=== PATIENT | male | born 1955 | race Caucasian/White ===

== ENCOUNTER 2018-12-08 11:02 | Inpatient (IN) | payer SELFPAY ==
[~2018-12-08] VITALS: Ht 160 cm; Wt 60.3 kg
[2018-12-08] MEDS ORDERED: IV NORMAL SALINE 1000ML BAG 1,000 ML IV SCH (11:23)
--- NOTE | 2018-12-08 11:28 | PHYS DOC ---
Adult General Chief Complaint Chief Complaint: CHEST PAIN HPI HPI Patient is a 63-year-old male who presents with complaint of chest pain that has been waxing and waning for about the last week and a half. Patient states the pain had gotten much worse last night and states that it was a 10 out of 10. He states that pain would start when he was walking and then he would have to sit down and rest for a while after which pain would nearly resolved but isn' t as he would walk again, the pain would return. He states that the pain currently is not as severe. He rates his pain currently at a 4 out of 10. He states that he has had no nausea, vomiting or diaphoresis. He states the pain radiates into both shoulders and axillae and pain down both arms. Review of Systems Review of Systems Constitutional: Denies fever or chills [] Respiratory: Denies cough or shortness of breath [] Cardiovascular: No additional information not addressed in HPI [] GI: Denies abdominal pain, nausea, vomiting or diarrhea [] Integument: Denies rash or skin lesions [] Neurologic: Denies headache, focal weakness or sensory changes [] All other systems were reviewed and found to be within normal limits, except as documented in this note. Current Medications Current Medications Current Medications Medications (Trade) Dose Ordered Sig/[facility] Start Time Stop Time Status Last Admin Dose Admin Aspirin (Children'S Aspirin) 324 mg 1X ONCE 12/08/18 11:30 12/08/18 11:47 DC 12/08/18 11:54 324 MG Nitroglycerin (Nitrostat) 0.4 mg PRN Q5MIN PRN 12/08/18 11:30 12/09/18 11:29 12/08/18 11:57 0.4 MG Sodium Chloride 1,000 ml @ 1,000 mls/hr Q1H 12/08/18 11:23 12/08/18 12:22 DC 12/08/18 11:56 1,000 MLS/HR Allergies Allergies Allergies Coded Allergies Type Severity Reaction Last Updated Verified No Known Drug Allergies 12/08/18 No Physical Exam Physical Exam Constitutional: Well developed, well nourished, no acute distress, non-toxic appearance. [] HENT: Normocephalic, atraumatic, bilateral external ears normal, oropharynx moist, no oral exudates, nose normal. [] Eyes: PERRLA, EOMI, conjunctiva normal, no discharge. [] Neck: Normal range of motion, no tenderness, supple, no stridor. [] Cardiovascular: Regular rate and rhythm[] Lungs & Thorax: Bilateral breath sounds clear to auscultation [] Abdomen: Bowel sounds normal, soft, no tenderness. [] Skin: Warm, dry, no erythema, no rash. [] Extremities: No tenderness, no cyanosis, no clubbing, ROM intact, no edema. [] Neurologic: Alert and oriented X 3, no focal deficits noted. [] Current Patient Data Vital Signs Vital Signs Date Time Temp Pulse Resp B/P (MAP) Pulse Ox O2 Delivery O2 Flow Rate FiO2 12/08/18 11:57 81 158/79 12/08/18 11:10 98.6 16 99 Room Air 98.6 Lab Values Laboratory Tests Test 12/08/18 11:46 12/08/18 13:12 White Blood Count 8.1 x10^3/uL (4.0-11.0) Red Blood Count 4.52 x10^6/uL (4.30-5.70) Hemoglobin 14.9 g/dL (13.0-17.5) Hematocrit 43.8 % (39.0-53.0) Mean Corpuscular Volume 97 fL (79-100) Mean Corpuscular Hemoglobin 33 pg (25-35) Mean Corpuscular Hemoglobin Concent 34 g/dL (31-37) Red Cell Distribution Width 12.8 % (11.5-14.5) Platelet Count 190 x10^3/uL (140-400) Neutrophils (%) (Auto) 68 % (31-73) Lymphocytes (%) (Auto) 21 % (24-48) L Monocytes (%) (Auto) 7 % (0-9) Eosinophils (%) (Auto) 4 % (0-3) H Basophils (%) (Auto) 1 % (0-3) Neutrophils # (Auto) 5.5 x10^3uL (1.8-7.7) Lymphocytes # (Auto) 1.7 x10^3/uL (1.0-4.8) Monocytes # (Auto) 0.6 x10^3/uL (0.0-1.1) Eosinophils # (Auto) 0.3 x10^3/uL (0.0-0.7) Basophils # (Auto) 0.1 x10^3/uL (0.0-0.2) Sodium Level 138 mmol/L (136-145) Potassium Level 4.2 mmol/L (3.5-5.1) Chloride Level 100 mmol/L (98-107) Carbon Dioxide Level 28 mmol/L (21-32) Anion Gap 10 (6-14) Blood Urea Nitrogen 12 mg/dL (8-26) Creatinine 1.2 mg/dL (0.7-1.3) Estimated GFR (Cockcroft-Gault) 61.3 BUN/Creatinine Ratio 10 (6-20) Glucose Level 109 mg/dL (70-99) H Calcium Level 9.1 mg/dL (8.5-10.1) Magnesium Level 2.3 mg/dL (1.8-2.4) Total Bilirubin 0.8 mg/dL (0.2-1.0) Aspartate Amino Transferase (AST) 16 U/L (15-37) Alanine Aminotransferase (ALT) 17 U/L (16-63) Alkaline Phosphatase 87 U/L (46-116) Troponin I Quantitative < 0.017 ng/mL (0.000-0.055) ZI-Yde-T-Type Natriuretic Peptide 72 pg/mL (0-124) Total Protein 8.3 g/dL (6.4-8.2) H Albumin 4.0 g/dL (3.4-5.0) Albumin/Globulin Ratio 0.9 (1.0-1.7) L Lipase 205 U/L (73-393) Urine Collection Type Unknown Urine Color Yellow Urine Clarity Clear Urine pH 5.5 Urine Specific [place] 1.010 Urine Protein Negative mg/dL (NEG-TRACE) Urine Glucose (UA) Negative mg/dL (NEG) Urine Ketones (Stick) Negative mg/dL (NEG) Urine Blood Negative (NEG) Urine Nitrite Negative (NEG) Urine Bilirubin Negative (NEG) Urine Urobilinogen Dipstick 0.2 mg/dL (0.2 mg/dL) Urine Leukocyte Esterase Trace (NEG) Urine RBC Occ /HPF (0-2) Urine WBC 5-10 /HPF (0-4) Urine Squamous Epithelial Cells Few /LPF Urine Transitional Epithelial Cells Occ /LPF Urine Renal Epithelial Cells Occ /LPF Urine Bacteria Few /HPF (0-FEW) Urine Mucus Mod /LPF Urine Opiates Screen Neg (NEG) Urine Methadone Screen Neg (NEG) Urine Barbiturates Neg (NEG) Urine Phencyclidine Screen Neg (NEG) Urine Amphetamine/Methamphetamine Neg (NEG) Urine Benzodiazepines Screen Neg (NEG) Urine Cocaine Screen Neg (NEG) Urine Cannabinoids Screen Pos (NEG) Urine Ethyl Alcohol Neg (NEG) Laboratory Tests 12/08/18 11:46 Laboratory Tests 12/08/18 11:46 EKG EKG [] Interpretation Time: EKG demonstrates normal sinus rhythm with rate of 85. Radiology/Procedures Radiology/Procedures [] Impressions: PROCEDURE: PORTABLE CHEST 1V EXAM: CHEST 1 VIEW History: Chest pain COMPARISON: None available. TECHNIQUE: Single portable radiograph of the chest FINDINGS: The cardiac silhouette is unremarkable. The lungs are clear bilaterally. The costophrenic sulci are clear and well demarcated. IMPRESSION: No radiographic evidence of an acute cardiopulmonary process. Electronically signed by: Tyshawn Goins MD (12/08/2018 11:45 AM) [place] [id number] Course & Med Decision Making Course & Med Decision Making Pertinent Labs and Imaging studies reviewed. (See chart for details) [] Dragon Disclaimer Dragon Disclaimer This electronic medical record was generated, in whole or in part, using a voice recognition dictation system. Departure Departure Impression: Primary Impression: Chest pain Disposition: ADMITTED INPATIENT Admitting Physician: Carley Apodaca Condition: IMPROVED Referrals: UNKNOWN PCP NAME (PCP) Problem Qualifiers Primary Impression: Chest pain Chest pain type: unspecified Qualified Codes: R07.9 - Chest pain, unspecified LEANDER MEI Jr. DO Dec 08, 2018 11:28
[2018-12-08] MEDS ORDERED: NITROGLYCERIN SUBLINGUAL 0.4 MG BOTTLE OF 25. SL PRN ×2 (11:30→13:45)
[2018-12-08] MEDS ORDERED: ASPIRIN CHEWABLE 81 MG TABLET. PO ONE (11:30)
--- NOTE | 2018-12-08 11:48 | RAD ---
EXAM: CHEST 1 VIEW History: Chest pain COMPARISON: None available. TECHNIQUE: Single portable radiograph of the chest FINDINGS: The cardiac silhouette is unremarkable. The lungs are clear bilaterally. The costophrenic sulci are clear and well demarcated. IMPRESSION: No radiographic evidence of an acute cardiopulmonary process. Electronically signed by: Tyshawn Goins MD (12/08/2018 11:45 AM) [place] [id number]
[2018-12-08 11:54] LABS: BASO # 0.1 x10^3/uL (0.0-0.2); BASO % 1 % (0-3); EOS # 0.3 x10^3/uL (0.0-0.7); EOS % 4 % (0-3); HEMATOCRIT 43.8 % (39.0-53.0); HEMOGLOBIN 14.9 g/dL (13.0-17.5); LYMPH # 1.7 x10^3/uL (1.0-4.8); LYMPH % 21 % (24-48); MEAN CORPUSCULAR HEMOGLOBIN 33 pg (25-35); MEAN CORPUSCULAR HGB CONC 34 g/dL (31-37); MEAN CORPUSCULAR VOLUME 97 fL (79-100); MONO # 0.6 x10^3/uL (0.0-1.1); MONO % 7 % (0-9); NEUT # 5.5 x10^3uL (1.8-7.7); NEUT % 68 % (31-73); PLATELET COUNT 190 x10^3/uL (140-400); RED BLOOD COUNT 4.52 x10^6/uL (4.30-5.70); RED CELL DISTRIBUTION WIDTH 12.8 % (11.5-14.5); WHITE BLOOD COUNT 8.1 x10^3/uL (4.0-11.0)
[2018-12-08 12:28] LABS: ALBUMIN/GLOBULIN RATIO 0.9 (1.0-1.7); CALCIUM 9.1 mg/dL (8.5-10.1); CREATININE 1.2 mg/dL (0.7-1.3); GFR 61.3; MAGNESIUM 2.3 mg/dL (1.8-2.4); POTASSIUM 4.2 mmol/L (3.5-5.1); TOTAL BILIRUBIN 0.8 mg/dL (0.2-1.0); TOTAL PROTEIN 8.3 g/dL (6.4-8.2)
[2018-12-08 13:20] LABS: BILIRUBIN,URINE NEGATIVE (NEG); CLARITY,URINE CLEAR; COLOR,URINE YELLOW; NITRITE,URINE NEGATIVE (NEG); PH,URINE 5.5; PROTEIN,URINE NEGATIVE (NEG-TRACE); UROBILINOGEN,URINE 0.2 mg/dL (0.2 mg/dL)
[2018-12-08 13:25] LABS: SQUAMOUS EPITHELIAL CELL,UR FEW /LPF
[2018-12-08 13:26] LABS: BACTERIA,URINE FEW /HPF (0-FEW)
[2018-12-08 13:27] LABS: RBC,URINE OCC /HPF (0-2)
[2018-12-08 13:28] LABS: BARBITURATES NEG (NEG); BENZODIAZEPINES NEG (NEG); CANNABINOIDS POS (NEG); COCAINE NEG (NEG); METHADONE NEG (NEG); OPIATES NEG (NEG); PHENCYCLIDINE NEG (NEG)
[2018-12-08 13:29] LABS: AMPHETAMINE/METHAMPHETAMINE NEG (NEG)
[2018-12-08] MEDS ORDERED: MORPHINE SULFATE 4 MG/ML VIAL. IV PRN (13:45)
[2018-12-08] MEDS ORDERED: ONDANSETRON PF 4 MG/2 ML VIAL. IV PRN (13:45)
[2018-12-08 14:30] VITALS: BP 159/73
--- NOTE | 2018-12-08 14:38 | NUR ---
The patient, SYLVIA SMITH, 63 y/o, M admitted by UBALDO URBINA MD, was given written information regarding hospital policies, unit procedures and contact persons. Valuables were checked and noted. Patient arrived to room 262 via bed from ER at 1438. Patient A&OX4. VSS. No complaints of pain at this time. Will continue to monitor.
[2018-12-08] MEDS ORDERED: ASPI-612 PO (15:06)
--- NOTE | 2018-12-08 16:20 | PDOC1 ---
History and Physical Date of Admission Date of Admission DATE: 12/08/18 TIME: 16:20 Identification/Chief Complaint Chief Complaint chest pain Source Source: Chart review, Patient History of Present Illness History of Present Illness Mr. Wise, is a 63-year-old male admit with chest pain that has been fluctuating for 1 week. Pain worse last night, 10/10, better this afternoon, 5/10 prior CAD konwn, no meds for years, daily aspirin, 2001, AMI, no hospitalization since, he is retired from [employer], He states the pain radiates into both shoulders and axillae and pain down both arms. Past Medical History Cardiovascular: No pertinent hx Pulmonary: No pertinent hx GI: No pertinent hx Heme/Onc: No pertinent hx Endocrine: No pertinent hx Dermatology: No pertinent hx Family History Family History: Hypertension, Other Social History Smoke: No ALCOHOL: none Current Problem List Problem List Problems Medical Problems: (1) Chest pain Status: Acute Current Medications Current Medications Current Medications Aspirin (Children'S Aspirin) 324 mg 1X ONCE PO Last administered on 12/08/18at 11:54; Start 12/08/18 at 11:30; Stop 12/08/18 at 11:47; Status DC Nitroglycerin (Nitrostat) 0.4 mg PRN Q5MIN PRN SL CP RATING > 1/10 Last administered on 12/08/18at 11:57; Start 12/08/18 at 11:30; Stop 12/09/18 at 11:29 Sodium Chloride 1,000 ml @ 1,000 mls/hr Q1H IV Last administered on 12/08/18at 11:56; Start 12/08/18 at 11:23; Stop 12/08/18 at 12:22; Status DC Ondansetron HCl (Zofran) 4 mg PRN Q8HRS PRN IV NAUSEA/VOMITING; Start 12/08/18 at 13:45; Stop 12/09/18 at 13:44 Morphine Sulfate (Morphine Sulfate) 4 mg PRN Q2HR PRN IV PAIN; Start 12/08/18 at 13:45; Stop 12/09/18 at 13:44 Nitroglycerin (Nitrostat) 0.4 mg PRN Q5MIN PRN SL CHEST PAIN; Start 12/08/18 at 13:45; Stop 12/09/18 at 13:44 Influenza Virus Vaccine (Brendanuria Trivalent [id number] Syringe) 0.5 ml ONCE ONCE VAX IM ; Start 12/08/18 at 16:15; Stop 12/08/18 at 16:16; Status UNV Active Scripts Active Reported Aspirin Ec (Aspirin) 81 Mg Tablet.dr 81 Mg PO DAILY Allergies Allergies: Coded Allergies: No Known Drug Allergies (Unverified , 12/08/18) ROS General: No: Chills, Night Sweats, Fatigue, Malaise, Appetite, Other PSYCHOLOGICAL ROS: YES: Anxiety; No: Behavioral Disorder, Concentration difficultie, Decreased libido, Depression, Disorientation, Hallucinations, Hostility, Irritablity, Memory difficulties, Mood Swings, Obsessive thoughts, Physical abuse, Sexual abuse, Sleep disturbances, Suicidal ideation, Other Eyes: No Blurry vision, No Decreased vision, No Double vision, No Dry eyes, No Excessive tearing, No Eye Pain, No Itchy Eyes, No Loss of vision, No Photophobia , No Scotomata, No Uses contacts, No Uses glasses, No Other HEENT: No: Heacaches, Visual Changes, Hearing change, Nasal congestion, Nasal discharge, Oral lesions, Sinus pain, Sore Throat, Epistaxis, Sneezing, Snoring, Tinnitus, Vertigo, Vocal changes, Other Respiratory: No: Cough, Hemoptysis, Orthopnea, Pleuritic Pain, Shortness of breath, SOB with excertion, Sputum Changes, Stridor, Tachypnea, Wheezing, Other Cardiovascular: No Chest Pain, No Palpitations, No Orthopnea, No Paroxysmal Noc. Dyspnea, No Edema, No Lt Headedness, No Other Gastrointestinal: No Nausea, No Vomiting, No Abdominal Pain, No Diarrhea, No Constipation, No Melena, No Hematochezia, No Other Genitourinary: No Dysuria, No Frequency, No Incontinence, No Hematuria, No Retention, No Discharge, No Urgency, No Pain, No Flank Pain, No Other, No , No , No , No , No , No , No Musculoskeletal: No Gait Disturbance, No Joint Pain, No Joint Stiffness, No Joint Swelling, No Muscle Pain, No Muscular Weakness, No Pain In:, No Swelling In:, No Other Neurological: No Behavorial Changes, No Bowel/Bladder ControlChng, No Confusion , No Dizziness, No Gait Disturbance, No Headaches, No Impaired Coord/balance, No Memory Loss, No Numbness/Tingling, No Seizures, No Speech Problems, No Tremors, No Visual Changes, No Weakness, No Other Skin: Yes Dry Skin; No Eczema, No Hair Changes, No Lumps, No Mole Changes, No Mottling, No Nail Changes, No Pruritus, No Rash, No Skin Lesion Changes, No Other, No Acne Physical Exam General: Alert, Oriented X3, Cooperative, mild distress HEENT: Atraumatic, PERRLA, EOMI Lungs: Normal air movement Heart: no murmurs Abdomen: Normal bowel sounds, Soft Rectal Exam: not examined Extremities: No clubbing, No edema Skin: No rashes Neuro: Normal speech, Cranial nerves 3-12 NL Vitals Vitals Vital Signs Date Time Temp Pulse Resp B/P (MAP) Pulse Ox O2 Delivery O2 Flow Rate FiO2 12/08/18 14:30 98.1 63 18 159/73 (101) 98 Room Air 98.1 Labs Labs Laboratory Tests Test 12/08/18 11:46 12/08/18 13:12 White Blood Count 8.1 x10^3/uL (4.0-11.0) Red Blood Count 4.52 x10^6/uL (4.30-5.70) Hemoglobin 14.9 g/dL (13.0-17.5) Hematocrit 43.8 % (39.0-53.0) Mean Corpuscular Volume 97 fL (79-100) Mean Corpuscular Hemoglobin 33 pg (25-35) Mean Corpuscular Hemoglobin Concent 34 g/dL (31-37) Red Cell Distribution Width 12.8 % (11.5-14.5) Platelet Count 190 x10^3/uL (140-400) Neutrophils (%) (Auto) 68 % (31-73) Lymphocytes (%) (Auto) 21 % (24-48) Monocytes (%) (Auto) 7 % (0-9) Eosinophils (%) (Auto) 4 % (0-3) Basophils (%) (Auto) 1 % (0-3) Neutrophils # (Auto) 5.5 x10^3uL (1.8-7.7) Lymphocytes # (Auto) 1.7 x10^3/uL (1.0-4.8) Monocytes # (Auto) 0.6 x10^3/uL (0.0-1.1) Eosinophils # (Auto) 0.3 x10^3/uL (0.0-0.7) Basophils # (Auto) 0.1 x10^3/uL (0.0-0.2) Sodium Level 138 mmol/L (136-145) Potassium Level 4.2 mmol/L (3.5-5.1) Chloride Level 100 mmol/L (98-107) Carbon Dioxide Level 28 mmol/L (21-32) Anion Gap 10 (6-14) Blood Urea Nitrogen 12 mg/dL (8-26) Creatinine 1.2 mg/dL (0.7-1.3) Estimated GFR (Cockcroft-Gault) 61.3 BUN/Creatinine Ratio 10 (6-20) Glucose Level 109 mg/dL (70-99) Calcium Level 9.1 mg/dL (8.5-10.1) Magnesium Level 2.3 mg/dL (1.8-2.4) Total Bilirubin 0.8 mg/dL (0.2-1.0) Aspartate Amino Transf (AST/SGOT) 16 U/L (15-37) Alanine Aminotransferase (ALT/SGPT) 17 U/L (16-63) Alkaline Phosphatase 87 U/L (46-116) Troponin I Quantitative < 0.017 ng/mL (0.000-0.055) CW-Xsn-B-Type Natriuretic Peptide 72 pg/mL (0-124) Total Protein 8.3 g/dL (6.4-8.2) Albumin 4.0 g/dL (3.4-5.0) Albumin/Globulin Ratio 0.9 (1.0-1.7) Lipase 205 U/L (73-393) Urine Collection Type Unknown Urine Color Yellow Urine Clarity Clear Urine pH 5.5 Urine Specific [place] 1.010 Urine Protein Negative mg/dL (NEG-TRACE) Urine Glucose (UA) Negative mg/dL (NEG) Urine Ketones (Stick) Negative mg/dL (NEG) Urine Blood Negative (NEG) Urine Nitrite Negative (NEG) Urine Bilirubin Negative (NEG) Urine Urobilinogen Dipstick 0.2 mg/dL (0.2 mg/dL) Urine Leukocyte Esterase Trace (NEG) Urine RBC Occ /HPF (0-2) Urine WBC 5-10 /HPF (0-4) Urine Squamous Epithelial Cells Few /LPF Urine Transitional Epithelial Cells Occ /LPF Urine Renal Epithelial Cells Occ /LPF Urine Bacteria Few /HPF (0-FEW) Urine Mucus Mod /LPF Urine Opiates Screen Neg (NEG) Urine Methadone Screen Neg (NEG) Urine Barbiturates Neg (NEG) Urine Phencyclidine Screen Neg (NEG) Urine Amphetamine/Methamphetamine Neg (NEG) Urine Benzodiazepines Screen Neg (NEG) Urine Cocaine Screen Neg (NEG) Urine Cannabinoids Screen Pos (NEG) Urine Ethyl Alcohol Neg (NEG) Laboratory Tests Test 12/08/18 11:46 12/08/18 13:12 White Blood Count 8.1 x10^3/uL (4.0-11.0) Red Blood Count 4.52 x10^6/uL (4.30-5.70) Hemoglobin 14.9 g/dL (13.0-17.5) Hematocrit 43.8 % (39.0-53.0) Mean Corpuscular Volume 97 fL (79-100) Mean Corpuscular Hemoglobin 33 pg (25-35) Mean Corpuscular Hemoglobin Concent 34 g/dL (31-37) Red Cell Distribution Width 12.8 % (11.5-14.5) Platelet Count 190 x10^3/uL (140-400) Neutrophils (%) (Auto) 68 % (31-73) Lymphocytes (%) (Auto) 21 % (24-48) Monocytes (%) (Auto) 7 % (0-9) Eosinophils (%) (Auto) 4 % (0-3) Basophils (%) (Auto) 1 % (0-3) Neutrophils # (Auto) 5.5 x10^3uL (1.8-7.7) Lymphocytes # (Auto) 1.7 x10^3/uL (1.0-4.8) Monocytes # (Auto) 0.6 x10^3/uL (0.0-1.1) Eosinophils # (Auto) 0.3 x10^3/uL (0.0-0.7) Basophils # (Auto) 0.1 x10^3/uL (0.0-0.2) Sodium Level 138 mmol/L (136-145) Potassium Level 4.2 mmol/L (3.5-5.1) Chloride Level 100 mmol/L (98-107) Carbon Dioxide Level 28 mmol/L (21-32) Anion Gap 10 (6-14) Blood Urea Nitrogen 12 mg/dL (8-26) Creatinine 1.2 mg/dL (0.7-1.3) Estimated GFR (Cockcroft-Gault) 61.3 BUN/Creatinine Ratio 10 (6-20) Glucose Level 109 mg/dL (70-99) Calcium Level 9.1 mg/dL (8.5-10.1) Magnesium Level 2.3 mg/dL (1.8-2.4) Total Bilirubin 0.8 mg/dL (0.2-1.0) Aspartate Amino Transf (AST/SGOT) 16 U/L (15-37) Alanine Aminotransferase (ALT/SGPT) 17 U/L (16-63) Alkaline Phosphatase 87 U/L (46-116) Troponin I Quantitative < 0.017 ng/mL (0.000-0.055) VB-Twi-[id number]-Type Natriuretic Peptide 72 pg/mL (0-124) Total Protein 8.3 g/dL (6.4-8.2) Albumin 4.0 g/dL (3.4-5.0) Albumin/Globulin Ratio 0.9 (1.0-1.7) Lipase 205 U/L (73-393) Urine Collection Type Unknown Urine Color Yellow Urine Clarity Clear Urine pH 5.5 Urine Specific [place] 1.010 Urine Protein Negative mg/dL (NEG-TRACE) Urine Glucose (UA) Negative mg/dL (NEG) Urine Ketones (Stick) Negative mg/dL (NEG) Urine Blood Negative (NEG) Urine Nitrite Negative (NEG) Urine Bilirubin Negative (NEG) Urine Urobilinogen Dipstick 0.2 mg/dL (0.2 mg/dL) Urine Leukocyte Esterase Trace (NEG) Urine RBC Occ /HPF (0-2) Urine WBC 5-10 /HPF (0-4) Urine Squamous Epithelial Cells Few /LPF Urine Transitional Epithelial Cells Occ /LPF Urine Renal Epithelial Cells Occ /LPF Urine Bacteria Few /HPF (0-FEW) Urine Mucus Mod /LPF Urine Opiates Screen Neg (NEG) Urine Methadone Screen Neg (NEG) Urine Barbiturates Neg (NEG) Urine Phencyclidine Screen Neg (NEG) Urine Amphetamine/Methamphetamine Neg (NEG) Urine Benzodiazepines Screen Neg (NEG) Urine Cocaine Screen Neg (NEG) Urine Cannabinoids Screen Pos (NEG) Urine Ethyl Alcohol Neg (NEG) VTE Prophylaxis Ordered VTE Prophylaxis Devices: No VTE Pharmacological Prophylaxi: Yes Assessment/Plan Assessment/Plan chest pain, w. pressure to back and neck Hx CAD, stents placed here by Dr. Diane in 2001 tobacco and THC use admit, UBALDO URBINA MD Dec 08, 2018 16:20
[2018-12-08 19:39] VITALS: BP 150/78
[2018-12-08] MEDS: ENOXAPARIN 40 MG/0.4 ML SYRINGE. SQ SCH (20:39)
[2018-12-08 23:25] VITALS: BP 128/66
[2018-12-09] VITALS (16 sets, daily range): BP systolic 90–142; BP diastolic 44–84
[2018-12-09 05:15] LABS: BASO # 0.1 x10^3/uL (0.0-0.2); BASO % 1 % (0-3); EOS # 0.3 x10^3/uL (0.0-0.7); EOS % 3 % (0-3); HEMATOCRIT 40.2 % (39.0-53.0); HEMOGLOBIN 13.5 g/dL (13.0-17.5); LYMPH # 1.3 x10^3/uL (1.0-4.8); LYMPH % 15 % (24-48); MEAN CORPUSCULAR HEMOGLOBIN 33 pg (25-35); MEAN CORPUSCULAR HGB CONC 34 g/dL (31-37); MEAN CORPUSCULAR VOLUME 99 fL (79-100); MONO # 0.6 x10^3/uL (0.0-1.1); MONO % 7 % (0-9); NEUT # 6.4 x10^3uL (1.8-7.7); NEUT % 74 % (31-73); PLATELET COUNT 153 x10^3/uL (140-400); RED BLOOD COUNT 4.08 x10^6/uL (4.30-5.70); RED CELL DISTRIBUTION WIDTH 12.9 % (11.5-14.5); WHITE BLOOD COUNT 8.7 x10^3/uL (4.0-11.0)
[2018-12-09 05:55] LABS: ALBUMIN 3.4 g/dL (3.4-5.0); ALBUMIN/GLOBULIN RATIO 0.9 (1.0-1.7); CALCIUM 8.6 mg/dL (8.5-10.1); CREATININE 1.2 mg/dL (0.7-1.3); GFR 61.3; POTASSIUM 4.3 mmol/L (3.5-5.1); TOTAL BILIRUBIN 0.8 mg/dL (0.2-1.0)
--- NOTE | 2018-12-09 09:07 | PDOC2 ---
CARDIAC CONSULT DATE OF CONSULT Date of Consult DATE: 12/09/18 TIME: 08:34 REASON FOR CONSULT Reason for Consult: Chest pain REFERRING PHYSICIAN Referring Physician: David SOURCE Source: Chart review, Patient HISTORY OF PRESENT ILLNESS HISTORY OF PRESENT ILLNESS This is a pleasant 63 yo male admitted for complains of chest pain. Reports that he was walking last night and felt this midchest excruciating pain that made him stop walking. He said that it felt like electricution that last for about 5 minutes and sometimes 15 minutes at a time radiating to both jaws and left arm with tingling to his fingers. Denies any SOA but felt like uncomfortable to take a deep breath. His CP is not the same as when he had his stents placed in 2001. He said that this pain has been chronic going on since 2012 but his has increased in the last week and this is worse. He has not been taking any medications and has not followed up in many years. It was Dr. Fields that placed his stent and claims he just went home with plavix when DCd at that time. Denies any nausea, palpitations but felt like his heart was beating hard. Reports that he was rocking himself when he was having that pain but overnight he has not had any. Denies any routine NSAID use, recent falls, injury, VTE. PAST MEDICAL HISTORY Cardiovascular: CAD, HTN Pulmonary: No pertinent hx CENTRAL NERVOUS SYSTEM: Other (No pertinent history) GI: No pertinent hx Heme/Onc: No pertinent hx Psych: No pertinent hx Musculoskeletal: Osteoarthritis Rheumatologic: No pertinent hx Infectious disease: No pertinent hx ENT: Other (GAMBELL) Renal/: No pertinent hx Endocrine: No pertinent hx Dermatology: No pertinent hx PAST SURGICAL HISTORY Past Surgical History: Other (PCI/stents in 2001) FAMILY HISTORY Family History: Coronary Artery Disease (father and mother) SOCIAL HISTORY Smoke: 1 pack per day (>40 yrs) ALCOHOL: occassional Drugs: Marijuana Lives: Alone CURRENT MEDICATIONS CURRENT MEDICATIONS Current Medications Medications (Trade) Dose Ordered Sig/Jono Route PRN Reason Start Time Stop Time Status Last Admin Dose Admin Aspirin (Children'S Aspirin) 324 mg 1X ONCE PO 12/08/18 11:30 12/08/18 11:47 DC 12/08/18 11:54 Nitroglycerin (Nitrostat) 0.4 mg PRN Q5MIN PRN SL CP RATING > 10/2712/08/18 11:30 12/09/18 11:29 12/08/18 11:57 Sodium Chloride 1,000 ml @ 1,000 mls/hr Q1H IV 12/08/18 11:23 12/08/18 12:22 DC 12/08/18 11:56 Influenza Virus Vaccine (Afluria Trivalent [id number] Syringe) 0.5 ml ONCE ONCE VAX IM 12/08/18 18:00 12/08/18 18:01 DC 12/08/18 18:32 Enoxaparin Sodium (Lovenox 40mg Syringe) 40 mg Q24H SQ 12/08/18 21:00 12/08/18 20:39 ALLERGIES ALLERGIES: Coded Allergies: No Known Drug Allergies (Unverified , 12/08/18) ROS Review of System 14 point ROS evaluated with pertinent positives noted per HPI PHYSICAL EXAM General: Alert, Oriented X3, Cooperative, No acute distress HEENT: Atraumatic, Mucous membr. moist/pink Lungs: Clear to auscultation, Normal air movement Heart: Regular rate (SR with occadional PVC), Normal S1, Normal S2, No murmurs Abdomen: Soft, No tenderness Extremities: No cyanosis, No edema Skin: No breakdown, No significant lesion Neuro: Normal speech, Sensation intact Psych/Mental Status: Mental status NL, Mood NL MUSCULOSKELETAL: Osteoarthritic changes both hands VITALS VITALS Vital Signs Date Time Temp Pulse Resp B/P (MAP) Pulse Ox O2 Delivery O2 Flow Rate FiO2 12/09/18 08:00 Room Air 12/09/18 07:00 97.7 67 18 128/76 (93) 94 97.7 LABS Lab: Laboratory Tests Test 12/08/18 11:46 12/08/18 13:12 12/08/18 16:55 12/08/18 20:00 White Blood Count 8.1 x10^3/uL (4.0-11.0) Red Blood Count 4.52 x10^6/uL (4.30-5.70) Hemoglobin 14.9 g/dL (13.0-17.5) Hematocrit 43.8 % (39.0-53.0) Mean Corpuscular Volume 97 fL (79-100) Mean Corpuscular Hemoglobin 33 pg (25-35) Mean Corpuscular Hemoglobin Concent 34 g/dL (31-37) Red Cell Distribution Width 12.8 % (11.5-14.5) Platelet Count 190 x10^3/uL (140-400) Neutrophils (%) (Auto) 68 % (31-73) Lymphocytes (%) (Auto) 21 % (24-48) Monocytes (%) (Auto) 7 % (0-9) Eosinophils (%) (Auto) 4 % (0-3) Basophils (%) (Auto) 1 % (0-3) Neutrophils # (Auto) 5.5 x10^3uL (1.8-7.7) Lymphocytes # (Auto) 1.7 x10^3/uL (1.0-4.8) Monocytes # (Auto) 0.6 x10^3/uL (0.0-1.1) Eosinophils # (Auto) 0.3 x10^3/uL (0.0-0.7) Basophils # (Auto) 0.1 x10^3/uL (0.0-0.2) Sodium Level 138 mmol/L (136-145) Potassium Level 4.2 mmol/L (3.5-5.1) Chloride Level 100 mmol/L (98-107) Carbon Dioxide Level 28 mmol/L (21-32) Anion Gap 10 (6-14) Blood Urea Nitrogen 12 mg/dL (8-26) Creatinine 1.2 mg/dL (0.7-1.3) Estimated GFR (Cockcroft-Gault) 61.3 BUN/Creatinine Ratio 10 (6-20) Glucose Level 109 mg/dL (70-99) Calcium Level 9.1 mg/dL (8.5-10.1) Magnesium Level 2.3 mg/dL (1.8-2.4) Total Bilirubin 0.8 mg/dL (0.2-1.0) Aspartate Amino Transf (AST/SGOT) 16 U/L (15-37) Alanine Aminotransferase (ALT/SGPT) 17 U/L (16-63) Alkaline Phosphatase 87 U/L (46-116) Troponin I Quantitative < 0.017 ng/mL (0.000-0.055) < 0.017 ng/mL (0.000-0.055) < 0.017 ng/mL (0.000-0.055) DW-Lzd-V-Type Natriuretic Peptide 72 pg/mL (0-124) Total Protein 8.3 g/dL (6.4-8.2) Albumin 4.0 g/dL (3.4-5.0) Albumin/Globulin Ratio 0.9 (1.0-1.7) Lipase 205 U/L (73-393) Urine Collection Type Unknown Urine Color Yellow Urine Clarity Clear Urine pH 5.5 Urine Specific [place] 1.010 Urine Protein Negative mg/dL (NEG-TRACE) Urine Glucose (UA) Negative mg/dL (NEG) Urine Ketones (Stick) Negative mg/dL (NEG) Urine Blood Negative (NEG) Urine Nitrite Negative (NEG) Urine Bilirubin Negative (NEG) Urine Urobilinogen Dipstick 0.2 mg/dL (0.2 mg/dL) Urine Leukocyte Esterase Trace (NEG) Urine RBC Occ /HPF (0-2) Urine WBC 5-10 /HPF (0-4) Urine Squamous Epithelial Cells Few /LPF Urine Transitional Epithelial Cells Occ /LPF Urine Renal Epithelial Cells Occ /LPF Urine Bacteria Few /HPF (0-FEW) Urine Mucus Mod /LPF Urine Opiates Screen Neg (NEG) Urine Methadone Screen Neg (NEG) Urine Barbiturates Neg (NEG) Urine Phencyclidine Screen Neg (NEG) Urine Amphetamine/Methamphetamine Neg (NEG) Urine Benzodiazepines Screen Neg (NEG) Urine Cocaine Screen Neg (NEG) Urine Cannabinoids Screen Pos (NEG) Urine Ethyl Alcohol Neg (NEG) Test 12/09/18 04:00 White Blood Count 8.7 x10^3/uL (4.0-11.0) Red Blood Count 4.08 x10^6/uL (4.30-5.70) Hemoglobin 13.5 g/dL (13.0-17.5) Hematocrit 40.2 % (39.0-53.0) Mean Corpuscular Volume 99 fL (79-100) Mean Corpuscular Hemoglobin 33 pg (25-35) Mean Corpuscular Hemoglobin Concent 34 g/dL (31-37) Red Cell Distribution Width 12.9 % (11.5-14.5) Platelet Count 153 x10^3/uL (140-400) Neutrophils (%) (Auto) 74 % (31-73) Lymphocytes (%) (Auto) 15 % (24-48) Monocytes (%) (Auto) 7 % (0-9) Eosinophils (%) (Auto) 3 % (0-3) Basophils (%) (Auto) 1 % (0-3) Neutrophils # (Auto) 6.4 x10^3uL (1.8-7.7) Lymphocytes # (Auto) 1.3 x10^3/uL (1.0-4.8) Monocytes # (Auto) 0.6 x10^3/uL (0.0-1.1) Eosinophils # (Auto) 0.3 x10^3/uL (0.0-0.7) Basophils # (Auto) 0.1 x10^3/uL (0.0-0.2) Sodium Level 139 mmol/L (136-145) Potassium Level 4.3 mmol/L (3.5-5.1) Chloride Level 104 mmol/L (98-107) Carbon Dioxide Level 27 mmol/L (21-32) Anion Gap 8 (6-14) Blood Urea Nitrogen 18 mg/dL (8-26) Creatinine 1.2 mg/dL (0.7-1.3) Estimated GFR (Cockcroft-Gault) 61.3 BUN/Creatinine Ratio 15 (6-20) Glucose Level 95 mg/dL (70-99) Calcium Level 8.6 mg/dL (8.5-10.1) Total Bilirubin 0.8 mg/dL (0.2-1.0) Aspartate Amino Transf (AST/SGOT) 11 U/L (15-37) Alanine Aminotransferase (ALT/SGPT) 16 U/L (16-63) Alkaline Phosphatase 72 U/L (46-116) Total Protein 7.0 g/dL (6.4-8.2) Albumin 3.4 g/dL (3.4-5.0) Albumin/Globulin Ratio 0.9 (1.0-1.7) Triglycerides Level 145 mg/dL (0-150) Cholesterol Level 157 mg/dL (0-200) LDL Cholesterol, Calculated 89 mg/dL (0-100) VLDL Cholesterol, Calculated 29 mg/dL (0-40) Non-HDL Cholesterol Calculated 118 mg/dL (0-129) HDL Cholesterol 39 mg/dL (40-60) Cholesterol/HDL Ratio 4.0 Thyroid Stimulating Hormone (TSH) 0.984 uIU/mL (0.358-3.74) ASSESSMENT/PLAN ASSESSMENT/PLAN 1. Chest pain 2. HTN: controlled 3. CAD: stents in 2001 4. Tobaccoism 5. Marijuana use Recommendations 1. TTE, lipid panel. suspicious for UA features, LHC today, risks and benefits discussed and agreeable to proceed. 2. ASA. Smoking and marijuana cessation. Further med changes pending [facility] result. MASON HOOKS APRN Dec 09, 2018 09:07
--- NOTE | 2018-12-09 10:13 | EKG ---
[address] [place] [id number] Test Date: 2018-12-08 Test Time: 11:14:42 Pat Name: SYLVIA SMITH Department: Room: 112 1 Gender: M [employer] Maker: : [id number] Requested By: LEANDER MEI Order Number: [id number] Reading MD: Marin Szymanski MD Measurements Intervals [place] Rate: 85 P: 61 FL: 112 QRS: 54 QRSD: 80 T: 55 QT: 366 QTc: 436 Interpretive Statements SINUS RHYTHM Electronically Signed On 12-19-2018 12:13:48 [employer] by Marin Szymanski MD
[2018-12-09] MEDS ORDERED: IODIXANOL 320 MG/ML 100 ML VIAL. ONE ×2 (10:49→12:10)
[2018-12-09] MEDS ORDERED: LIDOCAINE 1% Multi-Dose 20 ML VIAL. ONE (10:49)
--- NOTE | 2018-12-09 10:57 | CARD ---
MR#: [id number] Date of Study: 12/09/2018 Ordering Physician: MASON HOOKS, Referring Physician: UBALDO URBINA Tech: Stephanie Peterson ELIECER APPROVED REPORT EXAM: Two-dimensional and M-mode echocardiogram with Doppler and color Doppler. Other Information Quality : Good Rhythm : NSR INDICATION Chest Pain 2D DIMENSIONS RVDd2.9 (2.9-3.5cm)Left Atrium(2D)3.1 (1.6-4.0cm) IVSd0.9 (0.7-1.1cm)Aortic Root(2D)3.4 (2.0-3.7cm) LVDd4.9 (3.9-5.9cm)LVOT Diameter2.2 (1.8-2.4cm) PWd0.7 (0.7-1.1cm)LVDs3.8 (2.5-4.0cm) FS (%) 23.5 %SV53.8 ml LVEF(%)46.9 (>50%) M-Mode DIMENSIONS Left Atrium(MM)2.76 (2.5-4.0cm)Aortic Root3.10 (2.2-3.7cm) Aortic Valve AoV Peak Johnny.115.4cm/sAoV VTI23.7cm AO Peak GR.5.3mmHgLVOT Peak Johnny.69.5cm/s AO Mean GR.3mmHgAVA (VMAX)2.36cm2 FE (VTI)2.40cm2 Mitral Valve MV E Wiaodwqf43.4cm/sMV DECEL [id number] MV A Bqviynkw59.4cm/sE/A Ratio1.4 MV A [id number] Pulmonary Valve PV Peak Evpairij42.4cm/s Pulmonary Vein S1 Puexuorc54.8cm/sD2 Mysnyfoy48.2cm/s PVa [id number] LEFT VENTRICLE The left ventricle is normal size. There is normal left ventricular wall thickness. The left ventricu lar systolic function is mildly impaired. The Ejection Fraction is 45%. There is global hypokinesis o f the left ventricle. Transmitral Doppler flow pattern is Grade II-pseudonormal filling dynamics. RIGHT VENTRICLE The right ventricle is normal size. There is normal right ventricular wall thickness. The right ventr icular systolic function is normal. ATRIA The left atrium size is normal. The right atrium size is normal. The interatrial septum is intact wit h no evidence for an atrial septal defect or patent foramen ovale as noted on 2-D or Doppler imaging. AORTIC VALVE The aortic valve is normal in structure and function. The aortic valve is trileaflet. Doppler and Col or Flow revealed no significant aortic regurgitation. There is no significant aortic valvular stenosi s. MITRAL VALVE The mitral valve is normal in structure and function. There is no evidence of mitral valve prolapse. There is no mitral valve stenosis. Doppler and Color-flow revealed trace mitral regurgitation. TRICUSPID VALVE The tricuspid valve is normal in structure and function. Doppler and Color Flow revealed no tricuspid valve regurgitation noted. There is no tricuspid valve prolapse or vegetation. There is no tricuspid valve stenosis. PULMONIC VALVE The pulmonary valve is normal in structure and function. Doppler and Color Flow revealed no pulmonic valvular regurgitation. There is no pulmonic valvular stenosis. GREAT VESSELS The aortic root is normal in size. The ascending aorta is normal in size. The IVC is normal in size a nd collapses >50% with inspiration. PERICARDIAL EFFUSION There is no evidence of significant pericardial effusion. Critical Notification Critical Value: No <Conclusion> The left ventricular systolic function is mildly impaired. The Ejection Fraction is 45%. Doppler and Color-flow revealed trace mitral regurgitation. There is no evidence of significant pericardial effusion. Signed by : Jono Perez, Electronically Approved : 12/09/2018 10:56:59
[2018-12-09] MEDS ORDERED: fentaNYL PF VIAL 100 MCG/2 ML VIAL ONE (11:05)
[2018-12-09] MEDS ORDERED: MIDAZOLAM HCL/PF 2 MG/2 ML VIAL. ONE (11:05)
[2018-12-09] MEDS ORDERED: MIDAZOLAM HCL/PF 2 MG/2 ML VIAL. IV ONE (11:15)
[2018-12-09] MEDS ORDERED: IODIXANOL 320 MG/ML 100 ML VIAL. IART ONE (11:15)
[2018-12-09] MEDS ORDERED: LIDOCAINE 1% Multi-Dose 20 ML VIAL. INJ ONE (11:15)
[2018-12-09] MEDS ORDERED: fentaNYL PF VIAL 100 MCG/2 ML VIAL IV ONE (11:15)
[2018-12-09 11:16] LABS: PROTHROMBIN TIME PATIENT 12.4 SEC (11.7-14.0)
[2018-12-09] MEDS ORDERED: HEPARIN for IV BOLUS 10,000 UNIT/10 ML VIAL. ONE (12:02)
--- NOTE | 2018-12-09 12:14 | NUR ---
SS following for discharge planning. Pt is from home and currently on room air. Pt is a self pay pt and has no insurance. No discharge needs noted at this time. Pt receiving heart cath today. SS will continue to follow for pending discharge needs.
[2018-12-09] MEDS ORDERED: HEPARIN for IV BOLUS 10,000 UNIT/10 ML VIAL. IV ONE (12:15)
[2018-12-09] MEDS ORDERED: IV NORMAL SALINE 1000ML BAG 1,000 ML IV SCH (12:41)
[2018-12-09] MEDS ORDERED: NITROGLYCERIN SUBLINGUAL 0.4 MG BOTTLE OF 25. SL PRN (12:45)
[2018-12-09] MEDS ORDERED: 0.9 % SODIUM CHLORIDE 10 ML DISP.SYRIN. IV PRN (12:45)
--- NOTE | 2018-12-09 14:16 | PDOC ---
PROGRESS NOTES Chief Complaint Chief Complaint chest pain, w. pressure to back and neck Tensional headache as a result of muscle spasm Hx CAD, stents placed here by Dr. Diane in 2001 tobacco and THC use Plan: tizanidine pain management cardiac cath as per network consultant. History of Present Illness History of Present Illness Patient today complaining off neck discomfort that radiates to top of his head says. No other complaints no chest discomfort network consultant will take patient for cardiac catheterization later in the day no chest pain or ischemic changes on telemetry reassurance provided Vitals Vitals Vital Signs Date Time Temp Pulse Resp B/P (MAP) Pulse Ox O2 Delivery O2 Flow Rate FiO2 12/09/18 13:00 60 127/69 (88) 12/09/18 12:15 20 100 Nasal Cannula 2.0 12/09/18 07:00 97.7 97.7 Physical Exam General: Alert, Oriented X3, Cooperative, No acute distress Heart: Regular rate (SR with occadional PVC), Normal S1, Normal S2, No murmurs Abdomen: Soft, No tenderness Extremities: No cyanosis, No edema Skin: No breakdown, No significant lesion Labs LABS Laboratory Tests Test 12/08/18 16:55 12/08/18 20:00 12/09/18 04:00 12/09/18 10:45 Troponin I Quantitative < 0.017 ng/mL (0.000-0.055) < 0.017 ng/mL (0.000-0.055) White Blood Count 8.7 x10^3/uL (4.0-11.0) Red Blood Count 4.08 x10^6/uL (4.30-5.70) Hemoglobin 13.5 g/dL (13.0-17.5) Hematocrit 40.2 % (39.0-53.0) Mean Corpuscular Volume 99 fL (79-100) Mean Corpuscular Hemoglobin 33 pg (25-35) Mean Corpuscular Hemoglobin Concent 34 g/dL (31-37) Red Cell Distribution Width 12.9 % (11.5-14.5) Platelet Count 153 x10^3/uL (140-400) Neutrophils (%) (Auto) 74 % (31-73) Lymphocytes (%) (Auto) 15 % (24-48) Monocytes (%) (Auto) 7 % (0-9) Eosinophils (%) (Auto) 3 % (0-3) Basophils (%) (Auto) 1 % (0-3) Neutrophils # (Auto) 6.4 x10^3uL (1.8-7.7) Lymphocytes # (Auto) 1.3 x10^3/uL (1.0-4.8) Monocytes # (Auto) 0.6 x10^3/uL (0.0-1.1) Eosinophils # (Auto) 0.3 x10^3/uL (0.0-0.7) Basophils # (Auto) 0.1 x10^3/uL (0.0-0.2) Sodium Level 139 mmol/L (136-145) Potassium Level 4.3 mmol/L (3.5-5.1) Chloride Level 104 mmol/L (98-107) Carbon Dioxide Level 27 mmol/L (21-32) Anion Gap 8 (6-14) Blood Urea Nitrogen 18 mg/dL (8-26) Creatinine 1.2 mg/dL (0.7-1.3) Estimated GFR (Cockcroft-Gault) 61.3 BUN/Creatinine Ratio 15 (6-20) Glucose Level 95 mg/dL (70-99) Calcium Level 8.6 mg/dL (8.5-10.1) Magnesium Level 2.2 mg/dL (1.8-2.4) Total Bilirubin 0.8 mg/dL (0.2-1.0) Aspartate Amino Transf (AST/SGOT) 11 U/L (15-37) Alanine Aminotransferase (ALT/SGPT) 16 U/L (16-63) Alkaline Phosphatase 72 U/L (46-116) Total Protein 7.0 g/dL (6.4-8.2) Albumin 3.4 g/dL (3.4-5.0) Albumin/Globulin Ratio 0.9 (1.0-1.7) Triglycerides Level 145 mg/dL (0-150) Cholesterol Level 157 mg/dL (0-200) LDL Cholesterol, Calculated 89 mg/dL (0-100) VLDL Cholesterol, Calculated 29 mg/dL (0-40) Non-HDL Cholesterol Calculated 118 mg/dL (0-129) HDL Cholesterol 39 mg/dL (40-60) Cholesterol/HDL Ratio 4.0 Thyroid Stimulating Hormone (TSH) 0.984 uIU/mL (0.358-3.74) Prothrombin Time 12.4 SEC (11.7-14.0) Prothromb Time International Ratio 1.0 (0.8-1.1) Review of Systems Review of Systems Positive as per history of present illness otherwise 14 point system is negative Assessment and Plan Assessmemt and Plan Problems Medical Problems: (1) Chest pain Status: Acute Comment Review of Relevant I have reviewed the following items livan (where applicable) has been applied. Labs Laboratory Tests Test 12/08/18 11:46 12/08/18 13:12 12/08/18 16:55 12/08/18 20:00 White Blood Count 8.1 x10^3/uL (4.0-11.0) Red Blood Count 4.52 x10^6/uL (4.30-5.70) Hemoglobin 14.9 g/dL (13.0-17.5) Hematocrit 43.8 % (39.0-53.0) Mean Corpuscular Volume 97 fL (79-100) Mean Corpuscular Hemoglobin 33 pg (25-35) Mean Corpuscular Hemoglobin Concent 34 g/dL (31-37) Red Cell Distribution Width 12.8 % (11.5-14.5) Platelet Count 190 x10^3/uL (140-400) Neutrophils (%) (Auto) 68 % (31-73) Lymphocytes (%) (Auto) 21 % (24-48) Monocytes (%) (Auto) 7 % (0-9) Eosinophils (%) (Auto) 4 % (0-3) Basophils (%) (Auto) 1 % (0-3) Neutrophils # (Auto) 5.5 x10^3uL (1.8-7.7) Lymphocytes # (Auto) 1.7 x10^3/uL (1.0-4.8) Monocytes # (Auto) 0.6 x10^3/uL (0.0-1.1) Eosinophils # (Auto) 0.3 x10^3/uL (0.0-0.7) Basophils # (Auto) 0.1 x10^3/uL (0.0-0.2) Sodium Level 138 mmol/L (136-145) Potassium Level 4.2 mmol/L (3.5-5.1) Chloride Level 100 mmol/L (98-107) Carbon Dioxide Level 28 mmol/L (21-32) Anion Gap 10 (6-14) Blood Urea Nitrogen 12 mg/dL (8-26) Creatinine 1.2 mg/dL (0.7-1.3) Estimated GFR (Cockcroft-Gault) 61.3 BUN/Creatinine Ratio 10 (6-20) Glucose Level 109 mg/dL (70-99) Calcium Level 9.1 mg/dL (8.5-10.1) Magnesium Level 2.3 mg/dL (1.8-2.4) Total Bilirubin 0.8 mg/dL (0.2-1.0) Aspartate Amino Transf (AST/SGOT) 16 U/L (15-37) Alanine Aminotransferase (ALT/SGPT) 17 U/L (16-63) Alkaline Phosphatase 87 U/L (46-116) Troponin I Quantitative < 0.017 ng/mL (0.000-0.055) < 0.017 ng/mL (0.000-0.055) < 0.017 ng/mL (0.000-0.055) YX-Ejr-H-Type Natriuretic Peptide 72 pg/mL (0-124) Total Protein 8.3 g/dL (6.4-8.2) Albumin 4.0 g/dL (3.4-5.0) Albumin/Globulin Ratio 0.9 (1.0-1.7) Lipase 205 U/L (73-393) Urine Collection Type Unknown Urine Color Yellow Urine Clarity Clear Urine pH 5.5 Urine Specific [place] 1.010 Urine Protein Negative mg/dL (NEG-TRACE) Urine Glucose (UA) Negative mg/dL (NEG) Urine Ketones (Stick) Negative mg/dL (NEG) Urine Blood Negative (NEG) Urine Nitrite Negative (NEG) Urine Bilirubin Negative (NEG) Urine Urobilinogen Dipstick 0.2 mg/dL (0.2 mg/dL) Urine Leukocyte Esterase Trace (NEG) Urine RBC Occ /HPF (0-2) Urine WBC 5-10 /HPF (0-4) Urine Squamous Epithelial Cells Few /LPF Urine Transitional Epithelial Cells Occ /LPF Urine Renal Epithelial Cells Occ /LPF Urine Bacteria Few /HPF (0-FEW) Urine Mucus Mod /LPF Urine Opiates Screen Neg (NEG) Urine Methadone Screen Neg (NEG) Urine Barbiturates Neg (NEG) Urine Phencyclidine Screen Neg (NEG) Urine Amphetamine/Methamphetamine Neg (NEG) Urine Benzodiazepines Screen Neg (NEG) Urine Cocaine Screen Neg (NEG) Urine Cannabinoids Screen Pos (NEG) Urine Ethyl Alcohol Neg (NEG) Test 12/09/18 04:00 12/09/18 10:45 White Blood Count 8.7 x10^3/uL (4.0-11.0) Red Blood Count 4.08 x10^6/uL (4.30-5.70) Hemoglobin 13.5 g/dL (13.0-17.5) Hematocrit 40.2 % (39.0-53.0) Mean Corpuscular Volume 99 fL (79-100) Mean Corpuscular Hemoglobin 33 pg (25-35) Mean Corpuscular Hemoglobin Concent 34 g/dL (31-37) Red Cell Distribution Width 12.9 % (11.5-14.5) Platelet Count 153 x10^3/uL (140-400) Neutrophils (%) (Auto) 74 % (31-73) Lymphocytes (%) (Auto) 15 % (24-48) Monocytes (%) (Auto) 7 % (0-9) Eosinophils (%) (Auto) 3 % (0-3) Basophils (%) (Auto) 1 % (0-3) Neutrophils # (Auto) 6.4 x10^3uL (1.8-7.7) Lymphocytes # (Auto) 1.3 x10^3/uL (1.0-4.8) Monocytes # (Auto) 0.6 x10^3/uL (0.0-1.1) Eosinophils # (Auto) 0.3 x10^3/uL (0.0-0.7) Basophils # (Auto) 0.1 x10^3/uL (0.0-0.2) Sodium Level 139 mmol/L (136-145) Potassium Level 4.3 mmol/L (3.5-5.1) Chloride Level 104 mmol/L (98-107) Carbon Dioxide Level 27 mmol/L (21-32) Anion Gap 8 (6-14) Blood Urea Nitrogen 18 mg/dL (8-26) Creatinine 1.2 mg/dL (0.7-1.3) Estimated GFR (Cockcroft-Gault) 61.3 BUN/Creatinine Ratio 15 (6-20) Glucose Level 95 mg/dL (70-99) Calcium Level 8.6 mg/dL (8.5-10.1) Magnesium Level 2.2 mg/dL (1.8-2.4) Total Bilirubin 0.8 mg/dL (0.2-1.0) Aspartate Amino Transf (AST/SGOT) 11 U/L (15-37) Alanine Aminotransferase (ALT/SGPT) 16 U/L (16-63) Alkaline Phosphatase 72 U/L (46-116) Total Protein 7.0 g/dL (6.4-8.2) Albumin 3.4 g/dL (3.4-5.0) Albumin/Globulin Ratio 0.9 (1.0-1.7) Triglycerides Level 145 mg/dL (0-150) Cholesterol Level 157 mg/dL (0-200) LDL Cholesterol, Calculated 89 mg/dL (0-100) VLDL Cholesterol, Calculated 29 mg/dL (0-40) Non-HDL Cholesterol Calculated 118 mg/dL (0-129) HDL Cholesterol 39 mg/dL (40-60) Cholesterol/HDL Ratio 4.0 Thyroid Stimulating Hormone (TSH) 0.984 uIU/mL (0.358-3.74) Prothrombin Time 12.4 SEC (11.7-14.0) Prothromb Time International Ratio 1.0 (0.8-1.1) Laboratory Tests Test 12/08/18 16:55 12/08/18 20:00 12/09/18 04:00 12/09/18 10:45 Troponin I Quantitative < 0.017 ng/mL (0.000-0.055) < 0.017 ng/mL (0.000-0.055) White Blood Count 8.7 x10^3/uL (4.0-11.0) Red Blood Count 4.08 x10^6/uL (4.30-5.70) Hemoglobin 13.5 g/dL (13.0-17.5) Hematocrit 40.2 % (39.0-53.0) Mean Corpuscular Volume 99 fL (79-100) Mean Corpuscular Hemoglobin 33 pg (25-35) Mean Corpuscular Hemoglobin Concent 34 g/dL (31-37) Red Cell Distribution Width 12.9 % (11.5-14.5) Platelet Count 153 x10^3/uL (140-400) Neutrophils (%) (Auto) 74 % (31-73) Lymphocytes (%) (Auto) 15 % (24-48) Monocytes (%) (Auto) 7 % (0-9) Eosinophils (%) (Auto) 3 % (0-3) Basophils (%) (Auto) 1 % (0-3) Neutrophils # (Auto) 6.4 x10^3uL (1.8-7.7) Lymphocytes # (Auto) 1.3 x10^3/uL (1.0-4.8) Monocytes # (Auto) 0.6 x10^3/uL (0.0-1.1) Eosinophils # (Auto) 0.3 x10^3/uL (0.0-0.7) Basophils # (Auto) 0.1 x10^3/uL (0.0-0.2) Sodium Level 139 mmol/L (136-145) Potassium Level 4.3 mmol/L (3.5-5.1) Chloride Level 104 mmol/L (98-107) Carbon Dioxide Level 27 mmol/L (21-32) Anion Gap 8 (6-14) Blood Urea Nitrogen 18 mg/dL (8-26) Creatinine 1.2 mg/dL (0.7-1.3) Estimated GFR (Cockcroft-Gault) 61.3 BUN/Creatinine Ratio 15 (6-20) Glucose Level 95 mg/dL (70-99) Calcium Level 8.6 mg/dL (8.5-10.1) Magnesium Level 2.2 mg/dL (1.8-2.4) Total Bilirubin 0.8 mg/dL (0.2-1.0) Aspartate Amino Transf (AST/SGOT) 11 U/L (15-37) Alanine Aminotransferase (ALT/SGPT) 16 U/L (16-63) Alkaline Phosphatase 72 U/L (46-116) Total Protein 7.0 g/dL (6.4-8.2) Albumin 3.4 g/dL (3.4-5.0) Albumin/Globulin Ratio 0.9 (1.0-1.7) Triglycerides Level 145 mg/dL (0-150) Cholesterol Level 157 mg/dL (0-200) LDL Cholesterol, Calculated 89 mg/dL (0-100) VLDL Cholesterol, Calculated 29 mg/dL (0-40) Non-HDL Cholesterol Calculated 118 mg/dL (0-129) HDL Cholesterol 39 mg/dL (40-60) Cholesterol/HDL Ratio 4.0 Thyroid Stimulating Hormone (TSH) 0.984 uIU/mL (0.358-3.74) Prothrombin Time 12.4 SEC (11.7-14.0) Prothromb Time International Ratio 1.0 (0.8-1.1) Medications Current Medications Aspirin (Children'S Aspirin) 324 mg 1X ONCE PO Last administered on 12/08/18at 11:54; Start 12/08/18 at 11:30; Stop 12/08/18 at 11:47; Status DC Nitroglycerin (Nitrostat) 0.4 mg PRN Q5MIN PRN SL CP RATING > 1/10 Last administered on 12/08/18at 11:57; Start 12/08/18 at 11:30; Stop 12/09/18 at 11:29 ; Status DC Sodium Chloride 1,000 ml @ 1,000 mls/hr Q1H IV Last administered on 12/08/18at 11:56; Start 12/08/18 at 11:23; Stop 12/08/18 at 12:22; Status DC Ondansetron HCl (Zofran) 4 mg PRN Q8HRS PRN IV NAUSEA/VOMITING; Start 12/08/18 at 13:45; Stop 12/09/18 at 13:44; Status DC Morphine Sulfate (Morphine Sulfate) 4 mg PRN Q2HR PRN IV PAIN; Start 12/08/18 at 13:45; Stop 12/09/18 at 13:44; Status DC Nitroglycerin (Nitrostat) 0.4 mg PRN Q5MIN PRN SL CHEST PAIN; Start 12/08/18 at 13:45; Stop 12/09/18 at 13:44; Status DC Influenza Virus Vaccine (Afluria Trivalent 1530-1658 Syringe) 0.5 ml ONCE ONCE VAX IM Last administered on 12/08/18at 18:32; Start 12/08/18 at 18:00; Stop at 18:01; Status DC Enoxaparin Sodium (Lovenox Per Pharmacy Prophylaxis Dosing) 1 each PRN DAILY PRN MC SEE COMMENTS; Start 12/08/18 at 17:15 Enoxaparin Sodium (Lovenox 40mg Syringe) 40 mg Q24H SQ Last administered on at 20:39; Start 12/08/18 at 21:00 Iodixanol (Visipaque 320) 100 ml STK-MED ONCE .ROUTE ; Start 12/09/18 at 10:49; Stop 12/09/18 at 10:50; Status DC Lidocaine HCl (Lidocaine 1% 20ml Vial) 20 ml STK-MED ONCE .ROUTE ; Start at 10:49; Stop 12/09/18 at 10:50; Status DC Heparin Sodium/ Sodium Chloride 1,000 ml @ As Directed STK-MED ONCE .ROUTE ; Start 12/09/18 at 10:49; Stop 12/09/18 at 10:50; Status DC Heparin Sodium/ Sodium Chloride (HEPARIN for ARTERIAL LINE FLUSH) 1,000 unit 1X ONCE IART Last administered on 12/09/18at 11:15; Start 12/09/18 at 11:15; Stop 12/09/18 at 11:16; Status DC Midazolam HCl (Versed) 2 mg 1X ONCE IV Last administered on 12/09/18at 11:15; Start 12/09/18 at 11:15; Stop 12/09/18 at 11:16; Status DC Fentanyl Citrate (Fentanyl 2ml Vial) 100 mcg 1X ONCE IV Last administered on at 11:15; Start 12/09/18 at 11:15; Stop 12/09/18 at 11:16; Status DC Iodixanol (Visipaque 320) 100 ml 1X ONCE IART Last administered on 12/09/18at 11:15; Start 12/09/18 at 11:15; Stop 12/09/18 at 11:16; Status DC Lidocaine HCl (Lidocaine 1% 20ml Vial) 20 ml 1X ONCE INJ Last administered on 12/09/18at 11:15; Start 12/09/18 at 11:15; Stop 12/09/18 at 11:16; Status DC Fentanyl Citrate (Fentanyl 2ml Vial) 100 mcg STK-MED ONCE .ROUTE ; Start at 11:05; Stop 12/09/18 at 11:06; Status DC Midazolam HCl (Versed) 2 mg STK-MED ONCE .ROUTE ; Start 12/09/18 at 11:05; Stop 12/09/18 at 11:06; Status DC Heparin Sodium (Porcine) (Heparin Sodium) 10,000 unit STK-MED ONCE .ROUTE ; Start 12/09/18 at 12:02; Stop 12/09/18 at 12:03; Status DC Heparin Sodium (Porcine) (Heparin Sodium) 1,000 unit 1X ONCE IV Last administered on 12/09/18at 12:14; Start 12/09/18 at 12:15; Stop 12/09/18 at 12:16 ; Status DC Iodixanol (Visipaque 320) 100 ml STK-MED ONCE .ROUTE ; Start 12/09/18 at 12:10; Stop 12/09/18 at 12:11; Status DC Sodium Chloride (Normal Saline Flush) 3 ml QSHIFT PRN IV AFTER MEDS AND BLOOD DRAWS; Start 12/09/18 at 12:45 Sodium Chloride 1,000 ml @ 75 mls/hr [id number] IV ; Start 12/09/18 at 12:41; Stop 12/09/18 at 18:40 Nitroglycerin (Nitrostat) 0.4 mg PRN Q5MIN PRN SL CHEST PAIN; Start 12/09/18 at 12:45 Active Scripts Active Reported Aspirin Ec (Aspirin) 81 Mg Tablet.dr 81 Mg PO DAILY Vitals/I & O Vital Sign - Last 24 Hours 12/08/18 12/08/18 12/08/18 12/08/18 14:30 15:30 19:39 20:00 Temp 98.1 97.9 98.1 97.9 Pulse 63 73 Resp 18 17 B/P (MAP) 159/73 (101) 150/78 (102) Pulse Ox 98 98 O2 Delivery Room Air Room Air Room Air Room Air 12/08/18 12/09/18 12/09/18 12/09/18 23:25 03:25 07:00 08:00 Temp 98.6 98.0 97.7 98.6 98.0 97.7 Pulse 60 61 67 Resp 16 17 18 B/P (MAP) 128/66 (86) 132/70 (90) 128/76 (93) Pulse Ox 98 97 94 O2 Delivery Room Air Room Air Room Air Room Air 12/09/18 12/09/18 12/09/1812/09/19 11:15 12:15 12:30 12:45 Pulse 59 60 60 Resp 14 20 B/P (MAP) 127/84 (98) 126/69 (88) Pulse Ox 100 O2 Delivery Nasal Cannula O2 Flow Rate 2.0 12/09/18 13:00 Pulse 60 B/P (MAP) 127/69 (88) Intake and Output 12/08/18 12/08/18 12/09/18 15:00 23:00 07:00 Intake Total 1000 ml 300 ml 300 ml Output Total 400 ml 301 ml Balance 1000 ml -100 ml -1 ml CHANO LINARES MD Dec 09, 2018 14:16
--- NOTE | 2018-12-09 14:45 | CARD ---
MR#: [id number] Date of Study: 12/09/2018 Ordering Physician: MASON HOOKS, Referring Physician: UBALDO URBINA Tech: SUZETTE VILLAREAL RTR APPROVED REPORT Procedures Left heart catheterization Selective coronary angiogram Left ventriculogram Aortic root injection IFR measurement of the left circumflex The patient is a 63-year-old male with a history of coronary disease and previous stents placed to th e right coronary artery greater than 10 years ago. He continues to smoke cigarettes. He was admitted with 1 week of progressively increasing chest pain. The pain increases with exertion. He had no acute ischemic changes on his EKG. However in this setting cardiac catheterization was recommended to excl ude progression of his underlying coronary disease. Risks and benefits were discussed with the patien t. He agreed to proceed. After informed consent was obtained the patient was brought to the heart catheterization lab. The are a of the right femoral artery was prepared the usual manner with Betadine, sterile draping and local anesthetic. An 18-gauge needle was used to enter the right femoral artery, a wire placed and a 6 Fren ch sheath placed over the wire. A 6 Turkish JL4 diagnostic catheter was advanced to the ascending aort a and used to engage the left coronary system. Sequential injections in various views were obtained. A 6 [place] right diagnostic catheter was advanced ascending aorta. It was used to engage the right coronary artery and sequential injections in various views were obtained. A pigtail catheter w as advanced to the ascending aorta and the left ventricle. A 30 GARCIA left ventriculogram was performe d. Pullback pressures were measured. A 30 [place] injection was performed. The catheter was removed from the patient. At this time there was a borderline lesion of the left circumflex. We proceeded to perf orm IFR measurements to exclude a significant lesion. 1000 units of heparin was administered. At JL4 for diagnostic catheter was advanced to the ascending aorta and used to engage the left system. A pr essure guidewire was used to cross the lesion in the left circumflex. IFR was normal at 1.0. The wire was removed. The catheter was removed. Injection the sheath showed normal placement. The sheath was removed and sealed with an Angio-Seal product. The patient was moved to the holding area in stable co ndition. Findings. Hemodynamics. LV pressure of 126/9, 12 Aortic root pressure of 124/70. Coronaries. Left main. The left main had a distal 10% lesion. Left anterior descending. The LAD had an ostial greater than 80% lesion. It had diffuse disease throu gh its proximal and midportion. Left circumflex. The left circumflex had a mid 50% lesion. There was a large obtuse marginal branch w ith no lesions. Right coronary artery. The right coronary had a proximal 30%, mid 50% and distal greater than 75% les ion prior to the bifurcation. 2 stents were present post bifurcation in each vessel which had modera te restenosis with small distal vessels. Left ventriculogram. The left ventricle had normal systolic function with an ejection fraction of gre ater than 55%. Aortic root injection. The aortic root appeared normal with no significant aortic regurgitation. <Conclusion> Multi-vessel coronary artery disease including 1 ostial LAD lesion 2.moderate disease in the left circumflex 3 distal disease in the right coronary artery as outlined above. Intact LV systolic function. Normal aortic root. Normal IFR measurement of the left circumflex lesion. Signed by : Anthony Moseley MD Electronically Approved : 12/09/2018 14:45:08
--- NOTE | 2018-12-09 16:52 | PDOC2 ---
CONSULT Date of Consult Date of Consult DATE: 12/09/18 TIME: 16:44 Reason for Consult Reason for Consult: Coronary artery disease Referring Physician Referring Physician: Walter Collado Identification/Chief Complaint Chief Complaint Chest pain Source Source: Chart review, Patient History of Present Illness Reason for Visit: The patient is a 63-year-old male with a history of PCI to the RCA in 2001, active smoking, hypertension, possible hyperlipidemia and family history of ischemic heart disease, who presents with a week's history of worsening chest pain on minimal exertion. Troponins were negative and EKG did not show any ischemic changes. He had a coronary angiogram today which demonstrated a tight proximal LAD lesion, multiple tight stenosis in the mid distal RCA with in- stent stenosis of the distal RCA stent, and mild insignificant disease in the left circumflex artery. LV function is preserved. I was consulted to consider the patient for surgical coronary revascularization. Past Medical History Cardiovascular: CAD, HTN Pulmonary: No pertinent hx CENTRAL NERVOUS SYSTEM: Other (No pertinent history) GI: No pertinent hx Heme/Onc: No pertinent hx Psych: No pertinent hx Musculoskeletal: Osteoarthritis Rheumatologic: No pertinent hx Infectious disease: No pertinent hx E[place]: Other ([place] [facility]) Renal/: No pertinent hx Endocrine: No pertinent hx Dermatology: No pertinent hx Past Surgical History Past Surgical History: Other (PCI/stents in 2001) Family History Family History: Coronary Artery Disease (father and mother) Social History 1 pack per day (>40 yrs) ALCOHOL: occassional Drugs: Marijuana Lives: Alone Current Problem List Problem List Problems Medical Problems: (1) Chest pain Status: Acute Current Medications Current Medications Current Medications Aspirin (Children'S Aspirin) 324 mg 1X ONCE PO Last administered on 12/08/18at 11:54; Start 12/08/18 at 11:30; Stop 12/08/18 at 11:47; Status DC Nitroglycerin (Nitrostat) 0.4 mg PRN Q5MIN PRN SL CP RATING > 1/10 Last administered on 12/08/18at 11:57; Start 12/08/18 at 11:30; Stop 12/09/18 at 11:29 ; Status DC Sodium Chloride 1,000 ml @ 1,000 mls/hr Q1H IV Last administered on 12/08/18at 11:56; Start 12/08/18 at 11:23; Stop 12/08/18 at 12:22; Status DC Ondansetron HCl (Zofran) 4 mg PRN Q8HRS PRN IV NAUSEA/VOMITING; Start 12/08/18 at 13:45; Stop 12/09/18 at 13:44; Status DC Morphine Sulfate (Morphine Sulfate) 4 mg PRN Q2HR PRN IV PAIN; Start 12/08/18 at 13:45; Stop 12/09/18 at 13:44; Status DC Nitroglycerin (Nitrostat) 0.4 mg PRN Q5MIN PRN SL CHEST PAIN; Start 12/08/18 at 13:45; Stop 12/09/18 at 13:44; Status DC Influenza Virus Vaccine (Afluria Trivalent [id number] Syringe) 0.5 ml ONCE ONCE VAX IM Last administered on 12/08/18at 18:32; Start 12/08/18 at 18:00; Stop at 18:01; Status DC Enoxaparin Sodium (Lovenox Per Pharmacy Prophylaxis Dosing) 1 each PRN DAILY PRN MC SEE COMMENTS; Start 12/08/18 at 17:15 Enoxaparin Sodium (Lovenox 40mg Syringe) 40 mg Q24H SQ Last administered on at 20:39; Start 12/08/18 at 21:00 Iodixanol (Visipaque 320) 100 ml STK-MED ONCE .ROUTE ; Start 12/09/18 at 10:49; Stop 12/09/18 at 10:50; Status DC Lidocaine HCl (Lidocaine 1% 20ml Vial) 20 ml STK-MED ONCE .ROUTE ; Start at 10:49; Stop 12/09/18 at 10:50; Status DC Heparin Sodium/ Sodium Chloride 1,000 ml @ As Directed STK-MED ONCE .ROUTE ; Start 12/09/18 at 10:49; Stop 12/09/18 at 10:50; Status DC Heparin Sodium/ Sodium Chloride (HEPARIN for ARTERIAL LINE FLUSH) 1,000 unit 1X ONCE IART Last administered on 12/09/18at 11:15; Start 12/09/18 at 11:15; Stop 12/09/18 at 11:16; Status DC Midazolam HCl (Versed) 2 mg 1X ONCE IV Last administered on 12/09/18at 11:15; Start 12/09/18 at 11:15; Stop 12/09/18 at 11:16; Status DC Fentanyl Citrate (Fentanyl 2ml Vial) 100 mcg 1X ONCE IV Last administered on at 11:15; Start 12/09/18 at 11:15; Stop 12/09/18 at 11:16; Status DC Iodixanol (Visipaque 320) 100 ml 1X ONCE IART Last administered on 12/09/18at 11:15; Start 12/09/18 at 11:15; Stop 12/09/18 at 11:16; Status DC Lidocaine HCl (Lidocaine 1% 20ml Vial) 20 ml 1X ONCE INJ Last administered on 12/09/18at 11:15; Start 12/09/18 at 11:15; Stop 12/09/18 at 11:16; Status DC Fentanyl Citrate (Fentanyl 2ml Vial) 100 mcg STK-MED ONCE .ROUTE ; Start at 11:05; Stop 12/09/18 at 11:06; Status DC Midazolam HCl (Versed) 2 mg STK-MED ONCE .ROUTE ; Start 12/09/18 at 11:05; Stop 12/09/18 at 11:06; Status DC Heparin Sodium (Porcine) (Heparin Sodium) 10,000 unit STK-MED ONCE .ROUTE ; Start 12/09/18 at 12:02; Stop 12/09/18 at 12:03; Status DC Heparin Sodium (Porcine) (Heparin Sodium) 1,000 unit 1X ONCE IV Last administered on 12/09/18at 12:14; Start 12/09/18 at 12:15; Stop 12/09/18 at 12:16 ; Status DC Iodixanol (Visipaque 320) 100 ml STK-MED ONCE .ROUTE ; Start 12/09/18 at 12:10; Stop 12/09/18 at 12:11; Status DC Sodium Chloride (Normal Saline Flush) 3 ml QSHIFT PRN IV AFTER MEDS AND BLOOD DRAWS; Start 12/09/18 at 12:45 Sodium Chloride 1,000 ml @ 75 mls/hr [id number] IV ; Start 12/09/18 at 12:41; Stop 12/09/18 at 18:40 Nitroglycerin (Nitrostat) 0.4 mg PRN Q5MIN PRN SL CHEST PAIN; Start 12/09/18 at 12:45 Tizanidine HCl (Zanaflex) 4 mg PRN Q8HRS PRN PO MUSCLE SPASMS; Start 12/09/18 at 14:30 Active Scripts Active Reported Aspirin Ec (Aspirin) 81 Mg Tablet.dr 81 Mg PO DAILY Allergies Allergies: Coded Allergies: No Known Drug Allergies (Unverified , 12/08/18) ROS General: No: Chills, Night Sweats, Fatigue, Malaise, Appetite PSYCHOLOGICAL ROS: No: Anxiety, Behavioral Disorder, Concentration difficultie , Decreased libido, Depression, Disorientation, Hallucinations, Hostility, Irritablity, Memory difficulties, Mood Swings, Obsessive thoughts, Physical abuse, Sexual abuse, Sleep disturbances, Suicidal ideation Eyes: No Blurry vision, No Decreased vision, No Double vision, No Dry eyes, No Excessive tearing, No Eye Pain, No Itchy Eyes, No Loss of vision, No Photophobia , No Scotomata, No Uses contacts, No Uses glasses, No Other HEENT: No: Heacaches, Visual Changes, Hearing change, Nasal congestion, Nasal discharge, Oral lesions, Sinus pain, Sore Throat, Epistaxis, Sneezing, Snoring, Tinnitus, Vertigo, Vocal changes ALLERGY AND IMMUNOLOGY: No: Hives, Insect Bite Sensitivity, Itchy/Watery Eyes, Nasal Congestion, Post Nasal Drip, Seasonal Allergies Hematological and Lymphatic: No: Bleeding Problems, Blood Clots, Blood Transfusions, Brusing, Night Sweats, Pallor, Swollen Lymph Nodes ENDOCRINE: No: Breast Changes, Galactorrhea, Hair Pattern Changes, Hot Flashes , Malaise/lethargy, Mood Swings, Palpitations, Polydipsia/polyuria, Skin Changes , Temperature Intolerance, Unexpected Weight Changes Respiratory: No: Cough, Hemoptysis, Orthopnea, Pleuritic Pain, Shortness of breath, SOB with excertion, Sputum Changes, Stridor, Tachypnea, Wheezing Cardiovascular: yes Chest Pain; No Palpitations, No Orthopnea, No Paroxysmal Noc. Dyspnea, No Edema, No Lt Headedness Gastrointestinal: No Nausea, No Vomiting, No Abdominal Pain, No Diarrhea, No Constipation, No Melena, No Hematochezia Genitourinary: No Dysuria, No Frequency, No Incontinence, No Hematuria, No Retention, No Discharge, No Urgency, No Pain, No Flank Pain Musculoskeletal: No Gait Disturbance, No Joint Pain, No Joint Stiffness, No Joint Swelling, No Muscle Pain, No Muscular Weakness, No Pain In:, No Swelling In: Neurological: No Behavorial Changes, No Bowel/Bladder ControlChng, No Confusion , No Dizziness, No Gait Disturbance, No Headaches, No Impaired Coord/balance, No Memory Loss, No Numbness/Tingling, No Seizures, No Speech Problems, No Tremors, No Visual Changes, No Weakness Skin: No Dry Skin, No Eczema, No Hair Changes, No Lumps, No Mole Changes, No Mottling, No Nail Changes, No Pruritus, No Rash, No Skin Lesion Changes, No Acne Physical Exam General: Alert, Oriented X3, No acute distress HEENT: Atraumatic, PERRLA Lungs: Clear to auscultation Heart: Regular rate, Normal S1, Normal S2 Abdomen: Normal bowel sounds, Soft, No tenderness Extremities: No edema Skin: No significant lesion Neuro: Normal gait, Normal speech, Strength at 5/5 X4 ext, Normal tone, Sensation intact, Cranial nerves 3-12 NL, Reflexes 2+ Psych/Mental Status: Mental status NL MUSCULOSKELETAL: No deformity Vitals VITALS Vital Signs Date Time Temp Pulse Resp B/P (MAP) Pulse Ox O2 Delivery O2 Flow Rate FiO2 12/09/18 16:00 64 120/56 (77) 12/09/18 14:54 98.2 18 95 Room Air 98.2 12/09/18 12:15 2.0 Labs Labs Laboratory Tests Test 12/08/18 11:46 12/08/18 13:12 12/08/18 16:55 12/08/18 20:00 White Blood Count 8.1 x10^3/uL (4.0-11.0) Red Blood Count 4.52 x10^6/uL (4.30-5.70) Hemoglobin 14.9 g/dL (13.0-17.5) Hematocrit 43.8 % (39.0-53.0) Mean Corpuscular Volume 97 fL (79-100) Mean Corpuscular Hemoglobin 33 pg (25-35) Mean Corpuscular Hemoglobin Concent 34 g/dL (31-37) Red Cell Distribution Width 12.8 % (11.5-14.5) Platelet Count 190 x10^3/uL (140-400) Neutrophils (%) (Auto) 68 % (31-73) Lymphocytes (%) (Auto) 21 % (24-48) Monocytes (%) (Auto) 7 % (0-9) Eosinophils (%) (Auto) 4 % (0-3) Basophils (%) (Auto) 1 % (0-3) Neutrophils # (Auto) 5.5 x10^3uL (1.8-7.7) Lymphocytes # (Auto) 1.7 x10^3/uL (1.0-4.8) Monocytes # (Auto) 0.6 x10^3/uL (0.0-1.1) Eosinophils # (Auto) 0.3 x10^3/uL (0.0-0.7) Basophils # (Auto) 0.1 x10^3/uL (0.0-0.2) Sodium Level 138 mmol/L (136-145) Potassium Level 4.2 mmol/L (3.5-5.1) Chloride Level 100 mmol/L (98-107) Carbon Dioxide Level 28 mmol/L (21-32) Anion Gap 10 (6-14) Blood Urea Nitrogen 12 mg/dL (8-26) Creatinine 1.2 mg/dL (0.7-1.3) Estimated GFR (Cockcroft-Gault) 61.3 BUN/Creatinine Ratio 10 (6-20) Glucose Level 109 mg/dL (70-99) Calcium Level 9.1 mg/dL (8.5-10.1) Magnesium Level 2.3 mg/dL (1.8-2.4) Total Bilirubin 0.8 mg/dL (0.2-1.0) Aspartate Amino Transf (AST/SGOT) 16 U/L (15-37) Alanine Aminotransferase (ALT/SGPT) 17 U/L (16-63) Alkaline Phosphatase 87 U/L (46-116) Troponin I Quantitative < 0.017 ng/mL (0.000-0.055) < 0.017 ng/mL (0.000-0.055) < 0.017 ng/mL (0.000-0.055) XZ-Etx-L-Type Natriuretic Peptide 72 pg/mL (0-124) Total Protein 8.3 g/dL (6.4-8.2) Albumin 4.0 g/dL (3.4-5.0) Albumin/Globulin Ratio 0.9 (1.0-1.7) Lipase 205 U/L (73-393) Urine Collection Type Unknown Urine Color Yellow Urine Clarity Clear Urine pH 5.5 Urine Specific [place] 1.010 Urine Protein Negative mg/dL (NEG-TRACE) Urine Glucose (UA) Negative mg/dL (NEG) Urine Ketones (Stick) Negative mg/dL (NEG) Urine Blood Negative (NEG) Urine Nitrite Negative (NEG) Urine Bilirubin Negative (NEG) Urine Urobilinogen Dipstick 0.2 mg/dL (0.2 mg/dL) Urine Leukocyte Esterase Trace (NEG) Urine RBC Occ /HPF (0-2) Urine WBC 5-10 /HPF (0-4) Urine Squamous Epithelial Cells Few /LPF Urine Transitional Epithelial Cells Occ /LPF Urine Renal Epithelial Cells Occ /LPF Urine Bacteria Few /HPF (0-FEW) Urine Mucus Mod /LPF Urine Opiates Screen Neg (NEG) Urine Methadone Screen Neg (NEG) Urine Barbiturates Neg (NEG) Urine Phencyclidine Screen Neg (NEG) Urine Amphetamine/Methamphetamine Neg (NEG) Urine Benzodiazepines Screen Neg (NEG) Urine Cocaine Screen Neg (NEG) Urine Cannabinoids Screen Pos (NEG) Urine Ethyl Alcohol Neg (NEG) Test 12/09/18 04:00 12/09/18 10:45 White Blood Count 8.7 x10^3/uL (4.0-11.0) Red Blood Count 4.08 x10^6/uL (4.30-5.70) Hemoglobin 13.5 g/dL (13.0-17.5) Hematocrit 40.2 % (39.0-53.0) Mean Corpuscular Volume 99 fL (79-100) Mean Corpuscular Hemoglobin 33 pg (25-35) Mean Corpuscular Hemoglobin Concent 34 g/dL (31-37) Red Cell Distribution Width 12.9 % (11.5-14.5) Platelet Count 153 x10^3/uL (140-400) Neutrophils (%) (Auto) 74 % (31-73) Lymphocytes (%) (Auto) 15 % (24-48) Monocytes (%) (Auto) 7 % (0-9) Eosinophils (%) (Auto) 3 % (0-3) Basophils (%) (Auto) 1 % (0-3) Neutrophils # (Auto) 6.4 x10^3uL (1.8-7.7) Lymphocytes # (Auto) 1.3 x10^3/uL (1.0-4.8) Monocytes # (Auto) 0.6 x10^3/uL (0.0-1.1) Eosinophils # (Auto) 0.3 x10^3/uL (0.0-0.7) Basophils # (Auto) 0.1 x10^3/uL (0.0-0.2) Sodium Level 139 mmol/L (136-145) Potassium Level 4.3 mmol/L (3.5-5.1) Chloride Level 104 mmol/L (98-107) Carbon Dioxide Level 27 mmol/L (21-32) Anion Gap 8 (6-14) Blood Urea Nitrogen 18 mg/dL (8-26) Creatinine 1.2 mg/dL (0.7-1.3) Estimated GFR (Cockcroft-Gault) 61.3 BUN/Creatinine Ratio 15 (6-20) Glucose Level 95 mg/dL (70-99) Calcium Level 8.6 mg/dL (8.5-10.1) Magnesium Level 2.2 mg/dL (1.8-2.4) Total Bilirubin 0.8 mg/dL (0.2-1.0) Aspartate Amino Transf (AST/SGOT) 11 U/L (15-37) Alanine Aminotransferase (ALT/SGPT) 16 U/L (16-63) Alkaline Phosphatase 72 U/L (46-116) Total Protein 7.0 g/dL (6.4-8.2) Albumin 3.4 g/dL (3.4-5.0) Albumin/Globulin Ratio 0.9 (1.0-1.7) Triglycerides Level 145 mg/dL (0-150) Cholesterol Level 157 mg/dL (0-200) LDL Cholesterol, Calculated 89 mg/dL (0-100) VLDL Cholesterol, Calculated 29 mg/dL (0-40) Non-HDL Cholesterol Calculated 118 mg/dL (0-129) HDL Cholesterol 39 mg/dL (40-60) Cholesterol/HDL Ratio 4.0 Thyroid Stimulating Hormone (TSH) 0.984 uIU/mL (0.358-3.74) Prothrombin Time 12.4 SEC (11.7-14.0) Prothromb Time International Ratio 1.0 (0.8-1.1) Laboratory Tests Test 12/08/18 16:55 12/08/18 20:00 12/09/18 04:00 12/09/18 10:45 Troponin I Quantitative < 0.017 ng/mL (0.000-0.055) < 0.017 ng/mL (0.000-0.055) White Blood Count 8.7 x10^3/uL (4.0-11.0) Red Blood Count 4.08 x10^6/uL (4.30-5.70) Hemoglobin 13.5 g/dL (13.0-17.5) Hematocrit 40.2 % (39.0-53.0) Mean Corpuscular Volume 99 fL (79-100) Mean Corpuscular Hemoglobin 33 pg (25-35) Mean Corpuscular Hemoglobin Concent 34 g/dL (31-37) Red Cell Distribution Width 12.9 % (11.5-14.5) Platelet Count 153 x10^3/uL (140-400) Neutrophils (%) (Auto) 74 % (31-73) Lymphocytes (%) (Auto) 15 % (24-48) Monocytes (%) (Auto) 7 % (0-9) Eosinophils (%) (Auto) 3 % (0-3) Basophils (%) (Auto) 1 % (0-3) Neutrophils # (Auto) 6.4 x10^3uL (1.8-7.7) Lymphocytes # (Auto) 1.3 x10^3/uL (1.0-4.8) Monocytes # (Auto) 0.6 x10^3/uL (0.0-1.1) Eosinophils # (Auto) 0.3 x10^3/uL (0.0-0.7) Basophils # (Auto) 0.1 x10^3/uL (0.0-0.2) Sodium Level 139 mmol/L (136-145) Potassium Level 4.3 mmol/L (3.5-5.1) Chloride Level 104 mmol/L (98-107) Carbon Dioxide Level 27 mmol/L (21-32) Anion Gap 8 (6-14) Blood Urea Nitrogen 18 mg/dL (8-26) Creatinine 1.2 mg/dL (0.7-1.3) Estimated GFR (Cockcroft-Gault) 61.3 BUN/Creatinine Ratio 15 (6-20) Glucose Level 95 mg/dL (70-99) Calcium Level 8.6 mg/dL (8.5-10.1) Magnesium Level 2.2 mg/dL (1.8-2.4) Total Bilirubin 0.8 mg/dL (0.2-1.0) Aspartate Amino Transf (AST/SGOT) 11 U/L (15-37) Alanine Aminotransferase (ALT/SGPT) 16 U/L (16-63) Alkaline Phosphatase 72 U/L (46-116) Total Protein 7.0 g/dL (6.4-8.2) Albumin 3.4 g/dL (3.4-5.0) Albumin/Globulin Ratio 0.9 (1.0-1.7) Triglycerides Level 145 mg/dL (0-150) Cholesterol Level 157 mg/dL (0-200) LDL Cholesterol, Calculated 89 mg/dL (0-100) VLDL Cholesterol, Calculated 29 mg/dL (0-40) Non-HDL Cholesterol Calculated 118 mg/dL (0-129) HDL Cholesterol 39 mg/dL (40-60) Cholesterol/HDL Ratio 4.0 Thyroid Stimulating Hormone (TSH) 0.984 uIU/mL (0.358-3.74) Prothrombin Time 12.4 SEC (11.7-14.0) Prothromb Time International Ratio 1.0 (0.8-1.1) Images Images Findings. Hemodynamics. LV pressure of 126/9, 12 Aortic root pressure of 124/70. Coronaries. Left main. The left main had a distal 10% lesion. Left anterior descending. The LAD had an ostial greater than 80% lesion. It had diffuse disease through its proximal and midportion. Left circumflex. The left circumflex had a mid 50% lesion. There was a large obtuse marginal branch with no lesions. Right coronary artery. The right coronary had a proximal 30%, mid 50% and distal greater than 75% lesion prior to the bifurcation. 2 stents were present post bifurcation in each vessel which had moderate restenosis with small distal vessels. Left ventriculogram. The left ventricle had normal systolic function with an ejection fraction of greater than 55%. Aortic root injection. The aortic root appeared normal with no significant aortic regurgitation. <Conclusion> Multi-vessel coronary artery disease including 1 ostial LAD lesion 2.moderate disease in the left circumflex 3 distal disease in the right coronary artery as outlined above. Intact LV systolic function. Normal aortic root. Normal IFR measurement of the left circumflex lesion. Assessment/Plan Assessment/Plan 63-year-old male with a history of PCI to the RCA in 2001, active smoking, hypertension, possible hyperlipidemia and family history of ischemic heart disease, who presents with a week's history of worsening chest pain on minimal exertion. Troponins were negative and EKG did not show any ischemic changes. He had a coronary angiogram today which demonstrated a tight proximal LAD lesion, multiple tight stenosis in the mid distal RCA with in-stent stenosis of the distal RCA stent, and mild insignificant disease in the left circumflex artery. LV function is preserved. I was consulted to consider the patient for surgical coronary revascularization. The patient is a good surgical candidate. He will need a TAVARES to the LAD. I will also attempt to put a vein graft on the RPDA, although it does appear to be small on coronary angiography. The risks which include but are not limited to mortality 1%, stroke 1%, renal failure requiring dialysis 1%, pneumonia 5%, ventilator dependence 5%, wound infection 5%, re-sternotomy for bleeding 5%, postoperative arrhythmias 20%, were explained to the patient who agrees to proceed. Will obtain carotid duplex, noncontrast CT of the chest, and bilateral lower extremity vein mapping. Plan for CABG on December 13. RC ECHEVERRIA MD Dec 09, 2018 16:52
[2018-12-09] MEDS: traMADol 50 MG TABLET PO PRN (20:57)
[2018-12-09] MEDS: ENOXAPARIN 40 MG/0.4 ML SYRINGE. SQ SCH (20:58)
[2018-12-10] VITALS (7 sets, daily range): BP systolic 121–141; BP diastolic 61–79
--- NOTE | 2018-12-10 09:07 | RAD ---
PQRS Compliance statement: One or more of the following individualized dose reduction techniques were utilized for this examination: 1. Automated exposure control. 2. Adjustment of the mA and/or kV according to patient size. 3. Use of iterative reconstruction technique. Indication:pre op CABG. aortic calcium/lungs evaluation no priors TECHNIQUE: CT chest none IV contrast with multiplanar reformats. COMPARISON:None FINDINGS: Heart is normal in size. No pericardial or pleural effusion. Coronary artery calcifications. Minimal atherosclerotic calcification in the aortic arch. Calcified left hilar lymph node. No enlarged axillary or mediastinal adenopathy. Central airways are patent. Mild bibasilar dependent atelectasis or scarring. No emphysema. Noncontrast appearance of the liver, pancreas, adrenals no suspicious within normal limits. Multiple calcified granulomas in the spleen. Vicarious excretion of contrast is seen in the gallbladder. No suspicious bony lesion. IMPRESSION: 1. No significant atherosclerotic disease of the aorta. 2. Lungs are clear. Electronically signed by: Howard Huitron DO (12/10/2018 9:04 AM) [facility]
[2018-12-10] MEDS: traMADol 50 MG TABLET PO PRN ×2 (10:08→17:45)
[2018-12-10] MEDS: tiZANidine 4 MG TABLET. PO PRN ×2 (10:09→17:45)
--- NOTE | 2018-12-10 10:17 | PDOC ---
PROGRESS NOTES Chief Complaint Chief Complaint chest pain, secondary to multiple vessel coronary artery disease Tensional headache as a result of muscle spasm Hx CAD, stents placed here by Dr. Diane in 2001 tobacco and THC use Plan: tizanidine pain management awaiting CABG on Wednesday History of Present Illness History of Present Illness Patient today complaining off neck discomfort that radiates to top of his head says. 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 later in the day no chest pain or ischemic changes on telemetry reassurance provided Vitals Vitals Vital Signs Date Time Temp Pulse Resp B/P (MAP) Pulse Ox O2 Delivery O2 Flow Rate FiO2 12/10/18 10:08 97 Room Air 2.0 12/10/18 07:00 97.8 69 18 129/61 (83) 97.8 Physical Exam General: Alert, Oriented X3, No acute distress Heart: Regular rate, Normal S1, Normal S2 Abdomen: Normal bowel sounds, Soft, No tenderness Extremities: No edema Skin: No significant lesion Labs LABS Laboratory Tests Test 12/09/18 10:45 Prothrombin Time 12.4 SEC (11.7-14.0) Prothromb Time International Ratio 1.0 (0.8-1.1) Assessment and Plan Assessmemt and Plan Problems Medical Problems: (1) Chest pain Status: Acute Comment Review of Relevant I have reviewed the following items livan (where applicable) has been applied. Labs Laboratory Tests Test 12/08/18 11:46 12/08/18 13:12 12/08/18 16:55 12/08/18 20:00 White Blood Count 8.1 x10^3/uL (4.0-11.0) Red Blood Count 4.52 x10^6/uL (4.30-5.70) Hemoglobin 14.9 g/dL (13.0-17.5) Hematocrit 43.8 % (39.0-53.0) Mean Corpuscular Volume 97 fL (79-100) Mean Corpuscular Hemoglobin 33 pg (25-35) Mean Corpuscular Hemoglobin Concent 34 g/dL (31-37) Red Cell Distribution Width 12.8 % (11.5-14.5) Platelet Count 190 x10^3/uL (140-400) Neutrophils (%) (Auto) 68 % (31-73) Lymphocytes (%) (Auto) 21 % (24-48) Monocytes (%) (Auto) 7 % (0-9) Eosinophils (%) (Auto) 4 % (0-3) Basophils (%) (Auto) 1 % (0-3) Neutrophils # (Auto) 5.5 x10^3uL (1.8-7.7) Lymphocytes # (Auto) 1.7 x10^3/uL (1.0-4.8) Monocytes # (Auto) 0.6 x10^3/uL (0.0-1.1) Eosinophils # (Auto) 0.3 x10^3/uL (0.0-0.7) Basophils # (Auto) 0.1 x10^3/uL (0.0-0.2) Sodium Level 138 mmol/L (136-145) Potassium Level 4.2 mmol/L (3.5-5.1) Chloride Level 100 mmol/L (98-107) Carbon Dioxide Level 28 mmol/L (21-32) Anion Gap 10 (6-14) Blood Urea Nitrogen 12 mg/dL (8-26) Creatinine 1.2 mg/dL (0.7-1.3) Estimated GFR (Cockcroft-Gault) 61.3 BUN/Creatinine Ratio 10 (6-20) Glucose Level 109 mg/dL (70-99) Calcium Level 9.1 mg/dL (8.5-10.1) Magnesium Level 2.3 mg/dL (1.8-2.4) Total Bilirubin 0.8 mg/dL (0.2-1.0) Aspartate Amino Transf (AST/SGOT) 16 U/L (15-37) Alanine Aminotransferase (ALT/SGPT) 17 U/L (16-63) Alkaline Phosphatase 87 U/L (46-116) Troponin I Quantitative < 0.017 ng/mL (0.000-0.055) < 0.017 ng/mL (0.000-0.055) < 0.017 ng/mL (0.000-0.055) AG-Fkt-L-Type Natriuretic Peptide 72 pg/mL (0-124) Total Protein 8.3 g/dL (6.4-8.2) Albumin 4.0 g/dL (3.4-5.0) Albumin/Globulin Ratio 0.9 (1.0-1.7) Lipase 205 U/L (73-393) Urine Collection Type Unknown Urine Color Yellow Urine Clarity Clear Urine pH 5.5 Urine Specific [place] 1.010 Urine Protein Negative mg/dL (NEG-TRACE) Urine Glucose (UA) Negative mg/dL (NEG) Urine Ketones (Stick) Negative mg/dL (NEG) Urine Blood Negative (NEG) Urine Nitrite Negative (NEG) Urine Bilirubin Negative (NEG) Urine Urobilinogen Dipstick 0.2 mg/dL (0.2 mg/dL) Urine Leukocyte Esterase Trace (NEG) Urine RBC Occ /HPF (0-2) Urine WBC 5-10 /HPF (0-4) Urine Squamous Epithelial Cells Few /LPF Urine Transitional Epithelial Cells Occ /LPF Urine Renal Epithelial Cells Occ /LPF Urine Bacteria Few /HPF (0-FEW) Urine Mucus Mod /LPF Urine Opiates Screen Neg (NEG) Urine Methadone Screen Neg (NEG) Urine Barbiturates Neg (NEG) Urine Phencyclidine Screen Neg (NEG) Urine Amphetamine/Methamphetamine Neg (NEG) Urine Benzodiazepines Screen Neg (NEG) Urine Cocaine Screen Neg (NEG) Urine Cannabinoids Screen Pos (NEG) Urine Ethyl Alcohol Neg (NEG) Test 12/09/18 04:00 12/09/18 10:45 White Blood Count 8.7 x10^3/uL (4.0-11.0) Red Blood Count 4.08 x10^6/uL (4.30-5.70) Hemoglobin 13.5 g/dL (13.0-17.5) Hematocrit 40.2 % (39.0-53.0) Mean Corpuscular Volume 99 fL (79-100) Mean Corpuscular Hemoglobin 33 pg (25-35) Mean Corpuscular Hemoglobin Concent 34 g/dL (31-37) Red Cell Distribution Width 12.9 % (11.5-14.5) Platelet Count 153 x10^3/uL (140-400) Neutrophils (%) (Auto) 74 % (31-73) Lymphocytes (%) (Auto) 15 % (24-48) Monocytes (%) (Auto) 7 % (0-9) Eosinophils (%) (Auto) 3 % (0-3) Basophils (%) (Auto) 1 % (0-3) Neutrophils # (Auto) 6.4 x10^3uL (1.8-7.7) Lymphocytes # (Auto) 1.3 x10^3/uL (1.0-4.8) Monocytes # (Auto) 0.6 x10^3/uL (0.0-1.1) Eosinophils # (Auto) 0.3 x10^3/uL (0.0-0.7) Basophils # (Auto) 0.1 x10^3/uL (0.0-0.2) Sodium Level 139 mmol/L (136-145) Potassium Level 4.3 mmol/L (3.5-5.1) Chloride Level 104 mmol/L (98-107) Carbon Dioxide Level 27 mmol/L (21-32) Anion Gap 8 (6-14) Blood Urea Nitrogen 18 mg/dL (8-26) Creatinine 1.2 mg/dL (0.7-1.3) Estimated GFR (Cockcroft-Gault) 61.3 BUN/Creatinine Ratio 15 (6-20) Glucose Level 95 mg/dL (70-99) Calcium Level 8.6 mg/dL (8.5-10.1) Magnesium Level 2.2 mg/dL (1.8-2.4) Total Bilirubin 0.8 mg/dL (0.2-1.0) Aspartate Amino Transf (AST/SGOT) 11 U/L (15-37) Alanine Aminotransferase (ALT/SGPT) 16 U/L (16-63) Alkaline Phosphatase 72 U/L (46-116) Total Protein 7.0 g/dL (6.4-8.2) Albumin 3.4 g/dL (3.4-5.0) Albumin/Globulin Ratio 0.9 (1.0-1.7) Triglycerides Level 145 mg/dL (0-150) Cholesterol Level 157 mg/dL (0-200) LDL Cholesterol, Calculated 89 mg/dL (0-100) VLDL Cholesterol, Calculated 29 mg/dL (0-40) Non-HDL Cholesterol Calculated 118 mg/dL (0-129) HDL Cholesterol 39 mg/dL (40-60) Cholesterol/HDL Ratio 4.0 Thyroid Stimulating Hormone (TSH) 0.984 uIU/mL (0.358-3.74) Prothrombin Time 12.4 SEC (11.7-14.0) Prothromb Time International Ratio 1.0 (0.8-1.1) Laboratory Tests Test 12/09/18 10:45 Prothrombin Time 12.4 SEC (11.7-14.0) Prothromb Time International Ratio 1.0 (0.8-1.1) Medications Current Medications Aspirin (Children'S Aspirin) 324 mg 1X ONCE PO Last administered on 12/08/18at 11:54; Start 12/08/18 at 11:30; Stop 12/08/18 at 11:47; Status DC Nitroglycerin (Nitrostat) 0.4 mg PRN Q5MIN PRN SL CP RATING > 1/10 Last administered on 12/08/18at 11:57; Start 12/08/18 at 11:30; Stop 12/09/18 at 11:29 ; Status DC Sodium Chloride 1,000 ml @ 1,000 mls/hr Q1H IV Last administered on 12/08/18at 11:56; Start 12/08/18 at 11:23; Stop 12/08/18 at 12:22; Status DC Ondansetron HCl (Zofran) 4 mg PRN Q8HRS PRN IV NAUSEA/VOMITING; Start 12/08/18 at 13:45; Stop 12/09/18 at 13:44; Status DC Morphine Sulfate (Morphine Sulfate) 4 mg PRN Q2HR PRN IV PAIN; Start 12/08/18 at 13:45; Stop 12/09/18 at 13:44; Status DC Nitroglycerin (Nitrostat) 0.4 mg PRN Q5MIN PRN SL CHEST PAIN; Start 12/08/18 at 13:45; Stop 12/09/18 at 13:44; Status DC Influenza Virus Vaccine (Afluria Trivalent 5506-7048 Syringe) 0.5 ml ONCE ONCE VAX IM Last administered on 12/08/18at 18:32; Start 12/08/18 at 18:00; Stop at 18:01; Status DC Enoxaparin Sodium (Lovenox Per Pharmacy Prophylaxis Dosing) 1 each PRN DAILY PRN MC SEE COMMENTS; Start 12/08/18 at 17:15 Enoxaparin Sodium (Lovenox 40mg Syringe) 40 mg Q24H SQ Last administered on at 20:58; Start 12/08/18 at 21:00 Iodixanol (Visipaque 320) 100 ml STK-MED ONCE .ROUTE ; Start 12/09/18 at 10:49; Stop 12/09/18 at 10:50; Status DC Lidocaine HCl (Lidocaine 1% 20ml Vial) 20 ml STK-MED ONCE .ROUTE ; Start at 10:49; Stop 12/09/18 at 10:50; Status DC Heparin Sodium/ Sodium Chloride 1,000 ml @ As Directed STK-MED ONCE .ROUTE ; Start 12/09/18 at 10:49; Stop 12/09/18 at 10:50; Status DC Heparin Sodium/ Sodium Chloride (HEPARIN for ARTERIAL LINE FLUSH) 1,000 unit 1X ONCE IART Last administered on 12/09/18at 11:15; Start 12/09/18 at 11:15; Stop 12/09/18 at 11:16; Status DC Midazolam HCl (Versed) 2 mg 1X ONCE IV Last administered on 12/09/18at 11:15; Start 12/09/18 at 11:15; Stop 12/09/18 at 11:16; Status DC Fentanyl Citrate (Fentanyl 2ml Vial) 100 mcg 1X ONCE IV Last administered on at 11:15; Start 12/09/18 at 11:15; Stop 12/09/18 at 11:16; Status DC Iodixanol (Visipaque 320) 100 ml 1X ONCE IART Last administered on 12/09/18at 11:15; Start 12/09/18 at 11:15; Stop 12/09/18 at 11:16; Status DC Lidocaine HCl (Lidocaine 1% 20ml Vial) 20 ml 1X ONCE INJ Last administered on 12/09/18at 11:15; Start 12/09/18 at 11:15; Stop 12/09/18 at 11:16; Status DC Fentanyl Citrate (Fentanyl 2ml Vial) 100 mcg STK-MED ONCE .ROUTE ; Start at 11:05; Stop 12/09/18 at 11:06; Status DC Midazolam HCl (Versed) 2 mg STK-MED ONCE .ROUTE ; Start 12/09/18 at 11:05; Stop 12/09/18 at 11:06; Status DC Heparin Sodium (Porcine) (Heparin Sodium) 10,000 unit STK-MED ONCE .ROUTE ; Start 12/09/18 at 12:02; Stop 12/09/18 at 12:03; Status DC Heparin Sodium (Porcine) (Heparin Sodium) 1,000 unit 1X ONCE IV Last administered on 12/09/18at 12:14; Start 12/09/18 at 12:15; Stop 12/09/18 at 12:16 ; Status DC Iodixanol (Visipaque 320) 100 ml STK-MED ONCE .ROUTE ; Start 12/09/18 at 12:10; Stop 12/09/18 at 12:11; Status DC Sodium Chloride (Normal Saline Flush) 3 ml QSHIFT PRN IV AFTER MEDS AND BLOOD DRAWS; Start 12/09/18 at 12:45 Sodium Chloride 1,000 ml @ 75 mls/hr [id number] IV ; Start 12/09/18 at 12:41; Stop 12/09/18 at 18:40; Status DC Nitroglycerin (Nitrostat) 0.4 mg PRN Q5MIN PRN SL CHEST PAIN; Start 12/09/18 at 12:45 Tizanidine HCl (Zanaflex) 4 mg PRN Q8HRS PRN PO MUSCLE SPASMS Last administered on 12/10/18at 10:09; Start 12/09/18 at 14:30 Tramadol HCl (Ultram) 50 mg PRN Q8HRS PRN PO PAIN Last administered on at 10:08; Start 12/09/18 at 20:45 Active Scripts Active Reported Aspirin Ec (Aspirin) 81 Mg Tablet.dr 81 Mg PO DAILY Vitals/I & O Vital Sign - Last 24 Hours 12/09/18 12/09/18 12/09/18 12/09/18 11:15 12:15 12:30 12:45 Pulse 59 60 60 Resp 14 20 B/P (MAP) 127/84 (98) 126/69 (88) Pulse Ox 100 O2 Delivery Nasal Cannula O2 Flow Rate 2.0 12/09/18 12/09/18 12/09/18 12/09/18 13:00 13:15 13:30 14:00 Pulse 60 72 68 68 B/P (MAP) 127/69 (88) 130/70 (90) 129/68 (88) 110/58 (75) 12/09/18 12/09/18 12/09/18 12/09/18 14:30 14:54 16:00 17:00 Temp 98.2 98.2 Pulse 72 76 64 58 Resp 18 B/P (MAP) 102/57 (72) 90/44 (59) 120/56 (77) 128/72 (90) Pulse Ox 95 O2 Delivery Room Air 12/09/18 12/09/18 12/09/18 12/09/18 18:00 19:45 20:00 20:57 Temp 97.9 97.9 Pulse 65 62 Resp 17 B/P (MAP) 117/66 (83) 142/65 (90) Pulse Ox 97 O2 Delivery Room Air Room Air Room Air 12/09/18 12/09/18 12/10/18 12/10/18 21:57 23:00 03:45 07:00 Temp 98.4 97.4 97.8 98.4 97.4 97.8 Pulse 60 58 69 Resp 18 18 18 B/P (MAP) 128/71 (90) 131/68 (89) 129/61 (83) Pulse Ox 97 97 97 O2 Delivery Room Air Room Air Room Air Room Air 12/10/18 12/10/18 07:42 10:08 Pulse Ox 97 O2 Delivery Room Air Room Air O2 Flow Rate 2.0 2.0 Intake and Output 12/09/18 12/09/18 12/10/18 14:59 22:59 06:59 Intake Total 120 ml 290 ml 700 ml Output Total 175 ml 275 ml 350 ml Balance -55 ml 15 ml 350 ml CHANO LINARES MD Dec 10, 2018 10:17
--- NOTE | 2018-12-10 15:50 | PDOC ---
PROGRESS NOTES Subjective Subjective Denied any chest pain today Objective Objective Vital Signs Date Time Temp Pulse Resp B/P (MAP) Pulse Ox O2 Delivery O2 Flow Rate FiO2 12/10/18 15:00 98.1 71 18 127/79 (95) 98 Room Air 2.0 98.1 Intake and Output 12/10/18 07:00 Intake Total 1110 ml Output Total 800 ml Balance 310 ml Intake Oral 1110 ml Output Urine Total 800 ml # Bowel Movements 1 Physical Exam Abdomen: Normal bowel sounds, Soft, No tenderness Heart: Regular rate, Normal S1, Normal S2 Extremities: No edema General: Alert, Oriented X3, No acute distress HEENT: Atraumatic, PERRLA Lungs: Clear to auscultation MUSCULOSKELETAL: No deformity Neuro: Normal gait, Normal speech, Strength at 5/5 X4 ext, Normal tone, Sensation intact, Cranial nerves 3-12 NL, Reflexes 2+ Psych/Mental Status: Mental status NL Skin: No significant lesion Assessment Assessment 1. Multivessel coronary artery disease including ostial LAD lesion on cardiac catheterization yesterday. CT surgery team has been consulted. Plan for coronary artery bypass surgery on Wednesday. Continue aspirin and start beta blockers and statins. 2. Mild ischemic cardiomyopathy with LVEF 45%. Clinically well compensated. Start low-dose lisinopril to optimize treatment. Plan Plan of Care Problems Medical Problems: (1) Chest pain Status: Acute Comment Review of Relevant I have reviewed the following items livan (where applicable) has been applied. Medications Current Medications Tramadol HCl (Ultram) 50 mg PRN Q8HRS PRN PO PAIN Last administered on at 10:08; Start 12/09/18 at 20:45 Vitals/I & O Vital Sign - Last 24 Hours 12/09/18 12/09/18 12/09/18 12/09/18 16:00 17:00 18:00 19:45 Temp 97.9 97.9 Pulse 64 58 65 62 Resp 17 B/P (MAP) 120/56 (77) 128/72 (90) 117/66 (83) 142/65 (90) Pulse Ox 97 O2 Delivery Room Air 12/09/18 12/09/18 12/09/18 12/10/18 20:00 20:57 23:00 03:45 Temp 98.4 97.4 98.4 97.4 Pulse 60 58 Resp 18 18 B/P (MAP) 128/71 (90) 131/68 (89) Pulse Ox 97 97 O2 Delivery Room Air Room Air Room Air Room Air 12/10/18 12/10/18 12/10/18 12/10/18 07:00 07:42 10:08 10:14 Temp 97.8 97.9 97.8 97.9 Pulse 69 62 Resp 18 18 B/P (MAP) 129/61 (83) 141/68 (92) Pulse Ox 97 97 100 O2 Delivery Room Air Room Air Room Air Room Air O2 Flow Rate 2.0 2.0 2.0 12/10/18 12/10/18 12/10/18 10:54 11:56 15:00 Temp 98.0 98.1 98.0 98.1 Pulse 103 71 Resp 18 18 18 B/P (MAP) 133/68 (89) 127/79 (95) Pulse Ox 92 92 98 O2 Delivery Room Air Room Air Room Air O2 Flow Rate 2.0 2.0 2.0 Intake and Output 12/09/18 12/09/18 12/10/18 15:00 23:00 07:00 Intake Total 120 ml 290 ml 700 ml Output Total 175 ml 275 ml 350 ml Balance -55 ml 15 ml 350 ml ROSANNE BENZ MD Dec 10, 2018 15:50
[2018-12-10] MEDS: CARVEDILOL 3.125 MG TABLET. PO SCH (17:44)
[2018-12-10] MEDS: ATORVASTATIN CALCIUM 40 MG TABLET. PO SCH (21:32)
[2018-12-10] MEDS: ENOXAPARIN 40 MG/0.4 ML SYRINGE. SQ SCH (21:33)
[2018-12-11] VITALS (7 sets, daily range): BP systolic 83–135; BP diastolic 49–71
[2018-12-11] MEDS: tiZANidine 4 MG TABLET. PO PRN ×3 (02:00→21:54)
[2018-12-11] MEDS: traMADol 50 MG TABLET PO PRN (02:01)
[2018-12-11] MEDS: LISINOPRIL 5 MG TABLET. PO SCH (08:21)
[2018-12-11] MEDS: CARVEDILOL 3.125 MG TABLET. PO SCH ×2 (08:22→17:00)
--- NOTE | 2018-12-11 10:15 | PDOC ---
PROGRESS NOTES Subjective Subjective Patient denied any chest pain Objective Objective Vital Signs Date Time Temp Pulse Resp B/P (MAP) Pulse Ox O2 Delivery O2 Flow Rate FiO2 12/11/18 08:22 58 117/59 12/11/18 08:00 Room Air 2.0 12/11/18 07:51 98.2 18 98 98.2 Intake and Output 12/11/18 06:59 Intake Total 200 ml Output Total 750 ml Balance -550 ml Intake Oral 200 ml Output Urine Total 750 ml # Voids 8 # Bowel Movements 4 Physical Exam Abdomen: Normal bowel sounds, Soft, No tenderness Heart: Regular rate, Normal S1, Normal S2 Extremities: No edema General: Alert, Oriented X3, No acute distress HEENT: Atraumatic, PERRLA Lungs: Clear to auscultation MUSCULOSKELETAL: No deformity Neuro: Normal gait, Normal speech, Strength at 5/5 X4 ext, Normal tone, Sensation intact, Cranial nerves 3-12 NL, Reflexes 2+ Psych/Mental Status: Mental status NL Skin: No significant lesion Assessment Assessment 1. Multivessel coronary artery disease including ostial LAD lesion on cardiac catheterization yesterday. CT surgery team has been consulted. Plan for coronary artery bypass surgery on Wednesday. Telemetry did not show any significant arrhythmias. Continue aspirin, beta blockers and statins. 2. Mild ischemic cardiomyopathy with LVEF 45%. Clinically well compensated. Continue current medical regimen. Plan Plan of Care Problems Medical Problems: (1) Chest pain Status: Acute Comment Review of Relevant I have reviewed the following items livan (where applicable) has been applied. Labs Microbiology 12/08/18 Urine Culture - Final, Complete 12/08/18 Urine Culture Result 1 (JUAN) - Final, Complete Medications Current Medications Atorvastatin Calcium (Lipitor) 40 mg QHS PO Last administered on 12/10/18at 21: 32; Start 12/10/18 at 21:00 Carvedilol (Coreg) 3.125 mg BIDWMEALS PO Last administered on 12/11/18at 08:22; Start 12/10/18 at 18:00 Lisinopril (Prinivil) 5 mg DAILY PO Last administered on 12/11/18 08:21; Start 12/11/18 at 09:00 Vitals/I & O Vital Sign - Last 24 Hours 12/10/18 12/10/18 12/10/18 12/10/18 10:54 15:00 17:44 17:45 Temp 98.0 98.1 98.0 98.1 Pulse 103 71 71 Resp 18 18 B/P (MAP) 133/68 (89) 127/79 (95) 127/79 Pulse Ox 92 98 98 O2 Delivery Room Air Room Air Room Air O2 Flow Rate 2.0 2.0 2.0 12/10/18 12/10/18 12/10/18 12/10/18 18:46 19:40 20:10 23:10 Temp 98.6 98.2 98.6 98.2 Pulse 62 88 Resp 18 18 16 B/P (MAP) 127/67 (87) 121/63 (82) Pulse Ox 98 98 98 O2 Delivery Room Air Room Air Room Air O2 Flow Rate 2.0 12/11/18 12/11/18 12/11/18 12/11/18 03:01 03:05 07:51 08:00 Temp 97.9 98.2 97.9 98.2 Pulse 55 58 Resp 18 B/P (MAP) 114/71 (85) 117/59 (78) Pulse Ox 99 98 O2 Delivery Room Air Room Air Room Air Room Air O2 Flow Rate 2.0 12/11/18 12/11/18 08:21 08:22 Pulse 58 58 B/P (MAP) 117/59 117/59 Intake and Output 12/10/18 12/10/18 12/11/18 14:59 22:59 06:59 Intake Total 50 ml 150 ml Output Total 550 ml 200 ml Balance -500 ml -50 ml ROSANNE BENZ MD Dec 11, 2018 10:15
--- NOTE | 2018-12-11 13:37 | PDOC ---
PROGRESS NOTES Chief Complaint Chief Complaint chest pain, secondary to multiple vessel coronary artery disease Tensional headache as a result of muscle spasm Hx CAD, stents placed here by Dr. Diane in 2001 tobacco and THC use Plan: tizanidine pain management awaiting CABG on Wednesday History of Present Illness History of Present Illness No complaints during my visit. Patient awaiting for CABG on Wednesday Vitals Vitals Vital Signs Date Time Temp Pulse Resp B/P (MAP) Pulse Ox O2 Delivery O2 Flow Rate FiO2 12/11/18 11:07 98.1 57 18 127/60 (82) 99 Room Air 98.1 12/11/18 08:00 2.0 Physical Exam General: Alert, Oriented X3, No acute distress Heart: Regular rate, Normal S1, Normal S2 Abdomen: Normal bowel sounds, Soft, No tenderness Extremities: No edema Skin: No significant lesion Review of Systems Review of Systems Pertinent as per history of present illness otherwise 14 point review of system is negative Assessment and Plan Assessmemt and Plan Problems Medical Problems: (1) Chest pain Status: Acute Comment Review of Relevant I have reviewed the following items livan (where applicable) has been applied. Labs Microbiology 12/08/18 Urine Culture - Final, Complete 12/08/18 Urine Culture Result 1 (JUAN) - Final, Complete Medications Current Medications Aspirin (Children'S Aspirin) 324 mg 1X ONCE PO Last administered on 12/08/18at 11:54; Start 12/08/18 at 11:30; Stop 12/08/18 at 11:47; Status DC Nitroglycerin (Nitrostat) 0.4 mg PRN Q5MIN PRN SL CP RATING > 1/10 Last administered on 12/08/18at 11:57; Start 12/08/18 at 11:30; Stop 12/09/18 at 11:29 ; Status DC Sodium Chloride 1,000 ml @ 1,000 mls/hr Q1H IV Last administered on 12/08/18at 11:56; Start 12/08/18 at 11:23; Stop 12/08/18 at 12:22; Status DC Ondansetron HCl (Zofran) 4 mg PRN Q8HRS PRN IV NAUSEA/VOMITING; Start 12/08/18 at 13:45; Stop 12/09/18 at 13:44; Status DC Morphine Sulfate (Morphine Sulfate) 4 mg PRN Q2HR PRN IV PAIN; Start 12/08/18 at 13:45; Stop 12/09/18 at 13:44; Status DC Nitroglycerin (Nitrostat) 0.4 mg PRN Q5MIN PRN SL CHEST PAIN; Start 12/08/18 at 13:45; Stop 12/09/18 at 13:44; Status DC Influenza Virus Vaccine (Afluria Trivalent [id number] Syringe) 0.5 ml ONCE ONCE VAX IM Last administered on 12/08/18at 18:32; Start 12/08/18 at 18:00; Stop at 18:01; Status DC Enoxaparin Sodium (Lovenox Per Pharmacy Prophylaxis Dosing) 1 each PRN DAILY PRN MC SEE COMMENTS; Start 12/08/18 at 17:15 Enoxaparin Sodium (Lovenox 40mg Syringe) 40 mg Q24H SQ Last administered on at 21:33; Start 12/08/18 at 21:00 Iodixanol (Visipaque 320) 100 ml STK-MED ONCE .ROUTE ; Start 12/09/18 at 10:49; Stop 12/09/18 at 10:50; Status DC Lidocaine HCl (Lidocaine 1% 20ml Vial) 20 ml STK-MED ONCE .ROUTE ; Start at 10:49; Stop 12/09/18 at 10:50; Status DC Heparin Sodium/ Sodium Chloride 1,000 ml @ As Directed STK-MED ONCE .ROUTE ; Start 12/09/18 at 10:49; Stop 12/09/18 at 10:50; Status DC Heparin Sodium/ Sodium Chloride (HEPARIN for ARTERIAL LINE FLUSH) 1,000 unit 1X ONCE IART Last administered on 12/09/18at 11:15; Start 12/09/18 at 11:15; Stop 12/09/18 at 11:16; Status DC Midazolam HCl (Versed) 2 mg 1X ONCE IV Last administered on 12/09/18at 11:15; Start 12/09/18 at 11:15; Stop 12/09/18 at 11:16; Status DC Fentanyl Citrate (Fentanyl 2ml Vial) 100 mcg 1X ONCE IV Last administered on at 11:15; Start 12/09/18 at 11:15; Stop 12/09/18 at 11:16; Status DC Iodixanol (Visipaque 320) 100 ml 1X ONCE IART Last administered on 12/09/18at 11:15; Start 12/09/18 at 11:15; Stop 12/09/18 at 11:16; Status DC Lidocaine HCl (Lidocaine 1% 20ml Vial) 20 ml 1X ONCE INJ Last administered on 12/09/18at 11:15; Start 12/09/18 at 11:15; Stop 12/09/18 at 11:16; Status DC Fentanyl Citrate (Fentanyl 2ml Vial) 100 mcg STK-MED ONCE .ROUTE ; Start at 11:05; Stop 12/09/18 at 11:06; Status DC Midazolam HCl (Versed) 2 mg STK-MED ONCE .ROUTE ; Start 12/09/18 at 11:05; Stop 12/09/18 at 11:06; Status DC Heparin Sodium (Porcine) (Heparin Sodium) 10,000 unit STK-MED ONCE .ROUTE ; Start 12/09/18 at 12:02; Stop 12/09/18 at 12:03; Status DC Heparin Sodium (Porcine) (Heparin Sodium) 1,000 unit 1X ONCE IV Last administered on 12/09/18at 12:14; Start 12/09/18 at 12:15; Stop 12/09/18 at 12:16 ; Status DC Iodixanol (Visipaque 320) 100 ml STK-MED ONCE .ROUTE ; Start 12/09/18 at 12:10; Stop 12/09/18 at 12:11; Status DC Sodium Chloride (Normal Saline Flush) 3 ml QSHIFT PRN IV AFTER MEDS AND BLOOD DRAWS; Start 12/09/18 at 12:45 Sodium Chloride 1,000 ml @ 75 mls/hr [id number] IV ; Start 12/09/18 at 12:41; Stop 12/09/18 at 18:40; Status DC Nitroglycerin (Nitrostat) 0.4 mg PRN Q5MIN PRN SL CHEST PAIN; Start 12/09/18 at 12:45 Tizanidine HCl (Zanaflex) 4 mg PRN Q8HRS PRN PO MUSCLE SPASMS Last administered on 12/11/18at 12:08; Start 12/09/18 at 14:30 Tramadol HCl (Ultram) 50 mg PRN Q8HRS PRN PO PAIN Last administered on at 02:01; Start 12/09/18 at 20:45 Atorvastatin Calcium (Lipitor) 40 mg QHS PO Last administered on 12/10/18at 21: 32; Start 12/10/18 at 21:00 Carvedilol (Coreg) 3.125 mg BIDWMEALS PO Last administered on 12/11/18at 08:22; Start 12/10/18 at 18:00 Lisinopril (Prinivil) 5 mg DAILY PO Last administered on 12/11/18at 08:21; Start 12/11/18 at 09:00 Active Scripts Active Reported Aspirin Ec (Aspirin) 81 Mg Tablet.dr 81 Mg PO DAILY Vitals/I & O Vital Sign - Last 24 Hours 12/10/18 12/10/18 12/10/18 12/10/18 15:00 17:44 17:45 18:46 Temp 98.1 98.1 Pulse 71 71 Resp 18 18 B/P (MAP) 127/79 (95) 127/79 Pulse Ox 98 98 98 O2 Delivery Room Air Room Air O2 Flow Rate 2.0 2.0 2.0 12/10/18 12/10/18 12/10/18 12/11/18 19:40 20:10 23:10 03:01 Temp 98.6 98.2 98.6 98.2 Pulse 62 88 Resp 18 16 B/P (MAP) 127/67 (87) 121/63 (82) Pulse Ox 98 98 O2 Delivery Room Air Room Air Room Air Room Air 12/11/18 12/11/18 12/11/18 12/11/18 03:05 07:51 08:00 08:21 Temp 97.9 98.2 97.9 98.2 Pulse 55 58 58 Resp 18 18 B/P (MAP) 114/71 (85) 117/59 (78) 117/59 Pulse Ox 99 98 O2 Delivery Room Air Room Air Room Air O2 Flow Rate 2.0 12/11/18 12/11/18 08:22 11:07 Temp 98.1 98.1 Pulse 58 57 Resp 18 B/P (MAP) 117/59 127/60 (82) Pulse Ox 99 O2 Delivery Room Air Intake and Output 12/10/18 12/10/18 12/11/18 15:00 23:00 07:00 Intake Total 50 ml 150 ml Output Total 550 ml 200 ml Balance -500 ml -50 ml CHANO LINARES MD Dec 11, 2018 13:37
[2018-12-11] MEDS: ATORVASTATIN CALCIUM 40 MG TABLET. PO SCH (21:54)
[2018-12-11] MEDS: ENOXAPARIN 40 MG/0.4 ML SYRINGE. SQ SCH (21:55)
[2018-12-12 03:37] VITALS: BP 122/62
[2018-12-12 07:52] VITALS: BP 120/57
[2018-12-12] MEDS: LISINOPRIL 5 MG TABLET. PO SCH (09:08)
[2018-12-12] MEDS: CARVEDILOL 3.125 MG TABLET. PO SCH ×2 (09:09→16:50)
[2018-12-12 10:48] VITALS: BP 111/56
--- NOTE | 2018-12-12 12:16 | NUR ---
SS following up with discharge planning. Pt is a self pay pt and scheduled for CABG on 12/13/2018. SS spoke with Lisa Morrow with [facility]. She reported that at this time pt does not qualify for disability. She reported that pt has an Ejection Fraction of 45% and makes less than $1200 in [place] [employer]. Pt is 63 years old. Case management notified. SS will continue to follow.
--- NOTE | 2018-12-12 14:56 | PDOC ---
PROGRESS NOTES Chief Complaint Chief Complaint chest pain, secondary to multiple vessel coronary artery disease Tensional headache as a result of muscle spasm Hx CAD, stents placed here by Dr. Diane in 2001 tobacco and THC use Plan: tizanidine pain management awaiting CABG on Wednesday History of Present Illness History of Present Illness Patient denies palpitations but he did have the dyspnea is going from his bed to the chair that is nearby. He also experienced chest discomfort reassurance has been provided. Patient awaiting for CABG on Wednesday Vitals Vitals Vital Signs Date Time Temp Pulse Resp B/P (MAP) Pulse Ox O2 Delivery O2 Flow Rate FiO2 12/12/18 10:48 97.8 62 18 111/56 (74) 98 Room Air 97.8 12/11/18 08:00 2.0 Physical Exam General: Alert, Oriented X3, No acute distress Heart: Regular rate, Normal S1, Normal S2 Abdomen: Normal bowel sounds, Soft, No tenderness Extremities: No edema Skin: No significant lesion Review of Systems Review of Systems Pertinent as per history of present illness otherwise 14 point review of system is negative Assessment and Plan Assessmemt and Plan Problems Medical Problems: (1) Chest pain Status: Acute Comment Review of Relevant I have reviewed the following items livan (where applicable) has been applied. Labs Microbiology 12/08/18 Urine Culture - Final, Complete 12/08/18 Urine Culture Result 1 (JUAN) - Final, Complete Medications Current Medications Aspirin (Children'S Aspirin) 324 mg 1X ONCE PO Last administered on 12/08/18at 11:54; Start 12/08/18 at 11:30; Stop 12/08/18 at 11:47; Status DC Nitroglycerin (Nitrostat) 0.4 mg PRN Q5MIN PRN SL CP RATING > 1/10 Last administered on 12/08/18at 11:57; Start 12/08/18 at 11:30; Stop 12/09/18 at 11:29 ; Status DC Sodium Chloride 1,000 ml @ 1,000 mls/hr Q1H IV Last administered on 12/08/18at 11:56; Start 12/08/18 at 11:23; Stop 12/08/18 at 12:22; Status DC Ondansetron HCl (Zofran) 4 mg PRN Q8HRS PRN IV NAUSEA/VOMITING; Start 12/08/18 at 13:45; Stop 12/09/18 at 13:44; Status DC Morphine Sulfate (Morphine Sulfate) 4 mg PRN Q2HR PRN IV PAIN; Start 12/08/18 at 13:45; Stop 12/09/18 at 13:44; Status DC Nitroglycerin (Nitrostat) 0.4 mg PRN Q5MIN PRN SL CHEST PAIN; Start 12/08/18 at 13:45; Stop 12/09/18 at 13:44; Status DC Influenza Virus Vaccine (Afluria Trivalent [id number] Syringe) 0.5 ml ONCE ONCE VAX IM Last administered on 12/08/18at 18:32; Start 12/08/18 at 18:00; Stop at 18:01; Status DC Enoxaparin Sodium (Lovenox Per Pharmacy Prophylaxis Dosing) 1 each PRN DAILY PRN MC SEE COMMENTS; Start 12/08/18 at 17:15; Stop 12/12/18 at 14:01; Status DC Enoxaparin Sodium (Lovenox 40mg Syringe) 40 mg Q24H SQ Last administered on at 21:55; Start 12/08/18 at 21:00; Stop 12/12/18 at 14:01; Status DC Iodixanol (Visipaque 320) 100 ml STK-MED ONCE .ROUTE ; Start 12/09/18 at 10:49; Stop 12/09/18 at 10:50; Status DC Lidocaine HCl (Lidocaine 1% 20ml Vial) 20 ml STK-MED ONCE .ROUTE ; Start at 10:49; Stop 12/09/18 at 10:50; Status DC Heparin Sodium/ Sodium Chloride 1,000 ml @ As Directed STK-MED ONCE .ROUTE ; Start 12/09/18 at 10:49; Stop 12/09/18 at 10:50; Status DC Heparin Sodium/ Sodium Chloride (HEPARIN for ARTERIAL LINE FLUSH) 1,000 unit 1X ONCE IART Last administered on 12/09/18at 11:15; Start 12/09/18 at 11:15; Stop 12/09/18 at 11:16; Status DC Midazolam HCl (Versed) 2 mg 1X ONCE IV Last administered on 12/09/18at 11:15; Start 12/09/18 at 11:15; Stop 12/09/18 at 11:16; Status DC Fentanyl Citrate (Fentanyl 2ml Vial) 100 mcg 1X ONCE IV Last administered on at 11:15; Start 12/09/18 at 11:15; Stop 12/09/18 at 11:16; Status DC Iodixanol (Visipaque 320) 100 ml 1X ONCE IART Last administered on 12/09/18at 11:15; Start 12/09/18 at 11:15; Stop 12/09/18 at 11:16; Status DC Lidocaine HCl (Lidocaine 1% 20ml Vial) 20 ml 1X ONCE INJ Last administered on 12/09/18at 11:15; Start 12/09/18 at 11:15; Stop 12/09/18 at 11:16; Status DC Fentanyl Citrate (Fentanyl 2ml Vial) 100 mcg STK-MED ONCE .ROUTE ; Start at 11:05; Stop 12/09/18 at 11:06; Status DC Midazolam HCl (Versed) 2 mg STK-MED ONCE .ROUTE ; Start 12/09/18 at 11:05; Stop 12/09/18 at 11:06; Status DC Heparin Sodium (Porcine) (Heparin Sodium) 10,000 unit STK-MED ONCE .ROUTE ; Start 12/09/18 at 12:02; Stop 12/09/18 at 12:03; Status DC Heparin Sodium (Porcine) (Heparin Sodium) 1,000 unit 1X ONCE IV Last administered on 12/09/18at 12:14; Start 12/09/18 at 12:15; Stop 12/09/18 at 12:16 ; Status DC Iodixanol (Visipaque 320) 100 ml STK-MED ONCE .ROUTE ; Start 12/09/18 at 12:10; Stop 12/09/18 at 12:11; Status DC Sodium Chloride (Normal Saline Flush) 3 ml QSHIFT PRN IV AFTER MEDS AND BLOOD DRAWS; Start 12/09/18 at 12:45 Sodium Chloride 1,000 ml @ 75 mls/hr [id number] IV ; Start 12/09/18 at 12:41; Stop 12/09/18 at 18:40; Status DC Nitroglycerin (Nitrostat) 0.4 mg PRN Q5MIN PRN SL CHEST PAIN; Start 12/09/18 at 12:45 Tizanidine HCl (Zanaflex) 4 mg PRN Q8HRS PRN PO MUSCLE SPASMS Last administered on 12/11/18 21:54; Start 12/09/18 at 14:30 Tramadol HCl (Ultram) 50 mg PRN Q8HRS PRN PO PAIN Last administered on at 02:01; Start 12/09/18 at 20:45 Atorvastatin Calcium (Lipitor) 40 mg QHS PO Last administered on 12/11/18at 21: 54; Start 12/10/18 at 21:00 Carvedilol (Coreg) 3.125 mg BIDWMEALS PO Last administered on 12/12/18 09:09; Start 12/10/18 at 18:00 Lisinopril (Prinivil) 5 mg DAILY PO Last administered on 12/12/18 09:08; Start 12/11/18 at 09:00; Stop 12/12/18 at 14:01; Status DC Cefazolin Sodium/ Dextrose 50 ml @ 100 mls/hr 1X ONCE IV ; Start 12/13/18 at 06:00; Stop 12/13/18 at 06:29 Active Scripts Active Reported Aspirin Ec (Aspirin) 81 Mg Tablet. 81 Mg PO DAILY Vitals/I & O Vital Sign - Last 24 Hours 12/11/18 12/11/18 12/11/18 12/11/18 14:50 17:00 17:20 19:20 Temp 98.1 98.1 Pulse 58 58 59 Resp 18 B/P (MAP) 83/49 (60) 83/49 116/58 (77) Pulse Ox 98 O2 Delivery Room Air Room Air 12/11/18 12/11/18 12/12/18 12/12/18 19:52 22:36 03:37 07:52 Temp 98.0 98.7 98.1 98.0 98.0 98.7 98.1 98.0 Pulse 59 61 59 58 Resp 17 20 18 18 B/P (MAP) 100/57 (71) 135/66 (89) 122/62 (82) 120/57 (78) Pulse Ox 97 98 98 98 O2 Delivery Room Air Room Air Room Air Room Air 12/12/18 12/12/18 12/12/18 12/12/18 08:00 09:08 09:09 10:48 Temp 97.8 97.8 Pulse 77 77 62 Resp 18 B/P (MAP) 120/57 120/57 111/56 (74) Pulse Ox 98 O2 Delivery Room Air Room Air Intake and Output 12/11/18 12/11/18 12/12/18 15:00 23:00 07:00 Intake Total 740 ml 500 ml Output Total 400 ml 1100 ml Balance 340 ml -600 ml CHANO LINARES MD Dec 12, 2018 14:56
[2018-12-12 15:01] LABS: BASO # 0.1 x10^3/uL (0.0-0.2); BASO % 1 % (0-3); EOS # 0.4 x10^3/uL (0.0-0.7); EOS % 6 % (0-3); HEMATOCRIT 38.6 % (39.0-53.0); HEMOGLOBIN 13.3 g/dL (13.0-17.5); LYMPH # 1.7 x10^3/uL (1.0-4.8); LYMPH % 24 % (24-48); MEAN CORPUSCULAR HEMOGLOBIN 33 pg (25-35); MEAN CORPUSCULAR HGB CONC 34 g/dL (31-37); MEAN CORPUSCULAR VOLUME 97 fL (79-100); MONO # 0.7 x10^3/uL (0.0-1.1); MONO % 10 % (0-9); NEUT # 4.1 x10^3uL (1.8-7.7); NEUT % 59 % (31-73); PLATELET COUNT 159 x10^3/uL (140-400); RED BLOOD COUNT 3.98 x10^6/uL (4.30-5.70)
[2018-12-12 15:02] VITALS: BP 112/56
[2018-12-12 15:12] LABS: PROTHROMBIN TIME PATIENT 12.7 SEC (11.7-14.0)
[2018-12-12 15:24] LABS: ALBUMIN 3.5 g/dL (3.4-5.0); ALBUMIN/GLOBULIN RATIO 0.9 (1.0-1.7); CREATININE 1.1 mg/dL (0.7-1.3); GFR 67.8; POTASSIUM 4.1 mmol/L (3.5-5.1); TOTAL BILIRUBIN 0.8 mg/dL (0.2-1.0); TOTAL PROTEIN 7.4 g/dL (6.4-8.2)
--- NOTE | 2018-12-12 17:01 | PDOC ---
CARDIO Progress Notes Date and Time Date of Service 12/12/18 Time of Evaluation 1110 Subjective Subjective: No Chest Pain, No shortness of breath, No Palpitations Vitals Vitals Vital Signs Date Time Temp Pulse Resp B/P (MAP) Pulse Ox O2 Delivery O2 Flow Rate FiO2 12/12/18 15:02 98.2 60 18 112/56 (74) 98 Room Air 98.2 12/11/18 08:00 2.0 Weight Weight [ ] Input and Output Intake and Output Intake and Output 12/12/18 07:00 Intake Total 1240 ml Output Total 1500 ml Balance -260 ml Intake Oral 1240 ml Output Urine Total 1500 ml # Voids 3 Laboratory Labs Laboratory Tests Test 12/12/18 14:35 White Blood Count 7.0 x10^3/uL (4.0-11.0) Red Blood Count 3.98 x10^6/uL (4.30-5.70) Hemoglobin 13.3 g/dL (13.0-17.5) Hematocrit 38.6 % (39.0-53.0) Mean Corpuscular Volume 97 fL (79-100) Mean Corpuscular Hemoglobin 33 pg (25-35) Mean Corpuscular Hemoglobin Concent 34 g/dL (31-37) Red Cell Distribution Width 13.0 % (11.5-14.5) Platelet Count 159 x10^3/uL (140-400) Neutrophils (%) (Auto) 59 % (31-73) Lymphocytes (%) (Auto) 24 % (24-48) Monocytes (%) (Auto) 10 % (0-9) Eosinophils (%) (Auto) 6 % (0-3) Basophils (%) (Auto) 1 % (0-3) Neutrophils # (Auto) 4.1 x10^3uL (1.8-7.7) Lymphocytes # (Auto) 1.7 x10^3/uL (1.0-4.8) Monocytes # (Auto) 0.7 x10^3/uL (0.0-1.1) Eosinophils # (Auto) 0.4 x10^3/uL (0.0-0.7) Basophils # (Auto) 0.1 x10^3/uL (0.0-0.2) Prothrombin Time 12.7 SEC (11.7-14.0) Prothromb Time International Ratio 1.0 (0.8-1.1) Activated Partial Thromboplast Time 33 SEC (24-38) Sodium Level 139 mmol/L (136-145) Potassium Level 4.1 mmol/L (3.5-5.1) Chloride Level 102 mmol/L (98-107) Carbon Dioxide Level 30 mmol/L (21-32) Anion Gap 7 (6-14) Blood Urea Nitrogen 14 mg/dL (8-26) Creatinine 1.1 mg/dL (0.7-1.3) Estimated GFR (Cockcroft-Gault) 67.8 BUN/Creatinine Ratio 13 (6-20) Glucose Level 95 mg/dL (70-99) Calcium Level 9.0 mg/dL (8.5-10.1) Total Bilirubin 0.8 mg/dL (0.2-1.0) Aspartate Amino Transf (AST/SGOT) 13 U/L (15-37) Alanine Aminotransferase (ALT/SGPT) 16 U/L (16-63) Alkaline Phosphatase 80 U/L (46-116) Total Protein 7.4 g/dL (6.4-8.2) Albumin 3.5 g/dL (3.4-5.0) Albumin/Globulin Ratio 0.9 (1.0-1.7) Microbiology Micro Microbiology 12/08/18 Urine Culture - Final, Complete 12/08/18 Urine Culture Result 1 (JUAN) - Final, Complete Physical Exam HEENT: Neck Supple W Full Motion Chest: Symmetric LUNGS: Clear to Auscultation Heart: S1S2, RRR, no murmurs Abdomen: Soft N/T Extremities: No Edema Neurology: alert, oriented, follow commands Assessment Assessment 1. Multi-vessel disease; LVEF 45%. Tele without acute events. CABG planned for tomorrow 2. Hypertension; controlled 3. ICM; echo showed mild LV dysfunction with an EF of 45%. Compensated. 4. Tobaccoism/ Marijuana use; discussed/encouraged cessation Recommendations Hold ACEi prior to CABG Continue BB, statin Resume ASA following surgery. SONIA OLSEN APRN Dec 12, 2018 17:01
[2018-12-12 19:45] VITALS: BP 107/56
[2018-12-12] MEDS: ATORVASTATIN CALCIUM 40 MG TABLET. PO SCH (21:02)
[2018-12-12] MEDS: tiZANidine 4 MG TABLET. PO PRN (21:15)
[2018-12-12] MEDS: traMADol 50 MG TABLET PO PRN (23:08)
[2018-12-12 23:30] VITALS: BP 113/61
[2018-12-13] VITALS (17 sets, daily range): BP systolic 105–148; BP diastolic 50–69
[2018-12-13] MEDS ORDERED: POTASSIUM CHLORIDE 70 MEQ, SODIUM BICARBONATE VIAL 12.5 MEQ, LIDOCAINE 2% 24 ML in IV E... IRR ONE (06:00)
[2018-12-13] MEDS ORDERED: POTASSIUM CHLORIDE 15 MEQ, SODIUM BICARBONATE VIAL 12.5 MEQ in IV ELECTROLYTE-S (PH 7.4... IRR ONE (06:00)
[2018-12-13] MEDS ORDERED: HEPARIN 20,000 UNIT in IV RINGERS,LACTATED 1000ML 1,000 ML IRR ONE (06:00)
[2018-12-13] MEDS ORDERED: ETOMIDATE 20 MG/10 ML VIAL. IV ONE ×2 (06:27→06:28)
[2018-12-13] MEDS ORDERED: SUFentanil 250 MCG/5 ML AMPUL. ONE (06:27)
[2018-12-13] MEDS ORDERED: PHENYLEPHRINE 10 MG/ML VIAL. ONE ×3 (06:28→06:29)
[2018-12-13] MEDS ORDERED: LIDOCAINE 2% PF 5 ML VIAL. ONE ×2 (06:28→11:33)
[2018-12-13] MEDS ORDERED: MIDAZOLAM HCL/PF 5 MG/5 ML VIAL. ONE (06:28)
[2018-12-13] MEDS ORDERED: AMINOCAPROIC ACID 5,000 MG/20 ML VIAL. IV ONE ×3 (06:30)
[2018-12-13] MEDS ORDERED: NITROGLYCERIN PREMIX 250 ML IV ONE (06:30)
[2018-12-13] MEDS ORDERED: VANCOMYCIN 10GM VIAL for OR. ONE (06:41)
[2018-12-13] MEDS ORDERED: PAPAVERINE 60 MG/2 ML VIAL FOR OR ONLY. ONE (06:41)
[2018-12-13] MEDS ORDERED: SURGICEL HEMOSTAT 4X8 EACH. ONE ×2 (06:41)
[2018-12-13] MEDS ORDERED: ASPIRIN RECTAL 300 MG SUPP. ONE (06:41)
[2018-12-13] MEDS ORDERED: 0.9 % SODIUM CHLORIDE 20 ML VIAL. IJ ONE ×3 (06:42→06:43)
[2018-12-13] MEDS ORDERED: MORPHINE SULFATE 4 MG/ML VIAL. IV PRN (07:00)
[2018-12-13] MEDS ORDERED: fentaNYL PF VIAL 100 MCG/2 ML VIAL IV PRN ×2 (07:00)
[2018-12-13] MEDS ORDERED: IV RINGERS,LACTATED 1000ML 1,000 ML IV SCH (07:00)
[2018-12-13] MEDS ORDERED: LIDOCAINE 1% PF 2 ML VIAL. ID PRN (07:00)
[2018-12-13] MEDS ORDERED: PROCHLORPERAZINE 10 MG/2 ML VIAL. IV PRN ×2 (07:00→13:00)
[2018-12-13] MEDS ORDERED: HYDROmorphone 2 MG/ML VIAL IV PRN (07:00)
[2018-12-13] MEDS ORDERED: ONDANSETRON PF 4 MG/2 ML VIAL. IV PRN (07:00)
[2018-12-13] MEDS: CARVEDILOL 3.125 MG TABLET. PO SCH ×2 (08:00→17:00)
[2018-12-13] MEDS ORDERED: VANCOMYCIN 10GM VIAL for OR. CEMENT ONE (08:00)
[2018-12-13] MEDS ORDERED: ROCURONIUM 100 MG/10 ML VIAL. ONE (08:21)
[2018-12-13] MEDS ORDERED: PROTAMINE 250 MG/25 ML VIAL IV ONE (11:06)
[2018-12-13] MEDS ORDERED: MAGNESIUM SULFATE 5 GM/10 ML VIAL. ONE (11:33)
[2018-12-13] MEDS ORDERED: ALBUMIN HUMAN 25% 100 ML IV ONE (11:33)
[2018-12-13] MEDS ORDERED: HEPARIN 30,000 UNIT/30 ML VIAL. ONE (11:33)
[2018-12-13] MEDS ORDERED: MANNITOL 25% 12.5 G/50 ML VIAL FOR OR. ONE ×3 (11:33)
[2018-12-13] MEDS ORDERED: CALCIUM CHLORIDE 1,000 MG/10 ML DISP.SYRIN ONE ×2 (11:33)
[2018-12-13] MEDS ORDERED: ISOFLURANE > 120 MINUTES. IH ONE (11:34)
[2018-12-13 11:37] LABS: HEMATOCRIT 23.9 % (39.0-53.0); HEMOGLOBIN 8.2 g/dL (13.0-17.5)
[2018-12-13 11:41] LABS: WHITE BLOOD COUNT 6.1 x10^3/uL (4.0-11.0)
[2018-12-13 11:51] LABS: PROTHROMBIN TIME PATIENT 18.6 SEC (11.7-14.0)
[2018-12-13] MEDS ORDERED: ROCURONIUM 50 MG/5 ML VIAL. ONE (11:54)
[2018-12-13] MEDS ORDERED: ALBUMIN HUMAN 5% 500 ML IV ONE (12:00)
--- NOTE | 2018-12-13 12:13 | PDOC ---
BRIEF OPERATIVE NOTE Date: Dec 13, 2018 Pre-Op Diagnosis Unstable angina Coronary artery disease Hypertension Hyperlipidemia COPD Active heavy smoking Post-Op Diagnosis Unstable angina Coronary artery disease Hypertension Hyperlipidemia COPD Active heavy smoking Procedure Performed CABG x 2 (TAVARES to LAD, SVG to RPDA)\ Left endoscopic greater saphenous vein harvest Surgeon Saima Echeverria MD FACS Utility Inspector Myah Hoffman, JUNIOR ELECTRICAL ENGINEER Thea Mahmood, JUNIOR ELECTRICAL ENGINEERCristian Thomason, JUNIOR ELECTRICAL ENGINEER Anesthesiologist Reuben Nevarez MD Anesthesia Type: General Blood Loss Cellsaver IV Fluid Crystalloid: 1800 mls Cellsaver: 475 mls Urine Output 500 mls Specimens Obtained None Findings Moderate size LAD and RPDA targets 1.5mm-2mm Moderate size saphenous vein and TAVARES with good flow CPB time: 66 min x-clamp time: 51 min Complications None SAIMA ECHEVERRIA MD Dec 13, 2018 12:13
--- NOTE | 2018-12-13 12:15 | PDOC4 ---
Operative Note Operative Note Date Dec 13, 2018 Preoperative diagnosis Unstable angina Coronary artery disease Ischemic cardiomyopathy Hypertension Hyperlipidemia COPD Active heavy smoking Postoperative diagnosis Unstable angina Coronary artery disease Ischemic cardiomyopathy Hypertension Hyperlipidemia COPD Active heavy smoking Procedure performed CABG x 2 (TAVARES to LAD, SVG to RPDA)\ Left endoscopic greater saphenous vein harvest Surgeon Saima Echeverria MD FACS Deputy Prosecuting Attorney Myah Hoffman, DIETITIAN CHIEFCristian Mahmood, DIETITIAN CHIEFCristian Thomason [facility] Anesthesiologist Reuben Nevarez MD Anesthesia type General Blood loss Cellsaver IV fluids Crystalloid: 1800 mls Cellsaver: 475 mls Urine output 500 mls Specimens obtained None Findings Moderate size LAD and RPDA targets 1.5mm-2mm Moderate size saphenous vein and TAVARES with good flow CPB time: 66 min x-clamp time: 51 min Complications None Indication The patient is a 63-year-old male with a history of PCI to the RCA in 2001, active smoking, hypertension, possible hyperlipidemia and family history of ischemic heart disease, who presents with a week's history of worsening chest pain on minimal exertion. Troponins were negative and EKG did not show any ischemic changes. He had a coronary angiogram today which demonstrated a tight proximal LAD lesion, multiple tight stenosis in the mid distal RCA with in- stent stenosis of the distal RCA stent, and mild insignificant disease in the left circumflex artery. LV function is preserved. A CABG was indicated. Operation After appropriate identification, the patient was brought to the operating room and placed supine on the operating table. Anesthesia was induced and the airway was secured with an endotracheal tube. A right IJ Elizabeth-Loyda catheter was placed. A left radial arterial line was also inserted. Antibiotics were delivered and the patient was preped and draped in the usual standard surgical sterile fashion. A timeout was then performed. A median sternotomy was performed and the left internal mammary artery was harvested, which was of modest size but good flow. Simultaneously the left greater saphenous vein was harvested endoscopically, which was of moderate quality and caliber. The pericardium was incised. The patient was heparinized. Cardiopulmonary bypass was established through the ascending aorta and the right atrium. A bifurcating antegrade cardioplegia and root vent needle was placed in the ascending aorta. The patient was cooled to 34. Arrest was achieved with induction antegrade cold blood cardioplegia. The cross-clamp was applied and diastolic arrest was achieved. Intermittent dosages of antegrade cardioplegia was given every 20 minutes. Grafts: Saphenous vein graft to right posterior descending coronary artery, end to side anastomosis with 7-0 Prolene. 1.5 mm vessel. Left internal mammary artery to left anterior descending coronary artery, end to side anastomosis with 7-0 Prolene. 2 mm vessel. The proximal anastomosis was performed using a 5-0 Prolene running suture. The cross-clamp was removed. The heart was allowed to rewarm and reperfuse. The omega graft was de-aired. The patient resumed normal sinus rhythm and was from cardiopulmonary bypass without inotropic support. All cannulae were removed. Heparin was reversed with protamine. Atrial and ventricular pacing wires were placed. Hemostasis was confirmed. An angled 32 Dutch chest tube was placed in the left pleural space, a 32Fr angled in the posterior pericardium and a 32 straight in the anterior pericardium. The sternotomy was closed with seven stainless steel wires. The incision was closed with a layer of 0 Vicryl, followed by 2-0 Vicryl and then 4-0 Monocryl for the epidermis. Sterile dressings were applied. The total cardiopulmonary bypass time was 66 minutes and the cross-clamp time was 51 minutes. The instrument, sponge and needle counts were correct. The patient was then transferred to the ICU in critical condition. SAIMA ECHEVERRIA MD Dec 13, 2018 12:15
--- NOTE | 2018-12-13 12:40 | NUR ---
Pt to room 112 from the OR S/P CABG x2, SR on the monitor, BP wnl on no drips at this time, Mediastinal and pleural tubes connected to -20 suction and freely draining. Temp pacemaker wires connected to generator but not turned on. Jose Luis wrap noted to left leg. Martin cath to gravity drainage with clear yellow urine.
[2018-12-13] MEDS: niCARdipine 50 MG in IV NORMAL SALINE 250ML 250 ML IV PRN ×3 (12:49→20:35)
[2018-12-13] MEDS ORDERED: ACETAMINOPHEN 650 MG SUPP.RECT. PR PRN (13:00)
[2018-12-13] MEDS ORDERED: AMIODARONE 150 MG in IV DEXTROSE 5% 100ML 100 ML IV ONE ×4 (13:00)
[2018-12-13] MEDS ORDERED: AMIODARONE 150 MG in IV DEXTROSE 5% 100ML 100 ML IV PRN (13:00)
[2018-12-13] MEDS ORDERED: PHENYLEPHRINE INJ 20 MG in IV NORMAL SALINE 250ML 250 ML IV PRN (13:00)
[2018-12-13] MEDS ORDERED: BISACODYL 10 MG SUPP.RECT. PR PRN (13:00)
[2018-12-13] MEDS ORDERED: PROPOFOL 100 ML IV PRN (13:00)
[2018-12-13] MEDS ORDERED: METOCLOPRAMIDE HCL 10 MG/2 ML VIAL. IV PRN (13:00)
[2018-12-13] MEDS ORDERED: AMIODARONE 900 MG in IV DEXTROSE 5% 500 ML IV PRN ×4 (13:00)
[2018-12-13] MEDS ORDERED: INSULIN REGULAR VIAL 150 UNIT in 0.9 % SODIUM CHLORIDE 150ML 150 ML IV PRN (13:00)
[2018-12-13] MEDS ORDERED: KCL PER PROTOCOL MC PRN (13:00)
[2018-12-13] MEDS ORDERED: MEPERIDINE PF 25 MG/ML VIAL. IV PRN (13:00)
[2018-12-13] MEDS ORDERED: MAGNESIUM SULFATE 1GM 100 ML IV PRN (13:00)
[2018-12-13] MEDS ORDERED: DEXTROSE 50% 25 GM / 50ML DISP.SYRIN. IV PRN (13:00)
[2018-12-13] MEDS ORDERED: ALBUTEROL SULFATE 2.5 MG/3 ML NEBU. NEB PRN (13:00)
[2018-12-13] MEDS ORDERED: 0.9 % SODIUM CHLORIDE 10 ML DISP.SYRIN. IV PRN (13:00)
[2018-12-13] MEDS ORDERED: NITROGLYCERIN PREMIX 250 ML IV PRN (13:00)
--- NOTE | 2018-12-13 13:01 | RAD ---
PORTABLE CHEST 1V Clinical Indication: POST OP CABG DONE IN OR
ALL COUNTS CORRECT Comparison: AP chest, 5 days ago. Findings: There is endotracheal tube, tip is 5.6 cm superior to the josh. Enteric tube tip is in the stomach. There is right IJ sheath and Trafford-Loyda catheter, tip is in the right main pulmonary artery. There are mediastinal drains. There is left chest tube. Median sternotomy wires and surgical clips of CABG. Atherosclerotic aortic arch. Cardiac size is normal. Lungs are clear. No pneumothorax is seen. Bones unremarkable. IMPRESSION: 1. Life support devices as above. 2. Lungs are clear. Electronically signed by: Jefferson Capone MD (12/13/2018 12:58 PM) [id number]
[2018-12-13 13:07] LABS: BASE EXCESS ABG -6 mmol/L (-3-3); HCO3 ABG 19 mmol/L (21-28); PCO2 ABG 33 mmHg (35-46); PO2 ABG 393 mmHg (65-108); SAT O2 ABG 99 % (92-99)
[2018-12-13 13:12] LABS: HEMATOCRIT 29.3 % (39.0-53.0); HEMOGLOBIN 10.1 g/dL (13.0-17.5); RED BLOOD COUNT 3.01 x10^6/uL (4.30-5.70); RED CELL DISTRIBUTION WIDTH 12.6 % (11.5-14.5); WHITE BLOOD COUNT 6.8 x10^3/uL (4.0-11.0)
[2018-12-13] MEDS ORDERED: SODIUM BICARB ADULT 8.4% 50 MEQ/50 ML DISP.SYRIN. IV ONE ×2 (13:15)
[2018-12-13] MEDS: IV RINGERS,LACTATED 1000ML 1,000 ML IV SCH (13:20)
[2018-12-13] MEDS ORDERED: SODIUM BICARB ADULT 8.4% 50 MEQ/50 ML DISP.SYRIN. ONE (13:24)
[2018-12-13] MEDS: ALBUMIN HUMAN 5% 250 ML IV PRN (13:30)
[2018-12-13 13:33] LABS: CALCIUM 9.4 mg/dL (8.5-10.1); CREATININE 0.9 mg/dL (0.7-1.3); GFR 85.5; MAGNESIUM 2.9 mg/dL (1.8-2.4); POTASSIUM 4.1 mmol/L (3.5-5.1)
--- NOTE | 2018-12-13 13:53 | EKG ---
[facility] [address] [place] [id number] Test Date: 2018-12-13 Test Time: 13:39:56 Pat Name: SYLVIA SMITH Department: Room: 112 1 Gender: M Travel Registered Nurse Icu: SATISH : 1955 Requested By: RC ECHEVERRIA Order Number: [id number] Reading MD: Jono Perez Measurements Intervals [place] Rate: 88 P: 61 RI: 134 QRS: 76 QRSD: 98 T: 28 QT: 382 QTc: 466 Interpretive Statements SINUS RHYTHM INCOMPLETE RIGHT BUNDLE BRANCH BLOCK Electronically Signed On 12-20-2018 11:00:20 TECHNOLOGY ANALYST by Jono Perez
[2018-12-13] MEDS: POTASSIUM CHL 20MEQ PREMIX 50 ML IV SCH ×2 (14:07→15:09)
[2018-12-13] MEDS: MORPHINE SULFATE 4 MG/ML VIAL. IV PRN ×4 (14:31→23:26)
--- NOTE | 2018-12-13 15:35 | NUR ---
Pt placed on CPAP trial at this time.
[2018-12-13 16:20] LABS: FIO2 ABG 40
--- NOTE | 2018-12-13 16:20 | NUR ---
ABG results called to Dr. Mcdonald, orders received to extubate
[2018-12-13] MEDS: oxyCODONE IR 5 MG TABLET PO PRN ×2 (17:36→21:14)
[2018-12-13] MEDS: ACETAMINOPHEN 325 MG TABLET. PO PRN ×2 (19:29→23:25)
[2018-12-13] MEDS: ONDANSETRON PF 4 MG/2 ML VIAL. IV PRN (20:05)
--- NOTE | 2018-12-13 20:42 | PDOC ---
PROGRESS NOTES Chief Complaint Chief Complaint chest pain, secondary to multiple vessel coronary artery disease status post CABG Tensional headache as a result of muscle spasm Hx CAD, stents placed here by Dr. Diane in 2001 tobacco and THC use Plan: Continue with orders from cardiothoracic surgery ICU supportive measures Extubated once stable Reassess in the a.m. History of Present Illness History of Present Illness intubated and sedated in no apparent distress, hemodynamics stable Vitals Vitals Vital Signs Date Time Temp Pulse Resp B/P (MAP) Pulse Ox O2 Delivery O2 Flow Rate FiO2 12/13/18 20:00 99.4 90 20 105/51 (69) 100 Nasal Cannula 3.0 99.4 Physical Exam General: Alert, Oriented X3, No acute distress Heart: Regular rate, Normal S1, Normal S2 Abdomen: Normal bowel sounds, Soft, No tenderness Extremities: No edema Skin: No significant lesion Labs LABS Laboratory Tests Test 12/13/18 08:10 12/13/18 09:15 12/13/18 10:15 12/13/18 10:44 Activated Clotting Time 109 SEC (90-125) 528 SEC (90-125) 573 SEC (90-125) 445 SEC (90-125) Test 12/13/18 11:25 12/13/18 11:32 12/13/18 13:00 12/13/18 13:03 Activated Clotting Time 132 SEC (90-125) White Blood Count 6.1 x10^3/uL (4.0-11.0) Hemoglobin 8.2 g/dL (13.0-17.5) Hematocrit 23.9 % (39.0-53.0) Platelet Count 72 x10^3/uL (140-400) Prothrombin Time 18.6 SEC (11.7-14.0) Prothromb Time International Ratio 1.6 (0.8-1.1) Activated Partial Thromboplast Time 35 SEC (24-38) Fibrinogen 315 mg/dL (200-440) O2 Saturation 99 % (92-99) Arterial Blood pH 7.37 (7.35-7.45) Arterial Blood pCO2 at Patient Temp 33 mmHg (35-46) Arterial Blood pO2 at Patient Temp 393 mmHg (65-108) Arterial Blood HCO3 19 mmol/L (21-28) Arterial Blood Base Excess -6 mmol/L (-3-3) FiO2 40 Glucose (Fingerstick) 92 mg/dL (70-99) Test 12/13/18 13:05 12/13/18 18:40 12/13/18 20:02 White Blood Count 6.8 x10^3/uL (4.0-11.0) Red Blood Count 3.01 x10^6/uL (4.30-5.70) Hemoglobin 10.1 g/dL (13.0-17.5) Hematocrit 29.3 % (39.0-53.0) 31.0 % (39.0-53.0) Mean Corpuscular Volume 97 fL (79-100) Mean Corpuscular Hemoglobin 33 pg (25-35) Mean Corpuscular Hemoglobin Concent 34 g/dL (31-37) Red Cell Distribution Width 12.6 % (11.5-14.5) Platelet Count 81 x10^3/uL (140-400) Activated Partial Thromboplast Time 35 SEC (24-38) Sodium Level 140 mmol/L (136-145) Potassium Level 4.1 mmol/L (3.5-5.1) 4.6 mmol/L (3.5-5.1) Chloride Level 106 mmol/L (98-107) Carbon Dioxide Level 24 mmol/L (21-32) Anion Gap 10 (6-14) Blood Urea Nitrogen 12 mg/dL (8-26) Creatinine 0.9 mg/dL (0.7-1.3) Estimated GFR (Cockcroft-Gault) 85.5 Glucose Level 107 mg/dL (70-99) Calcium Level 9.4 mg/dL (8.5-10.1) Magnesium Level 2.9 mg/dL (1.8-2.4) Glucose (Fingerstick) 180 mg/dL (70-99) 133 mg/dL (70-99) Review of Systems Review of Systems uanble to assess due to ET tube Assessment and Plan Assessmemt and Plan Problems Medical Problems: (1) Chest pain Status: Acute Comment Review of Relevant I have reviewed the following items livan (where applicable) has been applied. Labs Laboratory Tests Test 12/12/18 14:35 12/13/18 08:10 12/13/18 09:15 12/13/18 10:15 White Blood Count 7.0 x10^3/uL (4.0-11.0) Red Blood Count 3.98 x10^6/uL (4.30-5.70) Hemoglobin 13.3 g/dL (13.0-17.5) Hematocrit 38.6 % (39.0-53.0) Mean Corpuscular Volume 97 fL (79-100) Mean Corpuscular Hemoglobin 33 pg (25-35) Mean Corpuscular Hemoglobin Concent 34 g/dL (31-37) Red Cell Distribution Width 13.0 % (11.5-14.5) Platelet Count 159 x10^3/uL (140-400) Neutrophils (%) (Auto) 59 % (31-73) Lymphocytes (%) (Auto) 24 % (24-48) Monocytes (%) (Auto) 10 % (0-9) Eosinophils (%) (Auto) 6 % (0-3) Basophils (%) (Auto) 1 % (0-3) Neutrophils # (Auto) 4.1 x10^3uL (1.8-7.7) Lymphocytes # (Auto) 1.7 x10^3/uL (1.0-4.8) Monocytes # (Auto) 0.7 x10^3/uL (0.0-1.1) Eosinophils # (Auto) 0.4 x10^3/uL (0.0-0.7) Basophils # (Auto) 0.1 x10^3/uL (0.0-0.2) Prothrombin Time 12.7 SEC (11.7-14.0) Prothromb Time International Ratio 1.0 (0.8-1.1) Activated Partial Thromboplast Time 33 SEC (24-38) Sodium Level 139 mmol/L (136-145) Potassium Level 4.1 mmol/L (3.5-5.1) Chloride Level 102 mmol/L (98-107) Carbon Dioxide Level 30 mmol/L (21-32) Anion Gap 7 (6-14) Blood Urea Nitrogen 14 mg/dL (8-26) Creatinine 1.1 mg/dL (0.7-1.3) Estimated GFR (Cockcroft-Gault) 67.8 BUN/Creatinine Ratio 13 (6-20) Glucose Level 95 mg/dL (70-99) Calcium Level 9.0 mg/dL (8.5-10.1) Total Bilirubin 0.8 mg/dL (0.2-1.0) Aspartate Amino Transf (AST/SGOT) 13 U/L (15-37) Alanine Aminotransferase (ALT/SGPT) 16 U/L (16-63) Alkaline Phosphatase 80 U/L (46-116) Total Protein 7.4 g/dL (6.4-8.2) Albumin 3.5 g/dL (3.4-5.0) Albumin/Globulin Ratio 0.9 (1.0-1.7) Activated Clotting Time 109 SEC (90-125) 528 SEC (90-125) 573 SEC (90-125) Test 12/13/18 10:44 12/13/18 11:25 12/13/18 11:32 12/13/18 13:00 Activated Clotting Time 445 SEC (90-125) 132 SEC (90-125) White Blood Count 6.1 x10^3/uL (4.0-11.0) Hemoglobin 8.2 g/dL (13.0-17.5) Hematocrit 23.9 % (39.0-53.0) Platelet Count 72 x10^3/uL (140-400) Prothrombin Time 18.6 SEC (11.7-14.0) Prothromb Time International Ratio 1.6 (0.8-1.1) Activated Partial Thromboplast Time 35 SEC (24-38) Fibrinogen 315 mg/dL (200-440) O2 Saturation 99 % (92-99) Arterial Blood pH 7.37 (7.35-7.45) Arterial Blood pCO2 at Patient Temp 33 mmHg (35-46) Arterial Blood pO2 at Patient Temp 393 mmHg (65-108) Arterial Blood HCO3 19 mmol/L (21-28) Arterial Blood Base Excess -6 mmol/L (-3-3) FiO2 40 Test 12/13/18 13:03 12/13/18 13:05 12/13/18 18:40 12/13/18 20:02 Glucose (Fingerstick) 92 mg/dL (70-99) 180 mg/dL (70-99) 133 mg/dL (70-99) White Blood Count 6.8 x10^3/uL (4.0-11.0) Red Blood Count 3.01 x10^6/uL (4.30-5.70) Hemoglobin 10.1 g/dL (13.0-17.5) Hematocrit 29.3 % (39.0-53.0) 31.0 % (39.0-53.0) Mean Corpuscular Volume 97 fL (79-100) Mean Corpuscular Hemoglobin 33 pg (25-35) Mean Corpuscular Hemoglobin Concent 34 g/dL (31-37) Red Cell Distribution Width 12.6 % (11.5-14.5) Platelet Count 81 x10^3/uL (140-400) Activated Partial Thromboplast Time 35 SEC (24-38) Sodium Level 140 mmol/L (136-145) Potassium Level 4.1 mmol/L (3.5-5.1) 4.6 mmol/L (3.5-5.1) Chloride Level 106 mmol/L (98-107) Carbon Dioxide Level 24 mmol/L (21-32) Anion Gap 10 (6-14) Blood Urea Nitrogen 12 mg/dL (8-26) Creatinine 0.9 mg/dL (0.7-1.3) Estimated GFR (Cockcroft-Gault) 85.5 Glucose Level 107 mg/dL (70-99) Calcium Level 9.4 mg/dL (8.5-10.1) Magnesium Level 2.9 mg/dL (1.8-2.4) Laboratory Tests Test 12/13/18 08:10 12/13/18 09:15 12/13/18 10:15 12/13/18 10:44 Activated Clotting Time 109 SEC (90-125) 528 SEC (90-125) 573 SEC (90-125) 445 SEC (90-125) Test 12/13/18 11:25 12/13/18 11:32 12/13/18 13:00 12/13/18 13:03 Activated Clotting Time 132 SEC (90-125) White Blood Count 6.1 x10^3/uL (4.0-11.0) Hemoglobin 8.2 g/dL (13.0-17.5) Hematocrit 23.9 % (39.0-53.0) Platelet Count 72 x10^3/uL (140-400) Prothrombin Time 18.6 SEC (11.7-14.0) Prothromb Time International Ratio 1.6 (0.8-1.1) Activated Partial Thromboplast Time 35 SEC (24-38) Fibrinogen 315 mg/dL (200-440) O2 Saturation 99 % (92-99) Arterial Blood pH 7.37 (7.35-7.45) Arterial Blood pCO2 at Patient Temp 33 mmHg (35-46) Arterial Blood pO2 at Patient Temp 393 mmHg (65-108) Arterial Blood HCO3 19 mmol/L (21-28) Arterial Blood Base Excess -6 mmol/L (-3-3) FiO2 40 Glucose (Fingerstick) 92 mg/dL (70-99) Test 12/13/18 13:05 12/13/18 18:40 12/13/18 20:02 White Blood Count 6.8 x10^3/uL (4.0-11.0) Red Blood Count 3.01 x10^6/uL (4.30-5.70) Hemoglobin 10.1 g/dL (13.0-17.5) Hematocrit 29.3 % (39.0-53.0) 31.0 % (39.0-53.0) Mean Corpuscular Volume 97 fL (79-100) Mean Corpuscular Hemoglobin 33 pg (25-35) Mean Corpuscular Hemoglobin Concent 34 g/dL (31-37) Red Cell Distribution Width 12.6 % (11.5-14.5) Platelet Count 81 x10^3/uL (140-400) Activated Partial Thromboplast Time 35 SEC (24-38) Sodium Level 140 mmol/L (136-145) Potassium Level 4.1 mmol/L (3.5-5.1) 4.6 mmol/L (3.5-5.1) Chloride Level 106 mmol/L (98-107) Carbon Dioxide Level 24 mmol/L (21-32) Anion Gap 10 (6-14) Blood Urea Nitrogen 12 mg/dL (8-26) Creatinine 0.9 mg/dL (0.7-1.3) Estimated GFR (Cockcroft-Gault) 85.5 Glucose Level 107 mg/dL (70-99) Calcium Level 9.4 mg/dL (8.5-10.1) Magnesium Level 2.9 mg/dL (1.8-2.4) Glucose (Fingerstick) 180 mg/dL (70-99) 133 mg/dL (70-99) Microbiology 12/08/18 Urine Culture - Final, Complete 12/08/18 Urine Culture Result 1 (JUAN) - Final, Complete Medications Current Medications Aspirin (Children'S Aspirin) 324 mg 1X ONCE PO Last administered on 12/08/18at 11:54; Start 12/08/18 at 11:30; Stop 12/08/18 at 11:47; Status DC Nitroglycerin (Nitrostat) 0.4 mg PRN Q5MIN PRN SL CP RATING > 1/10 Last administered on 12/08/18at 11:57; Start 12/08/18 at 11:30; Stop 12/09/18 at 11:29 ; Status DC Sodium Chloride 1,000 ml @ 1,000 mls/hr Q1H IV Last administered on 12/08/18at 11:56; Start 12/08/18 at 11:23; Stop 12/08/18 at 12:22; Status DC Ondansetron HCl (Zofran) 4 mg PRN Q8HRS PRN IV NAUSEA/VOMITING; Start 12/08/18 at 13:45; Stop 12/09/18 at 13:44; Status DC Morphine Sulfate (Morphine Sulfate) 4 mg PRN Q2HR PRN IV PAIN; Start 12/08/18 at 13:45; Stop 12/09/18 at 13:44; Status DC Nitroglycerin (Nitrostat) 0.4 mg PRN Q5MIN PRN SL CHEST PAIN; Start 12/08/18 at 13:45; Stop 12/09/18 at 13:44; Status DC Influenza Virus Vaccine (Afluria Trivalent 3215-0481 Syringe) 0.5 ml ONCE ONCE VAX IM Last administered on 12/08/18at 18:32; Start 12/08/18 at 18:00; Stop at 18:01; Status DC Enoxaparin Sodium (Lovenox Per Pharmacy Prophylaxis Dosing) 1 each PRN DAILY PRN MC SEE COMMENTS; Start 12/08/18 at 17:15; Stop 12/12/18 at 14:01; Status DC Enoxaparin Sodium (Lovenox 40mg Syringe) 40 mg Q24H SQ Last administered on at 21:55; Start 12/08/18 at 21:00; Stop 12/12/18 at 14:01; Status DC Iodixanol (Visipaque 320) 100 ml STK-MED ONCE .ROUTE ; Start 12/09/18 at 10:49; Stop 12/09/18 at 10:50; Status DC Lidocaine HCl (Lidocaine 1% 20ml Vial) 20 ml STK-MED ONCE .ROUTE ; Start at 10:49; Stop 12/09/18 at 10:50; Status DC Heparin Sodium/ Sodium Chloride 1,000 ml @ As Directed STK-MED ONCE .ROUTE ; Start 12/09/18 at 10:49; Stop 12/09/18 at 10:50; Status DC Heparin Sodium/ Sodium Chloride (HEPARIN for ARTERIAL LINE FLUSH) 1,000 unit 1X ONCE IART Last administered on 12/09/18at 11:15; Start 12/09/18 at 11:15; Stop 12/09/18 at 11:16; Status DC Midazolam HCl (Versed) 2 mg 1X ONCE IV Last administered on 12/09/18at 11:15; Start 12/09/18 at 11:15; Stop 12/09/18 at 11:16; Status DC Fentanyl Citrate (Fentanyl 2ml Vial) 100 mcg 1X ONCE IV Last administered on at 11:15; Start 12/09/18 at 11:15; Stop 12/09/18 at 11:16; Status DC Iodixanol (Visipaque 320) 100 ml 1X ONCE IART Last administered on 12/09/18at 11:15; Start 12/09/18 at 11:15; Stop 12/09/18 at 11:16; Status DC Lidocaine HCl (Lidocaine 1% 20ml Vial) 20 ml 1X ONCE INJ Last administered on 12/09/18at 11:15; Start 12/09/18 at 11:15; Stop 12/09/18 at 11:16; Status DC Fentanyl Citrate (Fentanyl 2ml Vial) 100 mcg STK-MED ONCE .ROUTE ; Start at 11:05; Stop 12/09/18 at 11:06; Status DC Midazolam HCl (Versed) 2 mg STK-MED ONCE .ROUTE ; Start 12/09/18 at 11:05; Stop 12/09/18 at 11:06; Status DC Heparin Sodium (Porcine) (Heparin Sodium) 10,000 unit STK-MED ONCE .ROUTE ; Start 12/09/18 at 12:02; Stop 12/09/18 at 12:03; Status DC Heparin Sodium (Porcine) (Heparin Sodium) 1,000 unit 1X ONCE IV Last administered on 12/09/18at 12:14; Start 12/09/18 at 12:15; Stop 12/09/18 at 12:16 ; Status DC Iodixanol (Visipaque 320) 100 ml STK-MED ONCE .ROUTE ; Start 12/09/18 at 12:10; Stop 12/09/18 at 12:11; Status DC Sodium Chloride (Normal Saline Flush) 3 ml QSHIFT PRN IV AFTER MEDS AND BLOOD DRAWS; Start 12/09/18 at 12:45 Sodium Chloride 1,000 ml @ 75 mls/hr [id number] IV ; Start 12/09/18 at 12:41; Stop 12/09/18 at 18:40; Status DC Nitroglycerin (Nitrostat) 0.4 mg PRN Q5MIN PRN SL CHEST PAIN; Start 12/09/18 at 12:45; Stop 12/13/18 at 13:09; Status DC Tizanidine HCl (Zanaflex) 4 mg PRN Q8HRS PRN PO MUSCLE SPASMS Last administered on 12/12/18at 21:15; Start 12/09/18 at 14:30 Tramadol HCl (Ultram) 50 mg PRN Q8HRS PRN PO PAIN Last administered on at 23:08; Start 12/09/18 at 20:45 Atorvastatin Calcium (Lipitor) 40 mg QHS PO Last administered on 12/12/18at 21: 02; Start 12/10/18 at 21:00 Carvedilol (Coreg) 3.125 mg BIDWMEALS PO Last administered on 12/12/18at 16:50; Start 12/10/18 at 18:00 Lisinopril (Prinivil) 5 mg DAILY PO Last administered on 12/12/18 09:08; Start 12/11/18 at 09:00; Stop 12/12/18 at 14:01; Status DC Cefazolin Sodium/ Dextrose 50 ml @ 100 mls/hr 1X ONCE IV Last administered on 12/13/18 08:09; Start 12/13/18 at 06:00; Stop 12/13/18 at 06:29; Status DC Potassium Chloride 70 meq/ Sodium Bicarbonate 12.5 meq/Lidocaine HCl 24 ml/ Parenteral Electrolytes 571.5 ml @ 571.5 mls/ hr 1X ONCE IRR ; Start 12/13/18 at 06:00; Stop 12/13/18 at 06:59; Status DC Potassium Chloride 15 meq/ Sodium Bicarbonate 12.5 meq/Parenteral Electrolytes 520 ml @ 520 mls/hr 1X ONCE IRR ; Start 12/13/18 at 06:00; Stop 12/13/18 at 06 :59; Status DC Heparin Sodium (Porcine) 07007 unit/Ringer's Solution 1,020 ml @ 1,020 mls/hr 1X ONCE IRR Last administered on 12/13/18at 09:07; Start 12/13/18 at 06:00; Stop 12/13/18 at 06:59; Status DC Vancomycin HCl (VANCO for OR ONLY) 10 gm 1X ONCE CEMENT ; Start 12/13/18 at 08: 00; Stop 12/13/18 at 08:01; Status DC Prochlorperazine Edisylate (Compazine) 5 mg PACU PRN PRN IV NAUSEA, MRX1; Start 12/13/18 at 07:00; Stop 12/14/18 at 06:59 Hydromorphone HCl (Dilaudid) 0.5 mg PRN Q10MIN PRN IV SEV PAIN, Second choice; Start 12/13/18 at 07:00; Stop 12/14/18 at 06:59 Lidocaine HCl (Xylocaine-Mpf 1% 2ml Vial) 2 ml PRN 1X PRN ID IV START; Start at 07:00; Stop 12/14/18 at 06:59 Ringer's Solution 1,000 ml @ 30 mls/hr Q24H IV Last administered on 12/13/18at 09:07; Start 12/13/18 at 07:00; Stop 12/13/18 at 13:26; Status DC Morphine Sulfate (Morphine Sulfate) 1 mg PRN Q10MIN PRN IV SEVERE PAIN; Start 12/13/18 at 07:00; Stop 12/14/18 at 06:59 Fentanyl Citrate (Fentanyl 2ml Vial) 50 mcg PRN Q5MIN PRN IV MODERATE TO SEVERE PAIN; Start 12/13/18 at 07:00; Stop 12/14/18 at 06:59 Fentanyl Citrate (Fentanyl 2ml Vial) 25 mcg PRN Q5MIN PRN IV MILD PAIN; Start 12/13/18 at 07:00; Stop 12/14/18 at 06:59 Ondansetron HCl (Zofran) 4 mg PRN Q6HRS PRN IV NAUSEA/VOMITING; Start 12/13/18 at 07:00; Stop 12/14/18 at 06:59 Etomidate (Amidate) 20 mg STK-MED ONCE IV ; Start 12/13/18 at 06:27; Stop at 06:28; Status DC Sufentanil Citrate (Sufenta) 250 mcg STK-MED ONCE .ROUTE ; Start 12/13/18 at 06: 27; Stop 12/13/18 at 06:28; Status DC Midazolam HCl (Versed) 5 mg STK-MED ONCE .ROUTE ; Start 12/13/18 at 06:28; Stop 12/13/18 at 06:29; Status DC Lidocaine HCl (Lidocaine Pf 2% Vial) 5 ml STK-MED ONCE .ROUTE ; Start 12/13/18 at 06:28; Stop 12/13/18 at 06:29; Status DC Etomidate (Amidate) 20 mg STK-MED ONCE IV ; Start 12/13/18 at 06:28; Stop at 06:29; Status DC Phenylephrine HCl (Satinder-Synephrine Inj) 10 mg STK-MED ONCE .ROUTE ; Start at 06:28; Stop 12/13/18 at 06:29; Status DC Phenylephrine HCl (Satinder-Synephrine Inj) 10 mg STK-MED ONCE .ROUTE ; Start at 06:28; Stop 12/13/18 at 06:29; Status DC Phenylephrine HCl (Satinder-Synephrine Inj) 10 mg STK-MED ONCE .ROUTE ; Start at 06:29; Stop 12/13/18 at 06:30; Status DC Ephedrine Sulfate (Akovaz) 50 mg STK-MED ONCE .ROUTE ; Start 12/13/18 at 06:29; Stop 12/13/18 at 06:30; Status DC Ephedrine Sulfate (Akovaz) 50 mg STK-MED ONCE .ROUTE ; Start 12/13/18 at 06:29; Stop 12/13/18 at 06:30; Status DC Aminocaproic Acid (Amicar) 5,000 mg STK-MED ONCE IV ; Start 12/13/18 at 06:30; Stop 12/13/18 at 06:31; Status DC Aminocaproic Acid (Amicar) 5,000 mg STK-MED ONCE IV ; Start 12/13/18 at 06:30; Stop 12/13/18 at 06:31; Status DC Aminocaproic Acid (Amicar) 5,000 mg STK-MED ONCE IV ; Start 12/13/18 at 06:30; Stop 12/13/18 at 06:32; Status DC Nitroglycerin/ Dextrose 250 ml @ As Directed STK-MED ONCE IV ; Start 12/13/18 at 06:30; Stop 12/13/18 at 06:33; Status DC Vancomycin HCl (VANCO for OR ONLY) 10 gm STK-MED ONCE .ROUTE Last administered on 12/13/18at 09:06; Start 12/13/18 at 06:41; Stop 12/13/18 at 06:42; Status DC Cellulose (Surgicel Hemostat 4x8) 1 each STK-MED ONCE .ROUTE Last administered on 12/13/18at 09:06; Start 12/13/18 at 06:41; Stop 12/13/18 at 06:42; Status DC Papaverine HCl 60 mg STK-MED ONCE .ROUTE Last administered on 12/13/18at 09:05; Start 12/13/18 at 06:41; Stop 12/13/18 at 06:42; Status DC Aspirin (Aspirin) 300 mg STK-MED ONCE .ROUTE Last administered on 12/13/18at 09: 05; Start 12/13/18 at 06:41; Stop 12/13/18 at 06:43; Status DC Cellulose (Surgicel Hemostat 4x8) 1 each STK-MED ONCE .ROUTE ; Start 12/13/18 at 06:41; Stop 12/13/18 at 06:43; Status DC Sodium Chloride (SODIUM CHLORIDE 20ml) 20 ml STK-MED ONCE IJ Last administered on 12/13/18at 09:04; Start 12/13/18 at 06:42; Stop 12/13/18 at 06:43; Status DC Sodium Chloride (SODIUM CHLORIDE 20ml) 20 ml STK-MED ONCE IJ Last administered on 12/13/18at 09:04; Start 12/13/18 at 06:43; Stop 12/13/18 at 06:44; Status DC Sodium Chloride (SODIUM CHLORIDE 20ml) 20 ml STK-MED ONCE IJ Last administered on 12/13/18at 09:04; Start 12/13/18 at 06:43; Stop 12/13/18 at 06:44; Status DC Cefazolin Sodium 1 gm/Sodium Chloride 500 ml @ 500 mls/hr 1X ONCE IRR Last administered on 12/13/18at 09:06; Start 12/13/18 at 08:00; Stop 12/13/18 at 08:59 ; Status DC Rocuronium [place] (Zemuron) 100 mg STK-MED ONCE .ROUTE ; Start 12/13/18 at 08: 21; Stop 12/13/18 at 08:22; Status DC Protamine Sulfate (Protamine) 250 mg STK-MED ONCE IV ; Start 12/13/18 at 11:06; Stop 12/13/18 at 11:07; Status DC Cefazolin Sodium/ Dextrose 50 ml @ As Directed STK-MED ONCE IV ; Start 12/13/18 at 11:17; Stop 12/13/18 at 11:18; Status DC Nicardipine HCl 50 mg/Sodium Chloride 250 ml @ 25 mls/hr CONT PRN IV SEE I/O RECORD Last administered on 12/13/18at 20:35; Start 12/13/18 at 13:00 Amiodarone HCl 150 mg/Dextrose 103 ml @ 618 mls/hr 1X ONCE IV Last administered on 12/13/18at 12:52; Start 12/13/18 at 13:00; Stop 12/13/18 at 13:09 ; Status DC Amiodarone HCl 900 mg/Dextrose 518 ml @ 33 mls/hr CONT PRN IV SEE I/O RECORD Last administered on 12/13/18at 12:52; Start 12/13/18 at 13:00; Stop 12/13/18 at 13:00; Status DC Magnesium Sulfate 5 gm STK-MED ONCE .ROUTE ; Start 12/13/18 at 11:33; Stop 12/13 at 11:34; Status DC Heparin Sodium (Porcine) 30,000 unit STK-MED ONCE .ROUTE ; Start 12/13/18 at 11: 33; Stop 12/13/18 at 11:34; Status DC Mannitol (Mannitol) 12.5 g STK-MED ONCE .ROUTE ; Start 12/13/18 at 11:33; Stop 12/13/18 at 11:34; Status DC Mannitol (Mannitol) 12.5 g STK-MED ONCE .ROUTE ; Start 12/13/18 at 11:33; Stop 12/13/18 at 11:34; Status DC Mannitol (Mannitol) 12.5 g STK-MED ONCE .ROUTE ; Start 12/13/18 at 11:33; Stop 12/13/18 at 11:34; Status DC Albumin Human 100 ml @ As Directed STK-MED ONCE IV ; Start 12/13/18 at 11:33; Stop 12/13/18 at 11:34; Status DC Calcium Chloride (Calcium Chloride) 1,000 mg STK-MED ONCE .ROUTE ; Start at 11:33; Stop 12/13/18 at 11:34; Status DC Calcium Chloride (Calcium Chloride) 1,000 mg STK-MED ONCE .ROUTE ; Start at 11:33; Stop 12/13/18 at 11:34; Status DC Lidocaine HCl (Lidocaine Pf 2% Vial) 5 ml STK-MED ONCE .ROUTE ; Start 12/13/18 at 11:33; Stop 12/13/18 at 11:34; Status DC Isoflurane (Isoflurane) 90 ml STK-MED ONCE IH ; Start 12/13/18 at 11:34; Stop at 11:35; Status DC Rocuronium [place] (Zemuron) 50 mg STK-MED ONCE .ROUTE ; Start 12/13/18 at 11:54 ; Stop 12/13/18 at 11:55; Status DC Albumin Human 500 ml @ As Directed STK-MED ONCE IV ; Start 12/13/18 at 12:00; Stop 12/13/18 at 12:01; Status DC Sodium Chloride (Normal Saline Flush) 3 ml PRN Q12HR PRN IV AFTER MEDS AND BLOOD DRAWS; Start 12/13/18 at 13:00 Ringer's Solution 1,000 ml @ 30 mls/hr Q24H IV Last administered on 12/13/18at 13:20; Start 12/13/18 at 12:55 Albumin Human 250 ml @ 500 mls/hr PRN Q4HRS PRN IV SEE COMMENTS Last administered on 12/13/18at 13:30; Start 12/13/18 at 13:00 Insulin Human Regular 150 unit/ Sodium Chloride 151.5 ml @ 0 mls/hr CONT PRN PRN IV PER PROTOCOL Last administered on 12/13/18at 18:52; Start 12/13/18 at 13: 00 Dextrose (Dextrose 50%-Water Syringe) 25 gm PRN Q15MIN PRN IV LOW BLOOD SUGAR; Start 12/13/18 at 13:00 Nitroglycerin/ Dextrose 250 ml @ 0 mls/hr CONT PRN PRN IV POST CV SURGERY; Start 12/13/18 at 13:00 Phenylephrine HCl 20 mg/Sodium Chloride 252 ml @ 0 mls/hr CONT PRN PRN IV HYPOTENSION; Start 12/13/18 at 13:00 Amiodarone HCl 150 mg/Dextrose 103 ml @ 600 mls/hr 1X ONCE IV ; Start at 13:00; Stop 12/13/18 at 13:08; Status DC Amiodarone HCl 150 mg/Dextrose 103 ml @ 200 mls/hr 1X PRN PRN IV FOR AFIB; Start 12/13/18 at 13:00 Amiodarone HCl 900 mg/Dextrose 518 ml @ 0 mls/hr CONT PRN PRN IV AFIB; Start at 13:00 Info (KCl Per Protocol) 1 ea CONT PRN PRN MC SEE COMMENTS; Start 12/13/18 at 13 :00 Magnesium Sulfate/ Dextrose 100 ml @ 100 mls/hr PRN DAILY PRN IV FOR MAG < 2.2 ; Start 12/13/18 at 13:00 Famotidine (Pepcid Vial) 20 mg BID IVP ; Start 12/13/18 at 21:00 Ondansetron HCl (Zofran) 4 mg PRN Q4HRS PRN IV NAUSEA/VOMITING, 1st CHOICE Last administered on 12/13/18at 20:05; Start 12/13/18 at 13:00 Prochlorperazine Edisylate (Compazine) 10 mg PRN Q6HRS PRN IV NAUSEA/VOMITING, 2nd CHOICE; Start 12/13/18 at 13:00 Metoclopramide HCl (Reglan Vial) 10 mg PRN Q6HRS PRN IV NAUSEA/VOMITING, 3rd CHOICE; Start 12/13/18 at 13:00 Morphine Sulfate (Morphine Sulfate) 2 mg PRN Q1HR PRN IV PAIN Last administered on 12/13/18at 19:30; Start 12/13/18 at 13:00 Morphine Sulfate (Morphine Sulfate) 4 mg PRN Q1HR PRN IV SEVERE PAIN Last administered on 12/13/18at 15:28; Start 12/13/18 at 13:00 Acetaminophen (Tylenol) 650 mg PRN Q4HRS PRN PO TEMP > 101'F or PAIN Last administered on 12/13/18at 19:29; Start 12/13/18 at 13:00 Acetaminophen (Tylenol Supp) 650 mg PRN Q4HRS PRN WI TEMP > 101'F or MILD PAIN ; Start 12/13/18 at 13:00 Meperidine HCl (Demerol) 12.5 mg PRN Q15MIN PRN IV SHIVERING; Start 12/13/18 at 13:00; Stop 12/14/18 at 12:55 Propofol 100 ml @ 0 mls/hr CONT PRN PRN IV POSTOP SEDATION UNTIL EXTUBATE Last administered on 12/13/18at 13:36; Start 12/13/18 at 13:00 Senna/Docusate Sodium (Senna Plus) 1 tab BID PO ; Start 12/13/18 at 21:00 Bisacodyl (Dulcolax Supp) 10 mg PRN DAILY PRN WI NO BOWEL MOVEMENT; Start 12/13 at 13:00 Chlorhexidine Gluconate (Peridex) 15 ml BID MM ; Start 12/14/18 at 09:00 Aspirin (Ecotrin) 325 mg DAILYWBKFT PO ; Start 12/14/18 at 08:00 Aspirin (Aspirin) 300 mg PRN DAILY PRN WI IF UNABLE TO TAKE PO; Start 12/14/18 at 08:00 Albuterol Sulfate (Ventolin Neb Soln) 2.5 mg PRN Q4HRS PRN NEB SHORTNESS OF BREATH Last administered on 12/13/18at 19:54; Start 12/13/18 at 13:00 Metoprolol Tartrate (Lopressor) 25 mg BID PO ; Start 12/14/18 at 09:00 Nicardipine HCl 50 mg/Sodium Chloride 250 ml @ 0 mls/hr CONT PRN PRN IV PER PROTOCOL; Start 12/13/18 at 13:00; Stop 12/13/18 at 17:01; Status DC Oxycodone HCl (Roxicodone) 5 mg PRN Q4HRS PRN PO MILD TO MODERATE PAIN; Start 12/13/18 at 13:00 Oxycodone HCl (Roxicodone) 10 mg PRN Q4HRS PRN PO SEVERE PAIN Last administered on 12/13/18at 17:36; Start 12/13/18 at 13:00 Cefazolin Sodium/ Dextrose 50 ml @ 100 mls/hr Q8H IV ; Start 12/13/18 at 16:00 ; Stop 12/13/18 at 17:01; Status DC Sodium Bicarbonate (Sodium Bicarb Adult 8.4% Syr) 50 meq 1X ONCE IV Last administered on 12/13/18at 13:28; Start 12/13/18 at 13:15; Stop 12/13/18 at 13:38 ; Status DC Sodium Bicarbonate (Sodium Bicarb Adult 8.4% Syr) 50 meq 1X ONCE IV Last administered on 12/13/18at 13:28; Start 12/13/18 at 13:15; Stop 12/13/18 at 13:38 ; Status DC Sodium Bicarbonate (Sodium Bicarb Adult 8.4% Syr) 50 meq STK-MED ONCE .ROUTE ; Start 12/13/18 at 13:24; Stop 12/13/18 at 13:25; Status DC Potassium Chloride/Water 50 ml @ 50 mls/hr Q1H IV Last administered on at 15:09; Start 12/13/18 at 14:00; Stop 12/13/18 at 15:59; Status DC Cefazolin Sodium/ Dextrose 50 ml @ 100 mls/hr Q8H IV Last administered on 12/13at 18:34; Start 12/13/18 at 19:00; Stop 12/15/18 at 03:29 Active Scripts Active Reported Aspirin Ec (Aspirin) 81 Mg Tablet. 81 Mg PO DAILY Vitals/I & O Vital Sign - Last 24 Hours 12/12/18 12/12/18 12/13/18 12/13/18 23:08 23:30 00:08 03:00 Temp 97.7 97.7 Pulse 58 62 Resp 18 18 18 B/P (MAP) 113/61 (78) Pulse Ox 98 98 98 O2 Delivery Room Air Room Air Room Air 12/13/18 12/13/18 12/13/18 12/13/18 04:05 04:07 12:45 12:45 Temp 98.2 96.4 98.2 96.4 Pulse 77 63 88 88 Resp 18 16 B/P (MAP) 128/63 (84) 128/69 (88) 140/60 (86) Pulse Ox 98 100 O2 Delivery Room Air Ventilator 12/13/18 12/13/18 12/13/18 12/13/18 12:52 13:00 13:00 13:00 Temp 96.6 96.6 Pulse 87 89 89 Resp 16 B/P (MAP) 159/68 133/58 (83) Pulse Ox 100 O2 Delivery Mechanical Ventilator Ventilator 12/13/18 12/13/18 12/13/18 12/13/18 13:15 13:15 13:30 13:30 Temp 96.7 96.8 96.7 96.8 Pulse 82 82 86 86 Resp 16 16 B/P (MAP) 112/51 (71) 146/59 (88) Pulse Ox 100 100 O2 Delivery Ventilator Ventilator 12/13/18 12/13/18 12/13/18 12/13/18 13:45 13:45 14:00 14:00 Temp 97.1 97.3 97.1 97.3 Pulse 84 84 81 81 Resp 16 16 B/P (MAP) 115/50 (71) 141/61 (87) Pulse Ox 100 100 O2 Delivery Ventilator Ventilator 12/13/18 12/13/18 12/13/18 12/13/18 14:30 14:30 14:31 15:00 Temp 98.3 98.3 Pulse 81 81 107 Resp 16 16 B/P (MAP) 120/50 (73) Pulse Ox 100 100 O2 Delivery Ventilator Ventilator 12/13/18 12/13/18 12/13/18 12/13/18 15:00 15:28 15:41 15:58 Temp 98.1 98.1 Pulse 107 Resp 16 16 12 B/P (MAP) 148/58 (88) Pulse Ox 100 100 97 100 O2 Delivery Ventilator BiPAP/CPAP Nasal Cannula O2 Flow Rate 3.0 12/13/18 12/13/18 12/13/18 12/13/18 16:00 16:00 16:00 17:00 Temp 98.6 98.0 98.6 98.0 Pulse 100 100 96 Resp 16 13 B/P (MAP) 106/53 (70) 111/50 (70) Pulse Ox 100 98 O2 Delivery Ventilator Mechanical Ventilator Nasal Cannula O2 Flow Rate 3.0 12/13/18 12/13/18 12/13/18 12/13/18 17:00 17:36 18:45 19:00 Pulse 96 Resp 12 16 B/P (MAP) Pulse Ox 100 100 O2 Delivery Nasal Cannula Nasal Cannula O2 Flow Rate 3.0 3.0 12/13/18 12/13/18 12/13/18 12/13/18 19:00 19:30 19:54 20:00 Temp 99.4 99.4 Pulse 96 Resp 18 14 16 B/P (MAP) 117/53 (74) Pulse Ox 100 100 100 100 O2 Delivery Nasal Cannula Nasal Cannula Nasal Cannula Nasal Cannula O2 Flow Rate 3.0 3.0 2.0 3.0 12/13/18 12/13/18 12/13/18 20:00 20:00 20:00 Temp 99.4 99.4 Pulse 90 Resp 20 B/P (MAP) 105/51 (69) Pulse Ox 100 O2 Delivery Nasal Cannula Nasal Cannula O2 Flow Rate 3.0 3.0 Intake and Output 12/12/18 12/12/18 12/13/18 15:00 23:00 07:00 Intake Total 480 ml 800 ml 0 ml Output Total 206 ml 200 ml Balance 480 ml 594 ml -200 ml CHANO LINARES MD Dec 13, 2018 20:42
[2018-12-13] MEDS: ATORVASTATIN CALCIUM 40 MG TABLET. PO SCH (21:13)
[2018-12-13] MEDS: FAMOTIDINE 20 MG/2 ML VIAL IVP SCH (21:13)
[2018-12-13] MEDS: SENNOSIDES/DOCUSATE 8.6/50MG TABLET. PO SCH (21:13)
[2018-12-14] VITALS (24 sets, daily range): BP systolic 90–130; BP diastolic 45–67
[2018-12-14] MEDS: niCARdipine 50 MG in IV NORMAL SALINE 250ML 250 ML IV PRN (01:33)
[2018-12-14] MEDS: oxyCODONE IR 5 MG TABLET PO PRN ×6 (01:34→20:47)
--- NOTE | 2018-12-14 03:27 | EKG ---
[facility] [address] [place] [address] Test Date: 2018-12-14 Test Time: 03:13:09 Pat Name: SYLVIA SMITH Department: Room: 112 1 Gender: M Superintendent Mechanical: : [id number] Requested By: RC ECHEVERRIA Order Number: [id number] Reading MD: Jono Perez Measurements Intervals [place] Rate: 80 P: 29 NM: 128 QRS: 24 QRSD: 100 T: 19 QT: 384 QTc: 447 Interpretive Statements SINUS RHYTHM INCOMPLETE RIGHT BUNDLE BRANCH BLOCK Electronically Signed On 12-20-2018 11:03:40 [employer] OPERATOR by Jono Perez
[2018-12-14] MEDS: ACETAMINOPHEN 325 MG TABLET. PO PRN ×3 (03:29→23:41)
[2018-12-14] MEDS: MORPHINE SULFATE 4 MG/ML VIAL. IV PRN ×2 (03:29→14:44)
[2018-12-14 03:47] LABS: HEMATOCRIT 28.6 % (39.0-53.0); HEMOGLOBIN 9.8 g/dL (13.0-17.5); RED BLOOD COUNT 2.95 x10^6/uL (4.30-5.70); RED CELL DISTRIBUTION WIDTH 12.6 % (11.5-14.5); WHITE BLOOD COUNT 9.9 x10^3/uL (4.0-11.0)
[2018-12-14] MEDS: ALBUMIN HUMAN 5% 250 ML IV PRN ×2 (04:06→20:48)
[2018-12-14 05:36] LABS: CALCIUM 8.4 mg/dL (8.5-10.1); CREATININE 1.2 mg/dL (0.7-1.3); GFR 61.3; MAGNESIUM 2.2 mg/dL (1.8-2.4); POTASSIUM 4.5 mmol/L (3.5-5.1)
[2018-12-14] MEDS: CARVEDILOL 3.125 MG TABLET. PO SCH ×2 (08:00→17:00)
[2018-12-14] MEDS ORDERED: ASPIRIN RECTAL 300 MG SUPP. PR PRN (08:00)
--- NOTE | 2018-12-14 08:57 | RAD ---
PORTABLE CHEST 1V Clinical indications: Status post CABG COMPARISON: December 13, 2018. Findings: ET tube and NG tube have been removed. [place] catheter has been removed and right IJ central line tip is seen within the upper superior vena cava. Chest tubes remain in place and no pneumothorax or pleural effusion is seen. There is an increase in left lung base atelectasis. No parahilar pulmonary edema is evident. The heart size and mediastinum are stable. Impression: Increase in left lung base atelectasis. Electronically signed by: Phillip Harris MD (12/14/2018 8:54 AM) [facility]
[2018-12-14] MEDS: CHLORHEXIDINE 0.12% 15 ML MOUTHWASH. MM SCH ×2 (09:00→21:00)
[2018-12-14] MEDS: FAMOTIDINE 20 MG/2 ML VIAL IVP SCH ×2 (09:22→20:46)
[2018-12-14] MEDS: traMADol 50 MG TABLET PO PRN ×2 (09:22→18:37)
[2018-12-14] MEDS: ASPIRIN ENTERIC COATED 325 MG TABLET.DR. PO SCH (09:23)
[2018-12-14] MEDS: METOPROLOL TART IMMED RELEASE 25 MG TABLET. PO SCH ×2 (09:23→20:47)
[2018-12-14] MEDS: SENNOSIDES/DOCUSATE 8.6/50MG TABLET. PO SCH ×2 (09:23→20:46)
--- NOTE | 2018-12-14 09:36 | PDOC ---
CARDIO Progress Notes Date and Time Date of Service 12/14/2018 Time of Evaluation 0910 Subjective Subjective: No Chest Pain, No shortness of breath, No Palpitations, Other ( surgical pain controlled) Vitals Vitals Vital Signs Date Time Temp Pulse Resp B/P (MAP) Pulse Ox O2 Delivery O2 Flow Rate FiO2 12/14/18 09:23 20 100 Room Air 12/14/18 09:23 80 106/56 12/14/18 05:24 1.0 12/14/18 03:00 99.4 99.4 Weight Weight [ ] Input and Output Intake and Output Intake and Output 12/14/18 06:59 Intake Total 2853 ml Output Total 2889 ml Balance -36 ml Intake Oral 50 ml IV Total 2803 ml Output Urine Total 2285 ml Chest Tube Drainage Total 604 ml Laboratory Labs Laboratory Tests Test 12/13/18 10:15 12/13/18 10:44 12/13/18 11:25 12/13/18 11:32 Activated Clotting Time 573 SEC (90-125) 445 SEC (90-125) 132 SEC (90-125) White Blood Count 6.1 x10^3/uL (4.0-11.0) Hemoglobin 8.2 g/dL (13.0-17.5) Hematocrit 23.9 % (39.0-53.0) Platelet Count 72 x10^3/uL (140-400) Prothrombin Time 18.6 SEC (11.7-14.0) Prothromb Time International Ratio 1.6 (0.8-1.1) Activated Partial Thromboplast Time 35 SEC (24-38) Fibrinogen 315 mg/dL (200-440) Test 12/13/18 13:00 12/13/18 13:03 12/13/18 13:05 12/13/18 18:40 O2 Saturation 99 % (92-99) Arterial Blood pH 7.37 (7.35-7.45) Arterial Blood pCO2 at Patient Temp 33 mmHg (35-46) Arterial Blood pO2 at Patient Temp 393 mmHg (65-108) Arterial Blood HCO3 19 mmol/L (21-28) Arterial Blood Base Excess -6 mmol/L (-3-3) FiO2 40 Glucose (Fingerstick) 92 mg/dL (70-99) 180 mg/dL (70-99) White Blood Count 6.8 x10^3/uL (4.0-11.0) Red Blood Count 3.01 x10^6/uL (4.30-5.70) Hemoglobin 10.1 g/dL (13.0-17.5) Hematocrit 29.3 % (39.0-53.0) 31.0 % (39.0-53.0) Mean Corpuscular Volume 97 fL (79-100) Mean Corpuscular Hemoglobin 33 pg (25-35) Mean Corpuscular Hemoglobin Concent 34 g/dL (31-37) Red Cell Distribution Width 12.6 % (11.5-14.5) Platelet Count 81 x10^3/uL (140-400) Activated Partial Thromboplast Time 35 SEC (24-38) Sodium Level 140 mmol/L (136-145) Potassium Level 4.1 mmol/L (3.5-5.1) 4.6 mmol/L (3.5-5.1) Chloride Level 106 mmol/L (98-107) Carbon Dioxide Level 24 mmol/L (21-32) Anion Gap 10 (6-14) Blood Urea Nitrogen 12 mg/dL (8-26) Creatinine 0.9 mg/dL (0.7-1.3) Estimated GFR (Cockcroft-Gault) 85.5 Glucose Level 107 mg/dL (70-99) Calcium Level 9.4 mg/dL (8.5-10.1) Magnesium Level 2.9 mg/dL (1.8-2.4) Test 12/13/18 20:02 12/13/18 20:59 12/13/18 22:06 12/13/18 23:50 Glucose (Fingerstick) 133 mg/dL (70-99) 111 mg/dL (70-99) 121 mg/dL (70-99) 138 mg/dL (70-99) Test 12/14/18 03:37 12/14/18 03:40 12/14/18 09:01 Glucose (Fingerstick) 159 mg/dL (70-99) 131 mg/dL (70-99) White Blood Count 9.9 x10^3/uL (4.0-11.0) Red Blood Count 2.95 x10^6/uL (4.30-5.70) Hemoglobin 9.8 g/dL (13.0-17.5) Hematocrit 28.6 % (39.0-53.0) Mean Corpuscular Volume 97 fL (79-100) Mean Corpuscular Hemoglobin 33 pg (25-35) Mean Corpuscular Hemoglobin Concent 34 g/dL (31-37) Red Cell Distribution Width 12.6 % (11.5-14.5) Platelet Count 108 x10^3/uL (140-400) Sodium Level 140 mmol/L (136-145) Potassium Level 4.5 mmol/L (3.5-5.1) Chloride Level 105 mmol/L (98-107) Carbon Dioxide Level 26 mmol/L (21-32) Anion Gap 9 (6-14) Blood Urea Nitrogen 15 mg/dL (8-26) Creatinine 1.2 mg/dL (0.7-1.3) Estimated GFR (Cockcroft-Gault) 61.3 Glucose Level 176 mg/dL (70-99) Calcium Level 8.4 mg/dL (8.5-10.1) Magnesium Level 2.2 mg/dL (1.8-2.4) Microbiology Micro Microbiology 12/08/18 Urine Culture - Final, Complete 12/08/18 Urine Culture Result 1 (JUAN) - Final, Complete Physical Exam HEENT: Neck Supple W Full Motion Chest: Symmetric LUNGS: Other (basilar crackles; chest tube with small serosanguinous drain) Heart: S1S2, RRR (SR without significant ectopies overnight) Abdomen: Soft N/T Extremities: Other (trace LE edema) Neurology: alert, oriented, follow commands Assessment Assessment 1. CABG x2 (TAVARES to LAD, SVG to RPDA) POD#1 doing well. poor inspiration 2. Post op anemia: Hgb 9.8 3. ICM: EF 45% 4. Tobaccoism/ Marijuana use; discussed/encouraged cessation 5. HTN: controlled Recommendations 1. Continue post CABG protocol. Amiodarone ongoing 2. ASA, BB, statin. Lasix PRN 3. Aggressive IS 4. Supportive care. Adv act as MASON Sharif APRN Dec 14, 2018 09:36
--- NOTE | 2018-12-14 09:40 | NUR ---
SS following up with discharge planning. Pt recovering from CABG on 12/13/2018. Pt is currently on room air. No discharge needs noted at this time. Pt is self pay pt and will return to home when stable for discharge.
[2018-12-14] MEDS: IV RINGERS,LACTATED 1000ML 1,000 ML IV SCH (12:55)
[2018-12-14] MEDS: AMIODARONE HCL 200 MG TABLET. PO SCH ×2 (14:00→20:46)
[2018-12-14] MEDS: ONDANSETRON PF 4 MG/2 ML VIAL. IV PRN (14:46)
--- NOTE | 2018-12-14 15:35 | PDOC ---
PROGRESS NOTES Chief Complaint Chief Complaint chest pain, secondary to multiple vessel coronary artery disease status post CABG Tensional headache as a result of muscle spasm Hx CAD, stents placed here by Dr. Diane in 2001 tobacco and THC use Plan: Continue with orders from cardiothoracic surgery ICU supportive measures Extubated once stable Reassess in the a.m. History of Present Illness History of Present Illness Patient sitting in chair in no acute distress. The patient's pain is well controlled, no distress during my visit dull concerns were addressed to the best of my abilities. Still has chest tubes in place will stay in the ICU probably 24 hours more Vitals Vitals Vital Signs Date Time Temp Pulse Resp B/P (MAP) Pulse Ox O2 Delivery O2 Flow Rate FiO2 12/14/18 15:13 16 97 Room Air 12/14/18 15:00 81 111/60 (77) 12/14/18 13:00 98.3 98.3 12/14/18 05:24 1.0 Physical Exam General: Alert, Oriented X3, No acute distress Heart: Regular rate, Normal S1, Normal S2 Abdomen: Normal bowel sounds, Soft, No tenderness Extremities: No edema Skin: No significant lesion Labs LABS Laboratory Tests Test 12/13/18 18:40 12/13/18 20:02 12/13/18 20:59 12/13/18 22:06 Hematocrit 31.0 % (39.0-53.0) Potassium Level 4.6 mmol/L (3.5-5.1) Glucose (Fingerstick) 180 mg/dL (70-99) 133 mg/dL (70-99) 111 mg/dL (70-99) 121 mg/dL (70-99) Test 12/13/18 23:50 12/14/18 03:37 12/14/18 03:40 12/14/18 09:01 Glucose (Fingerstick) 138 mg/dL (70-99) 159 mg/dL (70-99) 131 mg/dL (70-99) White Blood Count 9.9 x10^3/uL (4.0-11.0) Red Blood Count 2.95 x10^6/uL (4.30-5.70) Hemoglobin 9.8 g/dL (13.0-17.5) Hematocrit 28.6 % (39.0-53.0) Mean Corpuscular Volume 97 fL (79-100) Mean Corpuscular Hemoglobin 33 pg (25-35) Mean Corpuscular Hemoglobin Concent 34 g/dL (31-37) Red Cell Distribution Width 12.6 % (11.5-14.5) Platelet Count 108 x10^3/uL (140-400) Sodium Level 140 mmol/L (136-145) Potassium Level 4.5 mmol/L (3.5-5.1) Chloride Level 105 mmol/L (98-107) Carbon Dioxide Level 26 mmol/L (21-32) Anion Gap 9 (6-14) Blood Urea Nitrogen 15 mg/dL (8-26) Creatinine 1.2 mg/dL (0.7-1.3) Estimated GFR (Cockcroft-Gault) 61.3 Glucose Level 176 mg/dL (70-99) Calcium Level 8.4 mg/dL (8.5-10.1) Magnesium Level 2.2 mg/dL (1.8-2.4) Review of Systems Review of Systems [id number] Assessment and Plan Assessmemt and Plan Problems Medical Problems: (1) Chest pain Status: Acute Comment Review of Relevant I have reviewed the following items livan (where applicable) has been applied. Labs Laboratory Tests Test 12/13/18 08:10 12/13/18 09:15 12/13/18 10:15 12/13/18 10:44 Activated Clotting Time 109 SEC (90-125) 528 SEC (90-125) 573 SEC (90-125) 445 SEC (90-125) Test 12/13/18 11:25 12/13/18 11:32 12/13/18 13:00 12/13/18 13:03 Activated Clotting Time 132 SEC (90-125) White Blood Count 6.1 x10^3/uL (4.0-11.0) Hemoglobin 8.2 g/dL (13.0-17.5) Hematocrit 23.9 % (39.0-53.0) Platelet Count 72 x10^3/uL (140-400) Prothrombin Time 18.6 SEC (11.7-14.0) Prothromb Time International Ratio 1.6 (0.8-1.1) Activated Partial Thromboplast Time 35 SEC (24-38) Fibrinogen 315 mg/dL (200-440) O2 Saturation 99 % (92-99) Arterial Blood pH 7.37 (7.35-7.45) Arterial Blood pCO2 at Patient Temp 33 mmHg (35-46) Arterial Blood pO2 at Patient Temp 393 mmHg (65-108) Arterial Blood HCO3 19 mmol/L (21-28) Arterial Blood Base Excess -6 mmol/L (-3-3) FiO2 40 Glucose (Fingerstick) 92 mg/dL (70-99) Test 12/13/18 13:05 12/13/18 18:40 12/13/18 20:02 12/13/18 20:59 White Blood Count 6.8 x10^3/uL (4.0-11.0) Red Blood Count 3.01 x10^6/uL (4.30-5.70) Hemoglobin 10.1 g/dL (13.0-17.5) Hematocrit 29.3 % (39.0-53.0) 31.0 % (39.0-53.0) Mean Corpuscular Volume 97 fL (79-100) Mean Corpuscular Hemoglobin 33 pg (25-35) Mean Corpuscular Hemoglobin Concent 34 g/dL (31-37) Red Cell Distribution Width 12.6 % (11.5-14.5) Platelet Count 81 x10^3/uL (140-400) Activated Partial Thromboplast Time 35 SEC (24-38) Sodium Level 140 mmol/L (136-145) Potassium Level 4.1 mmol/L (3.5-5.1) 4.6 mmol/L (3.5-5.1) Chloride Level 106 mmol/L (98-107) Carbon Dioxide Level 24 mmol/L (21-32) Anion Gap 10 (6-14) Blood Urea Nitrogen 12 mg/dL (8-26) Creatinine 0.9 mg/dL (0.7-1.3) Estimated GFR (Cockcroft-Gault) 85.5 Glucose Level 107 mg/dL (70-99) Calcium Level 9.4 mg/dL (8.5-10.1) Magnesium Level 2.9 mg/dL (1.8-2.4) Glucose (Fingerstick) 180 mg/dL (70-99) 133 mg/dL (70-99) 111 mg/dL (70-99) Test 12/13/18 22:06 12/13/18 23:50 12/14/18 03:37 12/14/18 03:40 Glucose (Fingerstick) 121 mg/dL (70-99) 138 mg/dL (70-99) 159 mg/dL (70-99) White Blood Count 9.9 x10^3/uL (4.0-11.0) Red Blood Count 2.95 x10^6/uL (4.30-5.70) Hemoglobin 9.8 g/dL (13.0-17.5) Hematocrit 28.6 % (39.0-53.0) Mean Corpuscular Volume 97 fL (79-100) Mean Corpuscular Hemoglobin 33 pg (25-35) Mean Corpuscular Hemoglobin Concent 34 g/dL (31-37) Red Cell Distribution Width 12.6 % (11.5-14.5) Platelet Count 108 x10^3/uL (140-400) Sodium Level 140 mmol/L (136-145) Potassium Level 4.5 mmol/L (3.5-5.1) Chloride Level 105 mmol/L (98-107) Carbon Dioxide Level 26 mmol/L (21-32) Anion Gap 9 (6-14) Blood Urea Nitrogen 15 mg/dL (8-26) Creatinine 1.2 mg/dL (0.7-1.3) Estimated GFR (Cockcroft-Gault) 61.3 Glucose Level 176 mg/dL (70-99) Calcium Level 8.4 mg/dL (8.5-10.1) Magnesium Level 2.2 mg/dL (1.8-2.4) Test 12/14/18 09:01 Glucose (Fingerstick) 131 mg/dL (70-99) Laboratory Tests Test 12/13/18 18:40 12/13/18 20:02 12/13/18 20:59 12/13/18 22:06 Hematocrit 31.0 % (39.0-53.0) Potassium Level 4.6 mmol/L (3.5-5.1) Glucose (Fingerstick) 180 mg/dL (70-99) 133 mg/dL (70-99) 111 mg/dL (70-99) 121 mg/dL (70-99) Test 12/13/18 23:50 12/14/18 03:37 12/14/18 03:40 12/14/18 09:01 Glucose (Fingerstick) 138 mg/dL (70-99) 159 mg/dL (70-99) 131 mg/dL (70-99) White Blood Count 9.9 x10^3/uL (4.0-11.0) Red Blood Count 2.95 x10^6/uL (4.30-5.70) Hemoglobin 9.8 g/dL (13.0-17.5) Hematocrit 28.6 % (39.0-53.0) Mean Corpuscular Volume 97 fL (79-100) Mean Corpuscular Hemoglobin 33 pg (25-35) Mean Corpuscular Hemoglobin Concent 34 g/dL (31-37) Red Cell Distribution Width 12.6 % (11.5-14.5) Platelet Count 108 x10^3/uL (140-400) Sodium Level 140 mmol/L (136-145) Potassium Level 4.5 mmol/L (3.5-5.1) Chloride Level 105 mmol/L (98-107) Carbon Dioxide Level 26 mmol/L (21-32) Anion Gap 9 (6-14) Blood Urea Nitrogen 15 mg/dL (8-26) Creatinine 1.2 mg/dL (0.7-1.3) Estimated GFR (Cockcroft-Gault) 61.3 Glucose Level 176 mg/dL (70-99) Calcium Level 8.4 mg/dL (8.5-10.1) Magnesium Level 2.2 mg/dL (1.8-2.4) Microbiology 12/08/18 Urine Culture - Final, Complete 12/08/18 Urine Culture Result 1 (JUAN) - Final, Complete Medications Current Medications Aspirin (Children'S Aspirin) 324 mg 1X ONCE PO Last administered on 12/08/18at 11:54; Start 12/08/18 at 11:30; Stop 12/08/18 at 11:47; Status DC Nitroglycerin (Nitrostat) 0.4 mg PRN Q5MIN PRN SL CP RATING > 1/10 Last administered on 12/08/18at 11:57; Start 12/08/18 at 11:30; Stop 12/09/18 at 11:29 ; Status DC Sodium Chloride 1,000 ml @ 1,000 mls/hr Q1H IV Last administered on 12/08/18at 11:56; Start 12/08/18 at 11:23; Stop 12/08/18 at 12:22; Status DC Ondansetron HCl (Zofran) 4 mg PRN Q8HRS PRN IV NAUSEA/VOMITING; Start 12/08/18 at 13:45; Stop 12/09/18 at 13:44; Status DC Morphine Sulfate (Morphine Sulfate) 4 mg PRN Q2HR PRN IV PAIN; Start 12/08/18 at 13:45; Stop 12/09/18 at 13:44; Status DC Nitroglycerin (Nitrostat) 0.4 mg PRN Q5MIN PRN SL CHEST PAIN; Start 12/08/18 at 13:45; Stop 12/09/18 at 13:44; Status DC Influenza Virus Vaccine (Afluria Trivalent [id number] Syringe) 0.5 ml ONCE ONCE VAX IM Last administered on 12/08/18at 18:32; Start 12/08/18 at 18:00; Stop at 18:01; Status DC Enoxaparin Sodium (Lovenox Per Pharmacy Prophylaxis Dosing) 1 each PRN DAILY PRN MC SEE COMMENTS; Start 12/08/18 at 17:15; Stop 12/12/18 at 14:01; Status DC Enoxaparin Sodium (Lovenox 40mg Syringe) 40 mg Q24H SQ Last administered on at 21:55; Start 12/08/18 at 21:00; Stop 12/12/18 at 14:01; Status DC Iodixanol (Visipaque 320) 100 ml STK-MED ONCE .ROUTE ; Start 12/09/18 at 10:49; Stop 12/09/18 at 10:50; Status DC Lidocaine HCl (Lidocaine 1% 20ml Vial) 20 ml STK-MED ONCE .ROUTE ; Start at 10:49; Stop 12/09/18 at 10:50; Status DC Heparin Sodium/ Sodium Chloride 1,000 ml @ As Directed STK-MED ONCE .ROUTE ; Start 12/09/18 at 10:49; Stop 12/09/18 at 10:50; Status DC Heparin Sodium/ Sodium Chloride (HEPARIN for ARTERIAL LINE FLUSH) 1,000 unit 1X ONCE IART Last administered on 12/09/18at 11:15; Start 12/09/18 at 11:15; Stop 12/09/18 at 11:16; Status DC Midazolam HCl (Versed) 2 mg 1X ONCE IV Last administered on 12/09/18at 11:15; Start 12/09/18 at 11:15; Stop 12/09/18 at 11:16; Status DC Fentanyl Citrate (Fentanyl 2ml Vial) 100 mcg 1X ONCE IV Last administered on at 11:15; Start 12/09/18 at 11:15; Stop 12/09/18 at 11:16; Status DC Iodixanol (Visipaque 320) 100 ml 1X ONCE IART Last administered on 12/09/18at 11:15; Start 12/09/18 at 11:15; Stop 12/09/18 at 11:16; Status DC Lidocaine HCl (Lidocaine 1% 20ml Vial) 20 ml 1X ONCE INJ Last administered on 12/09/18at 11:15; Start 12/09/18 at 11:15; Stop 12/09/18 at 11:16; Status DC Fentanyl Citrate (Fentanyl 2ml Vial) 100 mcg STK-MED ONCE .ROUTE ; Start at 11:05; Stop 12/09/18 at 11:06; Status DC Midazolam HCl (Versed) 2 mg STK-MED ONCE .ROUTE ; Start 12/09/18 at 11:05; Stop 12/09/18 at 11:06; Status DC Heparin Sodium (Porcine) (Heparin Sodium) 10,000 unit STK-MED ONCE .ROUTE ; Start 12/09/18 at 12:02; Stop 12/09/18 at 12:03; Status DC Heparin Sodium (Porcine) (Heparin Sodium) 1,000 unit 1X ONCE IV Last administered on 12/09/18at 12:14; Start 12/09/18 at 12:15; Stop 12/09/18 at 12:16 ; Status DC Iodixanol (Visipaque 320) 100 ml STK-MED ONCE .ROUTE ; Start 12/09/18 at 12:10; Stop 12/09/18 at 12:11; Status DC Sodium Chloride (Normal Saline Flush) 3 ml QSHIFT PRN IV AFTER MEDS AND BLOOD DRAWS; Start 12/09/18 at 12:45 Sodium Chloride 1,000 ml @ 75 mls/hr [id number] IV ; Start 12/09/18 at 12:41; Stop 12/09/18 at 18:40; Status DC Nitroglycerin (Nitrostat) 0.4 mg PRN Q5MIN PRN SL CHEST PAIN; Start 12/09/18 at 12:45; Stop 12/13/18 at 13:09; Status DC Tizanidine HCl (Zanaflex) 4 mg PRN Q8HRS PRN PO MUSCLE SPASMS Last administered on 12/12/18at 21:15; Start 12/09/18 at 14:30 Tramadol HCl (Ultram) 50 mg PRN Q8HRS PRN PO MILD PAIN Last administered on 09:22; Start 12/09/18 at 20:45 Atorvastatin Calcium (Lipitor) 40 mg QHS PO Last administered on 12/13/18at 21: 13; Start 12/10/18 at 21:00 Carvedilol (Coreg) 3.125 mg BIDWMEALS PO Last administered on 12/12/18at 16:50; Start 12/10/18 at 18:00 Lisinopril (Prinivil) 5 mg DAILY PO Last administered on 12/12/18 09:08; Start 12/11/18 at 09:00; Stop 12/12/18 at 14:01; Status DC Cefazolin Sodium/ Dextrose 50 ml @ 100 mls/hr 1X ONCE IV Last administered on 12/13/18at 08:09; Start 12/13/18 at 06:00; Stop 12/13/18 at 06:29; Status DC Potassium Chloride 70 meq/ Sodium Bicarbonate 12.5 meq/Lidocaine HCl 24 ml/ Parenteral Electrolytes 571.5 ml @ 571.5 mls/ hr 1X ONCE IRR ; Start 12/13/18 at 06:00; Stop 12/13/18 at 06:59; Status DC Potassium Chloride 15 meq/ Sodium Bicarbonate 12.5 meq/Parenteral Electrolytes 520 ml @ 520 mls/hr 1X ONCE IRR ; Start 12/13/18 at 06:00; Stop 12/13/18 at 06 :59; Status DC Heparin Sodium (Porcine) 91798 unit/Ringer's Solution 1,020 ml @ 1,020 mls/hr 1X ONCE IRR Last administered on 12/13/18at 09:07; Start 12/13/18 at 06:00; Stop 12/13/18 at 06:59; Status DC Vancomycin HCl (VANCO for OR ONLY) 10 gm 1X ONCE CEMENT ; Start 12/13/18 at 08: 00; Stop 12/13/18 at 08:01; Status DC Prochlorperazine Edisylate (Compazine) 5 mg PACU PRN PRN IV NAUSEA, MRX1; Start 12/13/18 at 07:00; Stop 12/14/18 at 06:59; Status DC Hydromorphone HCl (Dilaudid) 0.5 mg PRN Q10MIN PRN IV SEV PAIN, Second choice; Start 12/13/18 at 07:00; Stop 12/14/18 at 06:59; Status DC Lidocaine HCl (Xylocaine-Mpf 1% 2ml Vial) 2 ml PRN 1X PRN ID IV START; Start at 07:00; Stop 12/14/18 at 06:59; Status DC Ringer's Solution 1,000 ml @ 30 mls/hr Q24H IV Last administered on 12/13/18at 09:07; Start 12/13/18 at 07:00; Stop 12/13/18 at 13:26; Status DC Morphine Sulfate (Morphine Sulfate) 1 mg PRN Q10MIN PRN IV SEVERE PAIN; Start 12/13/18 at 07:00; Stop 12/14/18 at 06:59; Status DC Fentanyl Citrate (Fentanyl 2ml Vial) 50 mcg PRN Q5MIN PRN IV MODERATE TO SEVERE PAIN; Start 12/13/18 at 07:00; Stop 12/14/18 at 06:59; Status DC Fentanyl Citrate (Fentanyl 2ml Vial) 25 mcg PRN Q5MIN PRN IV MILD PAIN; Start 12/13/18 at 07:00; Stop 12/14/18 at 06:59; Status DC Ondansetron HCl (Zofran) 4 mg PRN Q6HRS PRN IV NAUSEA/VOMITING; Start 12/13/18 at 07:00; Stop 12/14/18 at 06:59; Status DC Etomidate (Amidate) 20 mg STK-MED ONCE IV ; Start 12/13/18 at 06:27; Stop at 06:28; Status DC Sufentanil Citrate (Sufenta) 250 mcg STK-MED ONCE .ROUTE ; Start 12/13/18 at 06: 27; Stop 12/13/18 at 06:28; Status DC Midazolam HCl (Versed) 5 mg STK-MED ONCE .ROUTE ; Start 12/13/18 at 06:28; Stop 12/13/18 at 06:29; Status DC Lidocaine HCl (Lidocaine Pf 2% Vial) 5 ml STK-MED ONCE .ROUTE ; Start 12/13/18 at 06:28; Stop 12/13/18 at 06:29; Status DC Etomidate (Amidate) 20 mg STK-MED ONCE IV ; Start 12/13/18 at 06:28; Stop at 06:29; Status DC Phenylephrine HCl (Satinder-Synephrine Inj) 10 mg STK-MED ONCE .ROUTE ; Start at 06:28; Stop 12/13/18 at 06:29; Status DC Phenylephrine HCl (Satinder-Synephrine Inj) 10 mg STK-MED ONCE .ROUTE ; Start at 06:28; Stop 12/13/18 at 06:29; Status DC Phenylephrine HCl (Satinder-Synephrine Inj) 10 mg STK-MED ONCE .ROUTE ; Start at 06:29; Stop 12/13/18 at 06:30; Status DC Ephedrine Sulfate (Akovaz) 50 mg STK-MED ONCE .ROUTE ; Start 12/13/18 at 06:29; Stop 12/13/18 at 06:30; Status DC Ephedrine Sulfate (Akovaz) 50 mg STK-MED ONCE .ROUTE ; Start 12/13/18 at 06:29; Stop 12/13/18 at 06:30; Status DC Aminocaproic Acid (Amicar) 5,000 mg STK-MED ONCE IV ; Start 12/13/18 at 06:30; Stop 12/13/18 at 06:31; Status DC Aminocaproic Acid (Amicar) 5,000 mg STK-MED ONCE IV ; Start 12/13/18 at 06:30; Stop 12/13/18 at 06:31; Status DC Aminocaproic Acid (Amicar) 5,000 mg STK-MED ONCE IV ; Start 12/13/18 at 06:30; Stop 12/13/18 at 06:32; Status DC Nitroglycerin/ Dextrose 250 ml @ As Directed STK-MED ONCE IV ; Start 12/13/18 at 06:30; Stop 12/13/18 at 06:33; Status DC Vancomycin HCl (VANCO for OR ONLY) 10 gm STK-MED ONCE .ROUTE Last administered on 12/13/18 09:06; Start 12/13/18 at 06:41; Stop 12/13/18 at 06:42; Status DC Cellulose (Surgicel Hemostat 4x8) 1 each STK-MED ONCE .ROUTE Last administered on 12/13/18 09:06; Start 12/13/18 at 06:41; Stop 12/13/18 at 06:42; Status DC Papaverine HCl 60 mg STK-MED ONCE .ROUTE Last administered on 12/13/18 09:05; Start 12/13/18 at 06:41; Stop 12/13/18 at 06:42; Status DC Aspirin (Aspirin) 300 mg STK-MED ONCE .ROUTE Last administered on 12/13/18 09: 05; Start 12/13/18 at 06:41; Stop 12/13/18 at 06:43; Status DC Cellulose (Surgicel Hemostat 4x8) 1 each STK-MED ONCE .ROUTE ; Start 12/13/18 at 06:41; Stop 12/13/18 at 06:43; Status DC Sodium Chloride (SODIUM CHLORIDE 20ml) 20 ml STK-MED ONCE IJ Last administered on 12/13/18 09:04; Start 12/13/18 at 06:42; Stop 12/13/18 at 06:43; Status DC Sodium Chloride (SODIUM CHLORIDE 20ml) 20 ml STK-MED ONCE IJ Last administered on 12/13/18 09:04; Start 12/13/18 at 06:43; Stop 12/13/18 at 06:44; Status DC Sodium Chloride (SODIUM CHLORIDE 20ml) 20 ml STK-MED ONCE IJ Last administered on 12/13/18 09:04; Start 12/13/18 at 06:43; Stop 12/13/18 at 06:44; Status DC Cefazolin Sodium 1 gm/Sodium Chloride 500 ml @ 500 mls/hr 1X ONCE IRR Last administered on 2/26/19at 09:06; Start 12/13/18 at 08:00; Stop 12/13/18 at 08:59 ; Status DC Rocuronium [place] (Zemuron) 100 mg STK-MED ONCE .ROUTE ; Start 12/13/18 at 08: 21; Stop 12/13/18 at 08:22; Status DC Protamine Sulfate (Protamine) 250 mg STK-MED ONCE IV ; Start 12/13/18 at 11:06; Stop 12/13/18 at 11:07; Status DC Cefazolin Sodium/ Dextrose 50 ml @ As Directed STK-MED ONCE IV ; Start 12/13/18 at 11:17; Stop 12/13/18 at 11:18; Status DC Nicardipine HCl 50 mg/Sodium Chloride 250 ml @ 25 mls/hr CONT PRN IV SEE I/O RECORD Last administered on 12/14/18at 01:33; Start 12/13/18 at 13:00 Amiodarone HCl 150 mg/Dextrose 103 ml @ 618 mls/hr 1X ONCE IV Last administered on 12/13/18at 12:52; Start 12/13/18 at 13:00; Stop 12/13/18 at 13:09 ; Status DC Amiodarone HCl 900 mg/Dextrose 518 ml @ 33 mls/hr CONT PRN IV SEE I/O RECORD Last administered on 12/13/18at 12:52; Start 12/13/18 at 13:00; Stop 12/13/18 at 13:00; Status DC Magnesium Sulfate 5 gm STK-MED ONCE .ROUTE ; Start 12/13/18 at 11:33; Stop 12/13 at 11:34; Status DC Heparin Sodium (Porcine) 30,000 unit STK-MED ONCE .ROUTE ; Start 12/13/18 at 11: 33; Stop 12/13/18 at 11:34; Status DC Mannitol (Mannitol) 12.5 g STK-MED ONCE .ROUTE ; Start 12/13/18 at 11:33; Stop 12/13/18 at 11:34; Status DC Mannitol (Mannitol) 12.5 g STK-MED ONCE .ROUTE ; Start 12/13/18 at 11:33; Stop 12/13/18 at 11:34; Status DC Mannitol (Mannitol) 12.5 g STK-MED ONCE .ROUTE ; Start 12/13/18 at 11:33; Stop 12/13/18 at 11:34; Status DC Albumin Human 100 ml @ As Directed STK-MED ONCE IV ; Start 12/13/18 at 11:33; Stop 12/13/18 at 11:34; Status DC Calcium Chloride (Calcium Chloride) 1,000 mg STK-MED ONCE .ROUTE ; Start at 11:33; Stop 12/13/18 at 11:34; Status DC Calcium Chloride (Calcium Chloride) 1,000 mg STK-MED ONCE .ROUTE ; Start at 11:33; Stop 12/13/18 at 11:34; Status DC Lidocaine HCl (Lidocaine Pf 2% Vial) 5 ml STK-MED ONCE .ROUTE ; Start 12/13/18 at 11:33; Stop 12/13/18 at 11:34; Status DC Isoflurane (Isoflurane) 90 ml STK-MED ONCE IH ; Start 12/13/18 at 11:34; Stop at 11:35; Status DC Rocuronium [place] (Zemuron) 50 mg STK-MED ONCE .ROUTE ; Start 12/13/18 at 11:54 ; Stop 12/13/18 at 11:55; Status DC Albumin Human 500 ml @ As Directed STK-MED ONCE IV ; Start 12/13/18 at 12:00; Stop 12/13/18 at 12:01; Status DC Sodium Chloride (Normal Saline Flush) 3 ml PRN Q12HR PRN IV AFTER MEDS AND BLOOD DRAWS; Start 12/13/18 at 13:00 Ringer's Solution 1,000 ml @ 30 mls/hr Q24H IV Last administered on 12/14/18at 12:55; Start 12/13/18 at 12:55 Albumin Human 250 ml @ 500 mls/hr PRN Q4HRS PRN IV SEE COMMENTS Last administered on 12/14/18at 04:06; Start 12/13/18 at 13:00 Insulin Human Regular 150 unit/ Sodium Chloride 151.5 ml @ 0 mls/hr CONT PRN PRN IV PER PROTOCOL Last administered on 12/13/18at 18:52; Start 12/13/18 at 13: 00 Dextrose (Dextrose 50%-Water Syringe) 25 gm PRN Q15MIN PRN IV LOW BLOOD SUGAR; Start 12/13/18 at 13:00 Nitroglycerin/ Dextrose 250 ml @ 0 mls/hr CONT PRN PRN IV POST CV SURGERY; Start 12/13/18 at 13:00 Phenylephrine HCl 20 mg/Sodium Chloride 252 ml @ 0 mls/hr CONT PRN PRN IV HYPOTENSION; Start 12/13/18 at 13:00 Amiodarone HCl 150 mg/Dextrose 103 ml @ 600 mls/hr 1X ONCE IV ; Start at 13:00; Stop 12/13/18 at 13:08; Status DC Amiodarone HCl 150 mg/Dextrose 103 ml @ 200 mls/hr 1X PRN PRN IV FOR AFIB; Start 12/13/18 at 13:00 Amiodarone HCl 900 mg/Dextrose 518 ml @ 0 mls/hr CONT PRN PRN IV AFIB; Start at 13:00; Stop 12/14/18 at 18:00 Info (KCl Per Protocol) 1 ea CONT PRN PRN MC SEE COMMENTS; Start 12/13/18 at 13 :00 Magnesium Sulfate/ Dextrose 100 ml @ 100 mls/hr PRN DAILY PRN IV FOR MAG < 2.2 ; Start 12/13/18 at 13:00 Famotidine (Pepcid Vial) 20 mg BID IVP Last administered on 12/14/18at 09:22; Start 12/13/18 at 21:00 Ondansetron HCl (Zofran) 4 mg PRN Q4HRS PRN IV NAUSEA/VOMITING, 1st CHOICE Last administered on 12/14/18at 14:46; Start 12/13/18 at 13:00 Prochlorperazine Edisylate (Compazine) 10 mg PRN Q6HRS PRN IV NAUSEA/VOMITING, 2nd CHOICE; Start 12/13/18 at 13:00 Metoclopramide HCl (Reglan Vial) 10 mg PRN Q6HRS PRN IV NAUSEA/VOMITING, 3rd CHOICE; Start 12/13/18 at 13:00 Morphine Sulfate (Morphine Sulfate) 2 mg PRN Q1HR PRN IV PAIN Last administered on 12/14/18at 14:44; Start 12/13/18 at 13:00 Morphine Sulfate (Morphine Sulfate) 4 mg PRN Q1HR PRN IV SEVERE PAIN Last administered on 12/13/18at 15:28; Start 12/13/18 at 13:00 Acetaminophen (Tylenol) 650 mg PRN Q4HRS PRN PO TEMP > 101'F or PAIN Last administered on 12/14/18at 03:29; Start 12/13/18 at 13:00 Acetaminophen (Tylenol Supp) 650 mg PRN Q4HRS PRN MN TEMP > 101'F or MILD PAIN ; Start 12/13/18 at 13:00 Meperidine HCl (Demerol) 12.5 mg PRN Q15MIN PRN IV SHIVERING; Start 12/13/18 at 13:00; Stop 12/14/18 at 12:55; Status DC Propofol 100 ml @ 0 mls/hr CONT PRN PRN IV POSTOP SEDATION UNTIL EXTUBATE Last administered on 12/13/18at 13:36; Start 12/13/18 at 13:00 Senna/Docusate Sodium (Senna Plus) 1 tab BID PO Last administered on 12/14/18at 09:23; Start 12/13/18 at 21:00 Bisacodyl (Dulcolax Supp) 10 mg PRN DAILY PRN MN NO BOWEL MOVEMENT; Start 12/13 at 13:00 Chlorhexidine Gluconate (Peridex) 15 ml BID MM ; Start 12/14/18 at 09:00 Aspirin (Ecotrin) 325 mg DAILYWBKFT PO Last administered on 12/14/18at 09:23; Start 12/14/18 at 08:00 Aspirin (Aspirin) 300 mg PRN DAILY PRN MN IF UNABLE TO TAKE PO; Start 12/14/18 at 08:00 Albuterol Sulfate (Ventolin Neb Soln) 2.5 mg PRN Q4HRS PRN NEB SHORTNESS OF BREATH Last administered on 12/13/18at 19:54; Start 12/13/18 at 13:00 Metoprolol Tartrate (Lopressor) 25 mg BID PO Last administered on 12/14/18at 09: 23; Start 12/14/18 at 09:00 Nicardipine HCl 50 mg/Sodium Chloride 250 ml @ 0 mls/hr CONT PRN PRN IV PER PROTOCOL; Start 12/13/18 at 13:00; Stop 12/13/18 at 17:01; Status DC Oxycodone HCl (Roxicodone) 5 mg PRN Q4HRS PRN PO MODERATE PAIN Last administered on 12/14/18at 15:13; Start 12/13/18 at 13:00 Oxycodone HCl (Roxicodone) 10 mg PRN Q4HRS PRN PO SEVERE PAIN Last administered on 12/14/18at 09:23; Start 12/13/18 at 13:00 Cefazolin Sodium/ Dextrose 50 ml @ 100 mls/hr Q8H IV ; Start 12/13/18 at 16:00 ; Stop 12/13/18 at 17:01; Status DC Sodium Bicarbonate (Sodium Bicarb Adult 8.4% Syr) 50 meq 1X ONCE IV Last administered on 12/13/18at 13:28; Start 12/13/18 at 13:15; Stop 12/13/18 at 13:38 ; Status DC Sodium Bicarbonate (Sodium Bicarb Adult 8.4% Syr) 50 meq 1X ONCE IV Last administered on 12/13/18at 13:28; Start 12/13/18 at 13:15; Stop 12/13/18 at 13:38 ; Status DC Sodium Bicarbonate (Sodium Bicarb Adult 8.4% Syr) 50 meq STK-MED ONCE .ROUTE ; Start 12/13/18 at 13:24; Stop 12/13/18 at 13:25; Status DC Potassium Chloride/Water 50 ml @ 50 mls/hr Q1H IV Last administered on at 15:09; Start 12/13/18 at 14:00; Stop 12/13/18 at 15:59; Status DC Cefazolin Sodium/ Dextrose 50 ml @ 100 mls/hr Q8H IV Last administered on 12/14at 09:24; Start 12/13/18 at 19:00; Stop 12/15/18 at 03:29 Amiodarone HCl (Cordarone) 200 mg BID PO Last administered on 12/14/18at 14:00; Start 12/14/18 at 14:00 Active Scripts Active Reported Aspirin Ec (Aspirin) 81 Mg Tablet.dr 81 Mg PO DAILY Vitals/I & O Vital Sign - Last 24 Hours 12/13/18 12/13/18 12/13/18 12/13/18 15:41 15:58 16:00 16:00 Temp 98.6 98.6 Pulse 100 100 Resp 12 16 B/P (MAP) 106/53 (70) Pulse Ox 97 100 100 O2 Delivery Nasal Cannula Ventilator O2 Flow Rate 3.0 12/13/18 12/13/18 12/13/18 12/13/18 16:00 17:00 17:00 17:36 Temp 98.0 98.0 Pulse 96 96 Resp 13 12 B/P (MAP) 111/50 (70) Pulse Ox 98 100 O2 Delivery Mechanical Ventilator Nasal Cannula Nasal Cannula O2 Flow Rate 3.0 3.0 12/13/18 12/13/18 12/13/18 12/13/18 18:45 19:00 19:00 19:30 Temp 99.4 99.4 Pulse 96 Resp 18 14 B/P (MAP) 117/53 (74) Pulse Ox 100 100 O2 Delivery Nasal Cannula Nasal Cannula O2 Flow Rate 3.0 3.0 3.0 12/13/18 12/13/18 12/13/18 12/13/18 19:54 20:00 20:00 20:00 Temp 99.4 99.4 Pulse 90 Resp 20 B/P (MAP) 105/51 (69) Pulse Ox 100 100 O2 Delivery Nasal Cannula Nasal Cannula Nasal Cannula O2 Flow Rate 2.0 3.0 3.0 12/13/18 12/13/18 12/13/18 12/13/18 21:00 21:00 21:14 22:00 Temp 99.9 100.1 99.9 100.1 Pulse 92 95 Resp 20 22 14 B/P (MAP) 113/54 (73) 126/52 (76) Pulse Ox 100 100 100 O2 Delivery Nasal Cannula Nasal Cannula Nasal Cannula O2 Flow Rate 3.0 3.0 3.0 12/13/18 12/13/18 12/13/18 12/13/18 22:00 23:00 23:00 23:26 Temp 100.1 100.1 Pulse 89 Resp 15 16 B/P (MAP) 118/54 (75) Pulse Ox 100 100 O2 Delivery Nasal Cannula Nasal Cannula O2 Flow Rate 3.0 3.0 12/13/18 12/14/18 12/14/18 12/14/18 23:38 00:00 00:00 01:00 Temp 99.9 99.9 Pulse 90 Resp 14 B/P (MAP) 130/55 (80) Pulse Ox 100 O2 Delivery Nasal Cannula Nasal Cannula O2 Flow Rate 3.0 3.0 12/14/18 12/14/18 12/14/18 12/14/18 01:00 01:34 02:00 02:00 Temp 99.8 99.5 99.8 99.5 Pulse 81 80 Resp 14 16 15 B/P (MAP) 115/48 (70) 122/52 (75) Pulse Ox 100 98 100 O2 Delivery Nasal Cannula Nasal Cannula Nasal Cannula O2 Flow Rate 3.0 3.0 1.0 12/14/18 12/14/18 12/14/18 12/14/18 02:34 03:00 03:00 03:29 Temp 99.4 99.4 Pulse 80 Resp 16 16 B/P (MAP) 118/50 (72) Pulse Ox 100 100 O2 Delivery Nasal Cannula Nasal Cannula O2 Flow Rate 1.0 1.0 1.0 12/14/18 12/14/18 12/14/18 12/14/18 03:59 04:00 04:00 05:00 Pulse 78 76 Resp 14 12 B/P (MAP) 90/50 (63) 90/53 (65) Pulse Ox 100 100 O2 Delivery Nasal Cannula Nasal Cannula Nasal Cannula O2 Flow Rate 1.0 1.0 1.0 1.0 12/14/18 12/14/18 12/14/18 12/14/18 05:24 06:00 06:24 07:00 Pulse 83 77 Resp 16 20 14 12 B/P (MAP) 103/50 (67) 97/55 (69) Pulse Ox 100 95 95 96 O2 Delivery Nasal Cannula Room Air Room Air Room Air O2 Flow Rate 1.0 12/14/18 12/14/18 12/14/18 12/14/18 08:00 08:00 09:00 09:22 Temp 99.0 99.0 Pulse 79 80 Resp 13 15 20 B/P (MAP) 104/54 (71) 106/56 (73) Pulse Ox 98 99 100 O2 Delivery Room Air Room Air Room Air Room Air 12/14/18 12/14/18 12/14/18 12/14/18 09:23 09:23 10:00 10:20 Pulse 80 80 Resp 20 16 16 B/P (MAP) 106/56 102/55 (71) Pulse Ox 100 99 100 O2 Delivery Room Air Room Air Room Air 2/2712/14/18 12/14/18 12/14/18 10:20 11:00 12:00 12:00 Pulse 78 76 Resp 16 18 17 B/P (MAP) 106/45 (65) 104/55 (71) Pulse Ox 100 98 99 O2 Delivery Room Air Room Air Room Air Room Air 12/14/18 12/14/18 12/14/18 12/14/18 13:00 14:00 14:00 14:44 Temp 98.3 98.3 Pulse 86 81 82 Resp 12 13 16 B/P (MAP) 109/61 (77) 111/60 123/59 (80) Pulse Ox 99 98 98 O2 Delivery Room Air Room Air Room Air 12/14/18 12/14/18 12/14/18 12/14/18 14:47 15:00 15:04 15:13 Pulse 81 Resp 16 17 16 16 B/P (MAP) 111/60 (77) Pulse Ox 98 99 99 97 O2 Delivery Room Air Room Air Room Air Room Air Intake and Output 12/13/18 12/13/18 12/14/18 15:00 23:00 07:00 Intake Total 353 ml 1028 ml 1472 ml Output Total 1356 ml 1023 ml 510 ml Balance -1003 ml 5 ml 962 ml CHANO LINARES MD Dec 14, 2018 15:35
--- NOTE | 2018-12-14 17:11 | PDOC ---
Progress Note Subjective Subjective Doing very well. Fast track extubation yesterday. Ambulated this morning. Normotensive and SR. Banquete and a-line have been removed. Good UO. Minimal tube output. Hb 9.8, creat 1.2. CXR OK ROS ROS No nausea No vomiting No pain No rash Vital Sign Vital Signs Vital Signs Date Time Temp Pulse Resp B/P (MAP) Pulse Ox O2 Delivery O2 Flow Rate FiO2 12/14/18 16:15 16 98 Room Air 12/14/18 16:00 98.5 81 108/58 (75) 98.5 12/14/18 05:24 1.0 Physical Exam PHYSICAL EXAM GENERAL: NAD, Alert HEENT: PERRL, OC/OP NECK: Supple, no JVD, no LN LUNGS: Clear HEART: S1S2, no gallop, no murmur ABD: Soft, NT, no organomegaly, no rebound EXT: No edema, no cyanosis BACCARAT DEALER: Alert, oriented x 3, no focal neurologic deficit SKIN: No rash IV: ok Labs Lab Laboratory Tests Test 12/13/18 18:40 12/13/18 20:02 12/13/18 20:59 12/13/18 22:06 Hematocrit 31.0 % (39.0-53.0) Potassium Level 4.6 mmol/L (3.5-5.1) Glucose (Fingerstick) 180 mg/dL (70-99) 133 mg/dL (70-99) 111 mg/dL (70-99) 121 mg/dL (70-99) Test 12/13/18 23:50 12/14/18 03:37 12/14/18 03:40 12/14/18 09:01 Glucose (Fingerstick) 138 mg/dL (70-99) 159 mg/dL (70-99) 131 mg/dL (70-99) White Blood Count 9.9 x10^3/uL (4.0-11.0) Red Blood Count 2.95 x10^6/uL (4.30-5.70) Hemoglobin 9.8 g/dL (13.0-17.5) Hematocrit 28.6 % (39.0-53.0) Mean Corpuscular Volume 97 fL (79-100) Mean Corpuscular Hemoglobin 33 pg (25-35) Mean Corpuscular Hemoglobin Concent 34 g/dL (31-37) Red Cell Distribution Width 12.6 % (11.5-14.5) Platelet Count 108 x10^3/uL (140-400) Sodium Level 140 mmol/L (136-145) Potassium Level 4.5 mmol/L (3.5-5.1) Chloride Level 105 mmol/L (98-107) Carbon Dioxide Level 26 mmol/L (21-32) Anion Gap 9 (6-14) Blood Urea Nitrogen 15 mg/dL (8-26) Creatinine 1.2 mg/dL (0.7-1.3) Estimated GFR (Cockcroft-Gault) 61.3 Glucose Level 176 mg/dL (70-99) Calcium Level 8.4 mg/dL (8.5-10.1) Magnesium Level 2.2 mg/dL (1.8-2.4) Objective Assessment POD#1, s/p CABG x 2 (TAVARES to LAD, SVG to RPDA) Doing very well. Fast track extubation yesterday. Ambulated this morning. Normotensive and SR. Banquete and a-line have been removed. Good UO. Minimal tube output. Hb 9.8, creat 1.2. CXR OK Plan Plan of Care D/c mediastinal tubes Switch amiodarone drip to 200mg po BID for AFib prophylaxis ASA, b aman and statin Ambulation and pulmonary toilet Analgesia Nutrition Consultation Dietary Evaluation: Recommendations by RD: Dietary education by RD, Protein supplementation Comments: REC Glucerna TID (chocolate/strawberry Continue w/cardiac diet Will provide post-CABG diet education closer to discharge Expected Outcomes/Goals: PO intake to meet >75% est needs Malnutrition Findings: Body Fat Depletion (Non Severe: Mild Depletion Weight Status: Appropriate RC ECHEVERRIA MD Dec 14, 2018 17:11
[2018-12-14 17:29] LABS: ART BE ISTAT 0 mmol/L (0-3); ART GLUC ISTAT 95 mg/dL (70-99); ART HCO3 ISTAT 25 mmol/L (21-28); ART HCT ISTAT 24 % (37-52); ART HGB ISTAT 8.2 g/dL (14-18); ART ION CA ISTAT 0.97 mmol/L (1.13-1.32); ART K ISTAT 5.1 mmol/L (3.5-5.0); ART NA ISTAT 136 mmol/L (135-145); ART PCO2 ISTAT 41 mmHg (35-45); ART PH ISTAT 7.39 (7.35-7.45); ART PO2 ISTAT 549 mmHg (75-100); ART SAT O2 SAT 100 % (95-99); ART TCO2 ISTAT 26 mmol/L (21-32)
[2018-12-14 17:29] LABS: ART BE ISTAT 2 mmol/L (0-3); ART GLUC ISTAT 112 mg/dL (70-99); ART HCO3 ISTAT 26 mmol/L (21-28); ART HCT ISTAT 30 % (37-52); ART HGB ISTAT 10.2 g/dL (14-18); ART ION CA ISTAT 1.14 mmol/L (1.13-1.32); ART K ISTAT 3.9 mmol/L (3.5-5.0); ART NA ISTAT 138 mmol/L (135-145); ART PCO2 ISTAT 42 mmHg (35-45); ART PH ISTAT 7.41 (7.35-7.45); ART PO2 ISTAT 522 mmHg (75-100); ART SAT O2 SAT 100 % (95-99); ART TCO2 ISTAT 28 mmol/L (21-32)
[2018-12-14 17:29] LABS: FIO2 ISTAT 100; VEN BASE EXCESS ISTAT -5 mmol/L (0-3); VEN GLUC ISTAT 111 mg/dL (70-99); VEN HCO3 ISTAT 20 mmol/L (24-28); VEN HCT ISTAT 30 % (37-52); VEN HGB ISTAT 10.2 g/dL (14-18); VEN ION CA ISTAT 1.13 mmol/L (1.13-1.32); VEN K ISTAT 3.8 mmol/L (3.5-5.0); VEN NA ISTAT 139 mmol/L (135-145); VEN O2 ISTAT 44 mmHg (20-40); VEN PCO2 ISTAT 30 mmHg (41-51); VEN PH ISTAT 7.42 (7.32-7.42); VEN SO2 ISTAT 81 %; VEN TCO2 ISTAT 21 mmol/L (21-32)
[2018-12-14 17:29] LABS: ART BE ISTAT 4 mmol/L (0-3); ART GLUC ISTAT 87 mg/dL (70-99); ART HCO3 ISTAT 27 mmol/L (21-28); ART HCT ISTAT 29 % (37-52); ART HGB ISTAT 9.9 g/dL (14-18); ART ION CA ISTAT 1.09 mmol/L (1.13-1.32); ART K ISTAT 3.9 mmol/L (3.5-5.0); ART NA ISTAT 138 mmol/L (135-145); ART PCO2 ISTAT 33 mmHg (35-45); ART PH ISTAT 7.52 (7.35-7.45); ART PO2 ISTAT 501 mmHg (75-100); ART SAT O2 SAT 100 % (95-99); ART TCO2 ISTAT 28 mmol/L (21-32)
[2018-12-14 17:29] LABS: ART BE ISTAT 1 mmol/L (0-3); ART GLUC ISTAT 99 mg/dL (70-99); ART HCO3 ISTAT 26 mmol/L (21-28); ART HCT ISTAT 27 % (37-52); ART HGB ISTAT 9.2 g/dL (14-18); ART ION CA ISTAT 1.04 mmol/L (1.13-1.32); ART K ISTAT 4.9 mmol/L (3.5-5.0); ART NA ISTAT 137 mmol/L (135-145); ART PCO2 ISTAT 42 mmHg (35-45); ART PO2 ISTAT 446 mmHg (75-100); ART SAT O2 SAT 100 % (95-99); ART TCO2 ISTAT 27 mmol/L (21-32)
[2018-12-14 17:29] LABS: ART BE ISTAT 2 mmol/L (0-3); ART GLUC ISTAT 111 mg/dL (70-99); ART HCO3 ISTAT 26 mmol/L (21-28); ART HCT ISTAT 23 % (37-52); ART HGB ISTAT 7.8 g/dL (14-18); ART ION CA ISTAT 1.65 mmol/L (1.13-1.32); ART K ISTAT 4.6 mmol/L (3.5-5.0); ART NA ISTAT 135 mmol/L (135-145); ART PCO2 ISTAT 40 mmHg (35-45); ART PH ISTAT 7.43 (7.35-7.45); ART PO2 ISTAT 462 mmHg (75-100); ART SAT O2 SAT 100 % (95-99); ART TCO2 ISTAT 27 mmol/L (21-32)
[2018-12-14] MEDS: ATORVASTATIN CALCIUM 40 MG TABLET. PO SCH (20:46)
[2018-12-15] VITALS (15 sets, daily range): BP systolic 101–164; BP diastolic 55–76
[2018-12-15] MEDS: oxyCODONE IR 5 MG TABLET PO PRN ×2 (01:01→13:44)
[2018-12-15 06:10] LABS: CALCIUM 8.3 mg/dL (8.5-10.1); CREATININE 1.1 mg/dL (0.7-1.3); GFR 67.8; HEMATOCRIT 24.6 % (39.0-53.0); HEMOGLOBIN 8.4 g/dL (13.0-17.5); POTASSIUM 3.8 mmol/L (3.5-5.1); RED BLOOD COUNT 2.52 x10^6/uL (4.30-5.70); RED CELL DISTRIBUTION WIDTH 12.8 % (11.5-14.5); WHITE BLOOD COUNT 6.7 x10^3/uL (4.0-11.0)
[2018-12-15] MEDS ORDERED: MAGNESIUM SULFATE 1GM 100 ML IV ONE (07:00)
[2018-12-15] MEDS ORDERED: POTASSIUM CHL 20MEQ PREMIX 50 ML IV ONE (07:30)
--- NOTE | 2018-12-15 08:09 | RAD ---
PORTABLE CHEST 1V History: Status post coronary artery bypass graft Comparison: 12/14/2018 Findings: AP portable view of the chest is submitted. There is again right internal jugular venous catheter with the tip in the superior vena cava. There is again left base chest tube. Previously seen mediastinal drain has been removed. There again has been a median sternotomy. Heart size is similar. There is likely mild bibasilar atelectasis, also mild interstitial opacity with basilar predominance. No pneumothorax is identified. Impression: 1. Previously seen mediastinal drain has been removed, again left chest tube and right internal jugular venous catheter. There is bibasilar atelectasis. Electronically signed by: Yandel Conway MD (12/15/2018 8:06 AM) [id number]
[2018-12-15] MEDS: SENNOSIDES/DOCUSATE 8.6/50MG TABLET. PO SCH ×2 (08:29→21:05)
[2018-12-15] MEDS: FAMOTIDINE 20 MG/2 ML VIAL IVP SCH (08:29)
[2018-12-15] MEDS: ASPIRIN ENTERIC COATED 325 MG TABLET.DR. PO SCH (08:29)
[2018-12-15] MEDS: AMIODARONE HCL 200 MG TABLET. PO SCH ×2 (08:30→21:04)
[2018-12-15] MEDS: CARVEDILOL 3.125 MG TABLET. PO SCH ×2 (08:31→17:00)
[2018-12-15] MEDS: METOPROLOL TART IMMED RELEASE 25 MG TABLET. PO SCH ×2 (08:31→21:05)
--- NOTE | 2018-12-15 09:33 | PDOC ---
CARDIO Progress Notes Date and Time Date of Service 12/15/2018 Time of Evaluation 0920 Subjective Subjective: No Chest Pain, No shortness of breath, No Palpitations, Other ( surgical pain controlled; ambulated in hallway today and reports that he did well) Vitals Vitals Vital Signs Date Time Temp Pulse Resp B/P (MAP) Pulse Ox O2 Delivery O2 Flow Rate FiO2 12/15/18 09:00 89 17 116/67 (83) 95 Room Air 12/15/18 08:00 99.3 99.3 Weight Weight [ ] Input and Output Intake and Output Intake and Output 12/15/18 07:00 Intake Total 4048 ml Output Total 1345 ml Balance 2703 ml Intake Oral 2290 ml IV Total 1758 ml Output Urine Total 1045 ml Chest Tube Drainage Total 300 ml Laboratory Labs Laboratory Tests Test 12/14/18 10:00 12/15/18 05:50 Nasal Screen MRSA (PCR) Negative (Negative) White Blood Count 6.7 x10^3/uL (4.0-11.0) Red Blood Count 2.52 x10^6/uL (4.30-5.70) Hemoglobin 8.4 g/dL (13.0-17.5) Hematocrit 24.6 % (39.0-53.0) Mean Corpuscular Volume 97 fL (79-100) Mean Corpuscular Hemoglobin 33 pg (25-35) Mean Corpuscular Hemoglobin Concent 34 g/dL (31-37) Red Cell Distribution Width 12.8 % (11.5-14.5) Platelet Count 84 x10^3/uL (140-400) Sodium Level 135 mmol/L (136-145) Potassium Level 3.8 mmol/L (3.5-5.1) Chloride Level 100 mmol/L (98-107) Carbon Dioxide Level 28 mmol/L (21-32) Anion Gap 7 (6-14) Blood Urea Nitrogen 16 mg/dL (8-26) Creatinine 1.1 mg/dL (0.7-1.3) Estimated GFR (Cockcroft-Gault) 67.8 Glucose Level 130 mg/dL (70-99) Calcium Level 8.3 mg/dL (8.5-10.1) Magnesium Level 2.0 mg/dL (1.8-2.4) Microbiology Micro Microbiology 12/08/18 Urine Culture - Final, Complete 12/08/18 Urine Culture Result 1 (JUAN) - Final, Complete Physical Exam HEENT: Neck Supple W Full Motion Chest: Symmetric LUNGS: Other (basilar crackles; chest tube with minute serosanguinous drain) Heart: S1S2, RRR (SR without significant ectopies overnight) Abdomen: Soft N/T Extremities: Other (trace LE edema) Neurology: alert, oriented, follow commands Assessment Assessment 1. CABG x2 (TAVARES to LAD, SVG to RPDA) POD#2 doing well. better inspiration, ambulated in hallway 2. Post op anemia: Hgb 8.4 3. ICM: EF 45% 4. Tobaccoism/ Marijuana use; discussed/encouraged cessation 5. HTN: controlled Recommendations 1. Continue post CABG protocol. Amiodarone PO, transfuse per protocol 2. ASA, BB, statin. Lasix PRN 3. Aggressive IS, Adv act as daniel. 4. Anticipate transfer to [facility] today. MASON HOOKS APRN Dec 15, 2018 09:33
--- NOTE | 2018-12-15 09:47 | RAD ---
MR#: [id number] Date of Study: 12/10/2018 Ordering Physician: RC ECHEVERRIA, Referring Physician: UBALDO URBINA Tech: Amna Eddy BS, RTR, RDMS, RVT APPROVED REPORT Patient Location: IN-PATIENT Laterality:Bilateral Indications pre op Risk Factors Smoking Doppler Spectral Velocity Analysis Right Left pCCA 122/27 cm/spCCA 118/33 cm/s mCCA 101/24 cm/smCCA 98/23 cm/s dCCA 102/34 cm/sdCCA 109/27 cm/s Bulb 97/30 cm/sBulb 97/28 cm/s ECA 117/ cm/sECA 112/ cm/s pICA 65/19 cm/spICA 70/18 cm/s Alice 100/27 cm/smICA 104/30 cm/s dICA 95/31 cm/sdICA 87/30 cm/s Vert. 54/ cm/sVert. 41/ cm/s ICA/CCA 0.82ICA/CCA 0.88 Findings Grayscale images of the bilateral common carotid, internal and external carotid vessels reveal mild i ntimal intimal hyperplasia and mild plaque. Spectral waveforms and color Doppler and velocities are w ithin normal limits. There is normal antegrade vertebral velocities bilaterally. Normal ICA to CCA ra tios noted. Critical Notification Critical Value: No <Conclusion> No significant carotid arterial disease bilaterally. Signed by : Marin Szymanski, Electronically Approved : 12/15/2018 09:46:39
--- NOTE | 2018-12-15 09:48 | RAD ---
MR#: [id number] Date of Study: 12/10/2018 Ordering Physician: RC ECHEVERRIA, Referring Physician: UBALDO URBINA Tech: Amna Eddy BS, RTR, RDMS, RVT APPROVED REPORT Patient Location: IN-PATIENT Vein Measurements Great Saphenous Small Saphenous RightLeft RightLeft Saph-Fem. Junction 5.00mm7.80mmProximal 5.60mm1.40mm Mid Thigh 2.30mm2.70mmMid 3.00mm Distal Thigh 1.60mm2.40mmDistal Proximal Calf 2.40mm2.30mm Mid Calf 2.30mm2.10mm Distal Calf 1.90mm2.20mm Findings Bilateral greater and lesser saphenous veins are patent. The bilateral lesser saphenous veins are not well visualized past the proximal segments. Dimensions as noted above. Critical Notification Critical Value: No <Conclusion> Adequate bilateral greater saphenous vein for bypass conduit as noted above with dimensions as noted. Signed by : Marin Szymanski, Electronically Approved : 12/15/2018 09:47:42
--- NOTE | 2018-12-15 13:03 | PDOC ---
Progress Note Subjective Subjective Doing very well. Ambulating. Normotensive and SR. Reasonable UO. Minimal tpleural tube output. Hb 8.4, creat 1.1 CXR OK ROS ROS No nausea No vomiting No pain No rash Vital Sign Vital Signs Vital Signs Date Time Temp Pulse Resp B/P (MAP) Pulse Ox O2 Delivery O2 Flow Rate FiO2 12/15/18 10:00 88 18 119/65 (83) 95 Room Air 12/15/18 08:00 99.3 99.3 Physical Exam PHYSICAL EXAM GENERAL: NAD, Alert HEENT: PERRL, OC/OP NECK: Supple, no JVD, no LN LUNGS: Clear HEART: S1S2, no gallop, no murmur ABD: Soft, NT, no organomegaly, no rebound EXT: No edema, no cyanosis EMS DRIVER: Alert, oriented x 3, no focal neurologic deficit SKIN: No rash IV: ok Labs Lab Laboratory Tests Test 12/15/18 05:50 White Blood Count 6.7 x10^3/uL (4.0-11.0) Red Blood Count 2.52 x10^6/uL (4.30-5.70) Hemoglobin 8.4 g/dL (13.0-17.5) Hematocrit 24.6 % (39.0-53.0) Mean Corpuscular Volume 97 fL (79-100) Mean Corpuscular Hemoglobin 33 pg (25-35) Mean Corpuscular Hemoglobin Concent 34 g/dL (31-37) Red Cell Distribution Width 12.8 % (11.5-14.5) Platelet Count 84 x10^3/uL (140-400) Sodium Level 135 mmol/L (136-145) Potassium Level 3.8 mmol/L (3.5-5.1) Chloride Level 100 mmol/L (98-107) Carbon Dioxide Level 28 mmol/L (21-32) Anion Gap 7 (6-14) Blood Urea Nitrogen 16 mg/dL (8-26) Creatinine 1.1 mg/dL (0.7-1.3) Estimated GFR (Cockcroft-Gault) 67.8 Glucose Level 130 mg/dL (70-99) Calcium Level 8.3 mg/dL (8.5-10.1) Magnesium Level 2.0 mg/dL (1.8-2.4) Objective Assessment POD#2, s/p CABG x 2 (TAVARES to LAD, SVG to RPDA) Doing very well. Ambulating. Normotensive and SR. Reasonable UO. Minimal tpleural tube output. Hb 8.4, creat 1.1 CXR OK Plan Plan of Care D/c pleural tube D/c armstrong D/c cordis Amiodarine 200mg po BID for AFib prophylaxis ASA, b aman and statin Ambulation and pulmonary toilet Transfer to stepdown Nutrition Consultation Dietary Evaluation: Recommendations by RD: Dietary education by RD, Protein supplementation Comments: REC Glucerna TID (chocolate/strawberry Continue w/cardiac diet Will provide post-CABG diet education closer to discharge Expected Outcomes/Goals: PO intake to meet >75% est needs Malnutrition Findings: Body Fat Depletion (Non Severe: Mild Depletion Weight Status: Appropriate RC ECHEVERRIA MD Dec 15, 2018 13:03
--- NOTE | 2018-12-15 14:05 | PDOC ---
PROGRESS NOTES Chief Complaint Chief Complaint chest pain, secondary to multiple vessel coronary artery disease status post CABG Tensional headache as a result of muscle spasm improved Hx CAD, stents placed here by Dr. Diane in 2001 tobacco and THC use, counseling done Plan: Continue with orders from cardiothoracic surgery ICU supportive measures hopefully downgrade to step down unit soon Reassess in the a.m. History of Present Illness History of Present Illness Patient sitting in chair in no acute distress. The patient's pain is well controlled, no distress during my visit dull concerns were addressed to the best of my abilities. Still has chest tubes in place will stay in the ICU probably 24 hours more Vitals Vitals Vital Signs Date Time Temp Pulse Resp B/P (MAP) Pulse Ox O2 Delivery O2 Flow Rate FiO2 12/15/18 13:44 95 Room Air 12/15/18 10:00 88 18 119/65 (83) 12/15/18 08:00 99.3 99.3 Physical Exam Physical Exam GENERAL: NAD, Alert HEENT: PERRL, OC/OP NECK: Supple, no JVD, no LN LUNGS: Clear HEART: S1S2, no gallop, no murmur ABD: Soft, NT, no organomegaly, no rebound EXT: No edema, no cyanosis [employer]ER: Alert, oriented x 3, no focal neurologic deficit SKIN: No rash IV: ok General: Alert, Oriented X3, No acute distress Heart: Regular rate, Normal S1, Normal S2 Abdomen: Normal bowel sounds, Soft, No tenderness Extremities: No edema Skin: No significant lesion Labs LABS Laboratory Tests Test 12/15/18 05:50 White Blood Count 6.7 x10^3/uL (4.0-11.0) Red Blood Count 2.52 x10^6/uL (4.30-5.70) Hemoglobin 8.4 g/dL (13.0-17.5) Hematocrit 24.6 % (39.0-53.0) Mean Corpuscular Volume 97 fL (79-100) Mean Corpuscular Hemoglobin 33 pg (25-35) Mean Corpuscular Hemoglobin Concent 34 g/dL (31-37) Red Cell Distribution Width 12.8 % (11.5-14.5) Platelet Count 84 x10^3/uL (140-400) Sodium Level 135 mmol/L (136-145) Potassium Level 3.8 mmol/L (3.5-5.1) Chloride Level 100 mmol/L (98-107) Carbon Dioxide Level 28 mmol/L (21-32) Anion Gap 7 (6-14) Blood Urea Nitrogen 16 mg/dL (8-26) Creatinine 1.1 mg/dL (0.7-1.3) Estimated GFR (Cockcroft-Gault) 67.8 Glucose Level 130 mg/dL (70-99) Calcium Level 8.3 mg/dL (8.5-10.1) Magnesium Level 2.0 mg/dL (1.8-2.4) Review of Systems Review of Systems positive as per hpi otherwise 10 point review of system is negative Assessment and Plan Assessmemt and Plan Problems Medical Problems: (1) Chest pain Status: Acute Comment Review of Relevant I have reviewed the following items livan (where applicable) has been applied. Labs Laboratory Tests Test 12/13/18 18:40 12/13/18 20:02 12/13/18 20:59 12/13/18 22:06 Hematocrit 31.0 % (39.0-53.0) Potassium Level 4.6 mmol/L (3.5-5.1) Glucose (Fingerstick) 180 mg/dL (70-99) 133 mg/dL (70-99) 111 mg/dL (70-99) 121 mg/dL (70-99) Test 12/13/18 23:50 12/14/18 03:37 12/14/18 03:40 12/14/18 09:01 Glucose (Fingerstick) 138 mg/dL (70-99) 159 mg/dL (70-99) 131 mg/dL (70-99) White Blood Count 9.9 x10^3/uL (4.0-11.0) Red Blood Count 2.95 x10^6/uL (4.30-5.70) Hemoglobin 9.8 g/dL (13.0-17.5) Hematocrit 28.6 % (39.0-53.0) Mean Corpuscular Volume 97 fL (79-100) Mean Corpuscular Hemoglobin 33 pg (25-35) Mean Corpuscular Hemoglobin Concent 34 g/dL (31-37) Red Cell Distribution Width 12.6 % (11.5-14.5) Platelet Count 108 x10^3/uL (140-400) Sodium Level 140 mmol/L (136-145) Potassium Level 4.5 mmol/L (3.5-5.1) Chloride Level 105 mmol/L (98-107) Carbon Dioxide Level 26 mmol/L (21-32) Anion Gap 9 (6-14) Blood Urea Nitrogen 15 mg/dL (8-26) Creatinine 1.2 mg/dL (0.7-1.3) Estimated GFR (Cockcroft-Gault) 61.3 Glucose Level 176 mg/dL (70-99) Calcium Level 8.4 mg/dL (8.5-10.1) Magnesium Level 2.2 mg/dL (1.8-2.4) Test 12/14/18 10:00 12/15/18 05:50 Nasal Screen MRSA (PCR) Negative (Negative) White Blood Count 6.7 x10^3/uL (4.0-11.0) Red Blood Count 2.52 x10^6/uL (4.30-5.70) Hemoglobin 8.4 g/dL (13.0-17.5) Hematocrit 24.6 % (39.0-53.0) Mean Corpuscular Volume 97 fL (79-100) Mean Corpuscular Hemoglobin 33 pg (25-35) Mean Corpuscular Hemoglobin Concent 34 g/dL (31-37) Red Cell Distribution Width 12.8 % (11.5-14.5) Platelet Count 84 x10^3/uL (140-400) Sodium Level 135 mmol/L (136-145) Potassium Level 3.8 mmol/L (3.5-5.1) Chloride Level 100 mmol/L (98-107) Carbon Dioxide Level 28 mmol/L (21-32) Anion Gap 7 (6-14) Blood Urea Nitrogen 16 mg/dL (8-26) Creatinine 1.1 mg/dL (0.7-1.3) Estimated GFR (Cockcroft-Gault) 67.8 Glucose Level 130 mg/dL (70-99) Calcium Level 8.3 mg/dL (8.5-10.1) Magnesium Level 2.0 mg/dL (1.8-2.4) Laboratory Tests Test 12/15/18 05:50 White Blood Count 6.7 x10^3/uL (4.0-11.0) Red Blood Count 2.52 x10^6/uL (4.30-5.70) Hemoglobin 8.4 g/dL (13.0-17.5) Hematocrit 24.6 % (39.0-53.0) Mean Corpuscular Volume 97 fL (79-100) Mean Corpuscular Hemoglobin 33 pg (25-35) Mean Corpuscular Hemoglobin Concent 34 g/dL (31-37) Red Cell Distribution Width 12.8 % (11.5-14.5) Platelet Count 84 x10^3/uL (140-400) Sodium Level 135 mmol/L (136-145) Potassium Level 3.8 mmol/L (3.5-5.1) Chloride Level 100 mmol/L (98-107) Carbon Dioxide Level 28 mmol/L (21-32) Anion Gap 7 (6-14) Blood Urea Nitrogen 16 mg/dL (8-26) Creatinine 1.1 mg/dL (0.7-1.3) Estimated GFR (Cockcroft-Gault) 67.8 Glucose Level 130 mg/dL (70-99) Calcium Level 8.3 mg/dL (8.5-10.1) Magnesium Level 2.0 mg/dL (1.8-2.4) Microbiology 12/08/18 Urine Culture - Final, Complete 12/08/18 Urine Culture Result 1 (JUAN) - Final, Complete Medications Current Medications Aspirin (Children'S Aspirin) 324 mg 1X ONCE PO Last administered on 12/08/18at 11:54; Start 12/08/18 at 11:30; Stop 12/08/18 at 11:47; Status DC Nitroglycerin (Nitrostat) 0.4 mg PRN Q5MIN PRN SL CP RATING > 1/10 Last administered on 12/08/18at 11:57; Start 12/08/18 at 11:30; Stop 12/09/18 at 11:29 ; Status DC Sodium Chloride 1,000 ml @ 1,000 mls/hr Q1H IV Last administered on 12/08/18at 11:56; Start 12/08/18 at 11:23; Stop 12/08/18 at 12:22; Status DC Ondansetron HCl (Zofran) 4 mg PRN Q8HRS PRN IV NAUSEA/VOMITING; Start 12/08/18 at 13:45; Stop 12/09/18 at 13:44; Status DC Morphine Sulfate (Morphine Sulfate) 4 mg PRN Q2HR PRN IV PAIN; Start 12/08/18 at 13:45; Stop 12/09/18 at 13:44; Status DC Nitroglycerin (Nitrostat) 0.4 mg PRN Q5MIN PRN SL CHEST PAIN; Start 12/08/18 at 13:45; Stop 12/09/18 at 13:44; Status DC Influenza Virus Vaccine (Afluria Trivalent [id number] Syringe) 0.5 ml ONCE ONCE VAX IM Last administered on 12/08/18at 18:32; Start 12/08/18 at 18:00; Stop at 18:01; Status DC Enoxaparin Sodium (Lovenox Per Pharmacy Prophylaxis Dosing) 1 each PRN DAILY PRN MC SEE COMMENTS; Start 12/08/18 at 17:15; Stop 12/12/18 at 14:01; Status DC Enoxaparin Sodium (Lovenox 40mg Syringe) 40 mg Q24H SQ Last administered on at 21:55; Start 12/08/18 at 21:00; Stop 12/12/18 at 14:01; Status DC Iodixanol (Visipaque 320) 100 ml STK-MED ONCE .ROUTE ; Start 12/09/18 at 10:49; Stop 12/09/18 at 10:50; Status DC Lidocaine HCl (Lidocaine 1% 20ml Vial) 20 ml STK-MED ONCE .ROUTE ; Start at 10:49; Stop 12/09/18 at 10:50; Status DC Heparin Sodium/ Sodium Chloride 1,000 ml @ As Directed STK-MED ONCE .ROUTE ; Start 12/09/18 at 10:49; Stop 12/09/18 at 10:50; Status DC Heparin Sodium/ Sodium Chloride (HEPARIN for ARTERIAL LINE FLUSH) 1,000 unit 1X ONCE IART Last administered on 12/09/18at 11:15; Start 12/09/18 at 11:15; Stop 12/09/18 at 11:16; Status DC Midazolam HCl (Versed) 2 mg 1X ONCE IV Last administered on 12/09/18at 11:15; Start 12/09/18 at 11:15; Stop 12/09/18 at 11:16; Status DC Fentanyl Citrate (Fentanyl 2ml Vial) 100 mcg 1X ONCE IV Last administered on at 11:15; Start 12/09/18 at 11:15; Stop 12/09/18 at 11:16; Status DC Iodixanol (Visipaque 320) 100 ml 1X ONCE IART Last administered on 12/09/18at 11:15; Start 12/09/18 at 11:15; Stop 12/09/18 at 11:16; Status DC Lidocaine HCl (Lidocaine 1% 20ml Vial) 20 ml 1X ONCE INJ Last administered on 12/09/18at 11:15; Start 12/09/18 at 11:15; Stop 12/09/18 at 11:16; Status DC Fentanyl Citrate (Fentanyl 2ml Vial) 100 mcg STK-MED ONCE .ROUTE ; Start at 11:05; Stop 12/09/18 at 11:06; Status DC Midazolam HCl (Versed) 2 mg STK-MED ONCE .ROUTE ; Start 12/09/18 at 11:05; Stop 12/09/18 at 11:06; Status DC Heparin Sodium (Porcine) (Heparin Sodium) 10,000 unit STK-MED ONCE .ROUTE ; Start 12/09/18 at 12:02; Stop 12/09/18 at 12:03; Status DC Heparin Sodium (Porcine) (Heparin Sodium) 1,000 unit 1X ONCE IV Last administered on 12/09/18at 12:14; Start 12/09/18 at 12:15; Stop 12/09/18 at 12:16 ; Status DC Iodixanol (Visipaque 320) 100 ml STK-MED ONCE .ROUTE ; Start 12/09/18 at 12:10; Stop 12/09/18 at 12:11; Status DC Sodium Chloride (Normal Saline Flush) 3 ml QSHIFT PRN IV AFTER MEDS AND BLOOD DRAWS; Start 12/09/18 at 12:45; Stop 12/15/18 at 09:02; Status DC Sodium Chloride 1,000 ml @ 75 mls/hr [id number] IV ; Start 12/09/18 at 12:41; Stop 12/09/18 at 18:40; Status DC Nitroglycerin (Nitrostat) 0.4 mg PRN Q5MIN PRN SL CHEST PAIN; Start 12/09/18 at 12:45; Stop 12/13/18 at 13:09; Status DC Tizanidine HCl (Zanaflex) 4 mg PRN Q8HRS PRN PO MUSCLE SPASMS Last administered on 12/12/18at 21:15; Start 12/09/18 at 14:30 Tramadol HCl (Ultram) 50 mg PRN Q8HRS PRN PO MILD PAIN Last administered on at 18:37; Start 12/09/18 at 20:45 Atorvastatin Calcium (Lipitor) 40 mg QHS PO Last administered on 12/14/18at 20: 46; Start 12/10/18 at 21:00 Carvedilol (Coreg) 3.125 mg BIDWMEALS PO Last administered on 12/15/18at 08:31; Start 12/10/18 at 18:00 Lisinopril (Prinivil) 5 mg DAILY PO Last administered on 12/12/18at 09:08; Start 12/11/18 at 09:00; Stop 12/12/18 at 14:01; Status DC Cefazolin Sodium/ Dextrose 50 ml @ 100 mls/hr 1X ONCE IV Last administered on 12/13/18at 08:09; Start 12/13/18 at 06:00; Stop 12/13/18 at 06:29; Status DC Potassium Chloride 70 meq/ Sodium Bicarbonate 12.5 meq/Lidocaine HCl 24 ml/ Parenteral Electrolytes 571.5 ml @ 571.5 mls/ hr 1X ONCE IRR ; Start 12/13/18 at 06:00; Stop 12/13/18 at 06:59; Status DC Potassium Chloride 15 meq/ Sodium Bicarbonate 12.5 meq/Parenteral Electrolytes 520 ml @ 520 mls/hr 1X ONCE IRR ; Start 12/13/18 at 06:00; Stop 12/13/18 at 06 :59; Status DC Heparin Sodium (Porcine) 40616 unit/Ringer's Solution 1,020 ml @ 1,020 mls/hr 1X ONCE IRR Last administered on 12/13/18at 09:07; Start 12/13/18 at 06:00; Stop 12/13/18 at 06:59; Status DC Vancomycin HCl (VANCO for OR ONLY) 10 gm 1X ONCE CEMENT ; Start 12/13/18 at 08: 00; Stop 12/13/18 at 08:01; Status DC Prochlorperazine Edisylate (Compazine) 5 mg PACU PRN PRN IV NAUSEA, MRX1; Start 12/13/18 at 07:00; Stop 12/14/18 at 06:59; Status DC Hydromorphone HCl (Dilaudid) 0.5 mg PRN Q10MIN PRN IV SEV PAIN, Second choice; Start 12/13/18 at 07:00; Stop 12/14/18 at 06:59; Status DC Lidocaine HCl (Xylocaine-Mpf 1% 2ml Vial) 2 ml PRN 1X PRN ID IV START; Start at 07:00; Stop 12/14/18 at 06:59; Status DC Ringer's Solution 1,000 ml @ 30 mls/hr Q24H IV Last administered on 12/13/18at 09:07; Start 12/13/18 at 07:00; Stop 12/13/18 at 13:26; Status DC Morphine Sulfate (Morphine Sulfate) 1 mg PRN Q10MIN PRN IV SEVERE PAIN; Start 12/13/18 at 07:00; Stop 12/14/18 at 06:59; Status DC Fentanyl Citrate (Fentanyl 2ml Vial) 50 mcg PRN Q5MIN PRN IV MODERATE TO SEVERE PAIN; Start 12/13/18 at 07:00; Stop 12/14/18 at 06:59; Status DC Fentanyl Citrate (Fentanyl 2ml Vial) 25 mcg PRN Q5MIN PRN IV MILD PAIN; Start 12/13/18 at 07:00; Stop 12/14/18 at 06:59; Status DC Ondansetron HCl (Zofran) 4 mg PRN Q6HRS PRN IV NAUSEA/VOMITING; Start 12/13/18 at 07:00; Stop 12/14/18 at 06:59; Status DC Etomidate (Amidate) 20 mg STK-MED ONCE IV ; Start 12/13/18 at 06:27; Stop at 06:28; Status DC Sufentanil Citrate (Sufenta) 250 mcg STK-MED ONCE .ROUTE ; Start 12/13/18 at 06: 27; Stop 12/13/18 at 06:28; Status DC Midazolam HCl (Versed) 5 mg STK-MED ONCE .ROUTE ; Start 12/13/18 at 06:28; Stop 12/13/18 at 06:29; Status DC Lidocaine HCl (Lidocaine Pf 2% Vial) 5 ml STK-MED ONCE .ROUTE ; Start 12/13/18 at 06:28; Stop 12/13/18 at 06:29; Status DC Etomidate (Amidate) 20 mg STK-MED ONCE IV ; Start 12/13/18 at 06:28; Stop at 06:29; Status DC Phenylephrine HCl (Satinder-Synephrine Inj) 10 mg STK-MED ONCE .ROUTE ; Start at 06:28; Stop 12/13/18 at 06:29; Status DC Phenylephrine HCl (Satinder-Synephrine Inj) 10 mg STK-MED ONCE .ROUTE ; Start at 06:28; Stop 12/13/18 at 06:29; Status DC Phenylephrine HCl (Satinder-Synephrine Inj) 10 mg STK-MED ONCE .ROUTE ; Start at 06:29; Stop 12/13/18 at 06:30; Status DC Ephedrine Sulfate (Akovaz) 50 mg STK-MED ONCE .ROUTE ; Start 12/13/18 at 06:29; Stop 12/13/18 at 06:30; Status DC Ephedrine Sulfate (Akovaz) 50 mg STK-MED ONCE .ROUTE ; Start 12/13/18 at 06:29; Stop 12/13/18 at 06:30; Status DC Aminocaproic Acid (Amicar) 5,000 mg STK-MED ONCE IV ; Start 12/13/18 at 06:30; Stop 12/13/18 at 06:31; Status DC Aminocaproic Acid (Amicar) 5,000 mg STK-MED ONCE IV ; Start 12/13/18 at 06:30; Stop 12/13/18 at 06:31; Status DC Aminocaproic Acid (Amicar) 5,000 mg STK-MED ONCE IV ; Start 12/13/18 at 06:30; Stop 12/13/18 at 06:32; Status DC Nitroglycerin/ Dextrose 250 ml @ As Directed STK-MED ONCE IV ; Start 12/13/18 at 06:30; Stop 12/13/18 at 06:33; Status DC Vancomycin HCl (VANCO for OR ONLY) 10 gm STK-MED ONCE .ROUTE Last administered on 12/13/18 09:06; Start 12/13/18 at 06:41; Stop 12/13/18 at 06:42; Status DC Cellulose (Surgicel Hemostat 4x8) 1 each STK-MED ONCE .ROUTE Last administered on 12/13/18 09:06; Start 12/13/18 at 06:41; Stop 12/13/18 at 06:42; Status DC Papaverine HCl 60 mg STK-MED ONCE .ROUTE Last administered on 12/13/18 09:05; Start 12/13/18 at 06:41; Stop 12/13/18 at 06:42; Status DC Aspirin (Aspirin) 300 mg STK-MED ONCE .ROUTE Last administered on 12/13/18 09: 05; Start 12/13/18 at 06:41; Stop 12/13/18 at 06:43; Status DC Cellulose (Surgicel Hemostat 4x8) 1 each STK-MED ONCE .ROUTE ; Start 12/13/18 at 06:41; Stop 12/13/18 at 06:43; Status DC Sodium Chloride (SODIUM CHLORIDE 20ml) 20 ml STK-MED ONCE IJ Last administered on 12/13/18 09:04; Start 12/13/18 at 06:42; Stop 12/13/18 at 06:43; Status DC Sodium Chloride (SODIUM CHLORIDE 20ml) 20 ml STK-MED ONCE IJ Last administered on 12/13/18 09:04; Start 12/13/18 at 06:43; Stop 12/13/18 at 06:44; Status DC Sodium Chloride (SODIUM CHLORIDE 20ml) 20 ml STK-MED ONCE IJ Last administered on 12/13/18 09:04; Start 12/13/18 at 06:43; Stop 12/13/18 at 06:44; Status DC Cefazolin Sodium 1 gm/Sodium Chloride 500 ml @ 500 mls/hr 1X ONCE IRR Last administered on 12/13/18 09:06; Start 12/13/18 at 08:00; Stop 12/13/18 at 08:59 ; Status DC Rocuronium [place] (Zemuron) 100 mg STK-MED ONCE .ROUTE ; Start 12/13/18 at 08: 21; Stop 12/13/18 at 08:22; Status DC Protamine Sulfate (Protamine) 250 mg STK-MED ONCE IV ; Start 12/13/18 at 11:06; Stop 12/13/18 at 11:07; Status DC Cefazolin Sodium/ Dextrose 50 ml @ As Directed STK-MED ONCE IV ; Start 12/13/18 at 11:17; Stop 12/13/18 at 11:18; Status DC Nicardipine HCl 50 mg/Sodium Chloride 250 ml @ 25 mls/hr CONT PRN IV SEE I/O RECORD Last administered on 12/14/18at 01:33; Start 12/13/18 at 13:00; Stop 12/15 at 09:54; Status DC Amiodarone HCl 150 mg/Dextrose 103 ml @ 618 mls/hr 1X ONCE IV Last administered on 12/13/18at 12:52; Start 12/13/18 at 13:00; Stop 12/13/18 at 13:09 ; Status DC Amiodarone HCl 900 mg/Dextrose 518 ml @ 33 mls/hr CONT PRN IV SEE I/O RECORD Last administered on 12/13/18at 12:52; Start 12/13/18 at 13:00; Stop 12/13/18 at 13:00; Status DC Magnesium Sulfate 5 gm STK-MED ONCE .ROUTE ; Start 12/13/18 at 11:33; Stop 12/13 at 11:34; Status DC Heparin Sodium (Porcine) 30,000 unit STK-MED ONCE .ROUTE ; Start 12/13/18 at 11: 33; Stop 12/13/18 at 11:34; Status DC Mannitol (Mannitol) 12.5 g STK-MED ONCE .ROUTE ; Start 12/13/18 at 11:33; Stop 12/13/18 at 11:34; Status DC Mannitol (Mannitol) 12.5 g STK-MED ONCE .ROUTE ; Start 12/13/18 at 11:33; Stop 12/13/18 at 11:34; Status DC Mannitol (Mannitol) 12.5 g STK-MED ONCE .ROUTE ; Start 12/13/18 at 11:33; Stop 12/13/18 at 11:34; Status DC Albumin Human 100 ml @ As Directed STK-MED ONCE IV ; Start 12/13/18 at 11:33; Stop 12/13/18 at 11:34; Status DC Calcium Chloride (Calcium Chloride) 1,000 mg STK-MED ONCE .ROUTE ; Start at 11:33; Stop 12/13/18 at 11:34; Status DC Calcium Chloride (Calcium Chloride) 1,000 mg STK-MED ONCE .ROUTE ; Start at 11:33; Stop 12/13/18 at 11:34; Status DC Lidocaine HCl (Lidocaine Pf 2% Vial) 5 ml STK-MED ONCE .ROUTE ; Start 12/13/18 at 11:33; Stop 12/13/18 at 11:34; Status DC Isoflurane (Isoflurane) 90 ml STK-MED ONCE IH ; Start 12/13/18 at 11:34; Stop at 11:35; Status DC Rocuronium [place] (Zemuron) 50 mg STK-MED ONCE .ROUTE ; Start 12/13/18 at 11:54 ; Stop 12/13/18 at 11:55; Status DC Albumin Human 500 ml @ As Directed STK-MED ONCE IV ; Start 12/13/18 at 12:00; Stop 12/13/18 at 12:01; Status DC Sodium Chloride (Normal Saline Flush) 3 ml PRN Q12HR PRN IV AFTER MEDS AND BLOOD DRAWS; Start 12/13/18 at 13:00 Ringer's Solution 1,000 ml @ 30 mls/hr Q24H IV Last administered on 12/14/18at 12:55; Start 12/13/18 at 12:55; Stop 12/15/18 at 13:15; Status DC Albumin Human 250 ml @ 500 mls/hr PRN Q4HRS PRN IV SEE COMMENTS Last administered on 12/14/18at 20:48; Start 12/13/18 at 13:00; Stop 12/15/18 at 09:54 ; Status DC Insulin Human Regular 150 unit/ Sodium Chloride 151.5 ml @ 0 mls/hr CONT PRN PRN IV PER PROTOCOL Last administered on 12/13/18at 18:52; Start 12/13/18 at 13: 00; Stop 12/15/18 at 09:54; Status DC Dextrose (Dextrose 50%-Water Syringe) 25 gm PRN Q15MIN PRN IV LOW BLOOD SUGAR; Start 12/13/18 at 13:00; Stop 12/15/18 at 09:54; Status DC Nitroglycerin/ Dextrose 250 ml @ 0 mls/hr CONT PRN PRN IV POST CV SURGERY; Start 12/13/18 at 13:00; Stop 12/15/18 at 09:54; Status DC Phenylephrine HCl 20 mg/Sodium Chloride 252 ml @ 0 mls/hr CONT PRN PRN IV HYPOTENSION; Start 12/13/18 at 13:00; Stop 12/15/18 at 09:54; Status DC Amiodarone HCl 150 mg/Dextrose 103 ml @ 600 mls/hr 1X ONCE IV ; Start at 13:00; Stop 12/13/18 at 13:08; Status DC Amiodarone HCl 150 mg/Dextrose 103 ml @ 200 mls/hr 1X PRN PRN IV FOR AFIB; Start 12/13/18 at 13:00; Stop 12/15/18 at 09:54; Status DC Amiodarone HCl 900 mg/Dextrose 518 ml @ 0 mls/hr CONT PRN PRN IV AFIB; Start at 13:00; Stop 12/14/18 at 18:00; Status DC Info (KCl Per Protocol) 1 ea CONT PRN PRN MC SEE COMMENTS; Start 12/13/18 at 13 :00; Stop 12/15/18 at 09:54; Status DC Magnesium Sulfate/ Dextrose 100 ml @ 100 mls/hr PRN DAILY PRN IV FOR MAG < 2.2 ; Start 12/13/18 at 13:00; Stop 12/15/18 at 09:54; Status DC Famotidine (Pepcid Vial) 20 mg BID IVP Last administered on 12/15/18at 08:29; Start 12/13/18 at 21:00; Stop 12/15/18 at 09:54; Status DC Ondansetron HCl (Zofran) 4 mg PRN Q4HRS PRN IV NAUSEA/VOMITING, 1st CHOICE Last administered on 12/14/18at 14:46; Start 12/13/18 at 13:00 Prochlorperazine Edisylate (Compazine) 10 mg PRN Q6HRS PRN IV NAUSEA/VOMITING, 2nd CHOICE; Start 12/13/18 at 13:00 Metoclopramide HCl (Reglan Vial) 10 mg PRN Q6HRS PRN IV NAUSEA/VOMITING, 3rd CHOICE; Start 12/13/18 at 13:00 Morphine Sulfate (Morphine Sulfate) 2 mg PRN Q1HR PRN IV PAIN Last administered on 12/14/18at 14:44; Start 12/13/18 at 13:00 Morphine Sulfate (Morphine Sulfate) 4 mg PRN Q1HR PRN IV SEVERE PAIN Last administered on 12/13/18at 15:28; Start 12/13/18 at 13:00; Stop 12/15/18 at 09:54 ; Status DC Acetaminophen (Tylenol) 650 mg PRN Q4HRS PRN PO TEMP > 101'F or PAIN Last administered on 12/14/18at 23:41; Start 12/13/18 at 13:00 Acetaminophen (Tylenol Supp) 650 mg PRN Q4HRS PRN OR TEMP > 101'F or MILD PAIN ; Start 12/13/18 at 13:00; Stop 12/15/18 at 09:54; Status DC Meperidine HCl (Demerol) 12.5 mg PRN Q15MIN PRN IV SHIVERING; Start 12/13/18 at 13:00; Stop 12/14/18 at 12:55; Status DC Propofol 100 ml @ 0 mls/hr CONT PRN PRN IV POSTOP SEDATION UNTIL EXTUBATE Last administered on 12/13/18at 13:36; Start 12/13/18 at 13:00; Stop 12/14/18 at 21:13 ; Status DC Senna/Docusate Sodium (Senna Plus) 1 tab BID PO Last administered on 12/15/18at 08:29; Start 12/13/18 at 21:00 Bisacodyl (Dulcolax Supp) 10 mg PRN DAILY PRN OR NO BOWEL MOVEMENT; Start 12/13 at 13:00; Stop 12/15/18 at 09:54; Status DC Chlorhexidine Gluconate (Peridex) 15 ml BID MM ; Start 12/14/18 at 09:00; Stop 12/14/18 at 21:13; Status DC Aspirin (Ecotrin) 325 mg DAILYWBKFT PO Last administered on 12/15/18at 08:29; Start 12/14/18 at 08:00 Aspirin (Aspirin) 300 mg PRN DAILY PRN OR IF UNABLE TO TAKE PO; Start 12/14/18 at 08:00; Stop 12/15/18 at 09:54; Status DC Albuterol Sulfate (Ventolin Neb Soln) 2.5 mg PRN Q4HRS PRN NEB SHORTNESS OF BREATH Last administered on 12/13/18at 19:54; Start 12/13/18 at 13:00 Metoprolol Tartrate (Lopressor) 25 mg BID PO Last administered on 12/15/18at 08: 31; Start 12/14/18 at 09:00 Nicardipine HCl 50 mg/Sodium Chloride 250 ml @ 0 mls/hr CONT PRN PRN IV PER PROTOCOL; Start 12/13/18 at 13:00; Stop 12/13/18 at 17:01; Status DC Oxycodone HCl (Roxicodone) 5 mg PRN Q4HRS PRN PO MODERATE PAIN Last administered on 12/15/18at 13:44; Start 12/13/18 at 13:00 Oxycodone HCl (Roxicodone) 10 mg PRN Q4HRS PRN PO SEVERE PAIN Last administered on 12/14/18at 09:23; Start 12/13/18 at 13:00 Cefazolin Sodium/ Dextrose 50 ml @ 100 mls/hr Q8H IV ; Start 12/13/18 at 16:00 ; Stop 12/13/18 at 17:01; Status DC Sodium Bicarbonate (Sodium Bicarb Adult 8.4% Syr) 50 meq 1X ONCE IV Last administered on 12/13/18at 13:28; Start 12/13/18 at 13:15; Stop 12/13/18 at 13:38 ; Status DC Sodium Bicarbonate (Sodium Bicarb Adult 8.4% Syr) 50 meq 1X ONCE IV Last administered on 12/13/18at 13:28; Start 12/13/18 at 13:15; Stop 12/13/18 at 13:38 ; Status DC Sodium Bicarbonate (Sodium Bicarb Adult 8.4% Syr) 50 meq STK-MED ONCE .ROUTE ; Start 12/13/18 at 13:24; Stop 12/13/18 at 13:25; Status DC Potassium Chloride/Water 50 ml @ 50 mls/hr Q1H IV Last administered on at 15:09; Start 12/13/18 at 14:00; Stop 12/13/18 at 15:59; Status DC Cefazolin Sodium/ Dextrose 50 ml @ 100 mls/hr Q8H IV Last administered on 12/15at 02:40; Start 12/13/18 at 19:00; Stop 12/15/18 at 03:29; Status DC Amiodarone HCl (Cordarone) 200 mg BID PO Last administered on 12/15/18at 08:30; Start 12/14/18 at 14:00 Magnesium Sulfate/ Dextrose 100 ml @ 100 mls/hr 1X ONCE IV Last administered on 12/15/18at 06:27; Start 12/15/18 at 07:00; Stop 12/15/18 at 07:59; Status DC Potassium Chloride/Water 50 ml @ 50 mls/hr 1X ONCE IV Last administered on at 08:43; Start 12/15/18 at 07:30; Stop 12/15/18 at 08:29; Status DC Active Scripts Active Reported Aspirin Ec (Aspirin) 81 Mg Tablet.dr 81 Mg PO DAILY Vitals/I & O Vital Sign - Last 24 Hours 12/14/18 12/14/18 12/14/18 12/14/18 14:44 14:47 15:00 15:04 Pulse 81 Resp 16 16 17 16 B/P (MAP) 111/60 (77) Pulse Ox 98 98 99 99 O2 Delivery Room Air Room Air Room Air Room Air 12/14/18 12/14/18 12/14/18 12/14/18 15:13 16:00 16:00 17:00 Temp 98.5 98.5 Pulse 81 80 Resp 16 14 11 B/P (MAP) 108/58 (75) 105/61 (76) Pulse Ox 97 99 98 O2 Delivery Room Air Room Air Room Air Room Air 12/14/18 12/14/18 12/14/18 12/14/18 17:00 18:00 18:37 19:00 Pulse 80 89 86 Resp 18 16 20 B/P (MAP) 105/61 106/67 (80) 102/60 (74) Pulse Ox 97 98 100 O2 Delivery Room Air Room Air Room Air 12/14/18 12/14/18 12/14/18 12/14/18 19:37 19:49 20:00 20:46 Temp 98.2 98.2 Pulse 85 84 Resp 16 16 B/P (MAP) 102/55 (71) 102/55 Pulse Ox 100 94 O2 Delivery Room Air Room Air Room Air 12/14/18 12/14/18 12/14/18 12/14/18 20:47 20:47 21:00 22:00 Pulse 84 84 84 Resp 18 13 13 B/P (MAP) 102/55 114/65 (81) 111/60 (77) Pulse Ox 94 96 98 O2 Delivery Room Air Room Air Room Air 12/14/18 12/14/18 12/15/18 12/15/18 23:00 23:45 00:00 01:00 Temp 98.6 98.6 Pulse 85 86 88 Resp 14 14 17 B/P (MAP) 112/60 (77) 112/61 (78) 131/64 (86) Pulse Ox 99 99 97 O2 Delivery Room Air Room Air Room Air Room Air 12/15/18 12/15/18 12/15/18 12/15/18 01:01 02:00 02:01 03:00 Pulse 86 85 Resp 16 14 16 16 B/P (MAP) 101/55 (70) 111/58 (75) Pulse Ox 99 96 96 98 O2 Delivery Room Air Room Air Room Air Room Air 12/15/18 12/15/18 12/15/18 12/15/18 03:32 04:00 05:00 06:00 Temp 98.5 98.5 Pulse 85 85 86 Resp 14 15 17 B/P (MAP) 116/63 (80) 116/66 (83) 129/71 (90) Pulse Ox 97 97 100 O2 Delivery Room Air Room Air Room Air Room Air 12/15/18 12/15/18 12/15/18 12/15/18 07:00 08:00 08:00 08:30 Temp 99.3 99.3 Pulse 90 92 86 Resp 18 19 B/P (MAP) 119/57 (77) 126/66 (86) 126/66 Pulse Ox 99 89 O2 Delivery Room Air Room Air Room Air 12/15/18 12/15/18 12/15/18 12/15/18 08:30 08:31 08:31 09:00 Pulse 93 86 86 89 Resp 16 17 B/P (MAP) 126/62 (83) 129/71 129/71 116/67 (83) Pulse Ox 100 95 O2 Delivery Room Air Room Air 12/15/18 12/15/18 12/15/18 12/15/18 09:28 10:00 12:00 13:44 Pulse 88 Resp 18 B/P (MAP) 119/65 (83) Pulse Ox 95 95 O2 Delivery Room Air Room Air Room Air Room Air Intake and Output 12/14/18 12/14/18 12/15/18 14:59 22:59 06:59 Intake Total 1350 ml 1640 ml 1058 ml Output Total 390 ml 445 ml 475 ml Balance 960 ml 1195 ml 583 ml Nutrition Consultation Dietary Evaluation: Recommendations by RD: Dietary education by RD, Protein supplementation Comments: REC Glucerna TID (chocolate/strawberry Continue w/cardiac diet Will provide post-CABG diet education closer to discharge Expected Outcomes/Goals: PO intake to meet >75% est needs Malnutrition Findings: Body Fat Depletion (Non Severe: Mild Depletion Weight Status: Appropriate CHANO LINARES MD Dec 15, 2018 14:05
--- NOTE | 2018-12-15 15:46 | NUR ---
1500 : Martin removed per protocol. Call in orders from Dr Ines mckeon pleural tube /cordis removed.Pacer wires capped and secured to chest. Able to do partial bath under OT supervision. Reinforced no showers until pacer wires REMOVAL . Moving improved compared to last 24H.Post op condition improved . Transferred to [facility] 205 w clothes,glasses,cell phone and hospital items. Resting in bed at this.
[2018-12-15] MEDS: ATORVASTATIN CALCIUM 40 MG TABLET. PO SCH (21:05)
[2018-12-15] MEDS: tiZANidine 4 MG TABLET. PO PRN (21:07)
[2018-12-16] VITALS (8 sets, daily range): BP systolic 86–173; BP diastolic 45–93
[2018-12-16 04:01] LABS: HEMATOCRIT 24.5 % (39.0-53.0); HEMOGLOBIN 8.4 g/dL (13.0-17.5); RED BLOOD COUNT 2.5 x10^6/uL (4.30-5.70); RED CELL DISTRIBUTION WIDTH 12.7 % (11.5-14.5); WHITE BLOOD COUNT 8.7 x10^3/uL (4.0-11.0)
[2018-12-16 04:11] LABS: CALCIUM 8.2 mg/dL (8.5-10.1); CREATININE 1.2 mg/dL (0.7-1.3); GFR 61.3; MAGNESIUM 2.1 mg/dL (1.8-2.4); POTASSIUM 4.3 mmol/L (3.5-5.1)
[2018-12-16] MEDS: tiZANidine 4 MG TABLET. PO PRN (05:48)
[2018-12-16] MEDS ORDERED: CARVEDILOL 3.125 MG TABLET. PO SCH (08:00)
[2018-12-16] MEDS: ASPIRIN ENTERIC COATED 325 MG TABLET.DR. PO SCH (08:20)
[2018-12-16] MEDS: SENNOSIDES/DOCUSATE 8.6/50MG TABLET. PO SCH ×2 (08:21→20:21)
--- NOTE | 2018-12-16 08:58 | RAD ---
PORTABLE CHEST 1V Clinical indications: Status post CABG follow-up study. COMPARISON: December 15, 2018 Findings/ impression: Chest tube and right IJ central line has been removed. There has been improvement in the left lung base atelectasis. Minimal left-sided pleural effusion is seen. No pneumothorax is evident. The heart size and mediastinum are stable. Electronically signed by: Phillip Harris MD (12/16/2018 8:55 AM) [facility]
--- NOTE | 2018-12-16 10:52 | NUR ---
SS following up with discharge planning. No discharge needs noted at this time. PT/OT recommended home at discharge. Pt is currently on room air. SS will continue to follow for pending discharge needs.
[2018-12-16] MEDS ORDERED: LABETALOL 20 MG/4 ML DISP.SYRIN. IVP PRN (11:00)
--- NOTE | 2018-12-16 11:26 | PDOC ---
PROGRESS NOTES Chief Complaint Chief Complaint Multi-vessel CAD s/p CABG (POD 3) Chest pain Tension headache Tobacco use THC use History of Present Illness History of Present Illness Patient was seen and examined in his room this morning. Family at bedside. Patient is doing well today. He is s/p CABG POD 3. Pain is well controlled. No acute complaints at this time. Cardiology an CV surgery following. Transferred from ICU to 2nd floor. Discussed with family. Vitals Vitals Vital Signs Date Time Temp Pulse Resp B/P (MAP) Pulse Ox O2 Delivery O2 Flow Rate FiO2 12/16/18 09:30 98.1 75 20 87/45 (59) 95 Room Air 98.1 Physical Exam General: Alert, Oriented X3, No acute distress Heart: Regular rate, Normal S1, Normal S2 Lungs: Clear, Other (no rhonchi) Abdomen: Soft, No tenderness Extremities: No clubbing, No cyanosis, No edema Skin: No rashes, No significant lesion Labs LABS Laboratory Tests Test 12/16/18 03:30 White Blood Count 8.7 x10^3/uL (4.0-11.0) Red Blood Count 2.50 x10^6/uL (4.30-5.70) Hemoglobin 8.4 g/dL (13.0-17.5) Hematocrit 24.5 % (39.0-53.0) Mean Corpuscular Volume 98 fL (79-100) Mean Corpuscular Hemoglobin 33 pg (25-35) Mean Corpuscular Hemoglobin Concent 34 g/dL (31-37) Red Cell Distribution Width 12.7 % (11.5-14.5) Platelet Count 90 x10^3/uL (140-400) Sodium Level 134 mmol/L (136-145) Potassium Level 4.3 mmol/L (3.5-5.1) Chloride Level 99 mmol/L (98-107) Carbon Dioxide Level 29 mmol/L (21-32) Anion Gap 6 (6-14) Blood Urea Nitrogen 17 mg/dL (8-26) Creatinine 1.2 mg/dL (0.7-1.3) Estimated GFR (Cockcroft-Gault) 61.3 Glucose Level 129 mg/dL (70-99) Calcium Level 8.2 mg/dL (8.5-10.1) Magnesium Level 2.1 mg/dL (1.8-2.4) Review of Systems Review of Systems Complains of weakness and shortness of breath. Denies chest pain or headache. Assessment and Plan Assessmemt and Plan Multi-vessel CAD s/p CABG (POD 3) Chest pain Tension headache Tobacco use THC use Plan: 1. Cardiac monitoring 2. PO amiodarone 3. Wound care 4. Monitor labs 5. Home meds 6. PT/OT 7. ASA, BB, statin. Lasix PRN 8. Discussed with family and RN 9. Probable discharge on Wednesday Comment Review of Relevant I have reviewed the following items livan (where applicable) has been applied. Labs Laboratory Tests Test 12/15/18 05:50 12/16/18 03:30 White Blood Count 6.7 x10^3/uL (4.0-11.0) 8.7 x10^3/uL (4.0-11.0) Red Blood Count 2.52 x10^6/uL (4.30-5.70) 2.50 x10^6/uL (4.30-5.70) Hemoglobin 8.4 g/dL (13.0-17.5) 8.4 g/dL (13.0-17.5) Hematocrit 24.6 % (39.0-53.0) 24.5 % (39.0-53.0) Mean Corpuscular Volume 97 fL (79-100) 98 fL (79-100) Mean Corpuscular Hemoglobin 33 pg (25-35) 33 pg (25-35) Mean Corpuscular Hemoglobin Concent 34 g/dL (31-37) 34 g/dL (31-37) Red Cell Distribution Width 12.8 % (11.5-14.5) 12.7 % (11.5-14.5) Platelet Count 84 x10^3/uL (140-400) 90 x10^3/uL (140-400) Sodium Level 135 mmol/L (136-145) 134 mmol/L (136-145) Potassium Level 3.8 mmol/L (3.5-5.1) 4.3 mmol/L (3.5-5.1) Chloride Level 100 mmol/L (98-107) 99 mmol/L (98-107) Carbon Dioxide Level 28 mmol/L (21-32) 29 mmol/L (21-32) Anion Gap 7 (6-14) 6 (6-14) Blood Urea Nitrogen 16 mg/dL (8-26) 17 mg/dL (8-26) Creatinine 1.1 mg/dL (0.7-1.3) 1.2 mg/dL (0.7-1.3) Estimated GFR (Cockcroft-Gault) 67.8 61.3 Glucose Level 130 mg/dL (70-99) 129 mg/dL (70-99) Calcium Level 8.3 mg/dL (8.5-10.1) 8.2 mg/dL (8.5-10.1) Magnesium Level 2.0 mg/dL (1.8-2.4) 2.1 mg/dL (1.8-2.4) Laboratory Tests Test 12/16/18 03:30 White Blood Count 8.7 x10^3/uL (4.0-11.0) Red Blood Count 2.50 x10^6/uL (4.30-5.70) Hemoglobin 8.4 g/dL (13.0-17.5) Hematocrit 24.5 % (39.0-53.0) Mean Corpuscular Volume 98 fL (79-100) Mean Corpuscular Hemoglobin 33 pg (25-35) Mean Corpuscular Hemoglobin Concent 34 g/dL (31-37) Red Cell Distribution Width 12.7 % (11.5-14.5) Platelet Count 90 x10^3/uL (140-400) Sodium Level 134 mmol/L (136-145) Potassium Level 4.3 mmol/L (3.5-5.1) Chloride Level 99 mmol/L (98-107) Carbon Dioxide Level 29 mmol/L (21-32) Anion Gap 6 (6-14) Blood Urea Nitrogen 17 mg/dL (8-26) Creatinine 1.2 mg/dL (0.7-1.3) Estimated GFR (Cockcroft-Gault) 61.3 Glucose Level 129 mg/dL (70-99) Calcium Level 8.2 mg/dL (8.5-10.1) Magnesium Level 2.1 mg/dL (1.8-2.4) Microbiology 12/08/18 Urine Culture - Final, Complete 12/08/18 Urine Culture Result 1 (JUAN) - Final, Complete Medications Current Medications Aspirin (Children'S Aspirin) 324 mg 1X ONCE PO Last administered on 12/08/18at 11:54; Start 12/08/18 at 11:30; Stop 12/08/18 at 11:47; Status DC Nitroglycerin (Nitrostat) 0.4 mg PRN Q5MIN PRN SL CP RATING > 1/10 Last administered on 12/08/18at 11:57; Start 12/08/18 at 11:30; Stop 12/09/18 at 11:29 ; Status DC Sodium Chloride 1,000 ml @ 1,000 mls/hr Q1H IV Last administered on 12/08/18at 11:56; Start 12/08/18 at 11:23; Stop 12/08/18 at 12:22; Status DC Ondansetron HCl (Zofran) 4 mg PRN Q8HRS PRN IV NAUSEA/VOMITING; Start 12/08/18 at 13:45; Stop 12/09/18 at 13:44; Status DC Morphine Sulfate (Morphine Sulfate) 4 mg PRN Q2HR PRN IV PAIN; Start 12/08/18 at 13:45; Stop 12/09/18 at 13:44; Status DC Nitroglycerin (Nitrostat) 0.4 mg PRN Q5MIN PRN SL CHEST PAIN; Start 12/08/18 at 13:45; Stop 12/09/18 at 13:44; Status DC Influenza Virus Vaccine (Afluria Trivalent 1251-2962 Syringe) 0.5 ml ONCE ONCE VAX IM Last administered on 12/08/18at 18:32; Start 12/08/18 at 18:00; Stop at 18:01; Status DC Enoxaparin Sodium (Lovenox Per Pharmacy Prophylaxis Dosing) 1 each PRN DAILY PRN MC SEE COMMENTS; Start 12/08/18 at 17:15; Stop 12/12/18 at 14:01; Status DC Enoxaparin Sodium (Lovenox 40mg Syringe) 40 mg Q24H SQ Last administered on at 21:55; Start 12/08/18 at 21:00; Stop 12/12/18 at 14:01; Status DC Iodixanol (Visipaque 320) 100 ml STK-MED ONCE .ROUTE ; Start 12/09/18 at 10:49; Stop 12/09/18 at 10:50; Status DC Lidocaine HCl (Lidocaine 1% 20ml Vial) 20 ml STK-MED ONCE .ROUTE ; Start at 10:49; Stop 12/09/18 at 10:50; Status DC Heparin Sodium/ Sodium Chloride 1,000 ml @ As Directed STK-MED ONCE .ROUTE ; Start 12/09/18 at 10:49; Stop 12/09/18 at 10:50; Status DC Heparin Sodium/ Sodium Chloride (HEPARIN for ARTERIAL LINE FLUSH) 1,000 unit 1X ONCE IART Last administered on 12/09/18at 11:15; Start 12/09/18 at 11:15; Stop 12/09/18 at 11:16; Status DC Midazolam HCl (Versed) 2 mg 1X ONCE IV Last administered on 12/09/18at 11:15; Start 12/09/18 at 11:15; Stop 12/09/18 at 11:16; Status DC Fentanyl Citrate (Fentanyl 2ml Vial) 100 mcg 1X ONCE IV Last administered on at 11:15; Start 12/09/18 at 11:15; Stop 12/09/18 at 11:16; Status DC Iodixanol (Visipaque 320) 100 ml 1X ONCE IART Last administered on 12/09/18at 11:15; Start 12/09/18 at 11:15; Stop 12/09/18 at 11:16; Status DC Lidocaine HCl (Lidocaine 1% 20ml Vial) 20 ml 1X ONCE INJ Last administered on 12/09/18at 11:15; Start 12/09/18 at 11:15; Stop 12/09/18 at 11:16; Status DC Fentanyl Citrate (Fentanyl 2ml Vial) 100 mcg STK-MED ONCE .ROUTE ; Start at 11:05; Stop 12/09/18 at 11:06; Status DC Midazolam HCl (Versed) 2 mg STK-MED ONCE .ROUTE ; Start 12/09/18 at 11:05; Stop 12/09/18 at 11:06; Status DC Heparin Sodium (Porcine) (Heparin Sodium) 10,000 unit STK-MED ONCE .ROUTE ; Start 12/09/18 at 12:02; Stop 12/09/18 at 12:03; Status DC Heparin Sodium (Porcine) (Heparin Sodium) 1,000 unit 1X ONCE IV Last administered on 12/09/18at 12:14; Start 12/09/18 at 12:15; Stop 12/09/18 at 12:16 ; Status DC Iodixanol (Visipaque 320) 100 ml STK-MED ONCE .ROUTE ; Start 12/09/18 at 12:10; Stop 12/09/18 at 12:11; Status DC Sodium Chloride (Normal Saline Flush) 3 ml QSHIFT PRN IV AFTER MEDS AND BLOOD DRAWS; Start 12/09/18 at 12:45; Stop 12/15/18 at 09:02; Status DC Sodium Chloride 1,000 ml @ 75 mls/hr [id number] IV ; Start 12/09/18 at 12:41; Stop 12/09/18 at 18:40; Status DC Nitroglycerin (Nitrostat) 0.4 mg PRN Q5MIN PRN SL CHEST PAIN; Start 12/09/18 at 12:45; Stop 12/13/18 at 13:09; Status DC Tizanidine HCl (Zanaflex) 4 mg PRN Q8HRS PRN PO MUSCLE SPASMS Last administered on 12/16/18at 05:48; Start 12/09/18 at 14:30 Tramadol HCl (Ultram) 50 mg PRN Q8HRS PRN PO MILD PAIN Last administered on at 18:37; Start 12/09/18 at 20:45 Atorvastatin Calcium (Lipitor) 40 mg QHS PO Last administered on 12/15/18at 21: 05; Start 12/10/18 at 21:00 Carvedilol (Coreg) 3.125 mg BIDWMEALS PO Last administered on 12/15/18at 17:00; Start 12/10/18 at 18:00; Stop 12/16/18 at 07:54; Status DC Lisinopril (Prinivil) 5 mg DAILY PO Last administered on 12/12/18at 09:08; Start 12/11/18 at 09:00; Stop 12/12/18 at 14:01; Status DC Cefazolin Sodium/ Dextrose 50 ml @ 100 mls/hr 1X ONCE IV Last administered on 12/13/18at 08:09; Start 12/13/18 at 06:00; Stop 12/13/18 at 06:29; Status DC Potassium Chloride 70 meq/ Sodium Bicarbonate 12.5 meq/Lidocaine HCl 24 ml/ Parenteral Electrolytes 571.5 ml @ 571.5 mls/ hr 1X ONCE IRR ; Start 12/13/18 at 06:00; Stop 12/13/18 at 06:59; Status DC Potassium Chloride 15 meq/ Sodium Bicarbonate 12.5 meq/Parenteral Electrolytes 520 ml @ 520 mls/hr 1X ONCE IRR ; Start 12/13/18 at 06:00; Stop 12/13/18 at 06 :59; Status DC Heparin Sodium (Porcine) 32264 unit/Ringer's Solution 1,020 ml @ 1,020 mls/hr 1X ONCE IRR Last administered on 12/13/18at 09:07; Start 12/13/18 at 06:00; Stop 12/13/18 at 06:59; Status DC Vancomycin HCl (VANCO for OR ONLY) 10 gm 1X ONCE CEMENT ; Start 12/13/18 at 08: 00; Stop 12/13/18 at 08:01; Status DC Prochlorperazine Edisylate (Compazine) 5 mg PACU PRN PRN IV NAUSEA, MRX1; Start 12/13/18 at 07:00; Stop 12/14/18 at 06:59; Status DC Hydromorphone HCl (Dilaudid) 0.5 mg PRN Q10MIN PRN IV SEV PAIN, Second choice; Start 12/13/18 at 07:00; Stop 12/14/18 at 06:59; Status DC Lidocaine HCl (Xylocaine-Mpf 1% 2ml Vial) 2 ml PRN 1X PRN ID IV START; Start at 07:00; Stop 12/14/18 at 06:59; Status DC Ringer's Solution 1,000 ml @ 30 mls/hr Q24H IV Last administered on 12/13/18at 09:07; Start 12/13/18 at 07:00; Stop 12/13/18 at 13:26; Status DC Morphine Sulfate (Morphine Sulfate) 1 mg PRN Q10MIN PRN IV SEVERE PAIN; Start 12/13/18 at 07:00; Stop 12/14/18 at 06:59; Status DC Fentanyl Citrate (Fentanyl 2ml Vial) 50 mcg PRN Q5MIN PRN IV MODERATE TO SEVERE PAIN; Start 12/13/18 at 07:00; Stop 12/14/18 at 06:59; Status DC Fentanyl Citrate (Fentanyl 2ml Vial) 25 mcg PRN Q5MIN PRN IV MILD PAIN; Start 12/13/18 at 07:00; Stop 12/14/18 at 06:59; Status DC Ondansetron HCl (Zofran) 4 mg PRN Q6HRS PRN IV NAUSEA/VOMITING; Start 12/13/18 at 07:00; Stop 12/14/18 at 06:59; Status DC Etomidate (Amidate) 20 mg STK-MED ONCE IV ; Start 12/13/18 at 06:27; Stop at 06:28; Status DC Sufentanil Citrate (Sufenta) 250 mcg STK-MED ONCE .ROUTE ; Start 12/13/18 at 06: 27; Stop 12/13/18 at 06:28; Status DC Midazolam HCl (Versed) 5 mg STK-MED ONCE .ROUTE ; Start 12/13/18 at 06:28; Stop 12/13/18 at 06:29; Status DC Lidocaine HCl (Lidocaine Pf 2% Vial) 5 ml STK-MED ONCE .ROUTE ; Start 12/13/18 at 06:28; Stop 12/13/18 at 06:29; Status DC Etomidate (Amidate) 20 mg STK-MED ONCE IV ; Start 12/13/18 at 06:28; Stop at 06:29; Status DC Phenylephrine HCl (Satinder-Synephrine Inj) 10 mg STK-MED ONCE .ROUTE ; Start at 06:28; Stop 12/13/18 at 06:29; Status DC Phenylephrine HCl (Satinder-Synephrine Inj) 10 mg STK-MED ONCE .ROUTE ; Start at 06:28; Stop 12/13/18 at 06:29; Status DC Phenylephrine HCl (Satinder-Synephrine Inj) 10 mg STK-MED ONCE .ROUTE ; Start at 06:29; Stop 12/13/18 at 06:30; Status DC Ephedrine Sulfate (Akovaz) 50 mg STK-MED ONCE .ROUTE ; Start 12/13/18 at 06:29; Stop 12/13/18 at 06:30; Status DC Ephedrine Sulfate (Akovaz) 50 mg STK-MED ONCE .ROUTE ; Start 12/13/18 at 06:29; Stop 12/13/18 at 06:30; Status DC Aminocaproic Acid (Amicar) 5,000 mg STK-MED ONCE IV ; Start 12/13/18 at 06:30; Stop 12/13/18 at 06:31; Status DC Aminocaproic Acid (Amicar) 5,000 mg STK-MED ONCE IV ; Start 12/13/18 at 06:30; Stop 12/13/18 at 06:31; Status DC Aminocaproic Acid (Amicar) 5,000 mg STK-MED ONCE IV ; Start 12/13/18 at 06:30; Stop 12/13/18 at 06:32; Status DC Nitroglycerin/ Dextrose 250 ml @ As Directed STK-MED ONCE IV ; Start 12/13/18 at 06:30; Stop 12/13/18 at 06:33; Status DC Vancomycin HCl (VANCO for OR ONLY) 10 gm STK-MED ONCE .ROUTE Last administered on 12/13/18at 09:06; Start 12/13/18 at 06:41; Stop 12/13/18 at 06:42; Status DC Cellulose (Surgicel Hemostat 4x8) 1 each STK-MED ONCE .ROUTE Last administered on 12/13/18 09:06; Start 12/13/18 at 06:41; Stop 12/13/18 at 06:42; Status DC Papaverine HCl 60 mg STK-MED ONCE .ROUTE Last administered on 12/13/18at 09:05; Start 12/13/18 at 06:41; Stop 12/13/18 at 06:42; Status DC Aspirin (Aspirin) 300 mg STK-MED ONCE .ROUTE Last administered on 12/13/18at 09: 05; Start 12/13/18 at 06:41; Stop 12/13/18 at 06:43; Status DC Cellulose (Surgicel Hemostat 4x8) 1 each STK-MED ONCE .ROUTE ; Start 12/13/18 at 06:41; Stop 12/13/18 at 06:43; Status DC Sodium Chloride (SODIUM CHLORIDE 20ml) 20 ml STK-MED ONCE IJ Last administered on 12/13/18at 09:04; Start 12/13/18 at 06:42; Stop 12/13/18 at 06:43; Status DC Sodium Chloride (SODIUM CHLORIDE 20ml) 20 ml STK-MED ONCE IJ Last administered on 12/13/18at 09:04; Start 12/13/18 at 06:43; Stop 12/13/18 at 06:44; Status DC Sodium Chloride (SODIUM CHLORIDE 20ml) 20 ml STK-MED ONCE IJ Last administered on 12/13/18at 09:04; Start 12/13/18 at 06:43; Stop 12/13/18 at 06:44; Status DC Cefazolin Sodium 1 gm/Sodium Chloride 500 ml @ 500 mls/hr 1X ONCE IRR Last administered on 12/13/18at 09:06; Start 12/13/18 at 08:00; Stop 12/13/18 at 08:59 ; Status DC Rocuronium [place] (Zemuron) 100 mg STK-MED ONCE .ROUTE ; Start 12/13/18 at 08: 21; Stop 12/13/18 at 08:22; Status DC Protamine Sulfate (Protamine) 250 mg STK-MED ONCE IV ; Start 12/13/18 at 11:06; Stop 12/13/18 at 11:07; Status DC Cefazolin Sodium/ Dextrose 50 ml @ As Directed STK-MED ONCE IV ; Start 12/13/18 at 11:17; Stop 12/13/18 at 11:18; Status DC Nicardipine HCl 50 mg/Sodium Chloride 250 ml @ 25 mls/hr CONT PRN IV SEE I/O RECORD Last administered on 12/14/18at 01:33; Start 12/13/18 at 13:00; Stop 12/15 at 09:54; Status DC Amiodarone HCl 150 mg/Dextrose 103 ml @ 618 mls/hr 1X ONCE IV Last administered on 12/13/18at 12:52; Start 12/13/18 at 13:00; Stop 12/13/18 at 13:09 ; Status DC Amiodarone HCl 900 mg/Dextrose 518 ml @ 33 mls/hr CONT PRN IV SEE I/O RECORD Last administered on 12/13/18at 12:52; Start 12/13/18 at 13:00; Stop 12/13/18 at 13:00; Status DC Magnesium Sulfate 5 gm STK-MED ONCE .ROUTE ; Start 12/13/18 at 11:33; Stop 12/13 at 11:34; Status DC Heparin Sodium (Porcine) 30,000 unit STK-MED ONCE .ROUTE ; Start 12/13/18 at 11: 33; Stop 12/13/18 at 11:34; Status DC Mannitol (Mannitol) 12.5 g STK-MED ONCE .ROUTE ; Start 12/13/18 at 11:33; Stop 12/13/18 at 11:34; Status DC Mannitol (Mannitol) 12.5 g STK-MED ONCE .ROUTE ; Start 12/13/18 at 11:33; Stop 12/13/18 at 11:34; Status DC Mannitol (Mannitol) 12.5 g STK-MED ONCE .ROUTE ; Start 12/13/18 at 11:33; Stop 12/13/18 at 11:34; Status DC Albumin Human 100 ml @ As Directed STK-MED ONCE IV ; Start 12/13/18 at 11:33; Stop 12/13/18 at 11:34; Status DC Calcium Chloride (Calcium Chloride) 1,000 mg STK-MED ONCE .ROUTE ; Start at 11:33; Stop 12/13/18 at 11:34; Status DC Calcium Chloride (Calcium Chloride) 1,000 mg STK-MED ONCE .ROUTE ; Start at 11:33; Stop 12/13/18 at 11:34; Status DC Lidocaine HCl (Lidocaine Pf 2% Vial) 5 ml STK-MED ONCE .ROUTE ; Start 12/13/18 at 11:33; Stop 12/13/18 at 11:34; Status DC Isoflurane (Isoflurane) 90 ml STK-MED ONCE IH ; Start 12/13/18 at 11:34; Stop at 11:35; Status DC Rocuronium [place] (Zemuron) 50 mg STK-MED ONCE .ROUTE ; Start 12/13/18 at 11:54 ; Stop 12/13/18 at 11:55; Status DC Albumin Human 500 ml @ As Directed STK-MED ONCE IV ; Start 12/13/18 at 12:00; Stop 12/13/18 at 12:01; Status DC Sodium Chloride (Normal Saline Flush) 3 ml PRN Q12HR PRN IV AFTER MEDS AND BLOOD DRAWS; Start 12/13/18 at 13:00 Ringer's Solution 1,000 ml @ 30 mls/hr Q24H IV Last administered on 12/14/18at 12:55; Start 12/13/18 at 12:55; Stop 12/15/18 at 13:15; Status DC Albumin Human 250 ml @ 500 mls/hr PRN Q4HRS PRN IV SEE COMMENTS Last administered on 12/14/18at 20:48; Start 12/13/18 at 13:00; Stop 12/15/18 at 09:54 ; Status DC Insulin Human Regular 150 unit/ Sodium Chloride 151.5 ml @ 0 mls/hr CONT PRN PRN IV PER PROTOCOL Last administered on 12/13/18at 18:52; Start 12/13/18 at 13: 00; Stop 12/15/18 at 09:54; Status DC Dextrose (Dextrose 50%-Water Syringe) 25 gm PRN Q15MIN PRN IV LOW BLOOD SUGAR; Start 12/13/18 at 13:00; Stop 12/15/18 at 09:54; Status DC Nitroglycerin/ Dextrose 250 ml @ 0 mls/hr CONT PRN PRN IV POST CV SURGERY; Start 12/13/18 at 13:00; Stop 12/15/18 at 09:54; Status DC Phenylephrine HCl 20 mg/Sodium Chloride 252 ml @ 0 mls/hr CONT PRN PRN IV HYPOTENSION; Start 12/13/18 at 13:00; Stop 12/15/18 at 09:54; Status DC Amiodarone HCl 150 mg/Dextrose 103 ml @ 600 mls/hr 1X ONCE IV ; Start at 13:00; Stop 12/13/18 at 13:08; Status DC Amiodarone HCl 150 mg/Dextrose 103 ml @ 200 mls/hr 1X PRN PRN IV FOR AFIB; Start 12/13/18 at 13:00; Stop 12/15/18 at 09:54; Status DC Amiodarone HCl 900 mg/Dextrose 518 ml @ 0 mls/hr CONT PRN PRN IV AFIB; Start at 13:00; Stop 12/14/18 at 18:00; Status DC Info (KCl Per Protocol) 1 ea CONT PRN PRN MC SEE COMMENTS; Start 12/13/18 at 13 :00; Stop 12/15/18 at 09:54; Status DC Magnesium Sulfate/ Dextrose 100 ml @ 100 mls/hr PRN DAILY PRN IV FOR MAG < 2.2 ; Start 12/13/18 at 13:00; Stop 12/15/18 at 09:54; Status DC Famotidine (Pepcid Vial) 20 mg BID IVP Last administered on 12/15/18at 08:29; Start 12/13/18 at 21:00; Stop 12/15/18 at 09:54; Status DC Ondansetron HCl (Zofran) 4 mg PRN Q4HRS PRN IV NAUSEA/VOMITING, 1st CHOICE Last administered on 12/14/18at 14:46; Start 12/13/18 at 13:00 Prochlorperazine Edisylate (Compazine) 10 mg PRN Q6HRS PRN IV NAUSEA/VOMITING, 2nd CHOICE; Start 12/13/18 at 13:00 Metoclopramide HCl (Reglan Vial) 10 mg PRN Q6HRS PRN IV NAUSEA/VOMITING, 3rd CHOICE; Start 12/13/18 at 13:00 Morphine Sulfate (Morphine Sulfate) 2 mg PRN Q1HR PRN IV PAIN Last administered on 12/14/18at 14:44; Start 12/13/18 at 13:00 Morphine Sulfate (Morphine Sulfate) 4 mg PRN Q1HR PRN IV SEVERE PAIN Last administered on 12/13/18at 15:28; Start 12/13/18 at 13:00; Stop 12/15/18 at 09:54 ; Status DC Acetaminophen (Tylenol) 650 mg PRN Q4HRS PRN PO TEMP > 101'F or PAIN Last administered on 12/14/18at 23:41; Start 12/13/18 at 13:00 Acetaminophen (Tylenol Supp) 650 mg PRN Q4HRS PRN OH TEMP > 101'F or MILD PAIN ; Start 12/13/18 at 13:00; Stop 12/15/18 at 09:54; Status DC Meperidine HCl (Demerol) 12.5 mg PRN Q15MIN PRN IV SHIVERING; Start 12/13/18 at 13:00; Stop 12/14/18 at 12:55; Status DC Propofol 100 ml @ 0 mls/hr CONT PRN PRN IV POSTOP SEDATION UNTIL EXTUBATE Last administered on 12/13/18at 13:36; Start 12/13/18 at 13:00; Stop 12/14/18 at 21:13 ; Status DC Senna/Docusate Sodium (Senna Plus) 1 tab BID PO Last administered on 12/16/18at 08:21; Start 12/13/18 at 21:00 Bisacodyl (Dulcolax Supp) 10 mg PRN DAILY PRN OH NO BOWEL MOVEMENT; Start 12/13 at 13:00; Stop 12/15/18 at 09:54; Status DC Chlorhexidine Gluconate (Peridex) 15 ml BID MM ; Start 12/14/18 at 09:00; Stop 12/14/18 at 21:13; Status DC Aspirin (Ecotrin) 325 mg DAILYWBKFT PO Last administered on 12/16/18at 08:20; Start 12/14/18 at 08:00 Aspirin (Aspirin) 300 mg PRN DAILY PRN OH IF UNABLE TO TAKE PO; Start 12/14/18 at 08:00; Stop 12/15/18 at 09:54; Status DC Albuterol Sulfate (Ventolin Neb Soln) 2.5 mg PRN Q4HRS PRN NEB SHORTNESS OF BREATH Last administered on 12/13/18at 19:54; Start 12/13/18 at 13:00 Metoprolol Tartrate (Lopressor) 25 mg BID PO Last administered on 12/15/18at 21: 05; Start 12/14/18 at 09:00; Stop 12/16/18 at 07:54; Status DC Nicardipine HCl 50 mg/Sodium Chloride 250 ml @ 0 mls/hr CONT PRN PRN IV PER PROTOCOL; Start 12/13/18 at 13:00; Stop 12/13/18 at 17:01; Status DC Oxycodone HCl (Roxicodone) 5 mg PRN Q4HRS PRN PO MODERATE PAIN Last administered on 12/15/18at 13:44; Start 12/13/18 at 13:00 Oxycodone HCl (Roxicodone) 10 mg PRN Q4HRS PRN PO SEVERE PAIN Last administered on 12/14/18at 09:23; Start 12/13/18 at 13:00 Cefazolin Sodium/ Dextrose 50 ml @ 100 mls/hr Q8H IV ; Start 12/13/18 at 16:00 ; Stop 12/13/18 at 17:01; Status DC Sodium Bicarbonate (Sodium Bicarb Adult 8.4% Syr) 50 meq 1X ONCE IV Last administered on 12/13/18at 13:28; Start 12/13/18 at 13:15; Stop 12/13/18 at 13:38 ; Status DC Sodium Bicarbonate (Sodium Bicarb Adult 8.4% Syr) 50 meq 1X ONCE IV Last administered on 12/13/18at 13:28; Start 12/13/18 at 13:15; Stop 12/13/18 at 13:38 ; Status DC Sodium Bicarbonate (Sodium Bicarb Adult 8.4% Syr) 50 meq STK-MED ONCE .ROUTE ; Start 12/13/18 at 13:24; Stop 12/13/18 at 13:25; Status DC Potassium Chloride/Water 50 ml @ 50 mls/hr Q1H IV Last administered on at 15:09; Start 12/13/18 at 14:00; Stop 12/13/18 at 15:59; Status DC Cefazolin Sodium/ Dextrose 50 ml @ 100 mls/hr Q8H IV Last administered on 12/15at 02:40; Start 12/13/18 at 19:00; Stop 12/15/18 at 03:29; Status DC Amiodarone HCl (Cordarone) 200 mg BID PO Last administered on 12/15/18at 21:04; Start 12/14/18 at 14:00 Magnesium Sulfate/ Dextrose 100 ml @ 100 mls/hr 1X ONCE IV Last administered on 12/15/18at 06:27; Start 12/15/18 at 07:00; Stop 12/15/18 at 07:59; Status DC Potassium Chloride/Water 50 ml @ 50 mls/hr 1X ONCE IV Last administered on at 08:43; Start 12/15/18 at 07:30; Stop 12/15/18 at 08:29; Status DC Carvedilol (Coreg) 12.5 mg BIDWMEALS PO ; Start 12/16/18 at 08:00; Stop 12/16/18 at 10:57; Status DC Labetalol HCl (Normodyne Iv Push) 20 mg PRN Q2HR PRN IVP HYPERTENSION, SEE COMMENTS; Start 12/16/18 at 11:00 Metoprolol Tartrate (Lopressor) 25 mg BID PO ; Start 12/16/18 at 11:30 Active Scripts Active Reported Aspirin Ec (Aspirin) 81 Mg Tablet. 81 Mg PO DAILY Vitals/I & O Vital Sign - Last 24 Hours 12/15/18 12/15/18 12/15/18 12/15/18 12:00 13:44 14:45 15:00 Temp 98.1 98.1 Pulse 83 Resp 16 B/P (MAP) 144/68 (93) Pulse Ox 95 96 91 O2 Delivery Room Air Room Air Room Air Room Air 12/15/18 12/15/18 12/15/18 12/15/18 16:00 17:00 19:34 20:00 Temp 98.7 98.7 Pulse 83 88 Resp 16 B/P (MAP) 144/68 160/74 (102) Pulse Ox 92 O2 Delivery Room Air Room Air Room Air 12/15/18 12/15/18 12/15/18 12/16/18 21:04 21:05 22:20 03:02 Temp 98.2 98.1 98.2 98.1 Pulse 87 87 82 81 Resp 16 16 B/P (MAP) 160/74 160/74 164/76 (105) 153/78 (103) Pulse Ox 95 93 O2 Delivery Room Air Room Air 12/16/18 12/16/18 08:00 09:30 Temp 98.1 98.1 Pulse 75 Resp 20 B/P (MAP) 87/45 (59) Pulse Ox 95 O2 Delivery Room Air Room Air Intake and Output 12/15/18 12/15/18 12/16/18 14:59 22:59 06:59 Intake Total 742 ml Output Total 264 ml 100 ml 400 ml Balance 478 ml -100 ml -400 ml Nutrition Consultation Dietary Evaluation: Recommendations by RD: Dietary education by RD, Protein supplementation Comments: Continue w/diet as ordered (cardiac w/glucerna TID) Provided post-CABG diet education, RD available [phone] for additional education/questions as needed Expected Outcomes/Goals: PO intake to meet >75% est needs - met, goal ongoing Malnutrition Findings: Body Fat Depletion (Non Severe: Mild Depletion Weight Status: Appropriate CASTLE,NIAL K III DO Dec 16, 2018 11:25
--- NOTE | 2018-12-16 12:35 | PDOC ---
CARDIO Progress Notes Date and Time Date of Service 12/16/2018 Time of Evaluation 1050 Subjective Subjective: No Chest Pain, No shortness of breath, No Palpitations, Other ( surgical pain controlled: Better use of IS) Vitals Vitals Vital Signs Date Time Temp Pulse Resp B/P (MAP) Pulse Ox O2 Delivery O2 Flow Rate FiO2 12/16/18 10:54 117/59 (78) 12/16/18 09:30 98.1 75 20 95 Room Air 98.1 Weight Weight [ ] Input and Output Intake and Output Intake and Output 12/16/18 07:00 Intake Total 742 ml Output Total 729 ml Balance 13 ml Intake Oral 450 ml IV Total 292 ml Output Urine Total 655 ml Chest Tube Drainage Total 74 ml Laboratory Labs Laboratory Tests Test 12/16/18 03:30 White Blood Count 8.7 x10^3/uL (4.0-11.0) Red Blood Count 2.50 x10^6/uL (4.30-5.70) Hemoglobin 8.4 g/dL (13.0-17.5) Hematocrit 24.5 % (39.0-53.0) Mean Corpuscular Volume 98 fL (79-100) Mean Corpuscular Hemoglobin 33 pg (25-35) Mean Corpuscular Hemoglobin Concent 34 g/dL (31-37) Red Cell Distribution Width 12.7 % (11.5-14.5) Platelet Count 90 x10^3/uL (140-400) Sodium Level 134 mmol/L (136-145) Potassium Level 4.3 mmol/L (3.5-5.1) Chloride Level 99 mmol/L (98-107) Carbon Dioxide Level 29 mmol/L (21-32) Anion Gap 6 (6-14) Blood Urea Nitrogen 17 mg/dL (8-26) Creatinine 1.2 mg/dL (0.7-1.3) Estimated GFR (Cockcroft-Gault) 61.3 Glucose Level 129 mg/dL (70-99) Calcium Level 8.2 mg/dL (8.5-10.1) Magnesium Level 2.1 mg/dL (1.8-2.4) Microbiology Micro Microbiology 12/08/18 Urine Culture - Final, Complete 12/08/18 Urine Culture Result 1 (JUAN) - Final, Complete Physical Exam HEENT: Neck Supple W Full Motion Chest: Symmetric LUNGS: Other (faint basilar crackles) Heart: S1S2, RRR (SR without significant ectopies overnight) Abdomen: Soft N/T Extremities: Other (trace LE edema) Neurology: alert, oriented, follow commands Assessment Assessment 1. CABG x2 (TAVARES to LAD, SVG to RPDA) POD#3 doing well 2. Post op anemia: stable at Hgb 8.4 3. ICM: EF 45% 4. Tobaccoism/ Marijuana use; discussed/encouraged cessation 5. HTN: labile at noc but low this AM. Recommendations 1. Continue post CABG protocol. Amiodarone PO, 2. ASA, statin. Noted with coreg and metoprol on board. DC coreg and continue with metoprolol. 3. Aggressive IS, Adv act as daniel. 4. ACEi/ARB pending BP trend prior to DC once OK with CTS. MASON HOOKS APRN Dec 16, 2018 12:35
[2018-12-16] MEDS: METOPROLOL TART IMMED RELEASE 25 MG TABLET. PO SCH ×2 (12:44→20:21)
[2018-12-16] MEDS: AMIODARONE HCL 200 MG TABLET. PO SCH ×2 (12:44→20:22)
[2018-12-16] MEDS ORDERED: ATOR40TA59 PO (13:17)
[2018-12-16] MEDS ORDERED: OXYC5TAB4 PO (13:17)
[2018-12-16] MEDS ORDERED: METO25TA4 PO (13:17)
[2018-12-16] MEDS ORDERED: ASPI325T11 PO (13:17)
--- NOTE | 2018-12-16 15:09 | PDOC ---
Progress Note Subjective Subjective Doing great. Normotensive and SR. No issues ROS ROS No nausea No vomiting No pain No rash Vital Sign Vital Signs Vital Signs Date Time Temp Pulse Resp B/P (MAP) Pulse Ox O2 Delivery O2 Flow Rate FiO2 12/16/18 12:44 91 164/78 12/16/18 11:00 98.0 95 Room Air 98.0 12/16/18 09:30 20 Labs Lab Laboratory Tests Test 12/16/18 03:30 White Blood Count 8.7 x10^3/uL (4.0-11.0) Red Blood Count 2.50 x10^6/uL (4.30-5.70) Hemoglobin 8.4 g/dL (13.0-17.5) Hematocrit 24.5 % (39.0-53.0) Mean Corpuscular Volume 98 fL (79-100) Mean Corpuscular Hemoglobin 33 pg (25-35) Mean Corpuscular Hemoglobin Concent 34 g/dL (31-37) Red Cell Distribution Width 12.7 % (11.5-14.5) Platelet Count 90 x10^3/uL (140-400) Sodium Level 134 mmol/L (136-145) Potassium Level 4.3 mmol/L (3.5-5.1) Chloride Level 99 mmol/L (98-107) Carbon Dioxide Level 29 mmol/L (21-32) Anion Gap 6 (6-14) Blood Urea Nitrogen 17 mg/dL (8-26) Creatinine 1.2 mg/dL (0.7-1.3) Estimated GFR (Cockcroft-Gault) 61.3 Glucose Level 129 mg/dL (70-99) Calcium Level 8.2 mg/dL (8.5-10.1) Magnesium Level 2.1 mg/dL (1.8-2.4) Objective Assessment POD#3, s/p CABG x 2 (TAVARES to LAD, SVG to RPDA) Doing great. Normotensive and SR. No issues Plan Plan of Care D/c pacing wires Amiodarone 200mg po BID for AFib prophylaxis-will stop before discharge ASA, b aman and statin D/c home tomorrow Nutrition Consultation Dietary Evaluation: Recommendations by RD: Dietary education by RD, Protein supplementation Comments: Continue w/diet as ordered (cardiac w/glucerna TID) Provided post-CABG diet education, RD available [phone] for additional education/questions as needed Expected Outcomes/Goals: PO intake to meet >75% est needs - met, goal ongoing Malnutrition Findings: Body Fat Depletion (Non Severe: Mild Depletion Weight Status: Appropriate RC ECHEVERRIA MD Dec 16, 2018 15:09
[2018-12-16] MEDS: ATORVASTATIN CALCIUM 40 MG TABLET. PO SCH (20:21)
[2018-12-17 03:45] VITALS: BP 176/90
[2018-12-17 07:25] VITALS: BP 149/84
[2018-12-17] MEDS: oxyCODONE IR 5 MG TABLET PO PRN (08:53)
[2018-12-17] MEDS: ASPIRIN ENTERIC COATED 325 MG TABLET.DR. PO SCH (08:54)
[2018-12-17] MEDS: SENNOSIDES/DOCUSATE 8.6/50MG TABLET. PO SCH (08:54)
[2018-12-17] MEDS: METOPROLOL TART IMMED RELEASE 25 MG TABLET. PO SCH (08:54)
[2018-12-17] MEDS: AMIODARONE HCL 200 MG TABLET. PO SCH (08:54)
[2018-12-17 09:49] LABS: BASO % 0 % (0-3); EOS % 0 % (0-3); HEMATOCRIT 28.1 % (39.0-53.0); HEMOGLOBIN 9.6 g/dL (13.0-17.5); LYMPH # 1.5 x10^3/uL (1.0-4.8); LYMPH % 11 % (24-48); MEAN CORPUSCULAR HEMOGLOBIN 33 pg (25-35); MEAN CORPUSCULAR HGB CONC 34 g/dL (31-37); MEAN CORPUSCULAR VOLUME 97 fL (79-100); MONO # 0.9 x10^3/uL (0.0-1.1); MONO % 7 % (0-9); NEUT # 10.4 x10^3uL (1.8-7.7); NEUT % 81 % (31-73); PLATELET COUNT 155 x10^3/uL (140-400); RED CELL DISTRIBUTION WIDTH 12.6 % (11.5-14.5); WHITE BLOOD COUNT 12.9 x10^3/uL (4.0-11.0)
[2018-12-17 10:11] LABS: ALBUMIN 3.1 g/dL (3.4-5.0); ALBUMIN/GLOBULIN RATIO 0.8 (1.0-1.7); CALCIUM 8.6 mg/dL (8.5-10.1); CREATININE 1.1 mg/dL (0.7-1.3); GFR 67.8; POTASSIUM 4.4 mmol/L (3.5-5.1); TOTAL BILIRUBIN 1.1 mg/dL (0.2-1.0); TOTAL PROTEIN 7.1 g/dL (6.4-8.2)
[2018-12-17 11:12] VITALS: BP 131/76
--- NOTE | 2018-12-17 11:34 | PDOC ---
PROGRESS NOTES Chief Complaint Chief Complaint Multi-vessel CAD s/p CABG (POD 4) Chest pain Tension headache Tobacco use THC use History of Present Illness History of Present Illness Patient was seen and examined in his room this morning. Patient is doing well today. He is s/p CABG POD 4. Pain is well controlled. Cardiology and CV surgery following. Slight swelling at IV site for which Keflex will be started. Probable discharge home later today. Vitals Vitals Vital Signs Date Time Temp Pulse Resp B/P (MAP) Pulse Ox O2 Delivery O2 Flow Rate FiO2 12/17/18 11:12 98.9 84 28 131/76 (94) 98 Room Air 98.9 Physical Exam General: Alert, Oriented X3, No acute distress Heart: Regular rate, Normal S1, Normal S2 Lungs: Clear, Other (no rhonchi) Abdomen: Soft, No tenderness Extremities: No clubbing, No cyanosis, No edema Skin: No rashes, No significant lesion Labs LABS Laboratory Tests Test 12/17/18 08:50 White Blood Count 12.9 x10^3/uL (4.0-11.0) Red Blood Count 2.90 x10^6/uL (4.30-5.70) Hemoglobin 9.6 g/dL (13.0-17.5) Hematocrit 28.1 % (39.0-53.0) Mean Corpuscular Volume 97 fL (79-100) Mean Corpuscular Hemoglobin 33 pg (25-35) Mean Corpuscular Hemoglobin Concent 34 g/dL (31-37) Red Cell Distribution Width 12.6 % (11.5-14.5) Platelet Count 155 x10^3/uL (140-400) Neutrophils (%) (Auto) 81 % (31-73) Lymphocytes (%) (Auto) 11 % (24-48) Monocytes (%) (Auto) 7 % (0-9) Eosinophils (%) (Auto) 0 % (0-3) Basophils (%) (Auto) 0 % (0-3) Neutrophils # (Auto) 10.4 x10^3uL (1.8-7.7) Lymphocytes # (Auto) 1.5 x10^3/uL (1.0-4.8) Monocytes # (Auto) 0.9 x10^3/uL (0.0-1.1) Eosinophils # (Auto) 0.0 x10^3/uL (0.0-0.7) Basophils # (Auto) 0.0 x10^3/uL (0.0-0.2) Sodium Level 135 mmol/L (136-145) Potassium Level 4.4 mmol/L (3.5-5.1) Chloride Level 99 mmol/L (98-107) Carbon Dioxide Level 27 mmol/L (21-32) Anion Gap 9 (6-14) Blood Urea Nitrogen 15 mg/dL (8-26) Creatinine 1.1 mg/dL (0.7-1.3) Estimated GFR (Cockcroft-Gault) 67.8 BUN/Creatinine Ratio 14 (6-20) Glucose Level 135 mg/dL (70-99) Calcium Level 8.6 mg/dL (8.5-10.1) Total Bilirubin 1.1 mg/dL (0.2-1.0) Aspartate Amino Transf (AST/SGOT) 16 U/L (15-37) Alanine Aminotransferase (ALT/SGPT) 15 U/L (16-63) Alkaline Phosphatase 62 U/L (46-116) Total Protein 7.1 g/dL (6.4-8.2) Albumin 3.1 g/dL (3.4-5.0) Albumin/Globulin Ratio 0.8 (1.0-1.7) Review of Systems Review of Systems Complains of weakness and shortness of breath. Denies chest pain or headache. Assessment and Plan Assessmemt and Plan Assessment: Multi-vessel CAD s/p CABG (POD 4) Chest pain Tension headache Tobacco use THC use Plan: 1. Cardiac monitoring 2. PO amiodarone 3. Wound care 4. Monitor labs 5. Home meds 6. PT/OT 7. ASA, BB, statin. Lasix PRN 8. Discussed with RN 9. Probable discharge home later today Comment Review of Relevant I have reviewed the following items livan (where applicable) has been applied. Labs Laboratory Tests Test 12/16/18 03:30 12/17/18 08:50 White Blood Count 8.7 x10^3/uL (4.0-11.0) 12.9 x10^3/uL (4.0-11.0) Red Blood Count 2.50 x10^6/uL (4.30-5.70) 2.90 x10^6/uL (4.30-5.70) Hemoglobin 8.4 g/dL (13.0-17.5) 9.6 g/dL (13.0-17.5) Hematocrit 24.5 % (39.0-53.0) 28.1 % (39.0-53.0) Mean Corpuscular Volume 98 fL (79-100) 97 fL (79-100) Mean Corpuscular Hemoglobin 33 pg (25-35) 33 pg (25-35) Mean Corpuscular Hemoglobin Concent 34 g/dL (31-37) 34 g/dL (31-37) Red Cell Distribution Width 12.7 % (11.5-14.5) 12.6 % (11.5-14.5) Platelet Count 90 x10^3/uL (140-400) 155 x10^3/uL (140-400) Sodium Level 134 mmol/L (136-145) 135 mmol/L (136-145) Potassium Level 4.3 mmol/L (3.5-5.1) 4.4 mmol/L (3.5-5.1) Chloride Level 99 mmol/L (98-107) 99 mmol/L (98-107) Carbon Dioxide Level 29 mmol/L (21-32) 27 mmol/L (21-32) Anion Gap 6 (6-14) 9 (6-14) Blood Urea Nitrogen 17 mg/dL (8-26) 15 mg/dL (8-26) Creatinine 1.2 mg/dL (0.7-1.3) 1.1 mg/dL (0.7-1.3) Estimated GFR (Cockcroft-Gault) 61.3 67.8 Glucose Level 129 mg/dL (70-99) 135 mg/dL (70-99) Calcium Level 8.2 mg/dL (8.5-10.1) 8.6 mg/dL (8.5-10.1) Magnesium Level 2.1 mg/dL (1.8-2.4) Neutrophils (%) (Auto) 81 % (31-73) Lymphocytes (%) (Auto) 11 % (24-48) Monocytes (%) (Auto) 7 % (0-9) Eosinophils (%) (Auto) 0 % (0-3) Basophils (%) (Auto) 0 % (0-3) Neutrophils # (Auto) 10.4 x10^3uL (1.8-7.7) Lymphocytes # (Auto) 1.5 x10^3/uL (1.0-4.8) Monocytes # (Auto) 0.9 x10^3/uL (0.0-1.1) Eosinophils # (Auto) 0.0 x10^3/uL (0.0-0.7) Basophils # (Auto) 0.0 x10^3/uL (0.0-0.2) BUN/Creatinine Ratio 14 (6-20) Total Bilirubin 1.1 mg/dL (0.2-1.0) Aspartate Amino Transf (AST/SGOT) 16 U/L (15-37) Alanine Aminotransferase (ALT/SGPT) 15 U/L (16-63) Alkaline Phosphatase 62 U/L (46-116) Total Protein 7.1 g/dL (6.4-8.2) Albumin 3.1 g/dL (3.4-5.0) Albumin/Globulin Ratio 0.8 (1.0-1.7) Laboratory Tests Test 12/17/18 08:50 White Blood Count 12.9 x10^3/uL (4.0-11.0) Red Blood Count 2.90 x10^6/uL (4.30-5.70) Hemoglobin 9.6 g/dL (13.0-17.5) Hematocrit 28.1 % (39.0-53.0) Mean Corpuscular Volume 97 fL (79-100) Mean Corpuscular Hemoglobin 33 pg (25-35) Mean Corpuscular Hemoglobin Concent 34 g/dL (31-37) Red Cell Distribution Width 12.6 % (11.5-14.5) Platelet Count 155 x10^3/uL (140-400) Neutrophils (%) (Auto) 81 % (31-73) Lymphocytes (%) (Auto) 11 % (24-48) Monocytes (%) (Auto) 7 % (0-9) Eosinophils (%) (Auto) 0 % (0-3) Basophils (%) (Auto) 0 % (0-3) Neutrophils # (Auto) 10.4 x10^3uL (1.8-7.7) Lymphocytes # (Auto) 1.5 x10^3/uL (1.0-4.8) Monocytes # (Auto) 0.9 x10^3/uL (0.0-1.1) Eosinophils # (Auto) 0.0 x10^3/uL (0.0-0.7) Basophils # (Auto) 0.0 x10^3/uL (0.0-0.2) Sodium Level 135 mmol/L (136-145) Potassium Level 4.4 mmol/L (3.5-5.1) Chloride Level 99 mmol/L (98-107) Carbon Dioxide Level 27 mmol/L (21-32) Anion Gap 9 (6-14) Blood Urea Nitrogen 15 mg/dL (8-26) Creatinine 1.1 mg/dL (0.7-1.3) Estimated GFR (Cockcroft-Gault) 67.8 BUN/Creatinine Ratio 14 (6-20) Glucose Level 135 mg/dL (70-99) Calcium Level 8.6 mg/dL (8.5-10.1) Total Bilirubin 1.1 mg/dL (0.2-1.0) Aspartate Amino Transf (AST/SGOT) 16 U/L (15-37) Alanine Aminotransferase (ALT/SGPT) 15 U/L (16-63) Alkaline Phosphatase 62 U/L (46-116) Total Protein 7.1 g/dL (6.4-8.2) Albumin 3.1 g/dL (3.4-5.0) Albumin/Globulin Ratio 0.8 (1.0-1.7) Microbiology 12/08/18 Urine Culture - Final, Complete 12/08/18 Urine Culture Result 1 (JUAN) - Final, Complete Medications Current Medications Aspirin (Children'S Aspirin) 324 mg 1X ONCE PO Last administered on 12/08/18at 11:54; Start 12/08/18 at 11:30; Stop 12/08/18 at 11:47; Status DC Nitroglycerin (Nitrostat) 0.4 mg PRN Q5MIN PRN SL CP RATING > 1/10 Last administered on 12/08/18at 11:57; Start 12/08/18 at 11:30; Stop 12/09/18 at 11:29 ; Status DC Sodium Chloride 1,000 ml @ 1,000 mls/hr Q1H IV Last administered on 12/08/18at 11:56; Start 12/08/18 at 11:23; Stop 12/08/18 at 12:22; Status DC Ondansetron HCl (Zofran) 4 mg PRN Q8HRS PRN IV NAUSEA/VOMITING; Start 12/08/18 at 13:45; Stop 12/09/18 at 13:44; Status DC Morphine Sulfate (Morphine Sulfate) 4 mg PRN Q2HR PRN IV PAIN; Start 12/08/18 at 13:45; Stop 12/09/18 at 13:44; Status DC Nitroglycerin (Nitrostat) 0.4 mg PRN Q5MIN PRN SL CHEST PAIN; Start 12/08/18 at 13:45; Stop 12/09/18 at 13:44; Status DC Influenza Virus Vaccine (Afluria Trivalent [id number] Syringe) 0.5 ml ONCE ONCE VAX IM Last administered on 12/08/18at 18:32; Start 12/08/18 at 18:00; Stop at 18:01; Status DC Enoxaparin Sodium (Lovenox Per Pharmacy Prophylaxis Dosing) 1 each PRN DAILY PRN MC SEE COMMENTS; Start 12/08/18 at 17:15; Stop 12/12/18 at 14:01; Status DC Enoxaparin Sodium (Lovenox 40mg Syringe) 40 mg Q24H SQ Last administered on at 21:55; Start 12/08/18 at 21:00; Stop 12/12/18 at 14:01; Status DC Iodixanol (Visipaque 320) 100 ml STK-MED ONCE .ROUTE ; Start 12/09/18 at 10:49; Stop 12/09/18 at 10:50; Status DC Lidocaine HCl (Lidocaine 1% 20ml Vial) 20 ml STK-MED ONCE .ROUTE ; Start at 10:49; Stop 12/09/18 at 10:50; Status DC Heparin Sodium/ Sodium Chloride 1,000 ml @ As Directed STK-MED ONCE .ROUTE ; Start 12/09/18 at 10:49; Stop 12/09/18 at 10:50; Status DC Heparin Sodium/ Sodium Chloride (HEPARIN for ARTERIAL LINE FLUSH) 1,000 unit 1X ONCE IART Last administered on 12/09/18at 11:15; Start 2/22/19 at 11:15; Stop 12/09/18 at 11:16; Status DC Midazolam HCl (Versed) 2 mg 1X ONCE IV Last administered on 12/09/18at 11:15; Start 12/09/18 at 11:15; Stop 12/09/18 at 11:16; Status DC Fentanyl Citrate (Fentanyl 2ml Vial) 100 mcg 1X ONCE IV Last administered on at 11:15; Start 12/09/18 at 11:15; Stop 12/09/18 at 11:16; Status DC Iodixanol (Visipaque 320) 100 ml 1X ONCE IART Last administered on 12/09/18at 11:15; Start 12/09/18 at 11:15; Stop 12/09/18 at 11:16; Status DC Lidocaine HCl (Lidocaine 1% 20ml Vial) 20 ml 1X ONCE INJ Last administered on 12/09/18at 11:15; Start 12/09/18 at 11:15; Stop 12/09/18 at 11:16; Status DC Fentanyl Citrate (Fentanyl 2ml Vial) 100 mcg STK-MED ONCE .ROUTE ; Start at 11:05; Stop 12/09/18 at 11:06; Status DC Midazolam HCl (Versed) 2 mg STK-MED ONCE .ROUTE ; Start 12/09/18 at 11:05; Stop 12/09/18 at 11:06; Status DC Heparin Sodium (Porcine) (Heparin Sodium) 10,000 unit STK-MED ONCE .ROUTE ; Start 12/09/18 at 12:02; Stop 12/09/18 at 12:03; Status DC Heparin Sodium (Porcine) (Heparin Sodium) 1,000 unit 1X ONCE IV Last administered on 12/09/18at 12:14; Start 12/09/18 at 12:15; Stop 12/09/18 at 12:16 ; Status DC Iodixanol (Visipaque 320) 100 ml STK-MED ONCE .ROUTE ; Start 12/09/18 at 12:10; Stop 12/09/18 at 12:11; Status DC Sodium Chloride (Normal Saline Flush) 3 ml QSHIFT PRN IV AFTER MEDS AND BLOOD DRAWS; Start 12/09/18 at 12:45; Stop 12/15/18 at 09:02; Status DC Sodium Chloride 1,000 ml @ 75 mls/hr [id number] IV ; Start 12/09/18 at 12:41; Stop 12/09/18 at 18:40; Status DC Nitroglycerin (Nitrostat) 0.4 mg PRN Q5MIN PRN SL CHEST PAIN; Start 12/09/18 at 12:45; Stop 12/13/18 at 13:09; Status DC Tizanidine HCl (Zanaflex) 4 mg PRN Q8HRS PRN PO MUSCLE SPASMS Last administered on 12/16/18at 05:48; Start 12/09/18 at 14:30 Tramadol HCl (Ultram) 50 mg PRN Q8HRS PRN PO MILD PAIN Last administered on at 18:37; Start 12/09/18 at 20:45 Atorvastatin Calcium (Lipitor) 40 mg QHS PO Last administered on 12/16/18at 20:21 ; Start 12/10/18 at 21:00 Carvedilol (Coreg) 3.125 mg BIDWMEALS PO Last administered on 12/15/18at 17:00; Start 12/10/18 at 18:00; Stop 12/16/18 at 07:54; Status DC Lisinopril (Prinivil) 5 mg DAILY PO Last administered on 12/12/18at 09:08; Start 12/11/18 at 09:00; Stop 12/12/18 at 14:01; Status DC Cefazolin Sodium/ Dextrose 50 ml @ 100 mls/hr 1X ONCE IV Last administered on 12/13/18at 08:09; Start 12/13/18 at 06:00; Stop 12/13/18 at 06:29; Status DC Potassium Chloride 70 meq/ Sodium Bicarbonate 12.5 meq/Lidocaine HCl 24 ml/ Parenteral Electrolytes 571.5 ml @ 571.5 mls/ hr 1X ONCE IRR ; Start 12/13/18 at 06:00; Stop 12/13/18 at 06:59; Status DC Potassium Chloride 15 meq/ Sodium Bicarbonate 12.5 meq/Parenteral Electrolytes 520 ml @ 520 mls/hr 1X ONCE IRR ; Start 12/13/18 at 06:00; Stop 12/13/18 at 06 :59; Status DC Heparin Sodium (Porcine) [id number] unit/Ringer's Solution 1,020 ml @ 1,020 mls/hr 1X ONCE IRR Last administered on 12/13/18at 09:07; Start 12/13/18 at 06:00; Stop 12/13/18 at 06:59; Status DC Vancomycin HCl (VANCO for OR ONLY) 10 gm 1X ONCE CEMENT ; Start 12/13/18 at 08: 00; Stop 12/13/18 at 08:01; Status DC Prochlorperazine Edisylate (Compazine) 5 mg PACU PRN PRN IV NAUSEA, MRX1; Start 12/13/18 at 07:00; Stop 12/14/18 at 06:59; Status DC Hydromorphone HCl (Dilaudid) 0.5 mg PRN Q10MIN PRN IV SEV PAIN, Second choice; Start 12/13/18 at 07:00; Stop 12/14/18 at 06:59; Status DC Lidocaine HCl (Xylocaine-Mpf 1% 2ml Vial) 2 ml PRN 1X PRN ID IV START; Start at 07:00; Stop 12/14/18 at 06:59; Status DC Ringer's Solution 1,000 ml @ 30 mls/hr Q24H IV Last administered on 12/13/18at 09:07; Start 12/13/18 at 07:00; Stop 12/13/18 at 13:26; Status DC Morphine Sulfate (Morphine Sulfate) 1 mg PRN Q10MIN PRN IV SEVERE PAIN; Start 12/13/18 at 07:00; Stop 12/14/18 at 06:59; Status DC Fentanyl Citrate (Fentanyl 2ml Vial) 50 mcg PRN Q5MIN PRN IV MODERATE TO SEVERE PAIN; Start 12/13/18 at 07:00; Stop 12/14/18 at 06:59; Status DC Fentanyl Citrate (Fentanyl 2ml Vial) 25 mcg PRN Q5MIN PRN IV MILD PAIN; Start 12/13/18 at 07:00; Stop 12/14/18 at 06:59; Status DC Ondansetron HCl (Zofran) 4 mg PRN Q6HRS PRN IV NAUSEA/VOMITING; Start 12/13/18 at 07:00; Stop 12/14/18 at 06:59; Status DC Etomidate (Amidate) 20 mg STK-MED ONCE IV ; Start 12/13/18 at 06:27; Stop at 06:28; Status DC Sufentanil Citrate (Sufenta) 250 mcg STK-MED ONCE .ROUTE ; Start 12/13/18 at 06: 27; Stop 12/13/18 at 06:28; Status DC Midazolam HCl (Versed) 5 mg STK-MED ONCE .ROUTE ; Start 12/13/18 at 06:28; Stop 12/13/18 at 06:29; Status DC Lidocaine HCl (Lidocaine Pf 2% Vial) 5 ml STK-MED ONCE .ROUTE ; Start 12/13/18 at 06:28; Stop 12/13/18 at 06:29; Status DC Etomidate (Amidate) 20 mg STK-MED ONCE IV ; Start 12/13/18 at 06:28; Stop at 06:29; Status DC Phenylephrine HCl (Satinder-Synephrine Inj) 10 mg STK-MED ONCE .ROUTE ; Start at 06:28; Stop 12/13/18 at 06:29; Status DC Phenylephrine HCl (Satindre-Synephrine Inj) 10 mg STK-MED ONCE .ROUTE ; Start at 06:28; Stop 12/13/18 at 06:29; Status DC Phenylephrine HCl (Satinder-Synephrine Inj) 10 mg STK-MED ONCE .ROUTE ; Start at 06:29; Stop 12/13/18 at 06:30; Status DC Ephedrine Sulfate (Akovaz) 50 mg STK-MED ONCE .ROUTE ; Start 12/13/18 at 06:29; Stop 12/13/18 at 06:30; Status DC Ephedrine Sulfate (Akovaz) 50 mg STK-MED ONCE .ROUTE ; Start 12/13/18 at 06:29; Stop 12/13/18 at 06:30; Status DC Aminocaproic Acid (Amicar) 5,000 mg STK-MED ONCE IV ; Start 12/13/18 at 06:30; Stop 12/13/18 at 06:31; Status DC Aminocaproic Acid (Amicar) 5,000 mg STK-MED ONCE IV ; Start 12/13/18 at 06:30; Stop 12/13/18 at 06:31; Status DC Aminocaproic Acid (Amicar) 5,000 mg STK-MED ONCE IV ; Start 12/13/18 at 06:30; Stop 12/13/18 at 06:32; Status DC Nitroglycerin/ Dextrose 250 ml @ As Directed STK-MED ONCE IV ; Start 12/13/18 at 06:30; Stop 12/13/18 at 06:33; Status DC Vancomycin HCl (VANCO for OR ONLY) 10 gm STK-MED ONCE .ROUTE Last administered on 12/13/18 09:06; Start 12/13/18 at 06:41; Stop 12/13/18 at 06:42; Status DC Cellulose (Surgicel Hemostat 4x8) 1 each STK-MED ONCE .ROUTE Last administered on 12/13/18 09:06; Start 12/13/18 at 06:41; Stop 12/13/18 at 06:42; Status DC Papaverine HCl 60 mg STK-MED ONCE .ROUTE Last administered on 12/13/18 09:05; Start 12/13/18 at 06:41; Stop 12/13/18 at 06:42; Status DC Aspirin (Aspirin) 300 mg STK-MED ONCE .ROUTE Last administered on 12/13/18 09: 05; Start 12/13/18 at 06:41; Stop 12/13/18 at 06:43; Status DC Cellulose (Surgicel Hemostat 4x8) 1 each STK-MED ONCE .ROUTE ; Start 12/13/18 at 06:41; Stop 12/13/18 at 06:43; Status DC Sodium Chloride (SODIUM CHLORIDE 20ml) 20 ml STK-MED ONCE IJ Last administered on 12/13/18 09:04; Start 12/13/18 at 06:42; Stop 12/13/18 at 06:43; Status DC Sodium Chloride (SODIUM CHLORIDE 20ml) 20 ml STK-MED ONCE IJ Last administered on 12/13/18 09:04; Start 12/13/18 at 06:43; Stop 12/13/18 at 06:44; Status DC Sodium Chloride (SODIUM CHLORIDE 20ml) 20 ml STK-MED ONCE IJ Last administered on 12/13/18 09:04; Start 12/13/18 at 06:43; Stop 12/13/18 at 06:44; Status DC Cefazolin Sodium 1 gm/Sodium Chloride 500 ml @ 500 mls/hr 1X ONCE IRR Last administered on 12/13/18at 09:06; Start 12/13/18 at 08:00; Stop 12/13/18 at 08:59 ; Status DC Rocuronium [place] (Zemuron) 100 mg STK-MED ONCE .ROUTE ; Start 12/13/18 at 08: 21; Stop 12/13/18 at 08:22; Status DC Protamine Sulfate (Protamine) 250 mg STK-MED ONCE IV ; Start 12/13/18 at 11:06; Stop 12/13/18 at 11:07; Status DC Cefazolin Sodium/ Dextrose 50 ml @ As Directed STK-MED ONCE IV ; Start 12/13/18 at 11:17; Stop 12/13/18 at 11:18; Status DC Nicardipine HCl 50 mg/Sodium Chloride 250 ml @ 25 mls/hr CONT PRN IV SEE I/O RECORD Last administered on 12/14/18at 01:33; Start 12/13/18 at 13:00; Stop 12/15 at 09:54; Status DC Amiodarone HCl 150 mg/Dextrose 103 ml @ 618 mls/hr 1X ONCE IV Last administered on 12/13/18at 12:52; Start 12/13/18 at 13:00; Stop 12/13/18 at 13:09 ; Status DC Amiodarone HCl 900 mg/Dextrose 518 ml @ 33 mls/hr CONT PRN IV SEE I/O RECORD Last administered on 12/13/18at 12:52; Start 12/13/18 at 13:00; Stop 12/13/18 at 13:00; Status DC Magnesium Sulfate 5 gm STK-MED ONCE .ROUTE ; Start 12/13/18 at 11:33; Stop 12/13 at 11:34; Status DC Heparin Sodium (Porcine) 30,000 unit STK-MED ONCE .ROUTE ; Start 12/13/18 at 11: 33; Stop 12/13/18 at 11:34; Status DC Mannitol (Mannitol) 12.5 g STK-MED ONCE .ROUTE ; Start 12/13/18 at 11:33; Stop 12/13/18 at 11:34; Status DC Mannitol (Mannitol) 12.5 g STK-MED ONCE .ROUTE ; Start 12/13/18 at 11:33; Stop 12/13/18 at 11:34; Status DC Mannitol (Mannitol) 12.5 g STK-MED ONCE .ROUTE ; Start 12/13/18 at 11:33; Stop 12/13/18 at 11:34; Status DC Albumin Human 100 ml @ As Directed STK-MED ONCE IV ; Start 12/13/18 at 11:33; Stop 12/13/18 at 11:34; Status DC Calcium Chloride (Calcium Chloride) 1,000 mg STK-MED ONCE .ROUTE ; Start at 11:33; Stop 12/13/18 at 11:34; Status DC Calcium Chloride (Calcium Chloride) 1,000 mg STK-MED ONCE .ROUTE ; Start at 11:33; Stop 12/13/18 at 11:34; Status DC Lidocaine HCl (Lidocaine Pf 2% Vial) 5 ml STK-MED ONCE .ROUTE ; Start 12/13/18 at 11:33; Stop 12/13/18 at 11:34; Status DC Isoflurane (Isoflurane) 90 ml STK-MED ONCE IH ; Start 12/13/18 at 11:34; Stop at 11:35; Status DC Rocuronium [place] (Zemuron) 50 mg STK-MED ONCE .ROUTE ; Start 12/13/18 at 11:54 ; Stop 12/13/18 at 11:55; Status DC Albumin Human 500 ml @ As Directed STK-MED ONCE IV ; Start 12/13/18 at 12:00; Stop 12/13/18 at 12:01; Status DC Sodium Chloride (Normal Saline Flush) 3 ml PRN Q12HR PRN IV AFTER MEDS AND BLOOD DRAWS; Start 12/13/18 at 13:00 Ringer's Solution 1,000 ml @ 30 mls/hr Q24H IV Last administered on 12/14/18at 12:55; Start 12/13/18 at 12:55; Stop 12/15/18 at 13:15; Status DC Albumin Human 250 ml @ 500 mls/hr PRN Q4HRS PRN IV SEE COMMENTS Last administered on 12/14/18at 20:48; Start 12/13/18 at 13:00; Stop 12/15/18 at 09:54 ; Status DC Insulin Human Regular 150 unit/ Sodium Chloride 151.5 ml @ 0 mls/hr CONT PRN PRN IV PER PROTOCOL Last administered on 12/13/18at 18:52; Start 12/13/18 at 13: 00; Stop 12/15/18 at 09:54; Status DC Dextrose (Dextrose 50%-Water Syringe) 25 gm PRN Q15MIN PRN IV LOW BLOOD SUGAR; Start 12/13/18 at 13:00; Stop 12/15/18 at 09:54; Status DC Nitroglycerin/ Dextrose 250 ml @ 0 mls/hr CONT PRN PRN IV POST CV SURGERY; Start 12/13/18 at 13:00; Stop 12/15/18 at 09:54; Status DC Phenylephrine HCl 20 mg/Sodium Chloride 252 ml @ 0 mls/hr CONT PRN PRN IV HYPOTENSION; Start 12/13/18 at 13:00; Stop 12/15/18 at 09:54; Status DC Amiodarone HCl 150 mg/Dextrose 103 ml @ 600 mls/hr 1X ONCE IV ; Start at 13:00; Stop 12/13/18 at 13:08; Status DC Amiodarone HCl 150 mg/Dextrose 103 ml @ 200 mls/hr 1X PRN PRN IV FOR AFIB; Start 12/13/18 at 13:00; Stop 12/15/18 at 09:54; Status DC Amiodarone HCl 900 mg/Dextrose 518 ml @ 0 mls/hr CONT PRN PRN IV AFIB; Start at 13:00; Stop 12/14/18 at 18:00; Status DC Info (KCl Per Protocol) 1 ea CONT PRN PRN MC SEE COMMENTS; Start 12/13/18 at 13 :00; Stop 12/15/18 at 09:54; Status DC Magnesium Sulfate/ Dextrose 100 ml @ 100 mls/hr PRN DAILY PRN IV FOR MAG < 2.2 ; Start 12/13/18 at 13:00; Stop 12/15/18 at 09:54; Status DC Famotidine (Pepcid Vial) 20 mg BID IVP Last administered on 12/15/18at 08:29; Start 12/13/18 at 21:00; Stop 12/15/18 at 09:54; Status DC Ondansetron HCl (Zofran) 4 mg PRN Q4HRS PRN IV NAUSEA/VOMITING, 1st CHOICE Last administered on 12/14/18at 14:46; Start 12/13/18 at 13:00 Prochlorperazine Edisylate (Compazine) 10 mg PRN Q6HRS PRN IV NAUSEA/VOMITING, 2nd CHOICE; Start 12/13/18 at 13:00 Metoclopramide HCl (Reglan Vial) 10 mg PRN Q6HRS PRN IV NAUSEA/VOMITING, 3rd CHOICE; Start 12/13/18 at 13:00 Morphine Sulfate (Morphine Sulfate) 2 mg PRN Q1HR PRN IV PAIN Last administered on 12/14/18at 14:44; Start 12/13/18 at 13:00 Morphine Sulfate (Morphine Sulfate) 4 mg PRN Q1HR PRN IV SEVERE PAIN Last administered on 12/13/18at 15:28; Start 12/13/18 at 13:00; Stop 12/15/18 at 09:54 ; Status DC Acetaminophen (Tylenol) 650 mg PRN Q4HRS PRN PO TEMP > 101'F or PAIN Last administered on 12/14/18at 23:41; Start 12/13/18 at 13:00 Acetaminophen (Tylenol Supp) 650 mg PRN Q4HRS PRN [place] TEMP > 101'F or MILD PAIN ; Start 12/13/18 at 13:00; Stop 12/15/18 at 09:54; Status DC Meperidine HCl (Demerol) 12.5 mg PRN Q15MIN PRN IV SHIVERING; Start 12/13/18 at 13:00; Stop 12/14/18 at 12:55; Status DC Propofol 100 ml @ 0 mls/hr CONT PRN PRN IV POSTOP SEDATION UNTIL EXTUBATE Last administered on 12/13/18at 13:36; Start 12/13/18 at 13:00; Stop 12/14/18 at 21:13 ; Status DC Senna/Docusate Sodium (Senna Plus) 1 tab BID PO Last administered on 12/17/18at 08:54; Start 12/13/18 at 21:00 Bisacodyl (Dulcolax Supp) 10 mg PRN DAILY PRN OH NO BOWEL MOVEMENT; Start 12/13 at 13:00; Stop 12/15/18 at 09:54; Status DC Chlorhexidine Gluconate (Peridex) 15 ml BID MM ; Start 12/14/18 at 09:00; Stop 12/14/18 at 21:13; Status DC Aspirin (Ecotrin) 325 mg DAILYWBKFT PO Last administered on 12/17/18 08:54; Start 12/14/18 at 08:00 Aspirin (Aspirin) 300 mg PRN DAILY PRN OH IF UNABLE TO TAKE PO; Start 12/14/18 at 08:00; Stop 12/15/18 at 09:54; Status DC Albuterol Sulfate (Ventolin Neb Soln) 2.5 mg PRN Q4HRS PRN NEB SHORTNESS OF BREATH Last administered on 12/13/18at 19:54; Start 12/13/18 at 13:00 Metoprolol Tartrate (Lopressor) 25 mg BID PO Last administered on 12/15/18at 21: 05; Start 12/14/18 at 09:00; Stop 12/16/18 at 07:54; Status DC Nicardipine HCl 50 mg/Sodium Chloride 250 ml @ 0 mls/hr CONT PRN PRN IV PER PROTOCOL; Start 12/13/18 at 13:00; Stop 12/13/18 at 17:01; Status DC Oxycodone HCl (Roxicodone) 5 mg PRN Q4HRS PRN PO MODERATE PAIN Last administered on 12/17/18 08:53; Start 12/13/18 at 13:00 Oxycodone HCl (Roxicodone) 10 mg PRN Q4HRS PRN PO SEVERE PAIN Last administered on 12/14/18at 09:23; Start 12/13/18 at 13:00 Cefazolin Sodium/ Dextrose 50 ml @ 100 mls/hr Q8H IV ; Start 12/13/18 at 16:00 ; Stop 12/13/18 at 17:01; Status DC Sodium Bicarbonate (Sodium Bicarb Adult 8.4% Syr) 50 meq 1X ONCE IV Last administered on 12/13/18at 13:28; Start 12/13/18 at 13:15; Stop 12/13/18 at 13:38 ; Status DC Sodium Bicarbonate (Sodium Bicarb Adult 8.4% Syr) 50 meq 1X ONCE IV Last administered on 12/13/18at 13:28; Start 12/13/18 at 13:15; Stop 12/13/18 at 13:38 ; Status DC Sodium Bicarbonate (Sodium Bicarb Adult 8.4% Syr) 50 meq STK-MED ONCE .ROUTE ; Start 12/13/18 at 13:24; Stop 12/13/18 at 13:25; Status DC Potassium Chloride/Water 50 ml @ 50 mls/hr Q1H IV Last administered on at 15:09; Start 12/13/18 at 14:00; Stop 12/13/18 at 15:59; Status DC Cefazolin Sodium/ Dextrose 50 ml @ 100 mls/hr Q8H IV Last administered on 12/15at 02:40; Start 12/13/18 at 19:00; Stop 12/15/18 at 03:29; Status DC Amiodarone HCl (Cordarone) 200 mg BID PO Last administered on 12/17/18at 08:54; Start 12/14/18 at 14:00 Magnesium Sulfate/ Dextrose 100 ml @ 100 mls/hr 1X ONCE IV Last administered on 12/15/18at 06:27; Start 12/15/18 at 07:00; Stop 12/15/18 at 07:59; Status DC Potassium Chloride/Water 50 ml @ 50 mls/hr 1X ONCE IV Last administered on at 08:43; Start 12/15/18 at 07:30; Stop 12/15/18 at 08:29; Status DC Carvedilol (Coreg) 12.5 mg BIDWMEALS PO ; Start 12/16/18 at 08:00; Stop 12/16/18 at 10:57; Status DC Labetalol HCl (Normodyne Iv Push) 20 mg PRN Q2HR PRN IVP HYPERTENSION, SEE COMMENTS; Start 12/16/18 at 11:00 Metoprolol Tartrate (Lopressor) 25 mg BID PO Last administered on 12/17/18at 08: 54; Start 12/16/18 at 11:30 Active Scripts Active Oxycodone Hcl Immed.release (Oxycodone Hcl) 5 Mg Tablet 5 Mg PO PRN Q6HRS PRN Aspirin Ec (Aspirin) 325 Mg Tablet.dr 325 Mg PO DAILYWBKFT Metoprolol Tartrate 25 Mg Tablet 25 Mg PO BID 50 Days Atorvastatin Calcium 40 Mg Tablet 40 Mg PO QHS 90 Days Reported Aspirin Ec (Aspirin) 81 Mg Tablet.dr 81 Mg PO DAILY Vitals/I & O Vital Sign - Last 24 Hours 12/16/18 12/16/18 12/16/18 12/16/18 12:44 12:44 15:00 19:20 Temp 98.1 99.0 98.1 99.0 Pulse 92 91 82 85 Resp 24 B/P (MAP) 164/78 164/78 165/78 (107) 138/74 (95) Pulse Ox 95 94 O2 Delivery Room Air Room Air 12/16/18 12/16/18 12/16/18 12/16/18 19:54 20:21 20:22 23:10 Temp 99.0 99.0 Pulse 85 85 81 Resp 22 B/P (MAP) 138/74 138/74 173/93 (119) Pulse Ox 97 O2 Delivery Room Air Room Air 12/17/18 12/17/18 12/17/18 12/17/18 03:45 07:25 08:00 08:53 Temp 98.9 98.5 98.9 98.5 Pulse 89 90 Resp 18 24 20 B/P (MAP) 176/90 (118) 149/84 (105) Pulse Ox 97 97 O2 Delivery Room Air Room Air Room Air Room Air 12/17/18 12/17/18 12/17/18 08:54 08:54 11:12 Temp 98.9 98.9 Pulse 95 95 84 Resp 28 B/P (MAP) 149/84 149/84 131/76 (94) Pulse Ox 98 O2 Delivery Room Air Intake and Output 12/16/18 12/16/18 12/17/18 14:59 22:59 06:59 Intake Total 240 ml Balance 240 ml Nutrition Consultation Dietary Evaluation: Recommendations by RD: Dietary education by RD, Protein supplementation Comments: Continue w/diet as ordered (cardiac w/glucerna TID) Provided post-CABG diet education, RD available [phone] for additional education/questions as needed Expected Outcomes/Goals: PO intake to meet >75% est needs - met, goal ongoing Malnutrition Findings: Body Fat Depletion (Non Severe: Mild Depletion Weight Status: Appropriate CASTLE,NIAL K III DO Dec 17, 2018 11:34
--- NOTE | 2018-12-17 12:30 | NUR ---
Pgd and spoke to cardiothoracic surgeon. OK to discharge home. Scripts are written and in chart.
--- NOTE | 2018-12-17 12:39 | PDOC ---
PROGRESS NOTES Subjective Subjective Patient seen and examined Objective Objective Vital Signs Date Time Temp Pulse Resp B/P (MAP) Pulse Ox O2 Delivery O2 Flow Rate FiO2 12/17/18 11:12 98.9 84 28 131/76 (94) 98 Room Air 98.9 12/14/18 05:24 1.0 Intake and Output 12/17/18 07:00 Intake Total 240 ml Balance 240 ml Intake Oral 240 ml # Voids 1 Physical Exam Abdomen: Normal bowel sounds Heart: Regular rate General: No acute distress Lungs: Clear to auscultation Assessment Assessment Problems Medical Problems: (1) Chest pain Status: Acute 1. 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 Increase activity. Home later today with follow-up with CV surgery. 2. Post op anemia: stable at Hgb 8.4 3. ICM: EF 45% 4. Tobaccoism/ Marijuana use; discussed/encouraged cessation 5. HTN: continue present treatment Comment Review of Relevant I have reviewed the following items livan (where applicable) has been applied. Labs Laboratory Tests Test 12/16/18 03:30 12/17/18 08:50 White Blood Count 8.7 x10^3/uL (4.0-11.0) 12.9 x10^3/uL (4.0-11.0) Red Blood Count 2.50 x10^6/uL (4.30-5.70) 2.90 x10^6/uL (4.30-5.70) Hemoglobin 8.4 g/dL (13.0-17.5) 9.6 g/dL (13.0-17.5) Hematocrit 24.5 % (39.0-53.0) 28.1 % (39.0-53.0) Mean Corpuscular Volume 98 fL (79-100) 97 fL (79-100) Mean Corpuscular Hemoglobin 33 pg (25-35) 33 pg (25-35) Mean Corpuscular Hemoglobin Concent 34 g/dL (31-37) 34 g/dL (31-37) Red Cell Distribution Width 12.7 % (11.5-14.5) 12.6 % (11.5-14.5) Platelet Count 90 x10^3/uL (140-400) 155 x10^3/uL (140-400) Sodium Level 134 mmol/L (136-145) 135 mmol/L (136-145) Potassium Level 4.3 mmol/L (3.5-5.1) 4.4 mmol/L (3.5-5.1) Chloride Level 99 mmol/L (98-107) 99 mmol/L (98-107) Carbon Dioxide Level 29 mmol/L (21-32) 27 mmol/L (21-32) Anion Gap 6 (6-14) 9 (6-14) Blood Urea Nitrogen 17 mg/dL (8-26) 15 mg/dL (8-26) Creatinine 1.2 mg/dL (0.7-1.3) 1.1 mg/dL (0.7-1.3) Estimated GFR (Cockcroft-Gault) 61.3 67.8 Glucose Level 129 mg/dL (70-99) 135 mg/dL (70-99) Calcium Level 8.2 mg/dL (8.5-10.1) 8.6 mg/dL (8.5-10.1) Magnesium Level 2.1 mg/dL (1.8-2.4) Neutrophils (%) (Auto) 81 % (31-73) Lymphocytes (%) (Auto) 11 % (24-48) Monocytes (%) (Auto) 7 % (0-9) Eosinophils (%) (Auto) 0 % (0-3) Basophils (%) (Auto) 0 % (0-3) Neutrophils # (Auto) 10.4 x10^3uL (1.8-7.7) Lymphocytes # (Auto) 1.5 x10^3/uL (1.0-4.8) Monocytes # (Auto) 0.9 x10^3/uL (0.0-1.1) Eosinophils # (Auto) 0.0 x10^3/uL (0.0-0.7) Basophils # (Auto) 0.0 x10^3/uL (0.0-0.2) BUN/Creatinine Ratio 14 (6-20) Total Bilirubin 1.1 mg/dL (0.2-1.0) Aspartate Amino Transf (AST/SGOT) 16 U/L (15-37) Alanine Aminotransferase (ALT/SGPT) 15 U/L (16-63) Alkaline Phosphatase 62 U/L (46-116) Total Protein 7.1 g/dL (6.4-8.2) Albumin 3.1 g/dL (3.4-5.0) Albumin/Globulin Ratio 0.8 (1.0-1.7) Laboratory Tests Test 12/17/18 08:50 White Blood Count 12.9 x10^3/uL (4.0-11.0) Red Blood Count 2.90 x10^6/uL (4.30-5.70) Hemoglobin 9.6 g/dL (13.0-17.5) Hematocrit 28.1 % (39.0-53.0) Mean Corpuscular Volume 97 fL (79-100) Mean Corpuscular Hemoglobin 33 pg (25-35) Mean Corpuscular Hemoglobin Concent 34 g/dL (31-37) Red Cell Distribution Width 12.6 % (11.5-14.5) Platelet Count 155 x10^3/uL (140-400) Neutrophils (%) (Auto) 81 % (31-73) Lymphocytes (%) (Auto) 11 % (24-48) Monocytes (%) (Auto) 7 % (0-9) Eosinophils (%) (Auto) 0 % (0-3) Basophils (%) (Auto) 0 % (0-3) Neutrophils # (Auto) 10.4 x10^3uL (1.8-7.7) Lymphocytes # (Auto) 1.5 x10^3/uL (1.0-4.8) Monocytes # (Auto) 0.9 x10^3/uL (0.0-1.1) Eosinophils # (Auto) 0.0 x10^3/uL (0.0-0.7) Basophils # (Auto) 0.0 x10^3/uL (0.0-0.2) Sodium Level 135 mmol/L (136-145) Potassium Level 4.4 mmol/L (3.5-5.1) Chloride Level 99 mmol/L (98-107) Carbon Dioxide Level 27 mmol/L (21-32) Anion Gap 9 (6-14) Blood Urea Nitrogen 15 mg/dL (8-26) Creatinine 1.1 mg/dL (0.7-1.3) Estimated GFR (Cockcroft-Gault) 67.8 BUN/Creatinine Ratio 14 (6-20) Glucose Level 135 mg/dL (70-99) Calcium Level 8.6 mg/dL (8.5-10.1) Total Bilirubin 1.1 mg/dL (0.2-1.0) Aspartate Amino Transf (AST/SGOT) 16 U/L (15-37) Alanine Aminotransferase (ALT/SGPT) 15 U/L (16-63) Alkaline Phosphatase 62 U/L (46-116) Total Protein 7.1 g/dL (6.4-8.2) Albumin 3.1 g/dL (3.4-5.0) Albumin/Globulin Ratio 0.8 (1.0-1.7) Microbiology 12/08/18 Urine Culture - Final, Complete 12/08/18 Urine Culture Result 1 (JUAN) - Final, Complete Medications Current Medications Aspirin (Children'S Aspirin) 324 mg 1X ONCE PO Last administered on 12/08/18at 11:54; Start 12/08/18 at 11:30; Stop 12/08/18 at 11:47; Status DC Nitroglycerin (Nitrostat) 0.4 mg PRN Q5MIN PRN SL CP RATING > 1/10 Last administered on 12/08/18at 11:57; Start 12/08/18 at 11:30; Stop 12/09/18 at 11:29 ; Status DC Sodium Chloride 1,000 ml @ 1,000 mls/hr Q1H IV Last administered on 12/08/18at 11:56; Start 12/08/18 at 11:23; Stop 12/08/18 at 12:22; Status DC Ondansetron HCl (Zofran) 4 mg PRN Q8HRS PRN IV NAUSEA/VOMITING; Start 12/08/18 at 13:45; Stop 12/09/18 at 13:44; Status DC Morphine Sulfate (Morphine Sulfate) 4 mg PRN Q2HR PRN IV PAIN; Start 12/08/18 at 13:45; Stop 12/09/18 at 13:44; Status DC Nitroglycerin (Nitrostat) 0.4 mg PRN Q5MIN PRN SL CHEST PAIN; Start 12/08/18 at 13:45; Stop 12/09/18 at 13:44; Status DC Influenza Virus Vaccine (Afluria Trivalent [id number] Syringe) 0.5 ml ONCE ONCE VAX IM Last administered on 12/08/18at 18:32; Start 12/08/18 at 18:00; Stop at 18:01; Status DC Enoxaparin Sodium (Lovenox Per Pharmacy Prophylaxis Dosing) 1 each PRN DAILY PRN MC SEE COMMENTS; Start 12/08/18 at 17:15; Stop 12/12/18 at 14:01; Status DC Enoxaparin Sodium (Lovenox 40mg Syringe) 40 mg Q24H SQ Last administered on at 21:55; Start 12/08/18 at 21:00; Stop 12/12/18 at 14:01; Status DC Iodixanol (Visipaque 320) 100 ml STK-MED ONCE .ROUTE ; Start 12/09/18 at 10:49; Stop 12/09/18 at 10:50; Status DC Lidocaine HCl (Lidocaine 1% 20ml Vial) 20 ml STK-MED ONCE .ROUTE ; Start at 10:49; Stop 12/09/18 at 10:50; Status DC Heparin Sodium/ Sodium Chloride 1,000 ml @ As Directed STK-MED ONCE .ROUTE ; Start 12/09/18 at 10:49; Stop 12/09/18 at 10:50; Status DC Heparin Sodium/ Sodium Chloride (HEPARIN for ARTERIAL LINE FLUSH) 1,000 unit 1X ONCE IART Last administered on 12/09/18at 11:15; Start 12/09/18 at 11:15; Stop 12/09/18 at 11:16; Status DC Midazolam HCl (Versed) 2 mg 1X ONCE IV Last administered on 12/09/18at 11:15; Start 12/09/18 at 11:15; Stop 12/09/18 at 11:16; Status DC Fentanyl Citrate (Fentanyl 2ml Vial) 100 mcg 1X ONCE IV Last administered on 11:15; Start 12/09/18 at 11:15; Stop 12/09/18 at 11:16; Status DC Iodixanol (Visipaque 320) 100 ml 1X ONCE IART Last administered on 12/09/18at 11:15; Start 12/09/18 at 11:15; Stop 12/09/18 at 11:16; Status DC Lidocaine HCl (Lidocaine 1% 20ml Vial) 20 ml 1X ONCE INJ Last administered on 12/09/18at 11:15; Start 12/09/18 at 11:15; Stop 12/09/18 at 11:16; Status DC Fentanyl Citrate (Fentanyl 2ml Vial) 100 mcg STK-MED ONCE .ROUTE ; Start at 11:05; Stop 12/09/18 at 11:06; Status DC Midazolam HCl (Versed) 2 mg STK-MED ONCE .ROUTE ; Start 12/09/18 at 11:05; Stop 12/09/18 at 11:06; Status DC Heparin Sodium (Porcine) (Heparin Sodium) 10,000 unit STK-MED ONCE .ROUTE ; Start 12/09/18 at 12:02; Stop 12/09/18 at 12:03; Status DC Heparin Sodium (Porcine) (Heparin Sodium) 1,000 unit 1X ONCE IV Last administered on 12/09/18at 12:14; Start 12/09/18 at 12:15; Stop 12/09/18 at 12:16 ; Status DC Iodixanol (Visipaque 320) 100 ml STK-MED ONCE .ROUTE ; Start 12/09/18 at 12:10; Stop 12/09/18 at 12:11; Status DC Sodium Chloride (Normal Saline Flush) 3 ml QSHIFT PRN IV AFTER MEDS AND BLOOD DRAWS; Start 12/09/18 at 12:45; Stop 12/15/18 at 09:02; Status DC Sodium Chloride 1,000 ml @ 75 mls/hr [id number] IV ; Start 12/09/18 at 12:41; Stop 12/09/18 at 18:40; Status DC Nitroglycerin (Nitrostat) 0.4 mg PRN Q5MIN PRN SL CHEST PAIN; Start 12/09/18 at 12:45; Stop 12/13/18 at 13:09; Status DC Tizanidine HCl (Zanaflex) 4 mg PRN Q8HRS PRN PO MUSCLE SPASMS Last administered on 12/16/18at 05:48; Start 12/09/18 at 14:30 Tramadol HCl (Ultram) 50 mg PRN Q8HRS PRN PO MILD PAIN Last administered on at 18:37; Start 12/09/18 at 20:45 Atorvastatin Calcium (Lipitor) 40 mg QHS PO Last administered on 12/16/18at 20:21 ; Start 12/10/18 at 21:00 Carvedilol (Coreg) 3.125 mg BIDWMEALS PO Last administered on 12/15/18at 17:00; Start 12/10/18 at 18:00; Stop 12/16/18 at 07:54; Status DC Lisinopril (Prinivil) 5 mg DAILY PO Last administered on 12/12/18at 09:08; Start 12/11/18 at 09:00; Stop 12/12/18 at 14:01; Status DC Cefazolin Sodium/ Dextrose 50 ml @ 100 mls/hr 1X ONCE IV Last administered on 12/13/18at 08:09; Start 12/13/18 at 06:00; Stop 12/13/18 at 06:29; Status DC Potassium Chloride 70 meq/ Sodium Bicarbonate 12.5 meq/Lidocaine HCl 24 ml/ Parenteral Electrolytes 571.5 ml @ 571.5 mls/ hr 1X ONCE IRR ; Start 12/13/18 at 06:00; Stop 12/13/18 at 06:59; Status DC Potassium Chloride 15 meq/ Sodium Bicarbonate 12.5 meq/Parenteral Electrolytes 520 ml @ 520 mls/hr 1X ONCE IRR ; Start 12/13/18 at 06:00; Stop 12/13/18 at 06 :59; Status DC Heparin Sodium (Porcine) 38186 unit/Ringer's Solution 1,020 ml @ 1,020 mls/hr 1X ONCE IRR Last administered on 12/13/18at 09:07; Start 12/13/18 at 06:00; Stop 12/13/18 at 06:59; Status DC Vancomycin HCl (VANCO for OR ONLY) 10 gm 1X ONCE CEMENT ; Start 12/13/18 at 08: 00; Stop 12/13/18 at 08:01; Status DC Prochlorperazine Edisylate (Compazine) 5 mg PACU PRN PRN IV NAUSEA, MRX1; Start 12/13/18 at 07:00; Stop 12/14/18 at 06:59; Status DC Hydromorphone HCl (Dilaudid) 0.5 mg PRN Q10MIN PRN IV SEV PAIN, Second choice; Start 12/13/18 at 07:00; Stop 12/14/18 at 06:59; Status DC Lidocaine HCl (Xylocaine-Mpf 1% 2ml Vial) 2 ml PRN 1X PRN ID IV START; Start at 07:00; Stop 12/14/18 at 06:59; Status DC Ringer's Solution 1,000 ml @ 30 mls/hr Q24H IV Last administered on 12/13/18at 09:07; Start 12/13/18 at 07:00; Stop 12/13/18 at 13:26; Status DC Morphine Sulfate (Morphine Sulfate) 1 mg PRN Q10MIN PRN IV SEVERE PAIN; Start 12/13/18 at 07:00; Stop 12/14/18 at 06:59; Status DC Fentanyl Citrate (Fentanyl 2ml Vial) 50 mcg PRN Q5MIN PRN IV MODERATE TO SEVERE PAIN; Start 12/13/18 at 07:00; Stop 12/14/18 at 06:59; Status DC Fentanyl Citrate (Fentanyl 2ml Vial) 25 mcg PRN Q5MIN PRN IV MILD PAIN; Start 12/13/18 at 07:00; Stop 12/14/18 at 06:59; Status DC Ondansetron HCl (Zofran) 4 mg PRN Q6HRS PRN IV NAUSEA/VOMITING; Start 12/13/18 at 07:00; Stop 12/14/18 at 06:59; Status DC Etomidate (Amidate) 20 mg STK-MED ONCE IV ; Start 12/13/18 at 06:27; Stop at 06:28; Status DC Sufentanil Citrate (Sufenta) 250 mcg STK-MED ONCE .ROUTE ; Start 12/13/18 at 06: 27; Stop 12/13/18 at 06:28; Status DC Midazolam HCl (Versed) 5 mg STK-MED ONCE .ROUTE ; Start 12/13/18 at 06:28; Stop 12/13/18 at 06:29; Status DC Lidocaine HCl (Lidocaine Pf 2% Vial) 5 ml STK-MED ONCE .ROUTE ; Start 12/13/18 at 06:28; Stop 12/13/18 at 06:29; Status DC Etomidate (Amidate) 20 mg STK-MED ONCE IV ; Start 12/13/18 at 06:28; Stop at 06:29; Status DC Phenylephrine HCl (Satinder-Synephrine Inj) 10 mg STK-MED ONCE .ROUTE ; Start at 06:28; Stop 12/13/18 at 06:29; Status DC Phenylephrine HCl (Satinder-Synephrine Inj) 10 mg STK-MED ONCE .ROUTE ; Start at 06:28; Stop 12/13/18 at 06:29; Status DC Phenylephrine HCl (Satinder-Synephrine Inj) 10 mg STK-MED ONCE .ROUTE ; Start at 06:29; Stop 12/13/18 at 06:30; Status DC Ephedrine Sulfate (Akovaz) 50 mg STK-MED ONCE .ROUTE ; Start 12/13/18 at 06:29; Stop 12/13/18 at 06:30; Status DC Ephedrine Sulfate (Akovaz) 50 mg STK-MED ONCE .ROUTE ; Start 12/13/18 at 06:29; Stop 12/13/18 at 06:30; Status DC Aminocaproic Acid (Amicar) 5,000 mg STK-MED ONCE IV ; Start 12/13/18 at 06:30; Stop 12/13/18 at 06:31; Status DC Aminocaproic Acid (Amicar) 5,000 mg STK-MED ONCE IV ; Start 12/13/18 at 06:30; Stop 12/13/18 at 06:31; Status DC Aminocaproic Acid (Amicar) 5,000 mg STK-MED ONCE IV ; Start 12/13/18 at 06:30; Stop 12/13/18 at 06:32; Status DC Nitroglycerin/ Dextrose 250 ml @ As Directed STK-MED ONCE IV ; Start 12/13/18 at 06:30; Stop 12/13/18 at 06:33; Status DC Vancomycin HCl (VANCO for OR ONLY) 10 gm STK-MED ONCE .ROUTE Last administered on 12/13/18at 09:06; Start 12/13/18 at 06:41; Stop 12/13/18 at 06:42; Status DC Cellulose (Surgicel Hemostat 4x8) 1 each STK-MED ONCE .ROUTE Last administered on 12/13/18at 09:06; Start 12/13/18 at 06:41; Stop 12/13/18 at 06:42; Status DC Papaverine HCl 60 mg STK-MED ONCE .ROUTE Last administered on 12/13/18at 09:05; Start 12/13/18 at 06:41; Stop 12/13/18 at 06:42; Status DC Aspirin (Aspirin) 300 mg STK-MED ONCE .ROUTE Last administered on 12/13/18at 09: 05; Start 12/13/18 at 06:41; Stop 12/13/18 at 06:43; Status DC Cellulose (Surgicel Hemostat 4x8) 1 each STK-MED ONCE .ROUTE ; Start 12/13/18 at 06:41; Stop 12/13/18 at 06:43; Status DC Sodium Chloride (SODIUM CHLORIDE 20ml) 20 ml STK-MED ONCE IJ Last administered on 12/13/18at 09:04; Start 12/13/18 at 06:42; Stop 12/13/18 at 06:43; Status DC Sodium Chloride (SODIUM CHLORIDE 20ml) 20 ml STK-MED ONCE IJ Last administered on 12/13/18at 09:04; Start 12/13/18 at 06:43; Stop 12/13/18 at 06:44; Status DC Sodium Chloride (SODIUM CHLORIDE 20ml) 20 ml STK-MED ONCE IJ Last administered on 12/13/18at 09:04; Start 12/13/18 at 06:43; Stop 12/13/18 at 06:44; Status DC Cefazolin Sodium 1 gm/Sodium Chloride 500 ml @ 500 mls/hr 1X ONCE IRR Last administered on 12/13/18at 09:06; Start 12/13/18 at 08:00; Stop 12/13/18 at 08:59 ; Status DC Rocuronium [place] (Zemuron) 100 mg STK-MED ONCE .ROUTE ; Start 12/13/18 at 08: 21; Stop 12/13/18 at 08:22; Status DC Protamine Sulfate (Protamine) 250 mg STK-MED ONCE IV ; Start 12/13/18 at 11:06; Stop 12/13/18 at 11:07; Status DC Cefazolin Sodium/ Dextrose 50 ml @ As Directed STK-MED ONCE IV ; Start 12/13/18 at 11:17; Stop 12/13/18 at 11:18; Status DC Nicardipine HCl 50 mg/Sodium Chloride 250 ml @ 25 mls/hr CONT PRN IV SEE I/O RECORD Last administered on 12/14/18at 01:33; Start 12/13/18 at 13:00; Stop 12/15 at 09:54; Status DC Amiodarone HCl 150 mg/Dextrose 103 ml @ 618 mls/hr 1X ONCE IV Last administered on 12/13/18at 12:52; Start 12/13/18 at 13:00; Stop 12/13/18 at 13:09 ; Status DC Amiodarone HCl 900 mg/Dextrose 518 ml @ 33 mls/hr CONT PRN IV SEE I/O RECORD Last administered on 12/13/18at 12:52; Start 12/13/18 at 13:00; Stop 12/13/18 at 13:00; Status DC Magnesium Sulfate 5 gm STK-MED ONCE .ROUTE ; Start 12/13/18 at 11:33; Stop 12/13 at 11:34; Status DC Heparin Sodium (Porcine) 30,000 unit STK-MED ONCE .ROUTE ; Start 12/13/18 at 11: 33; Stop 12/13/18 at 11:34; Status DC Mannitol (Mannitol) 12.5 g STK-MED ONCE .ROUTE ; Start 12/13/18 at 11:33; Stop 12/13/18 at 11:34; Status DC Mannitol (Mannitol) 12.5 g STK-MED ONCE .ROUTE ; Start 12/13/18 at 11:33; Stop 12/13/18 at 11:34; Status DC Mannitol (Mannitol) 12.5 g STK-MED ONCE .ROUTE ; Start 12/13/18 at 11:33; Stop 12/13/18 at 11:34; Status DC Albumin Human 100 ml @ As Directed STK-MED ONCE IV ; Start 12/13/18 at 11:33; Stop 12/13/18 at 11:34; Status DC Calcium Chloride (Calcium Chloride) 1,000 mg STK-MED ONCE .ROUTE ; Start at 11:33; Stop 12/13/18 at 11:34; Status DC Calcium Chloride (Calcium Chloride) 1,000 mg STK-MED ONCE .ROUTE ; Start at 11:33; Stop 12/13/18 at 11:34; Status DC Lidocaine HCl (Lidocaine Pf 2% Vial) 5 ml STK-MED ONCE .ROUTE ; Start 12/13/18 at 11:33; Stop 12/13/18 at 11:34; Status DC Isoflurane (Isoflurane) 90 ml STK-MED ONCE IH ; Start 12/13/18 at 11:34; Stop at 11:35; Status DC Rocuronium [place] (Zemuron) 50 mg STK-MED ONCE .ROUTE ; Start 12/13/18 at 11:54 ; Stop 12/13/18 at 11:55; Status DC Albumin Human 500 ml @ As Directed STK-MED ONCE IV ; Start 12/13/18 at 12:00; Stop 12/13/18 at 12:01; Status DC Sodium Chloride (Normal Saline Flush) 3 ml PRN Q12HR PRN IV AFTER MEDS AND BLOOD DRAWS; Start 12/13/18 at 13:00 Ringer's Solution 1,000 ml @ 30 mls/hr Q24H IV Last administered on 12/14/18at 12:55; Start 12/13/18 at 12:55; Stop 12/15/18 at 13:15; Status DC Albumin Human 250 ml @ 500 mls/hr PRN Q4HRS PRN IV SEE COMMENTS Last administered on 12/14/18at 20:48; Start 12/13/18 at 13:00; Stop 12/15/18 at 09:54 ; Status DC Insulin Human Regular 150 unit/ Sodium Chloride 151.5 ml @ 0 mls/hr CONT PRN PRN IV PER PROTOCOL Last administered on 12/13/18at 18:52; Start 12/13/18 at 13: 00; Stop 12/15/18 at 09:54; Status DC Dextrose (Dextrose 50%-Water Syringe) 25 gm PRN Q15MIN PRN IV LOW BLOOD SUGAR; Start 12/13/18 at 13:00; Stop 12/15/18 at 09:54; Status DC Nitroglycerin/ Dextrose 250 ml @ 0 mls/hr CONT PRN PRN IV POST CV SURGERY; Start 12/13/18 at 13:00; Stop 12/15/18 at 09:54; Status DC Phenylephrine HCl 20 mg/Sodium Chloride 252 ml @ 0 mls/hr CONT PRN PRN IV HYPOTENSION; Start 12/13/18 at 13:00; Stop 12/15/18 at 09:54; Status DC Amiodarone HCl 150 mg/Dextrose 103 ml @ 600 mls/hr 1X ONCE IV ; Start at 13:00; Stop 12/13/18 at 13:08; Status DC Amiodarone HCl 150 mg/Dextrose 103 ml @ 200 mls/hr 1X PRN PRN IV FOR AFIB; Start 12/13/18 at 13:00; Stop 12/15/18 at 09:54; Status DC Amiodarone HCl 900 mg/Dextrose 518 ml @ 0 mls/hr CONT PRN PRN IV AFIB; Start at 13:00; Stop 12/14/18 at 18:00; Status DC Info (KCl Per Protocol) 1 ea CONT PRN PRN MC SEE COMMENTS; Start 12/13/18 at 13 :00; Stop 12/15/18 at 09:54; Status DC Magnesium Sulfate/ Dextrose 100 ml @ 100 mls/hr PRN DAILY PRN IV FOR MAG < 2.2 ; Start 12/13/18 at 13:00; Stop 12/15/18 at 09:54; Status DC Famotidine (Pepcid Vial) 20 mg BID IVP Last administered on 12/15/18at 08:29; Start 12/13/18 at 21:00; Stop 12/15/18 at 09:54; Status DC Ondansetron HCl (Zofran) 4 mg PRN Q4HRS PRN IV NAUSEA/VOMITING, 1st CHOICE Last administered on 12/14/18at 14:46; Start 12/13/18 at 13:00 Prochlorperazine Edisylate (Compazine) 10 mg PRN Q6HRS PRN IV NAUSEA/VOMITING, 2nd CHOICE; Start 12/13/18 at 13:00 Metoclopramide HCl (Reglan Vial) 10 mg PRN Q6HRS PRN IV NAUSEA/VOMITING, 3rd CHOICE; Start 12/13/18 at 13:00 Morphine Sulfate (Morphine Sulfate) 2 mg PRN Q1HR PRN IV PAIN Last administered on 12/14/18at 14:44; Start 12/13/18 at 13:00 Morphine Sulfate (Morphine Sulfate) 4 mg PRN Q1HR PRN IV SEVERE PAIN Last administered on 12/13/18at 15:28; Start 12/13/18 at 13:00; Stop 12/15/18 at 09:54 ; Status DC Acetaminophen (Tylenol) 650 mg PRN Q4HRS PRN PO TEMP > 101'F or PAIN Last administered on 12/14/18at 23:41; Start 12/13/18 at 13:00 Acetaminophen (Tylenol Supp) 650 mg PRN Q4HRS PRN [place] TEMP > 101'F or MILD PAIN ; Start 12/13/18 at 13:00; Stop 12/15/18 at 09:54; Status DC Meperidine HCl (Demerol) 12.5 mg PRN Q15MIN PRN IV SHIVERING; Start 12/13/18 at 13:00; Stop 12/14/18 at 12:55; Status DC Propofol 100 ml @ 0 mls/hr CONT PRN PRN IV POSTOP SEDATION UNTIL EXTUBATE Last administered on 12/13/18at 13:36; Start 12/13/18 at 13:00; Stop 12/14/18 at 21:13 ; Status DC Senna/Docusate Sodium (Senna Plus) 1 tab BID PO Last administered on 12/17/18 08:54; Start 12/13/18 at 21:00 Bisacodyl (Dulcolax Supp) 10 mg PRN DAILY PRN [place] NO BOWEL MOVEMENT; Start 12/13 at 13:00; Stop 12/15/18 at 09:54; Status DC Chlorhexidine Gluconate (Peridex) 15 ml BID MM ; Start 12/14/18 at 09:00; Stop 12/14/18 at 21:13; Status DC Aspirin (Ecotrin) 325 mg DAILYWBKFT PO Last administered on 12/17/18at 08:54; Start 12/14/18 at 08:00 Aspirin (Aspirin) 300 mg PRN DAILY PRN [place] IF UNABLE TO TAKE PO; Start 12/14/18 at 08:00; Stop 12/15/18 at 09:54; Status DC Albuterol Sulfate (Ventolin Neb Soln) 2.5 mg PRN Q4HRS PRN NEB SHORTNESS OF BREATH Last administered on 12/13/18at 19:54; Start 12/13/18 at 13:00 Metoprolol Tartrate (Lopressor) 25 mg BID PO Last administered on 12/15/18at 21: 05; Start 12/14/18 at 09:00; Stop 12/16/18 at 07:54; Status DC Nicardipine HCl 50 mg/Sodium Chloride 250 ml @ 0 mls/hr CONT PRN PRN IV PER PROTOCOL; Start 12/13/18 at 13:00; Stop 12/13/18 at 17:01; Status DC Oxycodone HCl (Roxicodone) 5 mg PRN Q4HRS PRN PO MODERATE PAIN Last administered on 12/17/18at 08:53; Start 12/13/18 at 13:00 Oxycodone HCl (Roxicodone) 10 mg PRN Q4HRS PRN PO SEVERE PAIN Last administered on 12/14/18at 09:23; Start 12/13/18 at 13:00 Cefazolin Sodium/ Dextrose 50 ml @ 100 mls/hr Q8H IV ; Start 12/13/18 at 16:00 ; Stop 12/13/18 at 17:01; Status DC Sodium Bicarbonate (Sodium Bicarb Adult 8.4% Syr) 50 meq 1X ONCE IV Last administered on 12/13/18at 13:28; Start 12/13/18 at 13:15; Stop 12/13/18 at 13:38 ; Status DC Sodium Bicarbonate (Sodium Bicarb Adult 8.4% Syr) 50 meq 1X ONCE IV Last administered on 12/13/18at 13:28; Start 12/13/18 at 13:15; Stop 12/13/18 at 13:38 ; Status DC Sodium Bicarbonate (Sodium Bicarb Adult 8.4% Syr) 50 meq STK-MED ONCE .ROUTE ; Start 12/13/18 at 13:24; Stop 12/13/18 at 13:25; Status DC Potassium Chloride/Water 50 ml @ 50 mls/hr Q1H IV Last administered on at 15:09; Start 12/13/18 at 14:00; Stop 12/13/18 at 15:59; Status DC Cefazolin Sodium/ Dextrose 50 ml @ 100 mls/hr Q8H IV Last administered on 12/15at 02:40; Start 12/13/18 at 19:00; Stop 12/15/18 at 03:29; Status DC Amiodarone HCl (Cordarone) 200 mg BID PO Last administered on 12/17/18at 08:54; Start 12/14/18 at 14:00 Magnesium Sulfate/ Dextrose 100 ml @ 100 mls/hr 1X ONCE IV Last administered on 12/15/18at 06:27; Start 12/15/18 at 07:00; Stop 12/15/18 at 07:59; Status DC Potassium Chloride/Water 50 ml @ 50 mls/hr 1X ONCE IV Last administered on at 08:43; Start 12/15/18 at 07:30; Stop 12/15/18 at 08:29; Status DC Carvedilol (Coreg) 12.5 mg BIDWMEALS PO ; Start 12/16/18 at 08:00; Stop 12/16/18 at 10:57; Status DC Labetalol HCl (Normodyne Iv Push) 20 mg PRN Q2HR PRN IVP HYPERTENSION, SEE COMMENTS; Start 12/16/18 at 11:00 Metoprolol Tartrate (Lopressor) 25 mg BID PO Last administered on 12/17/18at 08: 54; Start 12/16/18 at 11:30 Active Scripts Active Oxycodone Hcl Immed.release (Oxycodone Hcl) 5 Mg Tablet 5 Mg PO PRN Q6HRS PRN Aspirin Ec (Aspirin) 325 Mg Tablet. 325 Mg PO [id number] Metoprolol Tartrate 25 Mg Tablet 25 Mg PO BID 50 Days Atorvastatin Calcium 40 Mg Tablet 40 Mg PO QHS 90 Days Vitals/I & O Vital Sign - Last 24 Hours 12/16/18 12/16/18 12/16/18 12/16/18 12:44 12:44 15:00 19:20 Temp 98.1 99.0 98.1 99.0 Pulse 92 91 82 85 Resp 24 B/P (MAP) 164/78 164/78 165/78 (107) 138/74 (95) Pulse Ox 95 94 O2 Delivery Room Air Room Air 12/16/18 12/16/18 12/16/18 12/16/18 19:54 20:21 20:22 23:10 Temp 99.0 99.0 Pulse 85 85 81 Resp 22 B/P (MAP) 138/74 138/74 173/93 (119) Pulse Ox 97 O2 Delivery Room Air Room Air 12/17/18 12/17/18 12/17/18 12/17/18 03:45 07:25 08:00 08:53 Temp 98.9 98.5 98.9 98.5 Pulse 89 90 Resp 18 24 20 B/P (MAP) 176/90 (118) 149/84 (105) Pulse Ox 97 97 O2 Delivery Room Air Room Air Room Air Room Air 12/17/18 12/17/18 12/17/18 12/17/18 08:54 08:54 09:53 11:12 Temp 98.9 98.9 Pulse 95 95 84 Resp 20 28 B/P (MAP) 149/84 149/84 131/76 (94) Pulse Ox 98 O2 Delivery Room Air Room Air Intake and Output 12/16/18 12/16/18 12/17/18 15:00 23:00 07:00 Intake Total 240 ml Balance 240 ml Nutrition Consultation Dietary Evaluation: Recommendations by RD: Dietary education by RD, Protein supplementation Comments: Continue w/diet as ordered (cardiac w/glucerna TID) Provided post-CABG diet education, RD available [phone] for additional education/questions as needed Expected Outcomes/Goals: PO intake to meet >75% est needs - met, goal ongoing Malnutrition Findings: Body Fat Depletion (Non Severe: Mild Depletion Weight Status: Appropriate RENETTA MORENO MD Dec 17, 2018 12:39
--- NOTE | 2018-12-17 13:57 | NUR ---
Provided patient with discharge education, medication list, prescriptions and follow up appointment. Patient verbalized understanding and signed discharged papers
--- NOTE | 2018-12-17 14:08 | DS ---
DATE OF DISCHARGE: 12/17/2018 ADMISSION DIAGNOSIS: Chest pain. DISCHARGE DIAGNOSIS: Postop day #4 multivessel coronary bypass surgery. CONSULTS: Saima Mcdonald MD and Anthony Collado MD. PROCEDURES: Two-vessel bypass, TAVARES to LAD and SVG to RPDA. HOSPITAL COURSE: The patient is a pleasant middle-aged male, who presented with chest pain. He was admitted. We consulted Cardiology, did a full cardiac workup including cardiac enzymes, EKGs and echo. It was discovered he has multivessel disease on cardiac catheterization by Dr. Collado. We then called Dr. Mcdonald. The patient was taken for bypass surgery Wednesday. This morning is postop day #4. He looks great. He wants to go home. We plan to discharge if okay with consultants. His heart tones this morning were normal. His lungs were clear. DISPOSITION: Home. ACTIVITY: As tolerated. DIET: Cardiac. MEDICATIONS: Please see the MRAD. TOTAL TIME: 34 minutes. JEREMY BARTLETT DO DR: BROOKLYN/tarik JOB#: [id number] / [id number]
== END 2018-12-17 13:58 | disposition home or self-care (01) | DRG 234 ==
LOC: ER 11:02 → 2 SOUTH 13:31 → 1 WEST ICU 12-13 09:07 → 2 NORTH 12-15 15:19
PROVIDERS: ADMIT Internal Medicine; ATTEND Internal Medicine
PROC: 4A023N7 Measurement of Cardiac Sampling and Pressure, Left Heart, Percutaneous Approach (ICD-10-PCS; 2018-12-09)
PROC: B2111ZZ Fluoroscopy of Multiple Coronary Arteries using Low Osmolar Contrast (ICD-10-PCS; 2018-12-09)
PROC: B2151ZZ Fluoroscopy of Left Heart using Low Osmolar Contrast (ICD-10-PCS; 2018-12-09)
PROC: 02100Z9 Bypass Coronary Artery, One Artery from Left Internal Mammary, Open Approach (ICD-10-PCS; 2018-12-13)
PROC: 06BQ4ZZ Excision of Left Saphenous Vein, Percutaneous Endoscopic Approach (ICD-10-PCS; 2018-12-13)
PROC: 5A1221Z Performance of Cardiac Output, Continuous (ICD-10-PCS; 2018-12-13)
PROC: 02HP32Z Insertion of Monitoring Device into Pulmonary Trunk, Percutaneous Approach (ICD-10-PCS; 2018-12-13)
PROC: 021009W Bypass Coronary Artery, One Artery from Aorta with Autologous Venous Tissue, Open Approach (ICD-10-PCS; principal; 2018-12-13 07:30)
DX: T82.855A Stenosis of coronary artery stent, initial encounter (principal); I25.110 Atherosclerotic heart disease of native coronary artery with unstable angina pectoris; Y83.8 Other surgical procedures as the cause of abnormal reaction of the patient, or of later complication, without mention of misadventure at the time of the procedure; F12.90 Cannabis use, unspecified, uncomplicated; I10 Essential (primary) hypertension; I25.5 Ischemic cardiomyopathy; E78.5 Hyperlipidemia, unspecified; J44.9 Chronic obstructive pulmonary disease, unspecified; D64.9 Anemia, unspecified; F17.210 Nicotine dependence, cigarettes, uncomplicated; G44.209 Tension-type headache, unspecified, not intractable; M19.90 Unspecified osteoarthritis, unspecified site; Y92.89 Other specified places as the place of occurrence of the external cause; Z82.49 Family history of ischemic heart disease and other diseases of the circulatory system; Z95.5 Presence of coronary angioplasty implant and graft
CPT/HCPCS: 36415; 36600; 71045; 71250; 80048; 80053; 80061; 80307; 81001; 82803; 82805; 82962; 83690; 83735; 83880; 84132; 84443; 84484; 85014; 85025; 85027; 85347; 85384; 85610; 85730; 86850; 86900; 86901; 86920; 87086; 87641; 90471; 90756; 93005; 93306; 93458; 93567; 93571; 93880; 93970; 94002; 94640; 96360; 99152; 99153; 99406; C1760; C1769; C1781; C1887; C1892; G0269; J0282; J0690; J0696; J1644; J1650; J1815; J2001; J2150; J2250; J2270; J2405; J2440; J2704; J3010; J3370; J3475; J3480; J3490; J7030; J7040; J7050; J7120; J7613; P9041; P9045; P9046; Q9967; 97116; 97530; 97535; 99285-25; C1771; Q2035

== ENCOUNTER 2020-11-25 22:40 | Emergency (ER) | payer SELFPAY ==
[~2020-11-25] VITALS: Ht 160 cm; Wt 56.8 kg
[~2020-11-25 22:40] MED LIST: ASPI-886 PO; ASPI325T11 PO; ATOR40TA59 PO; METO25TA4 PO; OXYC5TAB4 PO
[2020-11-25] MEDS ORDERED: IV NORMAL SALINE 1000ML BAG 1,000 ML IV ONE (23:00)
[2020-11-25] MEDS ORDERED: KETOROLAC 15 MG/ML VIAL. IVP ONE (23:00)
[2020-11-25] MEDS ORDERED: MIDAZOLAM HCL/PF 5 MG/5 ML VIAL. NS ONE (23:00)
[2020-11-25] MEDS ORDERED: KETAMINE HCL IN NACL, ISO-OSM 50 MG/5 ML SYRINGE IV ONE (23:00)
--- NOTE | 2020-11-25 23:02 | RAD ---
Exam: Left shoulder 2 views INDICATION: Left shoulder pain TECHNIQUE: Frontal and lateral views the left shoulder Comparisons: None FINDINGS: There is inferior/anterior dislocation of the humeral head at the glenohumeral joint. No acute fractu res seen. Soft tissues are unremarkable. Bone mineralization is normal. IMPRESSION: Glenohumeral dislocation is described above. No acute fractures seen. Recommend repeat imaging post r eduction to reassess. Electronically signed by: Ricardo Virgen MD (11/25/2020 11:00 PM) ISMAEL
--- NOTE | 2020-11-25 23:04 | PHYS DOC ---
Past Medical History Past Medical History: No Pertinent History Additional Past Medical Histor: poor historian Past Surgical History: Other Additional Past Surgical Histo: stents Smoking Status: Current Every Day Smoker Alcohol Use: Occasionally Drug Use: None General Adult EDM: Chief Complaint: MECHANICAL FALL HPI: HPI: 65-year-old male with history of triple-vessel CAD with CABG in 2019, takes daily aspirin and history of tobacco use, presents the ED with complaints of left shoulder pain after patient fell outside on icy road conditions. Patient states he landed on his left side/left shoulder. History of right shoulder dislocation. Only takes aspirin daily, no other medications. Denies hitting his head or loss of consciousness. Is not on any anticoagulants. Ambulated after the event. No family history of connective tissue disorders, Marfan's or Autumn-Danlos. Review of Systems: Review of Systems: Constitutional: Denies fever or chills. [] Eyes: Denies change in visual acuity. [] HENT: Denies nasal congestion or sore throat. [] Respiratory: Denies cough or shortness of breath. [] Cardiovascular: Denies chest pain or edema. [] GI: Denies abdominal pain, nausea, vomiting, bloody stools or diarrhea. [] : Denies dysuria. [] Musculoskeletal: Denies back pain or CVA tenderness Integument: Denies rash. [] Neurologic: Denies headache, focal weakness or sensory changes. [] Endocrine: Denies polyuria or polydipsia. [] Lymphatic: Denies swollen glands. [] Psychiatric: Denies depression or anxiety. [] Heart Score: Risk Factors: Risk Factors: DM, Current or recent (<one month) smoker, HTN, HLP, family history of CAD, obesity. Risk Scores: Score 0 - 3: 2.5% MACE over next 6 weeks - Discharge Home Score 4 - 6: 20.3% MACE over next 6 weeks - Admit for Clinical Observation Score 7 - 10: 72.7% MACE over next 6 weeks - Early Invasive Strategies Current Medications: Current Medications Medications (Trade) Dose Ordered Sig/Jono Start Time Stop Time Status Last Admin Dose Admin Ketamine HCl (Ketamine) 110 mg 1X ONCE 11/25/20 23:00 11/25/20 23:01 DC Ketorolac Tromethamine (Toradol 15mg Vial) 15 mg 1X ONCE 11/25/20 23:00 11/25/20 23:01 DC Midazolam HCl (Versed) 2 mg 1X ONCE 11/25/20 23:00 11/25/20 23:01 DC Sodium Chloride 1,000 ml @ 1,000 mls/hr 1X ONCE 11/25/20 23:00 11/25/20 23:59 Allergies: Allergies: Allergies Coded Allergies Type Severity Reaction Last Updated Verified No Known Drug Allergies 12/08/18 No Physical Exam: PE: Constitutional: Well developed, well nourished, in active pain, ambulating into emergency department holding his left arm across to his chest, no alcohol on breath and is clinically sober with steady gait, short/petite stature HENT: Normocephalic, atraumatic, Mallampati 1, no midline neck pain, no signs of head trauma Eyes: Pupils equal reactive to light and accommodation, EOMI, conjunctiva normal, no discharge. Neck: normal range of motion, supple, noticeable hematoma Cardiovascular: S1/2 present, regular rhythm Lungs & Thorax: Speaking in full sentences, bilateral equal chest rise, no tachypnea or increased work of breathing Abdomen: soft, no tenderness, Skin: Warm, dry, no erythema, no rash. [] Back: No midline/spinal tenderness or step-offs, no CVA tenderness. [] Extremities: Normal axillary nerve sensation, anterior rounded left shoulder with ttp, equal radial pulses, cap refill less than 1 second Neurologic: Alert and oriented X 3, normal motor function, normal sensory function, no focal deficits noted. [] Psychologic: Affect normal, judgement normal, mood normal. [] EKG: EKG: [] Radiology/Procedures: Radiology/Procedures: IMAGING REPORT Signed PATIENT: SYLVIA SMITH ACCOUNT: [id number] : 1955 LOCATION: ER AGE: 65 SEX: M EXAM STATUS: PRE ER ORD. PHYSICIAN: EBONY MATHIS DO REASON: shoulder pain PROCEDURE: SHOULDER 2+V LEFT Exam: Left shoulder 2 views INDICATION: Left shoulder pain TECHNIQUE: Frontal and lateral views the left shoulder Comparisons: None FINDINGS: There is inferior/anterior dislocation of the humeral head at the glenohumeral joint. No acute fractures seen. Soft tissues are unremarkable. Bone mineralization is normal. IMPRESSION: Glenohumeral dislocation is described above. No acute fractures seen. Recommend repeat imaging post reduction to reassess. Electronically signed by: Ricardo Wells MD (11/25/2020 11:00 PM) [facility] DICTATED and SIGNED BY: RICARDO WELLS MD DATE: 11/25/20 [id number] IMAGING REPORT Signed PATIENT: SYLVIA SMITH ACCOUNT: [id number] : 1955 LOCATION: ER AGE: 65 SEX: M EXAM STATUS: REG ER ORD. PHYSICIAN: EBONY MATHIS DO REASON: s/p reduction PROCEDURE: SHOULDER 2+V LEFT XR SHOULDER_LEFT 2+ VIEWS 11/25/2020 12:02 AM INDICATION: Status post reduction COMPARISON: Left shoulder radiograph 11/25/2020 TECHNIQUE: 2 views left shoulder are provided. FINDINGS/ IMPRESSION: Interval reduction of the left glenohumeral joint without definite acute fracture visualized. Mild osteophytosis of the clavicular joint with inferiorly projecting osteophyte. No significant soft tissue abnormality. Electronically signed by: Radha Wiggins MD (11/26/2020 12:06 AM) [facility] DICTATED and SIGNED BY: RADHA WIGGINS MD DATE: 11/26/20 [id number] Indication: Joint dislocation Consent: Consent was obtained. Procedure: The pre-reduction exam showed distal perfusion and neurologic function to be normal.. The patient was placed in the appropriate position. Anesthesia/pain control Versed 4 mg and ketamine 90 mg. Reduction of the left anterior inferior shoulder was performed by myself and rn -traction countertraction, easily reduced. Post reduction films were obtained and revealed satisfactory reduction. A post-reduction exam revealed distal perfusion and neurologic function to be normal. The affected area was immobilized with left shoulder immobilizer. The patient tolerated the procedure well. Complications: none. Course & Med Decision Making: Course & Med Decision Making Pertinent Labs and Imaging studies reviewed. (See chart for details) Concern for accidental fall outside in icy weather conditions, landing on left shoulder with left anterior-inferior shoulder dislocation. Easily reduced with procedural sedation. On reeval patient has decision-making vastly with steady gait and is very grateful for his care. Will discharge home with strict ED return precautions were given for worsening shoulder pain, skin color changes, neurologic deficits or repeat injury. Encouraged urgent outpatient follow-up with PMD and orthopedic surgery as needed. Life-threatening processes were considered but are low suspicion at this time, given history, physical exam and ED workup. Pt was educated on all prescription medications and adverse effects. All patient's questions were answered and pt was stable at time of discharge. Life/limb-threatening differential includes but is not limited to, trauma (fracture, dislocation, laceration, compartment syndrome, tendon or ligament injury), neurovascular injury or deficit, infection (osteomyelitis, abscess, cellulitis, septic arthritis, necrotizing fasciitis), deep vein thrombosis, renal/cardiac/liver disease, medication adverse effect, lymphedema/anasarca, vascular insufficiency or malignancy, I spoken with the patient and her caregivers. I explained the patient's condition, diagnoses and treatment plan based on the information available to me at this time. I have answered the patient and her caregiver's questions and addressed any concerns. The patient and her caregivers have a good understanding of patient's diagnosis, condition and treatment plan as can be ex pected at this point. Vital signs have been stable. Patient's condition is stable and appropriate for discharge from the emergency department. Patient will pursue further outpatient evaluation with primary care physician or other designated or consulting physician as outlined in the discharge instructions. The patient and/or caregivers are agreeable to this plan of care and follow-up instructions have been explained in detail. The patient and/or caregivers have received these instructions in written form and have expressed an understanding of the discharge instructions. The patient and/or caregivers are aware that any significant change of condition or worsening of symptoms should prompt immediate return to this or the closest emergency department or call to 911. Marshall Disclaimer: Marshall Disclaimer: This electronic medical record was generated, in whole or in part, using a voice recognition dictation system. Departure Departure Impression: Primary Impression: Closed anterior dislocation of left shoulder Additional Impression: Fall from slipping on ice Disposition: 01 DC HOME SELF CARE/HOMELESS Condition: STABLE Referrals: UNKNOWN PCP NAME (PCP) FOLLOW UP WITH FAMILY MEDICINE: Family Medicine Address: [address] [place] [id number] Patient Instructions: Sedation, Moderate, Adult, Shoulder Dislocation, Shoulder Immobilizer Additional Instructions: FOLLOW UP WITH ORTHOPEDICS: Orthopaedic Sports Medicine Orthopaedic Surgery [facility] Address: [address] [facility], [address] [address] EMERGENCY DEPARTMENT GENERAL DISCHARGE INSTRUCTIONS Thank you for coming to [facility] Emergency Department (ED) today and trusting us with you care. We trust that you had a positive experience in our Emergency Department. If you wish to speak to the department management, you may call the Director at [phone]. YOUR FOLLOW UP INSTRUCTIONS ARE FOLLOWS: 1. Do you have a private Doctor? If you do not have a private doctor, please ask for a resource list of physicians or clinics that may be able to assist you with follow up care. 2. The Emergency Physicain has interpreted your x-rays. The X-Ray specialist will also review them. If there is a change in the findings, you will be notified in 48 hours when at all possible. 3. A lab test or culture has been done, your results will be reviewed and you will be notified if you need a change in treatment. ADDITIONAL INSTRUCTIONS AND INFORMATION: 1. Your care today has been supervised by a physician who is specially trained in emergency care. Many problems require more than one evaluation for a complete diagnosis and treatment. We recommend that you schedule your follow up appointment as recommended to ensure complete treatment of you illness or injury. If you are unable to obtain follow up care and continue to have a problem, or if your condition worsens, we recommend that you return to the ED. 2. We are not able to safely determine your condition over the phone nor are we able to give sound medical advice over the phone. For these safety reasons, if you call for medical advice we will ask you to come to the ED for further evaluation. 3. If you have any questions regarding these discharge instructions please call the ED at [phone]. SAFETY INFORMATION: In the interest of safety, wellness, and injury prevention; we encourage you to wear your sealbelt, if you smoke; quite smoking, and we encourage family to use a protective helmet for bicycling and other sporting events that present an increased risk for head injury. IF YOUR SYMPTOMS WORSEN OR NEW SYMPTOMS DEVELOP, OR YOU HAVE CONCERNS ABOUT YOUR CONDITION; OR IF YOUR CONDITION WORSENS WHILE YOU ARE WAITING FOR YOUR FOLLOW UP APPOINTMENT; EITHER CONTACT YOUR PRIMARY CARE DOCTOR, THE PHYSICIAN WHOSE NAME AND NUMBER YOU WERE GIVEN, OR RETURN TO THE ED IMMEDIATELY. EBONY MATHIS DO Nov 25, 2020 23:04
[2020-11-25 23:12] LABS: BASO # 0.1 x10^3/uL (0.0-0.2); BASO % 1 % (0-3); EOS # 0.1 x10^3/uL (0.0-0.7); EOS % 0 % (0-3); HEMATOCRIT 45.3 % (39.0-53.0); HEMOGLOBIN 15.6 g/dL (13.0-17.5); LYMPH # 1.1 x10^3/uL (1.0-4.8); LYMPH % 7 % (24-48); MEAN CORPUSCULAR HEMOGLOBIN 33 pg (25-35); MEAN CORPUSCULAR HGB CONC 34 g/dL (31-37); MEAN CORPUSCULAR VOLUME 97 fL (79-100); MONO # 0.4 x10^3/uL (0.0-1.1); MONO % 3 % (0-9); NEUT # 15.5 x10^3/uL (1.8-7.7); NEUT % 90 % (31-73); PLATELET COUNT 202 x10^3/uL (140-400); RED BLOOD COUNT 4.69 x10^6/uL (4.30-5.70); RED CELL DISTRIBUTION WIDTH 13.5 % (11.5-14.5); WHITE BLOOD COUNT 17.3 x10^3/uL (4.0-11.0)
[2020-11-25 23:22] LABS: CALCIUM 9.4 mg/dL (8.5-10.1); CREATININE 1.2 mg/dL (0.7-1.3); POTASSIUM 4.5 mmol/L (3.5-5.1)
[2020-11-25 23:27] LABS: ALBUMIN 4.3 g/dL (3.4-5.0); ALBUMIN/GLOBULIN RATIO 1.2 (1.0-1.7); TOTAL BILIRUBIN 1.1 mg/dL (0.2-1.0); TOTAL PROTEIN 7.8 g/dL (6.4-8.2)
[2020-11-25 23:29] LABS: % BANDS 1 % (0-9); % EOS 1 % (0-5); % LYMPHS 6 % (24-48); % MONOS 7 % (0-10); % SEGS 85 % (35-66); PLT ESTIMATE ADEQUATE (ADEQUATE)
[2020-11-25 23:44] VITALS: BP 182/99
[2020-11-25] MEDS ORDERED: fentaNYL PF VIAL 100 MCG/2 ML VIAL IVP ONE (23:45)
[2020-11-26] MEDS ORDERED: MIDAZOLAM HCL/PF 5 MG/5 ML VIAL. NS ONE
--- NOTE | 2020-11-26 00:08 | RAD ---
XR SHOULDER_LEFT 2+ VIEWS 11/25/2020 12:02 AM INDICATION: Status post reduction COMPARISON: Left shoulder radiograph 11/25/2020 TECHNIQUE: 2 views left shoulder are provided. FINDINGS/ IMPRESSION: Interval reduction of the left glenohumeral joint without definite acute fracture visualized. Mild os teophytosis of the clavicular joint with inferiorly projecting osteophyte. No significant soft tissue abnormality. Electronically signed by: Fannie Hernandez MD (11/26/2020 12:06 AM) [facility]
[2020-11-26 02:04] VITALS: BP 161/86
== END 2020-11-26 02:15 | disposition home or self-care (01) ==
LOC: ER 22:40
DX: S43.085A Other dislocation of left shoulder joint, initial encounter (principal); M25.512 Pain in left shoulder; F17.200 Nicotine dependence, unspecified, uncomplicated; Z98.890 Other specified postprocedural states; W19.XXXA Unspecified fall, initial encounter; Y93.89 Activity, other specified; Y92.89 Other specified places as the place of occurrence of the external cause; Y99.8 Other external cause status
CPT/HCPCS: 23650; 36415; 73030; 80053; 85007; 85025; 96361; 96374; 96375; 99285; G0480; J1885; J2250; J3010; J7030